=== PATIENT | male | born 1935 | race Caucasian/White ===

== ENCOUNTER → 2018-04-25 14:49 | Outpatient (CLI) | payer OTHER, SELFPAY ==
--- NOTE | 2018-04-25 | DI.US.S_ITS ---
PROCEDURE: US PERIPH VENOUS LOW EXTREM RT INDICATIONS: RT LEG SWELLING TECHNIQUE: Real-time imaging, as well as color and pulse Doppler interrogation, were performed of the lower extremity deep veins from the inguinal ligament to the popliteal fossa. COMPARISON: None. FINDINGS: The deep veins are normally compressible, and free of intraluminal thrombus. Color and pulse Doppler demonstrate normal phasic intraluminal flow. There is normal augmentation response to distal compression maneuver. There is also a heterogeneously hypoechoic, avascular lesion within the popliteal fossa in the posterior lower leg measuring 5.4 x 1.7 x 3.1 cm. IMPRESSION: 1. Negative for deep venous thrombosis in the right lower extremity. 2. Heterogeneous, hypoechoic, avascular lesion in the popliteal fossa measuring 5.4 cm in maximum dimension which may represent a complicated Jurado's cyst versus hematoma. Consider short interval followup ultrasound to document stability versus resolution. Dictated by: Daniel Mckee M.D. on 04/26/2018 at 8:47 Approved by: Daniel Mckee M.D. on 04/26/2018 at 8:49
== END ==
PROVIDERS: Family Provider Internal Medicine; PCP Family Medicine; Visit Provider Family Medicine
DX: M79.89 Other specified soft tissue disorders (principal); M25.861 Other specified joint disorders, right knee
CPT/HCPCS: 93971

== ENCOUNTER 2018-05-05 21:45 | Emergency (ER) | payer OTHER, SELFPAY ==
[2018-05-05 21:50] VITALS: BP 129/59; PULSE 75; RESP 18; TEMP 36.3; O2SAT 98; BMI 29.6
--- NOTE | 2018-05-05 22:05 | DI.RAD.S_ITS ---
PROCEDURE: XR CHEST 2V INDICATIONS: CP, SOB TECHNIQUE: 2 views of the chest were acquired. COMPARISON: [facility], , CHEST 1 VIEW, 12/04/2014, 18:45. FINDINGS: Surgical changes and devices: None. Lungs and pleura: Lungs are clear. No pleural effusions or pneumothorax. Mediastinum: Mediastinal contours are normal. Heart size is normal. Bones and chest wall: No suspicious bony abnormalities. Soft tissues appear unremarkable. IMPRESSION: Negative chest films. Dictated by: Neo Minor M.D. on 05/06/2018 at 9:43 Approved by: Neo Minor M.D. on 05/06/2018 at 9:50
--- NOTE | 2018-05-05 22:16 | ED_ITS ---
HPI - Chest Pain General Chief Complaint: Chest Pain Stated Complaint: legs swelling Time Seen by Provider: 05/05/18 21:49 Source: patient Mode of arrival: ambulatory Limitations: no limitations History of Present Illness HPI narrative: 82M nonsmoker with history of HTN and LBBB presents with B/L LE edma for the past few days. He admits to some fatigue but denies any significant shortness of breath, exertional dyspnea or orthopnea. He states he occasionally has some chest pressure but no significant other cardiac equivalent such as dizziness, weakness or lightheadedness. He was recently evaluated for his right lower extremity edema in the absence of injury and had an outpatient evaluation by his primary care provider including a negative D-dimer and follow up with outpatient ultrasound, which was performed Related Data Home Medications Medication Instructions Recorded Confirmed MULTIVITAMIN (Multivitamin 1 cap PO EVERY DAY #0 06/12/09 -) POTASSIUM CHLORIDE (K-Dur) 20 meq PO EVERY DAY #0 06/12/09 lisinopril mg PO QDAY #0 08/02/10 sertraline 50 mg PO QDAY #0 08/02/10 Previous Rx's Medication Instructions Recorded amoxicillin-pot clavulanate 1 tab PO BID #20 tab 05/05/18 [Augmentin] furosemide [Lasix] 20 mg PO DAILY 5 Days tab 05/05/18 Allergies Allergy/AdvReac Type Severity Reaction Status Date / Time gluten [GLUTEN] Allergy Severe CELIAC Unverified 06/20/17 11:52 DISEASE adhesive [ADHESIVE] Allergy Mild rash from Unverified 06/20/17 11:52 plastic tape iodine [IODINE] Allergy Unknown PT UNSURE Unverified 06/20/17 11:52 OF REACTION peanut [PEANUT] Allergy Unknown ABOMINAL Unverified 06/20/17 11:52 PAIN, SHAKING morphine [MORPHINE] AdvReac Severe VOMITED Unverified 06/20/17 11:52 VIOLENTLY, HAD ABD HERNIAS THAT NEEDED SURGERY. Review of Systems Constitutional Denies chills, Denies fever(s), Denies lethargy and Denies weakness Eyes Denies change in vision, Denies eye discharge, Denies irritation and Denies loss of vision ENT Ears, Nose, Mouth, and Throat: Denies change in voice, Denies neck pain and Denies sore throat Cardiovascular Denies chest pain, Denies irregular heart rhythm, Reports leg edema, Denies lightheadedness, Denies palpitations, Denies dyspnea, Denies dyspnea on exertion and Denies orthopnea Respiratory Denies cough, Denies dyspnea, Denies dyspnea on exertion and Denies wheezing Gastrointestinal Gastrointestinal: Denies abdominal pain, Denies change in bowel habits, Denies diarrhea, Denies nausea and Denies vomiting Genitourinary Denies hematuria, Denies flank pain, Denies urinary incontinence and Denies urinary urgency Musculoskeletal Denies neck pain Integumentary/Breasts Denies pruritus, Denies erythema, Denies rash and Denies wounds Neurologic Denies confusion, Denies loss of vision and Denies weakness Psychiatric Denies anxiety, Denies confusion, Denies depression, Denies homicidal ideation and Denies suicidal ideation Endocrine Denies palpitations Hematologic/Lymphatic Denies easy bruising Allergic/Immunologic Denies wheezing PFSH Medical History HTN (hypertension) (Acute) Social History Smoking Status: Never smoker Social History Smoking Status: Never smoker Exam Narrative Exam Narrative: GENERAL: 82-year-old male appears stated age in no obvious distress HEAD: Atraumatic. Normocephalic. No temporal or scalp tenderness. EYES: Pupils equal round and reactive. Extraocular motions intact. No scleral icterus. No injection or drainage. ENT: Nose without bleeding, purulent drainage or septal hematoma. Throat without erythema, tonsillar hypertrophy or exudate. Uvula midline. Airway patent. NECK: Trachea midline. No JVD or lymphadenopathy. Supple, nontender, no meningeal signs. CARDIOVASCULAR: Regular rate and rhythm without murmurs, gallops, or rubs. RESPIRATORY: Clear to auscultation. Breath sounds equal bilaterally. No wheezes, rales, or rhonchi. GASTROINTESTINAL: Abdomen soft, non-tender, nondistended. No hepato- splenomegaly, or palpable masses. No guarding. EXTREMITIES: 2+ pitting edema B/L LE, no erythema, warmth. There is some tendernoss in R popliteal fossa BACK: Nontender without deformity or crepitance. No flank tenderness. NEURO: AOx3. SKIN: No rash or erythema. Initial Vital Signs Initial Vital Signs: Vital Signs Temperature 97.4 F L 05/05/18 21:50 Pulse Rate 75 02/24/19 21:50 Respiratory Rate 18 05/05/18 21:50 Blood Pressure 129/59 L 05/05/18 21:50 Pulse Oximetry 98 05/05/18 21:50 Course Orders Ordered: ED Orders 05/05/18 22:04 Consult to Respiratory Therapy Evaluate & Treat EKG-12 Lead Stat 05/05/18 22:05 XR chest 2V Stat 05/05/18 22:15 B Type Natriuretic Peptide Stat Basic Metabolic Panel Stat Complete Blood Count AUTO DIFF Stat Lactate (Lactic Acid) Stat Magnesium Stat Procalcitonin Stat Troponin & CK Cardiac Panel Stat 05/05/18 22:16 US periph venous low extrem bi Stat Discontinued Medications Amoxicillin/Clavulanate Potassium (Augmentin 875-125 Mg) 1 tab PO NOW ONE Stop: 05/05/18 23:17 Last Admin: 05/05/18 23:21 Dose: 1 tab Furosemide (Lasix) 20 mg IV NOW ONE Stop: 05/05/18 23:11 Last Admin: 05/05/18 23:22 Dose: 20 mg Vital Signs - 8 hr 05/05/18 21:50 05/05/18 23:53 Temperature 97.4 F L Pulse Rate 75 74 Respiratory Rate 18 20 Blood Pressure 129/59 L 156/94 H Pulse Oximetry 98 97 MDM - Chest Pain Lab Data Result diagrams: 05/05/18 22:15 05/05/18 22:15 Lab Results 05/05/18 05/05/18 05/05/18 Range/Units 22:15 22:15 22:15 WBC 5.0 (4.5-11.0) X10^3/uL RBC 4.50 (4.5-5.9) X10^6/uL Hgb 13.8 (13.5-17.5) g/dL Hct 42.0 (41-53) % MCV 93.4 (80-100) fL MCH 30.8 (26-34) PG MCHC 32.9 (30-36) % RDW 14.2 (11.6-14.8) % Plt Count 168 (150-400) X10^3/uL Neut % (Auto) 72.2 (50-75) % Lymph % (Auto) 15.3 L (25-40) % Gillespie % (Auto) 7.0 (3-14) % Eos % (Auto) 4.2 H (2-4) % Baso % (Auto) 1.3 (0-2) % Neut # (Auto) 3600 (9148-9391) /uL Lymph # (Auto) 800 L (0412-0142) /uL Gillespie # (Auto) 400 (0-900) /uL Eos # (Auto) 200 (0-450) /uL Baso # (Auto) 100 (0-100) /uL Sodium 141 (137-145) mmol/L Potassium 4.0 (3.4-5.1) mmol/L Chloride 106 (98-107) mmol/L Carbon Dioxide 24 (22-32) mmol/L BUN 19 (9-20) mg/dL Creatinine 1.20 (0.66-1.25) mg/dL Estimated GFR 57.8 L (>60) mL/min BUN/Creatinine Ratio 15.8 (6-22) Glucose 146 H (80-110) mg/dL Lactate (0.7-2.1) mmol/L Calcium 9.3 (8.4-10.2) mg/dL Magnesium 2.3 (1.6-2.3) mg/dL Total Creatine Kinase 57 (55-170) U/L CK-MB (CK-2) TNP CK-MB (CK-2) Rel Index TNP Troponin I < 0.012 (0.01-0.034) ng/mL B-Natriuretic Peptide < 100 (<100) Procalcitonin < 0.05 (<0.5) ng/mL 05/05/18 Range/Units 22:15 WBC (4.5-11.0) X10^3/uL RBC (4.5-5.9) X10^6/uL Hgb (13.5-17.5) g/dL Hct (41-53) % MCV (80-100) fL MCH (26-34) PG MCHC (30-36) % RDW (11.6-14.8) % Plt Count (150-400) X10^3/uL Neut % (Auto) (50-75) % Lymph % (Auto) (25-40) % Gillespie % (Auto) (3-14) % Eos % (Auto) (2-4) % Baso % (Auto) (0-2) % Neut # (Auto) (0445-3683) /uL Lymph # (Auto) (0062-6461) /uL Gillespie # (Auto) (0-900) /uL Eos # (Auto) (0-450) /uL Baso # (Auto) (0-100) /uL Sodium (137-145) mmol/L Potassium (3.4-5.1) mmol/L Chloride (98-107) mmol/L Carbon Dioxide (22-32) mmol/L BUN (9-20) mg/dL Creatinine (0.66-1.25) mg/dL Estimated GFR (>60) mL/min BUN/Creatinine Ratio (6-22) Glucose (80-110) mg/dL Lactate 1.1 (0.7-2.1) mmol/L Calcium (8.4-10.2) mg/dL Magnesium (1.6-2.3) mg/dL Total Creatine Kinase (55-170) U/L CK-MB (CK-2) CK-MB (CK-2) Rel Index Troponin I (0.01-0.034) ng/mL B-Natriuretic Peptide (<100) Procalcitonin (<0.5) ng/mL ECG Data Attestation: I personally reviewed and interpreted this ECG as follows: Prior ECG tracings: available for review Interpretation: EKG is normal sinus rhythm rate [ 72] and free of any signs of ischemia or ectopy. LBBB is known. No ST segmental elevation or depression. No T wave inversions Discharge Plan Departure Patient Disposition: Home Clinical Impression: Edema extremities Pneumonia Qualifiers: Pneumonia type: due to unspecified organism Laterality: right Lung location: middle lobe of lung Qualified Code(s): J18.1 - Lobar pneumonia, unspecified organism Discharge Date/Time: 05/05/18 23:53 Interventions: ED Discharge Assessment Last Done: 05/05/18 23:53 Instructions: DI for Peripheral Edema -- Bilateral Activity Restrictions/Additional Instructions: *You have been diagnosed with [ bilateral lower extremity edema ] *What to do: *Take medications as directed *Follow up with your primary care provider in 2-3 days, call for an appointment. Let them know you were seen in the Emergency Department and that we ask that you be seen in follow up *Return to ER if you should have any new, worsening or concerning symptoms Prescriptions: New furosemide [Lasix] 20 mg tablet 20 mg PO DAILY 5 Days RF: 0 amoxicillin-pot clavulanate [Augmentin] 875-125 mg tablet 1 tab PO BID Qty: 20 RF: 0 No Action MULTIVITAMIN (Multivitamin -) 1 cap PO EVERY DAY Qty: 0 RF: 0 POTASSIUM CHLORIDE (K-Dur) 20 meq PO EVERY DAY Qty: 0 RF: 0 sertraline 50 MG tablet 50 mg PO QDAY Qty: 0 RF: 0 lisinopril 2.5 MG tablet PO QDAY Qty: 0 RF: 0 Referrals: Khang Seth MD [Primary Care Provider] -
--- NOTE | 2018-05-05 22:16 | DI.US.S_ITS ---
PROCEDURE: US PERIP VENOUS LOW EXTREM BI INDICATIONS: B/L EDEMA, SWELLING, PAIN, KNOWN RECENT HOLLEY'S CYST ON RT TECHNIQUE: Real-time imaging, as well as color and pulse Doppler interrogation, were performed of the deep veins of both legs from the inguinal ligament to the popliteal fossa. COMPARISON: [facility], , [facility] VENOUS LOW EXTREM RT, 04/25/2018, 15:29. FINDINGS: The deep veins are normally compressible, and free of intraluminal thrombus. Color and pulse Doppler demonstrate normal phasic intravascular flow. There is normal augmentation response to distal compression. Two small fluid collections noted in the right popliteal fossa. There is a 3.2 x 0.8 x 3.1 cm popliteal cyst. There is a 4.2 x 1.4 x 2.9 cm hematoma which is decreased in size compared to 04/25/2018 (5.4 x 1.7 x 3.1 cm). IMPRESSION: No evidence of deep vein thrombosis involving the right or left lower extremities. Dictated by: Jelena Park MD, PhD on 05/06/2018 at 7:04 Approved by: Jelena Park MD, PhD on 05/06/2018 at 7:07
[2018-05-05 22:29] LABS: Add Manual Diff / Slide Review NO; Basophils Absolute Auto 100 /uL (0-100); Basophils Percent Auto 1.3 % (0-2); Eosinophils Absolute Auto 200 /uL (0-450); Eosinophils Percent Auto 4.2 % (2-4); Hemoglobin 13.8 g/dL (13.5-17.5); Lymphocytes Absolute Auto 800 /uL (1100-4500); Lymphocytes Percent Auto 15.3 % (25-40); Mean Corpuscular HGB Conc 32.9 % (30-36); Mean Corpuscular Hemoglobin 30.8 PG (26-34); Mean Corpuscular Volume 93.4 fL (80-100); Monocytes Absolute Auto 400 /uL (0-900); Neutrophils Absolute Auto 3600 /uL (1500-7000); Neutrophils Percent Auto 72.2 % (50-75); Platelet Count 168 X10^3/uL (150-400); Red Cell Distribution Width 14.2 % (11.6-14.8)
[2018-05-05 22:42] LABS: BUN Creatinine Ratio 15.8 (6-22); Blood Urea Nitrogen 19 mg/dL (9-20); Calcium 9.3 mg/dL (8.4-10.2); Carbon Dioxide 24 mmol/L (22-32); Chloride 106 mmol/L (98-107); Creatine Kinase 57 U/L (55-170); Estimated Glomerular Filt Rate 57.8 mL/min (>60); Glucose 146 mg/dL (80-110); HEMOLYSIS < 15 (0-50); Lactate (Lactic Acid) 1.1 mmol/L (0.7-2.1); Magnesium 2.3 mg/dL (1.6-2.3); Sodium 141 mmol/L (137-145)
[2018-05-05 22:52] LABS: B Type Natriuretic Peptide < 100 (<100)
[2018-05-05 22:54] LABS: Procalcitonin < 0.05 ng/mL (<0.5); Troponin I < 0.012 ng/mL (0.01-0.034)
[2018-05-05] MEDS: AMOXICILLIN/CLAV 875/125 MG 1 TAB PO (23:21)
[2018-05-05] MEDS: FUROSEMIDE 20 MG/2 ML VIAL IV (23:22)
[2018-05-05 23:53] VITALS: BP 156/94; PULSE 74; RESP 20; O2SAT 97
== END 2018-05-05 23:53 | disposition home or self-care (01) ==
PROVIDERS: Emergency Provider Emergency Medicine; Family Provider Internal Medicine; PCP Family Medicine
DX: J18.1 Lobar pneumonia, unspecified organism (principal); R60.0 Localized edema
CPT/HCPCS: 36591; 71046; 80048; 82550; 83605; 83735; 83880; 84145; 84484; 85025; 93005; 93010; 93970; 96374; 99283; 99285; J1940

== ENCOUNTER 2018-11-20 14:23 | Day surgery (SDC) | payer OTHER, SELFPAY ==
--- NOTE | 2018-11-20 | PATH_ITS ---
[facility] Accession Number: [id number] . 01 Material submitted: . PART A: body - CELIAC PART B: body - NO SITE DESIGNATED PART C: body - BIOPSY AT 60 . 01 Clinical history: . A: CELIAC B: RULE OUT H.PYLORI POLYP OF COLON, NAUSEA WITH VOMITING, UNSPECIFIED HEMORRHAGE OF ANUS AND RECTUM . 02 Diagnosis: A. Duodenum, Biopsy: Duodenal mucosa with no diagnostic abnormality. Additional levels were examined. Negative for active inflammation, features of sprue, dysplasia and malignancy. . B. Stomach, Biopsy: Antral mucosa with no diagnostic abnormality. Negative for Helicobacter by immunohistochemistry. Negative for intestinal metaplasia. Negative for dysplasia and malignancy. . C. Colon, 60, Biopsy: Tubular adenoma. [facility] 11/25/2018 1348 Local . 02 Electronically signed: . Lucy Villagomez MD, Pathologist NPI- [id number] . 01 Gross description: . Part A: CELIAC: Received in formalin are 2 fragment(s) of dowling, soft tissue measuring 0.1 x 0.1 x 0.1 cm to 0.2 x 0.2 x 0.2 cm which is entirely submitted and submitted entirely in 1 cassette(s) Part B: NO SITE DESIGNATED: Received in formalin are 2 fragment(s) of dowling, soft tissue measuring 0.1 x 0.1 x 0.1 cm to 0.3 x 0.2 x 0.2 cm which is entirely submitted and submitted entirely in 1 cassette(s) Part C: BIOPSY AT 60: Received in formalin is 1 fragment(s) of dowling, soft tissue measuring 0.3 x 0.3 x 0.3 cm which is entirely submitted and submitted entirely in 1 cassette(s) /[facility] 11/21/2018 1901 Local . 02 Microscopic: . B. An immunohistochemical stain was performed to evaluate for Helicobacter organisms and is negative. The control stain showed appropriate reactivity. . * This test was developed and its performance characteristics determined by [facility]. It has not been cleared or approved by the U.S. Food and Drug Administration. The FDA has determined that such clearance or approval is not necessary. This test is used for clinical purposes. It should not be regarded as investigational or for research. . 02 Pathologist provided ICD-10: D12.6, K63.5, R11.2 . 02 CPT . 512703, 736205, 272330, [id number] Performed at: 01 [facility] [address] [place] [address], [place], [place] [id number] MD Alirio Padgett MD Phone: [phone] Performed at: 02 [facility] [address] [place], [place] [id number] MD Lucy Villagomez MD Phone: [phone]
[2018-11-20 15:13] VITALS: BP 129/76; PULSE 62; RESP 16; TEMP 36.3; O2SAT 95; BMI 27.0
[2018-11-20] MEDS: SODIUM CHLORIDE 0.9% 1,000 ML 150 ML IV (15:32)
--- NOTE | 2018-11-20 16:20 | PM.HP.1 ---
History of Present Illness History of Present Illness Date Patient Seen: 11/20/18 Time Patient Seen: 16:22 Chief complaint: [id number] COLONOSCOPY & EGD Narrative: Celiac disease with symptoms of nausea and occasional vomiting rule out uncontrolled celiac History of large adenomatous colon polyps need for follow-up colonoscopy one last time. Occasional rectal bleeding Patient History Medical History (Updated 11/20/18 @ 16:22 by Neo Basurto MD) Adenomatous colon polyp (Acute) HTN (hypertension) (Acute) Kidney stones (Acute) Social History household members: spouse Smoking Status: Never smoker Family & Social History Social History: household members spouse Tobacco & Substance use: Smoking Status Never smoker alcohol intake frequency 0-2 drinks per day Substance Use Type does not use Meds Home Medications and Allergies Home Medications Medication Instructions Recorded Confirmed Type xshdslxirxcr-dccp-[id number] acid 1 tab PO QAM #0 06/12/09 11/20/18 History [Multi Complete with Iron] amoxicillin-pot clavulanate 1 tab PO BID #20 tab 05/05/18 11/20/18 Rx [Augmentin] amiodarone 200 mg PO DAILY 11/20/18 11/20/18 History carbidopa-levodopa 4 tab PO BID 11/20/18 11/20/18 History clonazepam 0.25 mg PO DAILY 11/20/18 11/20/18 History clonazepam 0.5 mg PO DAILY 11/20/18 11/20/18 History montelukast [Singulair] 4 mg PO DAILY 11/20/18 11/20/18 History zonisamide 100 mg PO BID 11/20/18 11/20/18 History Allergies Allergy/AdvReac Type Severity Reaction Status Date / Time gluten [GLUTEN] Allergy Severe CELIAC Verified 11/20/18 15:04 DISEASE adhesive [ADHESIVE] Allergy Mild rash from Verified 11/20/18 15:04 plastic tape iodine [IODINE] Allergy Unknown PT UNSURE Verified 11/20/18 15:04 OF REACTION morphine [MORPHINE] AdvReac Severe VOMITED Verified 11/20/18 15:04 VIOLENTLY, HAD ABD HERNIAS THAT NEEDED SURGERY. Exam Vital Signs (past 8 hours): - 11/20/18 15:13 Temperature 97.4 F L Pulse Rate 62 Respiratory Rate 16 Blood Pressure 129/76 Pulse Oximetry 95 Oxygen Delivery Method Room Air Narrative Exam Narrative: Oropharynx free of lesions Chest clear to auscultation percussion Cardiac exam reveals no S3 or murmur Assessment & Plan Assessment & Plan narrative: Celiac disease adhering to a strict diet but with worsening nausea vomiting. Rule out uncontrolled celiac. Rule out Helicobacter, rule out peptic disease, rule out gastric outlet obstruction History of large adenomatous colon polyps need for follow-up colonoscopy EGD and colonoscopy will be performed today. Risks, benefits, alternatives have been explained. This will be under anesthesia care.
--- NOTE | 2018-11-20 16:24 | PM.OP.ENDO ---
Operative Date/Time/Diagnoses Date of procedure: 11/20/18 Time of procedure: 16:24 Pre-op diagnosis: See indication and findings Procedure & Clinicians Study performed: EGD and colonoscopy Same procedure as scheduled: Yes Indications: Nausea and vomiting with history of celiac. Occasional rectal bleeding. History of adenomatous colon polyps. Surgeon: Neo Basurto Procedure Notes Procedure in detail: After informed consent was obtained the patient was placed in the left lateral decubitus position. The video endoscope was placed into the oropharynx and with the patient's health swallowed into the esophagus. The esophagus stomach and duodenum were carefully examined. On withdrawal retroflexed view the GE junction was performed. The scope was removed. The patient tolerated the procedure well. The colonoscope was then substituted in this was inserted into the rectum and slowly passed to the anastomosis. Preparation was good. On slow withdrawal mucosa was carefully examined. The scope was removed. The patient tolerated procedure well. Blood loss none Complications none Sedation MAC per anesthesia Findings EGD 1. Prominent arterial vascular impingement in the upper esophagus. Patient has no dysphagia 2. No evidence for esophagitis 3. Streaky gastric erythema in the antrum biopsies taken to rule out Helicobacter 4. Normal duodenal bulb and sweep biopsies taken to rule out uncontrolled celiac Colonoscopy 1. 4 mm polyp at 60 cm Jumbo biopsied and removed completely 2. Extensive sigmoid diverticula 3. Normal ileocolonic anastomosis near the hepatic flexure 4. Otherwise negative colonoscopy to cecum. Will be in touch regarding the biopsies by telephone. Results will dictate follow-up. This should be the patient's last colonoscopy.
[2018-11-20 16:26] VITALS: BP 120/72; PULSE 63; RESP 15; O2SAT 90
[2018-11-20 16:27] VITALS: O2SAT 95
[2018-11-20 16:30] VITALS: PULSE 66; RESP 15; O2SAT 94
[2018-11-20 16:35] VITALS: BP 143/71; PULSE 60; RESP 16; O2SAT 97
[2018-11-20 16:49] VITALS: BP 138/78; PULSE 58; RESP 15; TEMP 36.8; O2SAT 99
== END 2018-11-20 17:14 | disposition home or self-care (01) ==
PROVIDERS: Family Provider Internal Medicine; PCP Family Medicine; Visit Provider Internal Medicine Gastroenterology
PROC: 0DJ08ZZ Inspection of Upper Intestinal Tract, Via Natural or Artificial Opening Endoscopic (ICD-10-PCS; CPT 43235; principal; 2018-11-20 15:00)
PROC: 0DJD8ZZ Inspection of Lower Intestinal Tract, Via Natural or Artificial Opening Endoscopic (ICD-10-PCS; CPT 45378; 2018-11-20 15:00)
DX: K62.5 Hemorrhage of anus and rectum (principal); K90.0 Celiac disease; R11.2 Nausea with vomiting, unspecified; K57.30 Diverticulosis of large intestine without perforation or abscess without bleeding; D12.6 Benign neoplasm of colon, unspecified; I10 Essential (primary) hypertension
CPT/HCPCS: 45380; 43239; J2250; J2704; J3010

== ENCOUNTER 2018-12-24 19:14 | Inpatient (IN) | payer OTHER, SELFPAY ==
[2018-12-24 19:21] VITALS: BP 147/76; PULSE 60; RESP 16; TEMP 36.2; O2SAT 98; BMI 28.1
--- NOTE | 2018-12-24 19:23 | DI.RAD.S_ITS ---
PROCEDURE: XR WRIST LT MIN 3V INDICATIONS: fall pain TECHNIQUE: 3 views of the wrist were acquired. COMPARISON: None. FINDINGS: Bones: No fractures or dislocations. No suspicious bony lesions. Mild first carpometacarpal degenerative change. First MTP degenerative change. Soft tissues: No suspicious soft tissue calcifications. IMPRESSION: No evidence acute bony abnormality of the left wrist Dictated by: Neo Minor M.D. on 12/24/2018 at 21:11 Approved by: Neo Minor M.D. on 12/24/2018 at 21:12
--- NOTE | 2018-12-24 19:23 | DI.CT.S_ITS ---
PROCEDURE: CT HEAD/BRAIN WO CON INDICATIONS: fall on asa TECHNIQUE: Noncontrast 4.5 mm thick angled axial sections acquired from the foramen magnum to the vertex, with coronal and sagittal reformats. For radiation dose reduction, the following was used: automated exposure control, adjustment of mA and/or kV according to patient size. COMPARISON: [facility], CT, HEAD WITHOUT CONTRAST, 09/01/2014, 17:03. FINDINGS: Image quality: Excellent. CSF spaces: Basal cisterns are patent. No extra-axial fluid collections. The ventricles are symmetric in size and shape. Brain: No intracranial bleeds or masses. There is cerebral volume loss for age, with resultant ventricular and sulcal prominence. There are periventricular and deep white matter chronic small vessel ischemic changes. There is intracranial internal carotid artery atherosclerosis. Skull and face: Calvarium and visualized facial bones appear intact, without suspicious lesions. Sinuses: Visualized sinuses and mastoids are clear. IMPRESSION: 1. Age related volume loss 2. No evidence acute stroke, hemorrhage, or mass. Dictated by: Neo Minor M.D. on 12/24/2018 at 19:51 Approved by: Neo Minor M.D. on 12/24/2018 at 19:52
--- NOTE | 2018-12-24 19:23 | DI.RAD.S_ITS ---
PROCEDURE: XR SHOULDER LT MIN 2V INDICATIONS: fall pain TECHNIQUE: 2 views of the shoulder were acquired. COMPARISON: [facility], , SHOULDER MINIMUM 2 VIEW LEFT, 11/27/2010, 20:13. FINDINGS: Bones: No fractures or dislocations. No suspicious bony lesions. Visualized ribs appear intact. Severe glenohumeral joint degenerative change. Soft tissues: Calcific bursitis. IMPRESSION: No evidence acute bony abnormality of the left shoulder. Severe glenohumeral joint degenerative change and calcific bursitis. Dictated by: Neo Minor M.D. on 12/24/2018 at 21:14 Approved by: Neo Minor M.D. on 12/24/2018 at 21:15
--- NOTE | 2018-12-24 19:23 | DI.RAD.S_ITS ---
PROCEDURE: XR HIP W PEL IF DONE LT 2V INDICATIONS: fall pain left hip pain TECHNIQUE: 2 views of the hip were acquired. COMPARISON: None. FINDINGS: Bones: Probable nondisplaced subcapital fracture of the left femoral neck. No suspicious bony lesions. The visualized pelvic ring appears intact. Soft tissues: No suspicious soft tissue calcifications or masses. IMPRESSION: Probable nondisplaced subcapital fracture of the left femoral neck. Severe left hip degenerative change. Comment: Findings were discussed with Dr. Way at the time of study dictation. Dictated by: Neo Minor M.D. on 12/24/2018 at 21:07 Approved by: Neo Minor M.D. on 12/24/2018 at 21:10
--- NOTE | 2018-12-24 19:25 | ED.LOWEXIN ---
HPI - Extremity Injury (Lower) General Chief Complaint: Extremity Injury, Lower Stated Complaint: GLF-Head injury/hip Pain Time Seen by Provider: 12/24/18 19:23 Source: EMS Mode of arrival: EMS Limitations: no limitations History of Present Illness HPI Narrative: Patient is a 83-year-old male who presents after a ground level fall. He was holding the door open for his another couple to go into a restaurant the cement ground is on even his toe caught he slipped and fell landing on his left side. He did hit his head he does take aspirin daily no loss of consciousness. His biggest complaint is left hip pain. He is also having some left shoulder pain and left wrist pain. No numbness or tingling. MD complaint: hip injury Context: fall Related Data Home Medications Medication Instructions Recorded Confirmed lrgndwzuhade-orkq-ryxab acid 1 tab PO QAM #0 06/12/09 11/20/18 [Multi Complete with Iron] amiodarone 200 mg PO DAILY 11/20/18 11/20/18 carbidopa-levodopa 4 tab PO BID 11/20/18 11/20/18 clonazepam 0.25 mg PO DAILY 11/20/18 11/20/18 clonazepam 0.5 mg PO DAILY 11/20/18 11/20/18 montelukast [Singulair] 4 mg PO DAILY 11/20/18 11/20/18 zonisamide 100 mg PO BID 11/20/18 11/20/18 Previous Rx's Medication Instructions Recorded amoxicillin-pot clavulanate 1 tab PO BID #20 tab 05/05/18 [Augmentin] Allergies Allergy/AdvReac Type Severity Reaction Status Date / Time gluten [GLUTEN] Allergy Severe CELIAC Verified 12/24/18 19:21 DISEASE adhesive [ADHESIVE] Allergy Mild rash from Verified 12/24/18 19:21 plastic tape iodine [IODINE] Allergy Unknown PT UNSURE Verified 12/24/18 19:21 OF REACTION morphine [MORPHINE] AdvReac Severe VOMITED Verified 12/24/18 19:21 VIOLENTLY, HAD ABD HERNIAS THAT NEEDED SURGERY. Review of Systems Review of Systems ROS Unobtainable: All systems reviewed & are unremarkable except as noted in HPI and below Constitutional Constitutional: Denies chills, Denies fever(s), Denies lethargy and Denies weakness Eyes Eyes: Denies change in vision, Denies eye discharge, Denies irritation and Denies loss of vision Cardiovascular Cardiovascular: Denies chest pain, Denies irregular heart rhythm, Denies lightheadedness, Denies palpitations, Denies dyspnea, Denies dyspnea on exertion and Denies orthopnea Respiratory Respiratory: Denies cough, Denies dyspnea, Denies dyspnea on exertion and Denies wheezing Gastrointestinal Gastrointestinal: Denies abdominal pain, Denies change in bowel habits, Denies diarrhea, Denies nausea and Denies vomiting Genitourinary Genitourinary: Denies hematuria, Denies flank pain, Denies urinary incontinence and Denies urinary urgency Musculoskeletal Musculoskeletal: Reports as per HPI Integumentary/Breasts Comments: Contusion noted left forehead Neurologic Neurologic: Denies loss of vision and Denies weakness Endocrine Endocrine: Denies palpitations Allergic/Immunologic Allergic/Immunologic: Denies wheezing Patient History Medical History (Updated 12/25/18 @ 01:20 by Cori Mayo RN) Adenomatous colon polyp (Acute) HTN (hypertension) (Acute) Kidney stones (Acute) Social History household members: spouse and children Smoking Status: Former smoker Social History household members: spouse and children Smoking Status: Former smoker alcohol intake frequency: 0-2 drinks per day Substance Use Type: does not use Exam Initial Vital Signs Initial Vital Signs: Vital Signs Temperature 97.1 F L 12/24/18 19:21 Pulse Rate 60 12/24/18 19:21 Respiratory Rate 16 12/24/18 19:21 Blood Pressure 147/76 H 12/24/18 19:21 Pulse Oximetry 98 12/24/18 19:21 GENERAL: Alert pleasant elderly male HEENT: Head contusion over left forehead no crepitations or depression,EOMI, pupils reactive, face symmetric, moist mucous membranes NECK: No vertebral tenderness no step-off full range of motion CARDIOVASCULAR: Regular rate and rhythm without murmurs, rubs or gallops. RESPIRATORY: Breath sounds equal bilaterally, no wheezes rales or rhonchi. ABDOMEN: Soft, nontender. Normoactive bowel sounds all 4 quadrants. No guarding or rebound. EXTREMITIES: Normal range of motion, no clubbing or edema. Neurovascularly intact Tender left shoulder no gross bony. Deformity no clavicle step-offs tender left wrist a good distal radial pulse no gross bony deformities slightly tender to touch minimal swelling Left lower extremity swelling and pain at left hip. Legs are of equal length distal pedal pulse intact NEUROLOGICAL: Alert and oriented x4. Normal speech SKIN: Warm, dry, no laceration, no petechiae, no rashes or lesions. Chest Chest: normal inspection of the chest Course Orders Ordered: ED Orders 12/24/18 19:23 CT head/brain wo con Stat XR hip w pel if done LT 2V Stat XR shoulder LT min 2V Stat XR wrist LT min 3V Stat 12/24/18 20:34 Complete Blood Count AUTO DIFF Stat Comprehensive Metabolic Panel Stat Partial Thromboplastin Time Stat Prothrombin Time INR Stat 12/24/18 21:10 CT pelvis wo con Stat 12/24/18 21:44 Education, smoking cessation ONGOING 12/24/18 21:49 Consult to Discharge Planning Routine 12/24/18 21:50 Consult to Physician Routine 12/24/18 22:21 Consult to Orthopedic Surgery Stat 12/25/18 05:00 Basic Metabolic Panel Routine Complete Blood Count AUTO DIFF Routine Al Hydrox/Mg Hydrox/Simethicone (Maalox Plus) 30 ml PO Q6HR PRN PRN Reason: Dyspepsia Last Admin: 12/25/18 01:02 Dose: 30 ml Documented by: TAJ Amiodarone HCl (Cordarone) 200 mg PO DAILY TAWANDA Bisacodyl (Dulcolax) 10 mg PO DAILY PRN PRN Reason: Constipation Calcium Carbonate (Tums) 1,000 mg PO Q4HR PRN PRN Reason: Dyspepsia Last Admin: 12/24/18 23:26 Dose: 1,000 mg Documented by: MMCFARL Carbidopa/Levodopa (Sinemet 25-100 Tab) 4 each PO BID TAWANDA Last Admin: 12/24/18 22:38 Dose: 4 each Documented by: MMCFARL Docusate Sodium (Colace) 100 mg PO BID PRN PRN Reason: Constipation Heparin Sodium (Porcine) (Heparin) 5,000 unit SUBCUT BID TAWANDA Hydromorphone HCl (Dilaudid) 0.5 mg IV Q6HR PRN PRN Reason: Pain, Moderate (4-6) Last Admin: 12/25/18 00:30 Dose: 0.5 mg Documented by: Admin: 12/24/18 22:35 Dose: 0.5 mg Documented by: MMCFARL Hydromorphone HCl (Dilaudid) 1 mg IV Q6HR PRN PRN Reason: Pain, Severe (7-10) Sodium Chloride (Normal Saline 0.9%) 1,000 mls @ 100 mls/hr IV CONT TAWANDA Last Admin: 12/25/18 00:23 Dose: 100 mls/hr Documented by: TAJ Ondansetron HCl (Zofran) 4 mg IV Q8HR PRN PRN Reason: Nausea And Vomiting Pantoprazole Sodium (Protonix) 40 mg PO 0700 TAWANDA Zonisamide (Zonegran) 100 mg PO BID TAWANDA Last Admin: 12/25/18 02:31 Dose: Not Given Documented by: TAJ Discontinued Medications Fentanyl (Sublimaze) 50 mcg IV NOW ONE Stop: 12/24/18 19:49 Last Admin: 12/24/18 19:58 Dose: 50 mcg Documented by: GREGORIAFARL Hydromorphone HCl (Dilaudid) 0.5 mg IV NOW ONE Stop: 12/24/18 21:16 Last Admin: 12/24/18 21:25 Dose: 0.5 mg Documented by: EAN Ranitidine HCl (Zantac) 150 mg PO NOW ONE Stop: 12/25/18 01:07 Last Admin: 12/25/18 01:41 Dose: 150 mg Documented by: TAJ Vital Signs Vital signs: Vital Signs - 8 hr 12/24/18 19:21 Temperature 97.1 F L Pulse Rate 60 Respiratory Rate 16 Blood Pressure 147/76 H Pulse Oximetry 98 MDM - Extremity Injury (Lower) Lab Data Attestation: I reviewed the patient's lab results. Result diagrams: 12/24/18 20:34 12/24/18 20:34 Labs: Lab Results 12/24/18 12/24/18 12/24/18 Range/Units 20:34 20:34 20:34 WBC 4.8 (4.5-11.0) X10^3/uL RBC 4.24 L (4.5-5.9) X10^6/uL Hgb 13.2 L (13.5-17.5) g/dL Hct 39.9 L (41-53) % MCV 94.0 (80-100) fL MCH 31.2 (26-34) PG MCHC 33.2 (30-36) % RDW 14.2 (11.6-14.8) % Plt Count 136 L (150-400) X10^3/uL Neut % (Auto) 66.1 (50-75) % Lymph % (Auto) 21.1 L (25-40) % [place] % (Auto) 6.9 (3-14) % Eos % (Auto) 4.3 H (2-4) % Baso % (Auto) 1.6 (0-2) % Neut # (Auto) 3200 (2437-3581) /uL Lymph # (Auto) 1000 L (7474-7606) /uL [place] # (Auto) 300 (0-900) /uL Eos # (Auto) 200 (0-450) /uL Baso # (Auto) 100 (0-100) /uL PT 11.9 (10.1-12.7) SECONDS INR 1.0 (0.9-1.3) APTT 32 (26.4-36.2) SECONDS Sodium 141 (137-145) mmol/L Potassium 4.0 (3.4-5.1) mmol/L Chloride 108 H (98-107) mmol/L Carbon Dioxide 25 (22-32) mmol/L BUN 17 (9-20) mg/dL Creatinine 1.00 (0.66-1.25) mg/dL Estimated GFR > 60.0 (>60) mL/min BUN/Creatinine Ratio 17.0 (6-22) Glucose 101 (80-110) mg/dL Calcium 8.8 (8.4-10.2) mg/dL Total Bilirubin 0.5 (0.2-1.3) mg/dL AST 21 (17-59) IU/L ALT 13 L (21-72) IU/L Alkaline Phosphatase 66 (38-126) U/L Total Protein 6.5 (6.3-8.2) g/dL Albumin 3.9 (3.5-5.0) g/dL Globulin 2.6 (1.7-4.1) g/dL Albumin/Globulin Ratio 1.5 (1.0-2.8) Imaging Data CT scan - head: Radiologist's impression: PROCEDURE: CT HEAD/BRAIN WO CON INDICATIONS: fall on asa TECHNIQUE: Noncontrast 4.5 mm thick angled axial sections acquired from the foramen magnum to the vertex, with coronal and sagittal reformats. For radiation dose reduction, the following was used: automated exposure control, adjustment of mA and/or kV according to patient size. COMPARISON: Located Within [facility], CT, HEAD WITHOUT CONTRAST, 09/01/2014, 17:03. FINDINGS: Image quality: Excellent. CSF spaces: Basal cisterns are patent. No extra-axial fluid collections. The ventricles are symmetric in size and shape. Brain: No intracranial bleeds or masses. There is cerebral volume loss for age, with resultant ventricular and sulcal prominence. There are periventricular and deep white matter chronic small vessel ischemic changes. There is intracranial internal carotid artery atherosclerosis. Skull and face: Calvarium and visualized facial bones appear intact, without suspicious lesions. Sinuses: Visualized sinuses and mastoids are clear. IMPRESSION: 1. Age related volume loss 2. No evidence acute stroke, hemorrhage, or mass. Dictated by: Neo Minor M.D. on 12/24/2018 at 19:51 left hip: Radiologist's impression: PROCEDURE: CT HEAD/BRAIN WO CON INDICATIONS: fall on asa TECHNIQUE: Noncontrast 4.5 mm thick angled axial sections acquired from the foramen magnum to the vertex, with coronal and sagittal reformats. For radiation dose reduction, the following was used: automated exposure control, adjustment of mA and/or kV according to patient size. COMPARISON: Located Within [facility], CT, HEAD WITHOUT CONTRAST, 09/01/2014, 17:03. FINDINGS: Image quality: Excellent. CSF spaces: Basal cisterns are patent. No extra-axial fluid collections. The ventricles are symmetric in size and shape. Brain: No intracranial bleeds or masses. There is cerebral volume loss for age, with resultant ventricular and sulcal prominence. There are periventricular and deep white matter chronic small vessel ischemic changes. There is intracranial internal carotid artery atherosclerosis. Skull and face: Calvarium and visualized facial bones appear intact, without suspicious lesions. Sinuses: Visualized sinuses and mastoids are clear. IMPRESSION: 1. Age related volume loss 2. No evidence acute stroke, hemorrhage, or mass. Dictated by: Neo Minor M.D. on 12/24/2018 at 19:51 shoulder left: Radiologist's impression: PROCEDURE: XR SHOULDER LT MIN 2V INDICATIONS: fall pain TECHNIQUE: 2 views of the shoulder were acquired. COMPARISON: Located Within [facility], , SHOULDER MINIMUM 2 VIEW LEFT, 11/27/2010, 20:13. FINDINGS: Bones: No fractures or dislocations. No suspicious bony lesions. Visualized ribs appear intact. Severe glenohumeral joint degenerative change. Soft tissues: Calcific bursitis. IMPRESSION: No evidence acute bony abnormality of the left shoulder. Severe glenohumeral joint degenerative change and calcific bursitis. Dictated by: Neo Minor M.D. on 12/24/2018 at 21:14 left wrist: Radiologist's impression: PROCEDURE: XR WRIST LT MIN 3V INDICATIONS: fall pain TECHNIQUE: 3 views of the wrist were acquired. COMPARISON: None. FINDINGS: Bones: No fractures or dislocations. No suspicious bony lesions. Mild first carpometacarpal degenerative change. First MTP degenerative change. Soft tissues: No suspicious soft tissue calcifications. IMPRESSION: No evidence acute bony abnormality of the left wrist Dictated by: Neo Minor M.D. on 12/24/2018 at 21:[address]: Radiologist's impression: PROCEDURE: CT PEL WO CON INDICATIONS: left hip pain ?sub cap TECHNIQUE: Noncontrast 3 mm axial sections acquired through the bony pelvis, with coronal and sagittal reformatting. COMPARISON: Located Within [facility], , XR HIP W PEL IF DONE LT 2V, 12/24/2018, 19:23. FINDINGS: Image quality: Excellent. Bones: Subtle nondisplaced left femoral neck fracture, severe left hip degenerative arthritis. No other fractures or dislocations. Lower lumbar fusion. Soft tissues: Unremarkable IMPRESSION: Subtle nondisplaced left femoral neck fracture, severe left hip degenerative arthritis. Dictated by: Neo Minor M.D. on 12/24/2018 at 22:01 ECG Data Attestation: I personally reviewed and interpreted this ECG as follows: Prior ECG tracings: available for review Interpretation: Sinus rhythm left bundle branch block noted no ST changes similar to previous EKG MDM Narrative Medical decision making narrative: Initial x-ray was suspicious for possible fracture. Patient has obvious pain and neck to have fracture. CT does confirm a femoral neck fracture. Kerwin GILLIAM updated patient's symptoms test results in the ED to see and evaluate patient. Dr. [facility] updated on patient's symptoms may go to OR tomorrow however may also be the following day. Recommends continuing Parkinson's medication. Patient took many of his home acid reflux medications and then started having chest pain. EKG shows left bundle-branch block no changes from prior. Discharge Plan Departure Patient Disposition: Admitted As Inpatient Clinical Impression: Fracture of femoral neck, left Discharge Date/Time: 12/24/18 23:45 Admit Date/Time: 12/24/18 22:50 Admit Provider: Wilson Suresh
[2018-12-24] MEDS: fentaNYL 100 MCG/2 ML INJ 50 MCG IV (19:58)
--- NOTE | 2018-12-24 20:36 | PC.NURSE ---
PT states left hip, wrist and shoulder pain post glf. 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 Pt takes aspirin daily denies LOC. Pt has hematoma to left forehead, swelling to left wrist and hip. Left radial and pedal pulse present upon palp.
[2018-12-24 20:41] LABS: Add Manual Diff / Slide Review NO; Basophils Absolute Auto 100 /uL (0-100); Basophils Percent Auto 1.6 % (0-2); Eosinophils Absolute Auto 200 /uL (0-450); Eosinophils Percent Auto 4.3 % (2-4); Hematocrit 39.9 % (41-53); Hemoglobin 13.2 g/dL (13.5-17.5); Lymphocytes Absolute Auto 1000 /uL (1100-4500); Lymphocytes Percent Auto 21.1 % (25-40); Mean Corpuscular HGB Conc 33.2 % (30-36); Mean Corpuscular Hemoglobin 31.2 PG (26-34); Monocytes Absolute Auto 300 /uL (0-900); Monocytes Percent Auto 6.9 % (3-14); Neutrophils Absolute Auto 3200 /uL (1500-7000); Neutrophils Percent Auto 66.1 % (50-75); Platelet Count 136 X10^3/uL (150-400); Red Blood Cell Count 4.24 X10^6/uL (4.5-5.9); Red Cell Distribution Width 14.2 % (11.6-14.8); White Blood Cell Count 4.8 X10^3/uL (4.5-11.0)
[2018-12-24 20:47] LABS: Prothrombin Time 11.9 SECONDS (10.1-12.7)
[2018-12-24 20:50] LABS: PTT Partial Thromboplastin Tim 32 SECONDS (26.4-36.2)
[2018-12-24 20:51] LABS: Alanine Aminotransferase 13 IU/L (21-72); Albumin 3.9 g/dL (3.5-5.0); Albumin Globulin Ratio 1.5 (1.0-2.8); Alkaline Phosphatase 66 U/L (38-126); Aspartate Aminotransferase 21 IU/L (17-59); Bilirubin Total 0.5 mg/dL (0.2-1.3); Blood Urea Nitrogen 17 mg/dL (9-20); Calcium 8.8 mg/dL (8.4-10.2); Carbon Dioxide 25 mmol/L (22-32); Chloride 108 mmol/L (98-107); Estimated Glomerular Filt Rate > 60.0 mL/min (>60); Globulin 2.6 g/dL (1.7-4.1); Glucose 101 mg/dL (80-110); HEMOLYSIS < 15 (0-50); Sodium 141 mmol/L (137-145); Total Protein 6.5 g/dL (6.3-8.2)
--- NOTE | 2018-12-24 21:10 | DI.CT.S_ITS ---
PROCEDURE: CT PEL WO CON INDICATIONS: left hip pain ?sub cap TECHNIQUE: Noncontrast 3 mm axial sections acquired through the bony pelvis, with coronal and sagittal reformatting. COMPARISON: [facility], CR, XR HIP W PEL IF DONE LT 2V, 12/24/2018, 19:23. FINDINGS: Image quality: Excellent. Bones: Subtle nondisplaced left femoral neck fracture, severe left hip degenerative arthritis. No other fractures or dislocations. Lower lumbar fusion. Soft tissues: Unremarkable IMPRESSION: Subtle nondisplaced left femoral neck fracture, severe left hip degenerative arthritis. Dictated by: Neo Minor M.D. on 12/24/2018 at 22:01 Approved by: Neo Minor M.D. on 12/24/2018 at 22:03
[2018-12-24] MEDS: HYDROMORPHONE 0.5 MG INJ IV (21:25)
[2018-12-24] MEDS: HYDROMORPHONE 1 MG INJ 0.5 MG IV (22:35)
[2018-12-24] MEDS: CARBIDOPA-LEVODOPA 25/100 TABLET 4 EACH PO (22:38)
--- NOTE | 2018-12-24 23:00 | PC.NURSE ---
PT states abd epigastric discomfort and requesting tums, pt given tums per admission order and elevated HOB. Provider notified and EKG performed.
[2018-12-24] MEDS: CALCIUM CARBONATE 500 MG TAB 1000 MG PO (23:26)
[2018-12-24 23:45] VITALS: BP 118/62; PULSE 56; RESP 18; O2SAT 96
[2018-12-25] VITALS (10 sets, daily range): BP systolic 129–153; BP diastolic 64–83; PULSE 54–71; RESP 16–20; TEMP 36.3–37.3; O2SAT 93–99; BMI 28.1
[2018-12-25] MEDS: SODIUM CHLORIDE 0.9% 1,000 ML 100 ML IV ×3 (00:23→22:26)
[2018-12-25] MEDS: HYDROMORPHONE 1 MG INJ 0.5 MG IV (00:30)
[2018-12-25] MEDS: MAG HYDROX/ALUM/SIMETH 30 ML UDC PO (01:02)
[2018-12-25] MEDS: HYDROMORPHONE 0.5 MG INJ IV ×2 (04:25→12:45)
[2018-12-25] MEDS: CALCIUM CARBONATE 500 MG TAB 1000 MG PO (04:25)
--- NOTE | 2018-12-25 05:13 | PM.HP.1 ---
History of Present Illness History of Present Illness Date Patient Seen: 12/24/18 Time Patient Seen: 23:00 Chief complaint: GLF-Head injury/hip Pain Narrative: Mr. 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 Patient landed on his left side with immediate left hip pain left shoulder pain and struck his. The patient's stay no loss conscious and denies neck or back pain. Patient hence no recent complaints of fevers or chills, headaches or dizziness, chest pain or palpitations with history of paroxysmal atrial fibrillation, no shortness of breath, cough or wheezing. He reports no complaints of abdominal pain, nausea vomiting, changes in bowel or bladder habits. The patient is normally ambulatory at baseline and independent in all ADLs. He does have tremors related to his Parkinson's disease. Upon arrival the patient is afebrile with a temperature of 97.1?, heart rate of 60, blood pressure 147/76, respirations of 16 saturating 90% on room air. A CT of the head is obtained related to fall and head contusion on aspirin and found to have no acute intercranial pathology with age-related volume loss. Imaging of the left hip demonstrate a subcapital femoral neck impaction fracture. On laboratory tests the patient has white count of 4.8, hemoglobin of 13.2, hematocrit of 39.9 and platelets of 138. He has a PT of 11.9 and a PTT of 32 with an INR 1.0. His electrolytes are within normal range knee has a BUN of 17 and creatinine 1.0. His nonfasting glucose is 101. His liver functions are all within normal range. The patient is admitted for left hip fracture with consult to Dr. Jimenes orthopedics. Patient History Medical History (Updated 12/25/18 @ 05:36 by TAWANA Funk) Adenomatous colon polyp (Acute) Atrial fibrillation (Inactive) CAD (coronary artery disease) (Acute) Celiac disease (Acute) Compression fracture of L1 lumbar vertebra (Acute) GERD (gastroesophageal reflux disease) (Acute) HTN (hypertension) (Acute) Kidney stones (Acute) Parkinsons disease (Acute) Surgical History (Updated 10/16/19 @ 05:36 by TAWANA Funk) History of cholecystectomy (Acute) History of colonoscopy (Acute) History of esophagogastroduodenoscopy (EGD) (Acute) History of hernia repair (Acute) History of lumbar fusion (Acute) History of right hemicolectomy (Acute) Social History household members: spouse and children Smoking Status: Former smoker Family & Social History Social History: household members spouse,children Prior Living Arrangements House Safety & Behavioral: Feels Safe in Current Yes Environment Been Physically Hurt or No Threatened By a Person Suicidal Ideation Description None Suicide Plan Description No Plan Tobacco & Substance use: Tobacco type cigarettes Smoking Status Former smoker alcohol intake frequency a few times a month Substance Use Type does not use Comment: The patient lives in a single family home with his to whom he has been for 60 years. He reports family history was father passing away from intracranial bleed secondary to trauma, his mother who when he was 2 years old from complications of surgery with peritonitis, a half brother who has heart disease and a sister who has asthma. Smoking: The patient smoked for 10 years quitting 54 years ago. Alcohol: Patient endorses approximately 4 drinks per week. Substance use: The patient denies recreation pharmaceuticals, herbal or cannabis products. Advanced directives: The patient states he has formal advanced directives and states his desire to be FULL CODE. He designates his to be his surrogate decision maker. Meds Home Medications and Allergies Home Medications Medication Instructions Recorded Confirmed Type tyawzrtireon-rkzm-kiqtq acid 1 tab PO QAM #0 06/12/09 12/25/18 History [Multi Complete with Iron] amiodarone 200 mg PO DAILY 11/20/18 12/25/18 History carbidopa-levodopa 4 tab PO BID 11/20/18 12/25/18 History clonazepam 0.25 mg PO DAILY 11/20/18 12/25/18 History clonazepam 0.5 mg PO DAILY 11/20/18 12/25/18 History montelukast [Singulair] 4 mg PO DAILY 11/20/18 12/25/18 History zonisamide 100 mg PO BID 11/20/18 12/25/18 History Allergies Allergy/AdvReac Type Severity Reaction Status Date / Time gluten [GLUTEN] Allergy Severe CELIAC Verified 12/24/18 19:21 DISEASE adhesive [ADHESIVE] Allergy Mild rash from Verified 12/24/18 19:21 plastic tape iodine [IODINE] Allergy Unknown PT UNSURE Verified 12/24/18 19:21 OF REACTION morphine [MORPHINE] AdvReac Severe VOMITED Verified 12/24/18 19:21 VIOLENTLY, HAD ABD HERNIAS THAT NEEDED SURGERY. Review of Systems Review of Systems ROS Unobtainable: All systems reviewed & are unremarkable except as noted in HPI and below Exam Vital Signs (past 8 hours): - 12/24/18 23:45 12/25/18 00:25 12/25/18 01:00 Temperature 98.5 F Pulse Rate 56 L 71 Respiratory Rate 18 16 Blood Pressure 153/80 H Blood Pressure [Left Arm] 118/62 Pulse Oximetry 96 98 98 Oxygen Delivery Method Room Air Oxygen Flow Rate 0 Narrative Exam Narrative: GENERAL APPEARANCE: well developed, well nourished, in moderate discomfort. HEENT: Contusion over left eye, mild swelling of the left eyelid, no crepitus, PERRLA, conjunctiva clear, EOMs intact without nystagmus, no rhinorrhea or epistaxis, mucous membranes are moist and pink without lesions or exudate. NECK/THYROID: neck supple, no muscle spasms or step-offs, no JVD, no carotid bruit, no thyromegaly, trachea midline. LYMPH NODES: no cervical or supraclavicular lymphadenopathy. SKIN: warm and dry, no suspicious lesions, no rashes HEART: regular rate and rhythm, S1-S2, no murmur, no rubs or gallops, brisk capillary refill, no edema LUNGS: clear to auscultation bilaterally, no coarseness crackles or wheezing, no cough present CHEST: Symmetrical movement, no accessory muscle use, no pain to AP and lateral compression. ABDOMEN: Soft, no distention, no abdominal tenderness, no guarding or peritoneal signs, no organomegaly, active bowel tones. BACK: Normal curvature, nontender to palpation, no CVA tenderness on percussion EXTREMITIES: Pain with movement of left leg, pain on palpation left hip distal CMS intact. NEUROLOGIC: AAO x4, moderate tremors bilateral upper extremities, cranial nerves II-XII grossly intact, sensation intact to light touch, hearing grossly normal to speech. PSYCH: alert, cognitive function intact, good eye contact, appropriate with stable behavior Objective Labs Result Diagrams: 12/24/18 20:34 12/24/18 20:34 Labs: Laboratory Results - last 24 hr 12/24/18 12/24/18 12/24/18 20:34 20:34 20:34 WBC 4.8 RBC 4.24 L Hgb 13.2 L Hct 39.9 L MCV 94.0 MCH 31.2 MCHC 33.2 RDW 14.2 Plt Count 136 L Neut % (Auto) 66.1 Lymph % (Auto) 21.1 L [place] % (Auto) 6.9 Eos % (Auto) 4.3 H Baso % (Auto) 1.6 Neut # (Auto) 3200 Lymph # (Auto) 1000 L [place] # (Auto) 300 Eos # (Auto) 200 Baso # (Auto) 100 PT 11.9 INR 1.0 APTT 32 Sodium 141 Potassium 4.0 Chloride 108 H Carbon Dioxide 25 BUN 17 Creatinine 1.00 Estimated GFR > 60.0 BUN/Creatinine Ratio 17.0 Glucose 101 Calcium 8.8 Total Bilirubin 0.5 AST 21 ALT 13 L Alkaline Phosphatase 66 Total Protein 6.5 Albumin 3.9 Globulin 2.6 Albumin/Globulin Ratio 1.5 Assessment & Plan Assessment & Plan narrative: This is an 83-year-old male patient who presents to the ER following a ground level fall landing on his left side sustaining a subcapital fracture of the left femoral neck. 1. Subcapital fracture left femoral neck, acute, present on admission, active -hip fracture with ground level fall consistent with diagnosis of osteoporosis. -patient with intact distal circulation movement sensation -ordered Dilaudid 0.5-1 mg every 4 hours as needed for pain -Dr. Jimenes has been consulted and we appreciate her recommendations for care. -patient is NPO pending possible surgical intervention. 2. Paroxysmal atrial fibrillation, chronic, stable -patient is in sinus bradycardia with left bundle branch block and left axis deviation. -patient under the care Cardiology, will continue current dose amiodarone 100 mg daily. 3. Parkinson's disease, chronic, present on admission, stable -patient denies falls or gait disturbance and tonight's incident was a mechanical trip and fall. Reports no difficulty chewing or swallowing. -continue patient's home regimen of of carbidopa levodopa, 4 tablets of 25-100 twice daily. 4. Gastroesophageal reflux disorder, chronic, present on admission, active -patient has been treating with oknx-mwo-wxiyhau medications at home. -will start pantoprazole 40 mg daily. 5. Essential hypertension, chronic, present on admission, active -admitting blood pressure is 147/76. -patient is not currently on blood pressure medication. Blood pressure elevated presently related to pain, will continue to monitor. 6. Celiac disease, chronic, present on admission, active -will request dietary consult. The patient is admitted to the hospital related to femoral neck fracture pending evaluation by Dr. Jimenes. Patient is admitted as an inpatient with expected length of stay to be greater than 2 midnights. Scores GCS Monster coma scale eye opening: Spontaneous Monster coma scale verbal response: Orientated [place] coma scale motor response: Obey commands [place] coma scale total score: 15 Quality VTE Deep Vein Thrombosis/Pulmonary Embolism Present on Admission: No
--- NOTE | 2018-12-25 05:58 | PC.NURSE ---
Pt admitted to floor at 0015. A&O x4, Reports pain 10/10 with movement to left hip, pain 5/10 at rest. CMS intact to LLE. Pt on bedrest. Pain tolerable with IV pain med. Pt NPO for surgical consult in AM. Pt with Hx Parkinson, restless leg, Tim's palsey with left eye droop, Celiac disease. Pt reports even a tiny bit of gluten and I have violent diarrhea for days. Pt ordered for Dietary consult before first meal. Pt with long hx severe chronic heartburn, on PRN maalox and tums. Clarify Zonegran medication with pharmacy. Last dose 12/24at 1600.
[2018-12-25 06:00] LABS: Add Manual Diff / Slide Review NO; Basophils Absolute Auto 0 /uL (0-100); Basophils Percent Auto 0.8 % (0-2); Eosinophils Absolute Auto 100 /uL (0-450); Eosinophils Percent Auto 1.6 % (2-4); Hematocrit 38.9 % (41-53); Hemoglobin 13.1 g/dL (13.5-17.5); Lymphocytes Absolute Auto 700 /uL (1100-4500); Lymphocytes Percent Auto 12.6 % (25-40); Mean Corpuscular HGB Conc 33.8 % (30-36); Mean Corpuscular Hemoglobin 31.7 PG (26-34); Monocytes Absolute Auto 500 /uL (0-900); Monocytes Percent Auto 9.3 % (3-14); Neutrophils Absolute Auto 4300 /uL (1500-7000); Neutrophils Percent Auto 75.7 % (50-75); Platelet Count 114 X10^3/uL (150-400); Red Blood Cell Count 4.14 X10^6/uL (4.5-5.9); Red Cell Distribution Width 13.9 % (11.6-14.8); White Blood Cell Count 5.6 X10^3/uL (4.5-11.0)
[2018-12-25 06:04] LABS: BUN Creatinine Ratio 18.9 (6-22); Blood Urea Nitrogen 17 mg/dL (9-20); Calcium 8.7 mg/dL (8.4-10.2); Carbon Dioxide 26 mmol/L (22-32); Chloride 108 mmol/L (98-107); Estimated Glomerular Filt Rate > 60.0 mL/min (>60); Glucose 126 mg/dL (80-110); HEMOLYSIS < 15 (0-50); Potassium 4.1 mmol/L (3.4-5.1); Sodium 138 mmol/L (137-145)
[2018-12-25] MEDS: PANTOPRAZOLE 20 MG TABLET 40 MG PO (08:32)
[2018-12-25] MEDS: HYDROMORPHONE 1 MG INJ IV (08:32)
[2018-12-25] MEDS: ONDANSETRON 4 MG/2 ML INJ IV ×2 (09:41→13:51)
[2018-12-25] MEDS: ZONISAMIDE 100 MG CAPSULE PO ×2 (11:29→20:09)
[2018-12-25] MEDS: ASPIRIN EC 81 MG TABLET PO (11:30)
[2018-12-25] MEDS: AMIODARONE 100 MG TABLET PO (11:30)
[2018-12-25] MEDS: CARBIDOPA-LEVODOPA 25/100 TABLET 4 EACH PO ×2 (11:34→20:09)
--- NOTE | 2018-12-25 12:05 | PM.PN.1 ---
Subjective Subjective Date Patient Seen: 12/25/18 Time Patient Seen: 11:00 Interval history: The patient presented to the ED on 12/24 for a fall on his left side. XR showed an acute left femoral neck fracture. Patient admitted and Ortho consulted for possible surgical intervention, Dr. Jimenes following. Pain under control and managed with norco and tylenol. Patient denies fever, chills, nausea, vomiting, chest pain. Exam Vital Signs (past 8 hours): - 12/25/18 05:00 12/25/18 08:00 Temperature 99.2 F 97.4 F L Pulse Rate 59 L 54 L Respiratory Rate 16 16 Blood Pressure 129/83 129/64 Pulse Oximetry 95 95 Oxygen Delivery Method Room Air Oxygen Flow Rate 0 Narrative Exam Narrative: L hip - gross deformity, with mild edema and ecchymosis, ttp, pain when attempting ROM Sensory function grossly intact to light touch LE b/l. Dorsalis pedis 2+ b/l. Capillary refill <2 seconds LE b/l. Patient able to actively dorsiflex/plantar flex. Objective Labs Result Diagrams: 12/25/18 05:15 12/25/18 05:15 Labs: Laboratory Results - last 24 hr 12/24/18 12/24/18 12/24/18 20:34 20:34 20:34 WBC 4.8 RBC 4.24 L Hgb 13.2 L Hct 39.9 L MCV 94.0 MCH 31.2 MCHC 33.2 RDW 14.2 Plt Count 136 L Neut % (Auto) 66.1 Lymph % (Auto) 21.1 L [place] % (Auto) 6.9 Eos % (Auto) 4.3 H Baso % (Auto) 1.6 Neut # (Auto) 3200 Lymph # (Auto) 1000 L [place] # (Auto) 300 Eos # (Auto) 200 Baso # (Auto) 100 PT 11.9 INR 1.0 APTT 32 Sodium 141 Potassium 4.0 Chloride 108 H Carbon Dioxide 25 BUN 17 Creatinine 1.00 Estimated GFR > 60.0 BUN/Creatinine Ratio 17.0 Glucose 101 Calcium 8.8 Total Bilirubin 0.5 AST 21 ALT 13 L Alkaline Phosphatase 66 Total Protein 6.5 Albumin 3.9 Globulin 2.6 Albumin/Globulin Ratio 1.5 12/25/18 12/25/18 05:15 05:15 WBC 5.6 RBC 4.14 L Hgb 13.1 L Hct 38.9 L MCV 94.0 MCH 31.7 MCHC 33.8 RDW 13.9 Plt Count 114 L Neut % (Auto) 75.7 H Lymph % (Auto) 12.6 L [place] % (Auto) 9.3 Eos % (Auto) 1.6 L Baso % (Auto) 0.8 Neut # (Auto) 4300 Lymph # (Auto) 700 L [place] # (Auto) 500 Eos # (Auto) 100 Baso # (Auto) 0 PT INR APTT Sodium 138 Potassium 4.1 Chloride 108 H Carbon Dioxide 26 BUN 17 Creatinine 0.90 Estimated GFR > 60.0 BUN/Creatinine Ratio 18.9 Glucose 126 H Calcium 8.7 Total Bilirubin AST ALT Alkaline Phosphatase Total Protein Albumin Globulin Albumin/Globulin Ratio Assessment & Plan Assessment & Plan narrative: As per Dr. Jimenes, patient is scheduled for surgery, left total hip arthroplasty, on 12/26 Continue current pain management Quality VTE Deep Vein Thrombosis/Pulmonary Embolism Present on Admission: No
[2018-12-25] MEDS: HYDROCODONE/ACET 10/325 TABLET 1 TAB PO ×2 (12:17→17:21)
--- NOTE | 2018-12-25 14:16 | DIET.PN ---
Dietary Progress Note Assessment: 83y M admitted for hip fx r/t osteoporosis from GLF referred to nutrition for celiac dz assurance from kitchen and reported wt loss. At time of interview, pt experiencing N/V, this RD unable to procure information from pt. Will try again tomorrow after surgery. Kitchen is aware of celiac requirement. Per weight records pt has lost 5.6% in 8mo which is not of concern at this time. HT: 172.7cm WT: 83.4kg (on 05/05/18 was 88.5kg) BMI: 28.0 Labs: unremarkable MNA: 10 at risk r/t wt loss, not of concern at this time Juan Alberto: 16 Diet Order: Cardiac, Gluten Free Monitoring/Evaluations: F/U interview s/p surgery
--- NOTE | 2018-12-25 15:32 | CM.DANOTE ---
DCP assessment: EMR Reviewed: patient is a 83 yr old male who had GLF, and a hip fracture. Patient PCP is Dr. Seth CM met with patient and his at bedside and explained CM/Rns role. Patient and patients would like patient to go to a SNF at discharge due to his immobility and difficulty for to help move patient. Patient stated he is I with ADL's at base line. Cm Called [facility] and at [phone] to get Auth for SNF placement. CM contacted [facility] to review patient chart for possible addmission pending PT/ OT evaluations. PASRR needs to be completed. Insurance: 1st: [employer] 2nd: self pay plan: patient would like to go to SNF: pending PT/OT evaluations. [facility] reviewing CM department to F/U with FCC and PT/OT notes tomorrow 12/26/2018 for continued D/C plan. Karla Jimenes RN. Discharge Planning/Care Management CM Discharge Assessment Start: 12/25/18 15:26 Freq: Status: Active Protocol: Document 12/25/18 15:27 HS (Rec: 12/25/18 15:31 HS [id number]) Discharge Planning Assessment Assigned Vice Investigator Karla Jimenes RN DPOA/Assigned Designee Name Samira Calhuon Contact Information [phone] Advance Directives? Yes: Cardiopulmonary Resuscitation (CPR) Advance Directive Advance Directives on File No History Provided By Patient,Family Member Has Patient been admitted in last 30 No days? Prior Living Arrangements House Household Members spouse,children Type of transporation used prior to Drives own vehicle admit Independent with ADL's Yes Is patient alert and oriented? Yes Needs Assistance With Bathing,Grooming,Toileting Caregiver for Another No DME Already Rented / Owned FWW / Walker,Cane Patient/Family Preference [facility] Facility Discharge Plan [facility] Facility Referrals Initiated [facility] Additional Comment CM called [facility] Medicare Choice List Provided Yes SNF/HH Preference Patients preferrence is [facility] Contact Name/Phone August at [facility] [phone] Has Agency SNF been contacted Yes Comment They are reviewing patient Whiteboard Updated in Patient Room with Yes name and ext. # of Vice Investigator Review Status In Process Next Review Type Continued Stay Review
--- NOTE | 2018-12-25 15:59 | PC.NURSE ---
Dayshift Note: Pt with severe pain this shift. Pt refusing repositioning in bed, using the bed to turn pt from R side to back. Discussed potential for pressure ulcers d/t lack of repositioning. Pt indicates understanding but did not allow repositioning in bed d/t pain. Pt had episode of nausea this am without emesis, relieved with IV zofran. Pt given iv dilaudid for pain initially with good relief, pain down to 2/10. Pt required additional pain medication before dose of dilaudid was due at 1230, orders received from Dr. Tim for norco . Pt given po pain medication at the same time his first meal was served. Pt ate meal and was nauseated with emesis shortly after eating and taking pain medication. Pt was diaphoretic and had pronounced pallor at that time. Dr. Tim to bedside, HR was in 50s, BP in 150s. SPO2 96% on RA. Pt noticed to have infiltrated iv in R forearm. New iv started in R forearm without incident and pt given 4 mg iv zofran. Pt is now resting comfortably. Denies nausea and reports pain is minimal. Report given to oncoming RN.
--- NOTE | 2018-12-25 16:03 | P.PN_ITS ---
Subjective Subjective Date Patient Seen: 12/25/18 Interval history: Patient is an 83-year-old male with a history of paroxysmal atrial fibrillation, Parkinson's disease, GERD, hypertension, and celiac disease who presented following fall resulting in a left femoral neck fracture. Patient received Dilaudid earlier today and developed significant cyclic vomiting. He was diaphoretic. And quite ill. He states he has had heart the past 2 days. He had significant emesis with morphine previously. The patient has received fentanyl in the past and has tolerated this without difficulty. He reports significant pain with any movement of the left lower extremity. Patient is scheduled for surgery for tomorrow. Exam Vital Signs (past 8 hours): - 12/25/18 12:00 12/25/18 13:00 12/25/18 15:41 Temperature 98 F 97.9 F Pulse Rate 56 L 57 L Respiratory Rate 16 18 Blood Pressure 130/80 129/77 Pulse Oximetry 94 95 94 12/25/18 15:49 Temperature Pulse Rate Respiratory Rate Blood Pressure Pulse Oximetry 93 Oxygen Delivery Method Room Air Oxygen Flow Rate 0 Narrative Exam Narrative: Pleasant male in no acute distress HEENT: Bruising ecchymoses over the left eye. The left eye is nearly shot. Lungs: Clear to auscultation Cardiac exam: Regular rate and rhythm normal S1-S2 with a 2/6 systolic ejection murmur Abdomen: Soft nontender nondistended Extremities: No clubbing cyanosis or edema Objective Labs Result Diagrams: 12/25/18 05:15 12/25/18 05:15 Labs: Laboratory Results - last 24 hr 12/24/18 12/24/18 12/24/18 20:34 20:34 20:34 WBC 4.8 RBC 4.24 L Hgb 13.2 L Hct 39.9 L MCV 94.0 MCH 31.2 MCHC 33.2 RDW 14.2 Plt Count 136 L Neut % (Auto) 66.1 Lymph % (Auto) 21.1 L [place] % (Auto) 6.9 Eos % (Auto) 4.3 H Baso % (Auto) 1.6 Neut # (Auto) 3200 Lymph # (Auto) 1000 L [place] # (Auto) 300 Eos # (Auto) 200 Baso # (Auto) 100 PT 11.9 INR 1.0 APTT 32 Sodium 141 Potassium 4.0 Chloride 108 H Carbon Dioxide 25 BUN 17 Creatinine 1.00 Estimated GFR > 60.0 BUN/Creatinine Ratio 17.0 Glucose 101 Calcium 8.8 Total Bilirubin 0.5 AST 21 ALT 13 L Alkaline Phosphatase 66 Total Protein 6.5 Albumin 3.9 Globulin 2.6 Albumin/Globulin Ratio 1.5 12/25/18 12/25/18 05:15 05:15 WBC 5.6 RBC 4.14 L Hgb 13.1 L Hct 38.9 L MCV 94.0 MCH 31.7 MCHC 33.8 RDW 13.9 Plt Count 114 L Neut % (Auto) 75.7 H Lymph % (Auto) 12.6 L [place] % (Auto) 9.3 Eos % (Auto) 1.6 L Baso % (Auto) 0.8 Neut # (Auto) 4300 Lymph # (Auto) 700 L [place] # (Auto) 500 Eos # (Auto) 100 Baso # (Auto) 0 PT INR APTT Sodium 138 Potassium 4.1 Chloride 108 H Carbon Dioxide 26 BUN 17 Creatinine 0.90 Estimated GFR > 60.0 BUN/Creatinine Ratio 18.9 Glucose 126 H Calcium 8.7 Total Bilirubin AST ALT Alkaline Phosphatase Total Protein Albumin Globulin Albumin/Globulin Ratio Assessment & Plan Assessment & Plan narrative: Impression 1. 83-year-old male status post ground level fall resulting in a left femoral neck fracture. Patient most likely has underlying osteoporosis which is the etiology of the fracture. He is scheduled for definitive hip surgery tomorrow. The patient has been placed on a baby aspirin for DVT prophylaxis. Heparin has been discontinued. Patient did not tolerate Dilaudid for pain. He will be switched to fentanyl for pain control. 2. Persistent atrial fibrillation, on amiodarone, will continue. Patient at this time is not in atrial fibrillation. However he requires anti rhythmic therapy to remain in sinus rhythm. 3. Parkinson's disease, chronic, continue carbidopa levodopa 4. GERD, chronic, continue PPI 5. Hypertension, chronic continue usual home medication 6. Celiac disease, chronic will continue a gluten free diet. 7. Left eye ecchymoses following fall, will continue to monitor Patient is scheduled for surgery tomorrow will continue his usual medications. Quality VTE Deep Vein Thrombosis/Pulmonary Embolism Present on Admission: No
[2018-12-25] MEDS: clonazePAM 0.5 MG TABLET PO (22:23)
[2018-12-25] MEDS: FLUTICASONE 120 SPRAY/16 GM SPRAY.SUSP NASAL (22:25)
[2018-12-26] VITALS (12 sets, daily range): BP systolic 101–160; BP diastolic 44–74; PULSE 50–68; RESP 15–18; TEMP 36.2–37.2; O2SAT 92–98; BMI 28.0
--- NOTE | 2018-12-26 | DI.RAD.S_ITS ---
PROCEDURE: XR PELVIS 1-2V INDICATIONS: INTRA OPERATIVE HIP TECHNIQUE: Intra-operative view of the pelvis and hip acquired. COMPARISON: Located Within [facility], CT, CT PEL WO CON, 12/24/2018, 21:14. Located Within [facility], CR, XR HIP W PEL IF DONE LT 2V, 12/27/2018, 0:16. Located Within [facility], CR, PELVIS W UNILATERAL HIP RIGHT, 11/27/2010, 20:23. FINDINGS: Bones: Intraoperative devices prior to placement of arthroplasty prostheses are in expected positions. No fractures or suspicious bony lesions. Soft tissues: Overlying surgical retractors are present, along with other intraoperative changes. IMPRESSION: Left hip arthroplasty. Hardware is intact with good anatomic alignment. Dictated by: Ghislaine Bey M.D. on 12/27/2018 at 8:34 Approved by: Ghislaine Bey M.D. on 12/27/2018 at 8:34
[2018-12-26] MEDS: HYDROCODONE/ACET 10/325 TABLET 1 TAB PO ×3 (03:14→13:23)
[2018-12-26] MEDS: PANTOPRAZOLE 20 MG TABLET 40 MG PO (06:34)
[2018-12-26] MEDS: SODIUM CHLORIDE 0.9% 1,000 ML 100 ML IV (08:42)
[2018-12-26] MEDS: ZONISAMIDE 100 MG CAPSULE PO (08:46)
[2018-12-26] MEDS: CARBIDOPA-LEVODOPA 25/100 TABLET 4 EACH PO (08:48)
[2018-12-26] MEDS: ASPIRIN EC 81 MG TABLET PO (08:48)
[2018-12-26] MEDS: clonazePAM 0.5 MG TABLET 0.25 MG PO (08:48)
--- NOTE | 2018-12-26 13:38 | DIET.PN ---
Dietary Progress Note Assessment: 83y M admitted for hip fx r/t osteoporosis from GLF referred to nutrition for celiac dz assurance from kitchen and reported wt loss. At time of interview, pt reports no issues r/t N/V. He is NPO prepping for surgery this afternoon. HT: 172.7cm WT: 83.4kg (on 05/05/18 was 88.5kg) BMI: 28.0 Labs: Gluc: 126 MNA: 10 at risk r/t wt loss, not of concern at this time Juan Alberto: 16 Nutrition DX: No dx at this time. Intervention: Discussed menu w/ pt. He feels confident in menu and appropriate food choices at this time. Diet Order: Cardiac, Gluten Free Monitoring/Evaluations: F/U interview s/p surgery. May recommend ONS depending on PO's post surgery.
--- NOTE | 2018-12-26 16:07 | DI.RAD.S_ITS ---
PROCEDURE: XR HIP W PEL IF DONE LT 2V INDICATIONS: post operative total left hip arthroplasty TECHNIQUE: AP and lateral views of the hip were acquired. COMPARISON: [facility], CR, XR PELVIS 1-2V, 12/26/2018, 22:53. [facility], CT, CT PEL WO CON, 12/24/2018, 21:14. [facility], CR, XR HIP W PEL IF DONE LT 2V, 12/24/2018, 19:23. FINDINGS: Bones: Interval placement of a left total hip arthroplasty with hardware in expected positions and alignment. No periprosthetic fractures or dislocations. No suspicious bony lesions. The visualized pelvic ring appears intact. Soft tissues: Surgical clips overlie the left hip. There is adjacent left hip and thigh soft tissue edema and subcutaneous emphysema, consistent with postsurgical change. A surgical drain projects over the left hip. Calcified pelvic phleboliths again noted. IMPRESSION: Postsurgical changes of left total hip arthroplasty, without radiographic evidence of acute hardware complication. Dictated by: Neo Rodriguez M.D. on 12/27/2018 at 8:14 Approved by: Neo Rodriguez M.D. on 12/27/2018 at 8:23
[2018-12-26] MEDS: ACETAMINOPHEN 325 MG TABLET 975 MG PO (16:42)
[2018-12-26] MEDS: PREGABALIN 75 MG CAPSULE PO (16:42)
[2018-12-26] MEDS: CELECOXIB 200 MG CAPSULE PO (16:42)
--- NOTE | 2018-12-26 17:39 | PM.HP.1 ---
History of Present Illness History of Present Illness Date Patient Seen: 12/25/18 Time Patient Seen: 07:51 Chief complaint: GLF-Head injury/hip Pain Narrative: This is an 83-year-old gentleman who fell at home when he tripped doing laundry and noted the acute onset of left hip pain. He has it long-standing history of Parkinson's disease uses a walker normally ambulate and notes a history of multiple falls. He also notes some ongoing left wrist and arm pain and weakness. He does associate this with the fall noting that he landed on his left hip and his left arm. Has a chronic history of ongoing left hip pain which has been getting progressively worse over the last few years. He notes it has progressed to the extent that he has difficulty walking as inter for some with his activities of daily living. Patient History Medical History Adenomatous colon polyp (Acute) Atrial fibrillation (Inactive) CAD (coronary artery disease) (Acute) Celiac disease (Acute) Compression fracture of L1 lumbar vertebra (Acute) GERD (gastroesophageal reflux disease) (Acute) HTN (hypertension) (Acute) Kidney stones (Acute) Parkinsons disease (Acute) Surgical History History of cholecystectomy (Acute) History of colonoscopy (Acute) History of esophagogastroduodenoscopy (EGD) (Acute) History of hernia repair (Acute) History of lumbar fusion (Acute) History of right hemicolectomy (Acute) Social History household members: spouse and children Smoking Status: Former smoker Family & Social History Social History: household members spouse,children Prior Living Arrangements House Safety & Behavioral: Feels Safe in Current Yes Environment Been Physically Hurt or No Threatened By a Person Suicidal Ideation Description None Suicide Plan Description No Plan Tobacco & Substance use: Tobacco type cigarettes Smoking Status Former smoker alcohol intake frequency a few times a month Substance Use Type does not use Meds Home Medications and Allergies Home Medications Medication Instructions Recorded Confirmed Type [id number] acid 1 tab PO QAM #0 06/12/09 12/25/18 History [Multi Complete with Iron] amiodarone 200 mg PO DAILY 11/20/18 12/25/18 History carbidopa-levodopa 4 tab PO BID 11/20/18 12/25/18 History clonazepam 0.25 mg PO DAILY 11/20/18 12/25/18 History clonazepam 0.5 mg PO DAILY 11/20/18 12/25/18 History montelukast [Singulair] 4 mg PO DAILY 11/20/18 12/25/18 History zonisamide 100 mg PO BID 11/20/18 12/25/18 History Allergies Allergy/AdvReac Type Severity Reaction Status Date / Time gluten [GLUTEN] Allergy Severe CELIAC Verified 12/26/18 16:32 DISEASE adhesive [ADHESIVE] Allergy Mild rash from Verified 12/26/18 16:32 plastic tape iodine [IODINE] Allergy Unknown PT UNSURE Verified 12/26/18 16:32 OF REACTION cephalexin AdvReac Severe violent Verified 12/26/18 16:47 indigestion hydromorphone [From Dilaudid] AdvReac Severe vomited Verified 12/26/18 16:32 violently morphine [MORPHINE] AdvReac Severe VOMITED Verified 12/26/18 16:32 VIOLENTLY, HAD ABD HERNIAS THAT NEEDED SURGERY. Review of Systems Review of Systems Narrative: He did not feel short of breath have dizziness or specific chest pain prior to his fall he notes that his Parkinson's is getting progressively worse but it is not acutely was, he denies any new problems with his bowel or bladder control, he lives with his who has poor health and sleeps on the couch, he normally ambulates with a walker he has 1 on each floor of his house and then attempted to go up and down stairs without his walker. Exam Vital Signs (past 8 hours): - 12/26/18 12:28 12/26/18 13:23 12/26/18 15:40 Temperature 97.8 F Pulse Rate 51 L Respiratory Rate 16 Blood Pressure 117/52 L Pulse Oximetry 95 95 96 12/26/18 16:11 12/26/18 16:33 Temperature 97.2 F L 97.5 F L Pulse Rate 51 L 54 L Respiratory Rate 18 15 Blood Pressure 128/64 128/63 Pulse Oximetry 98 97 Oxygen Delivery Method Room Air Oxygen Flow Rate 0 Narrative Exam Narrative: HEENT is remarkable for contusion to his left head is neck is supple has a mild tremor. His course shows a mild irregular rhythm with a well-controlled rate there is mild systolic murmur, is lungs are clear abdomen is benign examination of his left upper extremity shows tenderness palpation over his left forearm and wrist has region in the normal range of motion of his elbow and wrist but does have slight decreased import specialist strength in his left hand, his left leg shows severe pain with attempted range of motion in his left hip he is able to fire his toe flexors and extensors and has mild numbness in bilateral lower extremities adequate capillary refill in the left foot Objective ECG Impression: His CT scan shows slightly comminuted left femoral neck fracture and severe left hip osteoarthritis. Impression is long-standing significant left hip osteoarthritis with a recent ground level level fall and a left femoral neck fracture with some comminution. His x-rays of his left shoulder shows mild calcific tendinitis is left wrist does not show a fracture. Recommendations and plan and and I had an extensive discussion today he has 2 problems 1. Long-standing left hip osteoarthritis 2. An acute fall with a new left femoral neck fracture. I have recommended left total hip arthroplasty. That procedure alternatives risks benefits and complications were discussed in detail and he is interested in pursuing that. He has Parkinson's and of injury to his left wrist I think he has no chance of being nonweightbearing on his left upper extremity if he were to undergo an open reduction internal fixation and he has a longstanding significant the arthritic left hip and this left total hip arthroplasty is clearly indicated. Labs Result Diagrams: 12/25/18 05:15 12/25/18 05:15 Assessment & Plan Assessment & Plan narrative: The nature of the procedure concerns regarding rehab risks benefits and possible complications were discussed in great detail with the patient and his both his son and I believe it is his daughter who overall at bedside. Plan is for a left total hip arthroplasty. Quality VTE Deep Vein Thrombosis/Pulmonary Embolism Present on Admission: No
--- NOTE | 2018-12-26 17:54 | P.OP_ITS ---
Operative Date/Time/Diagnoses Date of procedure: 12/26/18 Time of procedure: 17:54 Pre-op diagnosis: Left hip osteoarthritis, left femoral neck fracture Post-op diagnosis: same Procedure & Clinicians Procedure: Right total hip replacement Same procedure as scheduled: Yes Indications: The patient has had progressively worsening left hip pain with radiographic changes consistent with arthritis. He then fell and suffered an acute left femoral neck fracture. Non-operative management has failed and the patient has requested total hip replacement. The risks, benefits and alternatives to surgery were discussed with the patient prior to proceeding. Risks discussed included, but were not limited to, failure to relieve pain, leg length discrepancy, dislocation, stiffness, infection, nerve damage, deep venous thrombosis, pulmonary embolism, stroke, coma, heart attack, permanent paralysis and , as well as the potential need for eventual revision of the prosthetic. Surgeon: Lanny Jimenes Office Cashier: Sd Reddy Anesthesia Type: General and Spinal Operative Notes Findings: Severe left hip arthritis, left femoral neck fracture subcapital Closure Type: primary Specimen(s): none sent Prosthetic devices, grafts, tissues, transplants, or devices: Jimenes [employer] Nephew R3 56, size 11 anthology standard offset, +0 Applied: drain(s) Estimated Blood Loss (mL): 250 Blood products transfused: none Procedure in detail: The patient was seen in the pre-operative area, where the patient identified the left hip as the operative site and this was marked with my initials. The patient received pre-operative antibiotics and was taken to the operating room and placed on the operative table in the right lateral decubitus position after satisfactory anesthesia. A time stamp assembler out was performed. The left leg was prepared from the ankle to the iliac crest with ChloroPrep in the usual fashion and draped through sterile drapes. The hip was approached through an approximately 20 cm incision centered over the greater trochanter and curving gently posteriorly as it went proximally. This was carried sharply to the fascia gerri, which was divided and retracted with a self retaining retractor. The trochanteric bursa was excised with care being taken to avoid the sciatic nerve, which was identified and protected throughout the case. The short external rotators were incised and the capsulomuscular flap was raised and tagged for later repair. The hip was dislocated, and a femoral neck osteotomy performed approximately 15 mm above the lesser trochanter. Retractors were placed around the femur. The canal was opened with a box cutting osteotome, followed by a T handled reamer and a lateralizing reamer. The chili pepper broach was then used, followed by sequential broaching until there was good stability of the broach in the femur. Retractors were placed to expose the acetabulum. The labrum and central soft tissues were removed. Reaming was performed initially going up in 2 mm increments, then 1 mm increments until good bite was obtained with an odd sized reamer. The cup 1 mm larger than the last reamer was then inserted using the appropriate anteversion guides. A trial neutral liner was placed. The broach was placed in the canal. A trial head and neck were then placed and the hip relocated and checked for leg length and stability. An intraoperative fi lm confirmed the component position and no evidence of fracture. The patient was stable in the position of sleep, of squatting, and could be put through a range of motion with 45 degrees internal rotation without dislocation. At 90 degrees flexion, internal rotation to 70? was possible before dislocation. This was felt to be satisfactory and the appropriate components were opened, and the trials w ere removed. The acetabular liner was impacted into position. The final stem was then impacted into the prepared femoral canal. A brief Betadine soak was performed while trialing with head options. The hip was meticulously irrigated with normal saline. Finally the femoral head was impacted onto the stem. The acetabulum was cleared of all material and the hip relocated one final time. The capsulomuscular flap was then repaired to the greater trochanter though an awl hole using the tag sutures. The short external rotators were repaired with a nonabsorbable suture. A deep drain was placed and brought out anteriorly. The fascia gerri was closed with Vicryl. The subcutaneous layer was closed with barbed sutures and SteriStrips. An Aquacel Ag dressing was applied and the patient was taken to recovery having tolerated the procedure well. Complications: none Post-operative Condition: stable Disposition: Acute Care Plan for aftercare: The patient will be maintained on a standard total hip replacement protocol with weight bearing as tolerated and posterior hip precautions. The patient will receive Aspirin and sequential compression devices for DVT prophylaxis. The patient will be discharged home when safe for the home environment.
[2018-12-26] MEDS: VANCOMYCIN 1,000 MG/200 ML PIGGYBACK 200 MG IV ×2 (19:22→21:40)
[2018-12-26] MEDS: CEFAZOLIN 2 GM/100 ML FROZ.PIGGY IV (21:30)
--- NOTE | 2018-12-26 21:36 | PC.NURSE ---
Patient to surgery about 1630, was not able to start surgery until after 2099 d/t other surgeries still going. As of now (2139) patient is not back from pacu.
--- NOTE | 2018-12-26 22:16 | SUR.OPER ---
Lateral on padded OR bed. Gel axillary roll. Arms secured on padded armboard with pillow supporting top arm. Padded hip positioner braces x4 - anterior and posterior chest and pelvis. Additional gel pad used anterior pelvis. Gel pad under bottom leg from knee to foot and secured with tape over sheet.
[2018-12-26] MEDS: BUPIVACAINE LIPOSOME 266 MG/20 ML VIAL INJ (22:22)
[2018-12-26] MEDS: TRANEXAMIC ACID 1,000 MG VIAL 1000 MG INJ ×2 (22:23→23:18)
[2018-12-26] MEDS: BUPIVACAINE 0.25% W/ EPI 30 ML VIAL 60 ML INJ (22:23)
[2018-12-26] MEDS: SODIUM CHLORIDE IRRIG SOLUTION 250 ML, EPINEPHrine 1 MG IRR (22:26)
[2018-12-26] MEDS: LACTATED RINGERS 1,000 ML 42 ML IV (22:30)
[2018-12-27] VITALS (18 sets, daily range): BP systolic 112–152; BP diastolic 52–73; PULSE 56–95; RESP 8–19; TEMP 35.9–37.2; O2SAT 92–99
[2018-12-27] MEDS: LACTATED RINGERS 1,000 ML 125 ML IV (01:00)
--- NOTE | 2018-12-27 01:00 | SUR.PHASEI ---
Transferred to room 217. VSS, remained pain free. Update to LUTHER Bergeron. Departed with pt in stable condition
[2018-12-27] MEDS: CARBIDOPA-LEVODOPA 25/100 TABLET 4 EACH PO ×4 (01:18→21:53)
[2018-12-27] MEDS: LACTATED RINGERS 1,000 ML 42 ML IV (01:19)
[2018-12-27] MEDS: ZONISAMIDE 100 MG CAPSULE PO ×3 (01:19→21:53)
[2018-12-27] MEDS: VANCOMYCIN 1,000 MG/200 ML PIGGYBACK 200 MG IV (03:26)
[2018-12-27] MEDS: OXYCODONE IR 5 MG TABLET PO ×2 (03:26→06:43)
--- NOTE | 2018-12-27 04:37 | PC.NURSE ---
Pt arrived on unit from PACU at 0055. VSS. Lung sounds clear bilaterally. CMS is intact bilaterally. Pt does have some post op numbness. Pt has had 5-6/10 pain and medicated w/ 5mg Oxycodone. Pt has LR @125ml/hr. Pt has ice applied to left hip. Pt has SCD's on and has been encouraged to use IS.
[2018-12-27 07:49] LABS: Add Manual Diff / Slide Review NO; Basophils Absolute Auto 0 /uL (0-100); Basophils Percent Auto 0.4 % (0-2); Eosinophils Absolute Auto 200 /uL (0-450); Eosinophils Percent Auto 4.2 % (2-4); Hematocrit 30.8 % (41-53); Hemoglobin 10.5 g/dL (13.5-17.5); Lymphocytes Absolute Auto 500 /uL (1100-4500); Lymphocytes Percent Auto 9.4 % (25-40); Mean Corpuscular Volume 93.9 fL (80-100); Monocytes Absolute Auto 500 /uL (0-900); Monocytes Percent Auto 8.7 % (3-14); Neutrophils Absolute Auto 4300 /uL (1500-7000); Neutrophils Percent Auto 77.3 % (50-75); Platelet Count 97 X10^3/uL (150-400); Red Blood Cell Count 3.28 X10^6/uL (4.5-5.9); White Blood Cell Count 5.5 X10^3/uL (4.5-11.0)
[2018-12-27 08:18] LABS: BUN Creatinine Ratio 14.4 (6-22); Blood Urea Nitrogen 13 mg/dL (9-20); Calcium 7.9 mg/dL (8.4-10.2); Carbon Dioxide 25 mmol/L (22-32); Chloride 105 mmol/L (98-107); Estimated Glomerular Filt Rate > 60.0 mL/min (>60); Glucose 118 mg/dL (80-110); HEMOLYSIS < 15 (0-50); Sodium 136 mmol/L (137-145)
--- NOTE | 2018-12-27 09:15 | PM.PNPO.1 ---
Subjective Subjective Date Patient Seen: 12/27/18 Time Patient Seen: 09:15 Interval history: Patient is POD#1 s/p left posterior WENDI. Pain has been well controlled. He has not mobilized yet since surgery. Has had one small void, bladder scan was inconclusive though he denies discomfort. Denies chest pain, shortness of breath, nausea, vomiting. Exam Vital Signs (past 8 hours): - 12/27/18 01:30 12/27/18 02:22 12/27/18 03:03 Temperature 96.8 F L 96.7 F L 96.8 F L Pulse Rate 60 63 58 L Respiratory Rate 16 16 16 Blood Pressure 131/69 146/68 H 138/73 Pulse Oximetry 98 95 97 12/27/18 04:06 12/27/18 07:40 Temperature 97.1 F L 97.5 F L Pulse Rate 82 57 L Respiratory Rate 16 16 Blood Pressure 152/55 H 112/53 L Pulse Oximetry 98 99 Oxygen Delivery Method Nasal Cannula Oxygen Flow Rate 0 Narrative Exam Narrative: 83 year old male resting comfortably in bed in no acute distress. Alert and oriented. MATI dressing in place over left hip is functioning, CDI. Patient able to flex/extend to foot. Sensation intact to light touch. Palpable pedal pulse. Calves soft, compressible. Objective Labs Result Diagrams: 12/27/18 07:28 12/27/18 07:28 Labs: Laboratory Results - last 24 hr 12/27/18 12/27/18 07:28 07:28 WBC 5.5 RBC 3.28 L Hgb 10.5 L Hct 30.8 L MCV 93.9 MCH 32.0 MCHC 34.0 RDW 14.0 Plt Count 97 L Neut % (Auto) 77.3 H Lymph % (Auto) 9.4 L [place] % (Auto) 8.7 Eos % (Auto) 4.2 H Baso % (Auto) 0.4 Neut # (Auto) 4300 Lymph # (Auto) 500 L [place] # (Auto) 500 Eos # (Auto) 200 Baso # (Auto) 0 Sodium 136 L Potassium 4.0 Chloride 105 Carbon Dioxide 25 BUN 13 Creatinine 0.90 Estimated GFR > 60.0 BUN/Creatinine Ratio 14.4 Glucose 118 H Calcium 7.9 L Assessment & Plan Post-op Postoperative Procedures: Procedures Operation Date: 12/26/18 16:15 Actual Procedures Side Surgeon p Total Hip Arthroplasty Left Lanny A Jimenes, MD Patient is slowly progressing post operatively. Goals for today are to mobilize with PT. He has history of Parkinson's with multiple falls and a flight of stairs at home. His is unable to physically care for him. He will likely require discharge to SNF for post operative rehabilitation. Quality VTE Deep Vein Thrombosis/Pulmonary Embolism Present on Admission: No
[2018-12-27] MEDS: OXYCODONE IR 5 MG TABLET 10 MG PO ×3 (10:39→19:26)
[2018-12-27] MEDS: ACETAMINOPHEN 325 MG TABLET 975 MG PO ×3 (10:40→21:52)
[2018-12-27] MEDS: DOCUSATE 100 MG CAPSULE PO ×2 (10:40→21:52)
[2018-12-27] MEDS: ASPIRIN EC 81 MG TABLET PO ×2 (10:40→21:52)
[2018-12-27] MEDS: MULTIVIT,CALC,MINS/IRON/FOLIC 1 TABLET 1 TAB PO (10:41)
[2018-12-27] MEDS: AMIODARONE 100 MG TABLET PO (11:26)
--- NOTE | 2018-12-27 11:48 | P.PN_ITS ---
Subjective Subjective Date Patient Seen: 12/27/18 Time Patient Seen: 11:49 Interval history: He is seen today to follow up his left hip fracture and replacement along with his medical problems of Afib, Parkinsons and Hypertension. 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 He was at a restaurant yesterday when he fell, while holding the door open for his . He will be going to a retirement facility soon for further rehab. Exam Vital Signs (past 8 hours): - 12/27/18 04:06 12/27/18 07:40 Temperature 97.1 F L 97.5 F L Pulse Rate 82 57 L Respiratory Rate 16 16 Blood Pressure 152/55 H 112/53 L Pulse Oximetry 98 99 Oxygen Delivery Method Nasal Cannula Oxygen Flow Rate 0 Narrative Exam Narrative: Alert and orient x3, in no apparent distress. Heart is regular rate and rhythm without murmur. Lungs are clear to auscultation bilaterally. Extremities have no ankle edema. There is a clean dressing on the left hip without significant signs of infection or bleeding. There is a large amount of purple discoloration around the left eye. Objective Labs Result Diagrams: 12/27/18 07:28 12/27/18 07:28 Labs: Laboratory Results - last 24 hr 12/27/18 12/27/18 07:28 07:28 WBC 5.5 RBC 3.28 L Hgb 10.5 L Hct 30.8 L MCV 93.9 MCH 32.0 MCHC 34.0 RDW 14.0 Plt Count 97 L Neut % (Auto) 77.3 H Lymph % (Auto) 9.4 L [place] % (Auto) 8.7 Eos % (Auto) 4.2 H Baso % (Auto) 0.4 Neut # (Auto) 4300 Lymph # (Auto) 500 L [place] # (Auto) 500 Eos # (Auto) 200 Baso # (Auto) 0 Sodium 136 L Potassium 4.0 Chloride 105 Carbon Dioxide 25 BUN 13 Creatinine 0.90 Estimated GFR > 60.0 BUN/Creatinine Ratio 14.4 Glucose 118 H Calcium 7.9 L Assessment & Plan Assessment & Plan narrative: 1. 83-year-old male status post ground level fall resulting in a left femoral neck fracture. Patient most likely has underlying osteoporosis which is the etiology of the fracture. He is post op hip replacement from 12/26. Continue PT and OT per ortho. Hgb 10.5 on 12/27. 2. Persistent atrial fibrillation, on amiodarone, will continue. Patient at this time is not in atrial fibrillation. However he requires anti rhythmic therapy to remain in sinus rhythm. 3. Parkinson's disease, chronic, continue carbidopa levodopa 4. GERD, chronic, continue PPI 5. Hypertension, chronic continue usual home medication 6. Celiac disease, chronic will continue a gluten free diet. 7. Left eye ecchymoses following fall, will continue to monitor Disposition : SNF soon. Quality VTE Deep Vein Thrombosis/Pulmonary Embolism Present on Admission: No
--- NOTE | 2018-12-27 12:41 | PT.IIE ---
Current Diagnoses Age-related osteoporosis with current pathological fracture, left femur, initial encounter for fracture (12/24/18) Surgery Performed Operation Date: 12/26/18 16:15 Actual Procedures p Total Hip Arthroplasty(Left) - Lanny Jimenes MD Surgical History (Last Reviewed 12/26/18 @ 17:45 by Lanny Jimenes MD) History of cholecystectomy (Acute) History of colonoscopy (Acute) History of esophagogastroduodenoscopy (EGD) (Acute) History of hernia repair (Acute) History of lumbar fusion (Acute) History of right hemicolectomy (Acute) Medical History (Last Reviewed 12/26/18 @ 17:45 by Lanny Jimenes MD) Adenomatous colon polyp (Acute) Atrial fibrillation (Inactive) CAD (coronary artery disease) (Acute) Celiac disease (Acute) Compression fracture of L1 lumbar vertebra (Acute) GERD (gastroesophageal reflux disease) (Acute) HTN (hypertension) (Acute) Kidney stones (Acute) Parkinsons disease (Acute) Physical Therapy Inpatient Evaluation/Re-Eval M1 PT/OT-IP Prior Functional Status Start: 12/27/18 08:24 Freq: NEEDED Status: Active Protocol: Document 12/27/18 09:40 JG (Rec: 12/27/18 11:30 JG [email or web address]) Medical Review Prior Functional Status Medical History Reviewed Yes Diet/Fluid Consistency Regular Communication No communication deficits noted. Able to make needs known. Mobility and Gait Modified independent using 4WW for mobility within house and 4WW or SPC for community ambulation. Activities of Daily Living and IADL's Independent with ADLs. Spouse' s assistance for IADLs. Pt does not drive. Prior Functional Level (Other details) Pt has Parkinson's disease at baseline and reports a hx of multiple falls in the last few years. Social History Household Members spouse Living Arrangements House Number of Floors (Floors) Two Floors Number of Stairs To Enter/Railing? No stairs to enter house. Main floor includes full living area with bedroom. Pt's bedroom is down full flight of stairs with railing on R when descending. Has additional bathroom on bottom floor off pt's bedroom. (pt could stays on main floor if needed ) Home Environment Standard Height Toilet,Walk in Shower,Tub/Shower Home Equipment Four Wheel Walker,Straight Cane,Raised Toilet Seat w/ Armrests,Grab Bars Near Toilet ,Grab Bars In Shower Employment Status Retired Additional Social History Comment Pt lives in 2 story house in [facility] with his . Pt has adjustable bed in bedroom on bottom floor (full flight of stairs to descend) which he prefers to use. Upstairs bedroom has standard bed. Pt's states that she can't help him with mobility around the home due to her own health issues. She stated she expects pt to be d/c to SNF to improve mobility and strength . Pt has one child that lives in [facility] and another in [place]. Children are available to assist pt but not time checker. M2 PT-IP Current Condition Start: 12/27/18 08:24 Freq: NEEDED Status: Active Protocol: Document 12/27/18 09:40 JG (Rec: 12/27/18 11:30 JG [email or web address]) Physical Therapy Current Condition Current Condition Evaluation Date 12/27/18 Treatment Diagnosis L WENDI, hx of multiple falls, impaired balance, impaired mobility/ambulation Onset Date 12/26/18 Precautions Posterior Hip Precautions No Hip Flexion > 90 degrees,No Hip Internal Rotation,No Hip Adduction Weight Bearing Status Weight Bearing Status Weight Bear as Tolerated M3 PT-IP Subjective Start: 12/27/18 08:24 Freq: NEEDED Status: Active Protocol: Document 12/27/18 09:40 JG (Rec: 12/27/18 11:30 JG [email or web address]) Subjective Physical Therapy Visit Type Type Initial Evaluation Visit Start Time 09:40 Visit Stop Time 10:42 Total Visit Minutes 62 Notes Pt';s spouse presents for evaluation. co-tx with PT Matt Number of COMPOUNDING ASSISTANT Visits 0 Physical Therapy Visit Comments Patient Comments Pt notes that he is sore prior to start of therapy and cannot use L arm due to pain. Pt is also concerned because his knee hurts but does not think he landed on it during fall as there is no bruising. Pt would like to get up and move. Pt and state that he wants to go to rehab after discharge. Patient Goals Get up and walk, go home after rehab Therapy Pain Assessment Pain When Pain Assessed At Rest Pain Present Pain Present Pain Reported Location Left Wrist Description Sharp,With Movement Pain Behaviors Guarding,Wincing Pain Management Techniques Distraction Left Leg Intensity 8 Scale Used Numeric (1 - 10) Description Aching,Sharp,With Movement Pain Behaviors Facial Grimacing,Wincing Pain Management Techniques Distraction,Re-positioning M4 PT-IP Mobility and Gait Start: 12/27/18 08:24 Freq: NEEDED Status: Active Protocol: Document 12/27/18 09:40 JG (Rec: 12/27/18 11:30 JG [email or web address]) PT-Bed Mobility Assessment Supine to Sit Supine to Sit Maximum Assistance,2 Person Assistance Sit to Supine Sit to Supine Maximum Assistance,2 Person Assistance Scooting Scooting to Edge of Bed Minimal Assistance,Moderate Assistance Scooting Up and Down in Bed Maximum Assistance PT-Transfer Assessment Sit to and From Stand Sit to and from Stand Maximum Assistance,1 Person Assistance Equipment Transfer Assistive Device Gait Belt,Front Wheeled Walker Orthotic/Prosthetic Devices or Brace: No Transfers Transfer Destination Bed,Chair Transfer Technique walk and turn with FWW Transfer Ability Level of Assist Moderate Assistance,Maximum Assistance,2 Person Assistance ,Use of Upper Extremities Comments Mobility Comments Pt was in bed with spouse at bedside upon assessment. Pt completed supine to long sit from elevated HOB 40 degrees. He needed COMPOSITE BOND TECHNICIAN to pull towards EOB. PT used bed pad for scooting and assistance to unweigh L leg for pivoting. Pt then stood up from EOB with 2pa and able to amb 3 ft with chair follow but needed assistance to propel LLE. Pt demonstrates significant difficulty with movement initiation possibly due to his PD at baseline. He then transferred back to chair with 2 pa but poor eccentric control. He then requested to transfer back to bed due to fatigue. He performed a stand pivot with shuffling gait due to difficulties WB on LLE and LUE. He then went back to supine with 2PA mod/max A. HOB elevated , call light within reach, all bed rails are up as pt requested. Gait Assessment Gait Gait Assistance Required: Maximum Assistance,2 Person Assist Distance (Feet) 4 Assistive Devices Assistive Device Gait Belt,Front Wheeled Walker Gait Deviations General Gait Pattern Antalgic,Decreased Stride Length,Decreased Feet Clearance,Flexed Trunk,Narrow Based Gait,Step-to Gait Factors Limiting Gait Function Factors Limiting Gait Function Decreased Activity Tolerance, Decreased Strength,Pain,Poor Balance Comments Gait Comments Pt demonstrated antalgic gait with decreased stride length due to L LE pain. Pt's L wrist pain significantly limited his ability to utilize L UE for support with FWW. Pt able to ambulate forward with a small turn for ~4 feet along with chair follow but unable to back up at all to stand to sit transfer to chair or bed. Stair Climbing Assessment Comments Stair Climbing Comments Not assessed PT-Balance Assessment Sitting Balance and Reactions Static Sitting Balance Ability Fair Dynamic Sitting Balance Ability Fair Standing Balance and Reactions Static Standing Balance Ability Fair Dynamic Standing Balance Ability Poor M5 PT-IP Objective Assessments Start: 12/27/18 08:24 Freq: NEEDED Status: Active Protocol: Document 12/27/18 09:40 JG (Rec: 12/27/18 11:30 JG [email or web address]) Orientation Orientation/Cognition Level of Alertness Alert Orientation Name,Age,Birthday,Month,Date, Year,Day of Week,Place, Situation Language Function Ability No Deficits Noted Safety Awareness Understands Safety Issues Memory Description No Deficits Noted Comments No cognitive or communication deficits noted. Gross Range of Motion Upper Extremity ROM Assessment Within Functional Limits Lower Extremity ROM Assessment Left Impaired Strength Upper Extremity Strength Assessment Left Impaired Lower Extremity Strength Assessment Left Impaired M6 PT-IP Treatment Start: 12/27/18 08:24 Freq: NEEDED Status: Active Protocol: Document 12/27/18 09:40 JG (Rec: 12/27/18 11:30 JG [email or web address]) Physical Therapy Treatment Education Education Provided Precautions,Weight Bearing Status,Post-Op Packet,Safety Other Treatments Other Treatment Performed Educated pt on post op precautions and provided packet. Discussed strategies for use of R UE and LE to support L UE and LE for effective mobility. After ambulation pt was left in bed with both arm rails up per pt request. M7 PT-IP Assessment and Plan Start: 12/27/18 08:24 Freq: NEEDED Status: Active Protocol: Document 12/27/18 09:40 JG (Rec: 12/27/18 11:30 JG [email or web address]) PT Summary Assessment and Plan Potential Rehabilitation Potential Good Status of Condition at Evaluation Evolving Summary Impairments Pain,ROM,Strength,Balance, Coordination,Bed Mobility, Transfers,Gait,Activity Tolerance Assessment Summary Pt presents 1 day s/p L WENDI after fall causing L femoral neck fx. Pt is high complexity due to hx of Parkinson's disease and limited use of L UE and LE due to severe pain. Pt requires mod to max A for mobility and ambulation. Pt also demonstrates limited activity tolerance with mobility without significant drop in O2 saturation (>94%). Recommended to have skilled therapy once a day at this point. Pt will benefit from therapy to improve balance and mobility. Recommended discharge to SNF due to poor balance, strength, and decreased mobility. Goals Bed Mobility Goal Contact Guard Assistance Transfer Goal Minimal Assistance Gait Goal Minimal Assistance Gait Distance 50 Days to Meet Goals 3 Frequency of Treatment Frequency Of Treatment Once a Day Treatment Plan Physical Therapy Treatment Plan Bed Mobility Training,Transfer Training,Gait Training, Therapeutic Exercise,Balance Retraining,Post Op Education, Discharge Planning,Hot or Cold Pack,Neuromuscular Re-ed, Coordination Retraining Other Recommendations and Next Treatment Balance, bed mobility, Focus transfers, ambulation Recommendations To Nursing Amount of Assist Needed PT/OT Assist Only Discharge Recommendations PT Discharge Recommendations SNF Rehab
--- NOTE | 2018-12-27 14:07 | DIET.PN ---
Dietary Progress Note F/U s/p hip surgery. Pt was sitting up eating lunch of ham sandwich on GF bread c milk and fruit. Pt appetite adequate, pt self orders meals and will be sure to have a milk c each to pad PRO and calcium needs. HT: 172.7cm WT: 83.6kg (on 05/05/18 was 88.5kg) BMI: 28.0 Labs: hgb 10.5 L, BG 118, Ca 7.9 L MNA: 10 at risk r/t wt loss, not of concern at this time Juan Alberto: 16 Nutrition DX: Increased nutrient needs (PRO, Ca) r/t bone and tissue healing needs aeb pt 1d s/p osteoporosis related GLF fracture of left hip Intervention: No need for ONS supps at this time. Pt will drink milk c meals to supplement PRO and calcium. Diet Order: Cardiac, Gluten Free Monitoring/Evaluations: I&Os
[2018-12-27] MEDS: ONDANSETRON 4 MG ODT PO (14:48)
--- NOTE | 2018-12-27 14:52 | PC.NURSE ---
day shift pt states 5mg oxy not helping with pain. Increased to 10 mg oxy. This seems to help pt with pain control better. He still is not wanting to move much. Out of bed 1x with PT this AM, states that he hurts too bad currently to get out of bed again. Medicated with oxy as he stated pain was 7/10. HV removed per PA order without issue.
--- NOTE | 2018-12-27 19:36 | P.PN_ITS ---
Subjective Subjective Date Patient Seen: 12/27/18 Time Patient Seen: 01:30 Interval history: Late entry progress note: Pt. returned to the floor from the PACU after having spent the better part of the day awaiting left hip femoral neck fracture repair. States he is feeling relatively pain free. He did state he felt he was a mess my knees keep giving out on me causing me to fall. Complains of having a dry mouth. Exam Vital Signs (past 8 hours): - 12/27/18 13:06 12/27/18 16:00 12/27/18 18:41 Temperature 97.8 F 98.7 F Pulse Rate 56 L 79 79 Respiratory Rate 16 18 18 Blood Pressure 145/57 H 126/57 L Pulse Oximetry 98 94 94 Oxygen Delivery Method Room Air Oxygen Flow Rate 0 Narrative Exam Narrative: Gen: Alert, oriented, well-developed 83 y.o. male, mildly lethargic HEENT: eccymosis and edema of left orbit, dependent edema of right orbit, conjunctiva clear, sclera non-icteric, oral mucosa pink and moist Neck: supple, full ROM Resp: Lungs CTA, non-labored breathing CV: RRR, no murmur or rubs Abd: soft, non-tender, normoactive BTs Skin: no lesions or rashes, dry and intact Neuro: Alert and oriented X 4 w/no focal deficits Extremities: post-op hip repair on bedrest, normally ambulatory, negative Melanie?s sign Psyche: very pleasant, normal mood and affect. Objective Labs Result Diagrams: 12/27/18 07:28 12/27/18 07:28 Labs: Laboratory Results - last 24 hr 12/27/18 12/27/18 07:28 07:28 WBC 5.5 RBC 3.28 L Hgb 10.5 L Hct 30.8 L MCV 93.9 MCH 32.0 MCHC 34.0 RDW 14.0 Plt Count 97 L Neut % (Auto) 77.3 H Lymph % (Auto) 9.4 L [place] % (Auto) 8.7 Eos % (Auto) 4.2 H Baso % (Auto) 0.4 Neut # (Auto) 4300 Lymph # (Auto) 500 L [place] # (Auto) 500 Eos # (Auto) 200 Baso # (Auto) 0 Sodium 136 L Potassium 4.0 Chloride 105 Carbon Dioxide 25 BUN 13 Creatinine 0.90 Estimated GFR > 60.0 BUN/Creatinine Ratio 14.4 Glucose 118 H Calcium 7.9 L Assessment & Plan Assessment & Plan narrative: Migue Calhoun is a pleasant 83-year-old male status post ground level fall resulting in a left femoral neck fracture. Patient most likely has underlying osteoporosis which is the etiology of the fracture. 1. s/p fall and subsequent WENDI 12/27, acute, POA * Ortho managing * Continue PT and OT per ortho. 2. Persistent atrial fibrillation, chronic and stable, POA * Continue home dose of amiodarone 200 mg po daily. At this time he is not in atrial fibrillation, requires anti-arrhythmic therapy to remain in sinus rhythm. 3. Parkinson's disease, chronic, POA * continue home dose of carbidopa levodopa 25/100 4 tabs bid 4. Hypertension, chronic and stable * See #2 6. Celiac disease, chronic * continue a gluten free diet. 7. Left eye ecchymoses following fall, will continue to monitor Time Spent With Patient Time with patient: 15-24 minutes Quality VTE Deep Vein Thrombosis/Pulmonary Embolism Present on Admission: No
[2018-12-27] MEDS: BENZOCAINE/MENTHOL 1 LOZ PKT 1 EACH PO (21:53)
[2018-12-28 03:11] VITALS: BP 114/58; PULSE 72; RESP 16; TEMP 36.5; O2SAT 94
--- NOTE | 2018-12-28 03:56 | PC.NURSE ---
Addendum entered by Radha Mercado R.N. 12/28/18 04:01: Student nurse participating in pt care and administrations. All care performed by student has been under supervision of this chief writer. Original Note: Assumed care of pt at 1500 on 12/27/18. Pt cooperative with care. Drsg with mod drainage; small amt drainage noted on bed sheets. Drsg reinforced with gauze/tegaderm. Bladder scanned at 2230 shows retention. Provider notified, VTO for Pacheco. Pacheco placed drained 1000 ml villa urine. Declines full reposition and only allows bed tilting. PIP education provided. Hand-off report given to Day shift RN at 0340. Pt sleeping during hand-off.
[2018-12-28 08:30] VITALS: BP 91/44; PULSE 73; RESP 19; TEMP 36.9; O2SAT 95
[2018-12-28] MEDS: ACETAMINOPHEN 325 MG TABLET 975 MG PO ×3 (08:54→21:12)
[2018-12-28] MEDS: MULTIVIT,CALC,MINS/IRON/FOLIC 1 TABLET 1 TAB PO (08:55)
[2018-12-28] MEDS: CARBIDOPA-LEVODOPA 25/100 TABLET 4 EACH PO ×3 (08:55→21:13)
[2018-12-28] MEDS: AMIODARONE 100 MG TABLET PO (08:55)
[2018-12-28] MEDS: ASPIRIN EC 81 MG TABLET PO ×2 (08:55→21:12)
[2018-12-28] MEDS: DOCUSATE 100 MG CAPSULE PO ×2 (08:55→21:12)
[2018-12-28] MEDS: SODIUM CHLORIDE 0.9% FLUSH 10 ML IV ×2 (08:55→21:14)
[2018-12-28] MEDS: ZONISAMIDE 100 MG CAPSULE PO ×2 (08:55→21:13)
--- NOTE | 2018-12-28 09:25 | P.PN_ITS ---
Subjective Subjective Date Patient Seen: 12/28/18 Time Patient Seen: 09:25 Interval history: Patient's pain is [id number]. Denies fever chills. No nausea vomiting. Exam Vital Signs (past 8 hours): - 12/28/18 03:11 12/28/18 08:30 Temperature 97.7 F 98.4 F Pulse Rate 72 73 Respiratory Rate 16 19 Blood Pressure 114/58 L 91/44 L Pulse Oximetry 94 95 Oxygen Delivery Method Room Air Oxygen Flow Rate 0 Narrative Exam Narrative: Pleasant 83-year-old male resting comfortably in bed in no apparent distress. Left hip rosalba dressing is on and functioning. Dressing is clean, dry and intact. Sensation grossly intact to light touch distal left lower extremity. Motor functions intact. Both legs are warm and dry. Objective Labs Result Diagrams: 12/27/18 07:28 12/27/18 07:28 Assessment & Plan Post-op Postoperative Procedures: Procedures Operation Date: 12/26/18 16:15 Actual Procedures Side Surgeon p Total Hip Arthroplasty Left Lanny Jimenes MD Patient status post total hip arthroplasty secondary to left femoral neck fracture. December 26, 2018. Mobilize with physical therapy. Patient has Par kinson's with history of multiple falls. Patient's will be unable to care for him at home. He will likely need discharge to senior living facility tomorrow. Quality VTE Deep Vein Thrombosis/Pulmonary Embolism Present on Admission: No
--- NOTE | 2018-12-28 11:05 | CM.DPC ---
Addendum entered by AUDIE Emerson 12/28/18 13:10: ADD: Return call from [facility] August in admissions and she confirms they can accept pt when stable for discharge, even if it's tomorrow Sunday. BF Original Note: DCP SNF Planning: Per MD, pt tolerated his surgery well but will likely require SNF as anticipated at d/c. Per PT/OT, recommending SNF for ongoing rehab before safe return home. Pt preference has been [facility] at d/c. TYSON faxed and called [facility] to begin SNF auth request and quickly received a fax confirmation that pt has been approved for SNF at d/c. SW called and left [facility] msg with update on SNF auth approval and possible d/c tomorrow Sunday and request call back to confirm they can accept. TYSON completed PAS[facility] in anticipation of SNF tomorrow. Plan: SW to follow for return call from [facility] that they can accept pt at d/c. [place] SN[facility] auth approved. AUDIE Emerson
--- NOTE | 2018-12-28 11:20 | PM.PN.1 ---
Subjective Subjective Date Patient Seen: 12/28/18 Time Patient Seen: 11:20 Interval history: He is seen today to follow-up the left hip fracture/hip replacement, dropping platelets and a new problem of hiccups. He thinks he has had the hiccups for about 2 days. He also has atrial fibrillation, Parkinson's disease and hypertension. Overall he is doing well but has been reluctant to use his left arm. A left wrist x-ray reviewed and that is normal but there, per PT, is apparently some pain in the left elbow which will need to be evaluated. Platelets have risen from 97, up to 107. The hemoglobin has dropped, not unexpectedly, from 10.5-9.8. Exam Vital Signs (past 8 hours): - 12/28/18 08:30 Temperature 98.4 F Pulse Rate 73 Respiratory Rate 19 Blood Pressure 91/44 L Pulse Oximetry 95 Oxygen Delivery Method Room Air Oxygen Flow Rate 0 Narrative Exam Narrative: He is alert and oriented x3. He is in a good frame of mind. Heart is irregularly irregular without murmur. Lungs are clear to auscultation bilaterally. There is bruising without swelling or bleeding around the left hip incision. There is no ankle edema. Objective Labs Result Diagrams: 12/28/18 13:50 12/27/18 07:28 Assessment & Plan Assessment & Plan narrative: 1. 83-year-old male status post ground level fall resulting in a left femoral neck fracture. Patient most likely has underlying osteoporosis which is the etiology of the fracture. He is post op hip replacement from 12/26. Continue PT and OT per ortho. Hgb 9.8 on 12/28. 2. Persistent atrial fibrillation, on amiodarone, will continue. Patient at this time is not in atrial fibrillation. However he requires anti rhythmic therapy to remain in sinus rhythm. 3. Parkinson's disease, chronic, continue carbidopa levodopa 4. GERD, chronic, continue PPI 5. Hypertension, chronic continue usual home medication 6. Celiac disease, chronic will continue a gluten free diet. 7. Left eye ecchymoses following fall, will continue to monitor 8. Left elbow pain. He is reluctant to use the left arm. An x-ray of left elbow will be done. 9. Anemia. Consider iron therapy. 10. Thrombocytosis. Platelets up to 107. 11. Hiccups. These stopped before Baclofen could be tried. Disposition : SNF soon. Quality VTE Deep Vein Thrombosis/Pulmonary Embolism Present on Admission: No
[2018-12-28 12:00] VITALS: BP 107/48; PULSE 72; RESP 17; TEMP 37.1; O2SAT 95
[2018-12-28] MEDS: BACLOFEN 10 MG TABLET PO (12:33)
[2018-12-28] MEDS: FLUTICASONE 120 SPRAY/16 GM SPRAY.SUSP NASAL (12:33)
[2018-12-28] MEDS: CYANOCOBALAMIN COBAMAMIDE 5000 EACH SL (13:14)
[2018-12-28 14:10] LABS: Add Manual Diff / Slide Review NO; Basophils Absolute Auto 0 /uL (0-100); Basophils Percent Auto 0.4 % (0-2); Eosinophils Absolute Auto 300 /uL (0-450); Eosinophils Percent Auto 4.3 % (2-4); Hematocrit 28.4 % (41-53); Hemoglobin 9.8 g/dL (13.5-17.5); Lymphocytes Absolute Auto 700 /uL (1100-4500); Lymphocytes Percent Auto 9.6 % (25-40); Mean Corpuscular HGB Conc 34.6 % (30-36); Mean Corpuscular Hemoglobin 32.3 PG (26-34); Mean Corpuscular Volume 93.3 fL (80-100); Monocytes Absolute Auto 700 /uL (0-900); Monocytes Percent Auto 10.2 % (3-14); Neutrophils Absolute Auto 5200 /uL (1500-7000); Neutrophils Percent Auto 75.5 % (50-75); Platelet Count 107 X10^3/uL (150-400); Red Blood Cell Count 3.04 X10^6/uL (4.5-5.9); Red Cell Distribution Width 13.8 % (11.6-14.8); White Blood Cell Count 6.9 X10^3/uL (4.5-11.0)
--- NOTE | 2018-12-28 14:44 | DI.RAD.S_ITS ---
PROCEDURE: XR ELBOW LT MIN 3V INDICATIONS: Elbow pain TECHNIQUE: 3 views of the elbow were acquired. COMPARISON: None. FINDINGS: Bones: Nondisplaced fracture of the radial neck. Joint spaces preserved. Soft tissues: Small elbow joint effusion. No suspicious soft tissue calcifications. IMPRESSION: Nondisplaced fracture of the radial neck. Dictated by: Misael Morris M.D. on 12/28/2018 at 14:48 Approved by: Misael Morris M.D. on 12/28/2018 at 14:50
--- NOTE | 2018-12-28 14:50 | PT-IP ANOTE ---
Informed MD of elbow pain with gripping and pronation and supination. Hold PT until after xray of elbow per MD. Will see pt in AM.
[2018-12-28 16:29] VITALS: BP 111/55; PULSE 76; RESP 18; TEMP 36.5; O2SAT 95
--- NOTE | 2018-12-28 16:39 | PC.NURSE ---
Addendum entered by Radha Mercado R.N. 12/28/18 19:32: Sling applied. Sign authorization for sling placed in chart. Original Note: Assumed care of pt at 1500. Pt resting in bed during bedside hand-off. X-ray of elbow completed. Notified Dr. Peña of results. Sling ordered. This typewriters functional tester notified Charge Nurse to obtain sling from materials. Drsg with small amt of drainage. No further drainage from prior assessments. Verónica green okay light flashing indicating proper function. Refused to reposition at this time. PIP education provided. and reminded of posterior hip precautions. Pacheco draining yellow urine to gravity. Pt states I don't want it removed until I leave to go home. CAUTI risks advised. Enc deep breathing and to use I.S. 10x/hr while awake. Bed alarm on. Call light within reach. Pt verbalized he will call for needs. Student nurse participating in pt care. All care provided has been under the supervision of this RN.
[2018-12-28] MEDS: OXYCODONE IR 5 MG TABLET PO ×2 (17:58→21:14)
[2018-12-28 20:33] VITALS: BP 100/54; PULSE 72; RESP 16; TEMP 36.6; O2SAT 93
[2018-12-28] MEDS: POLYETHYLENE GLYCOL 3350 17 GM POWD.PACK PO (21:32)
[2018-12-29 00:20] VITALS: BP 102/45; PULSE 78; RESP 16; TEMP 36.7; O2SAT 96
[2018-12-29] MEDS: BACLOFEN 10 MG TABLET PO (03:08)
[2018-12-29] MEDS: ONDANSETRON 4 MG/2 ML INJ IV ×2 (03:08→10:17)
[2018-12-29 06:00] VITALS: BP 115/48; PULSE 74; RESP 16; TEMP 38.1; O2SAT 94
[2018-12-29 06:45] VITALS: PULSE 75; RESP 16; TEMP 37.1; O2SAT 94
--- NOTE | 2018-12-29 06:46 | PC.NURSE ---
Pt alert and awake. Turn q 2 hours. Pt complains of no pain except with movement. Left arm in sling per orders. Catheter patent and draining. Pt complains of nausea during the night resolved with zofran. Left hip CDI dressing with PICCO drain clean dry and intact. Pt resting with no complaints.
--- NOTE | 2018-12-29 08:56 | PM.PNPO.1 ---
Subjective Subjective Date Patient Seen: 12/29/18 Time Patient Seen: 08:57 Interval history: Still very sore about 5/10 in the left hip. Minimal discomfort in the left elbow. Exam Vital Signs (past 8 hours): - 12/29/18 06:00 12/29/18 06:45 Temperature 100.5 F H 98.8 F Pulse Rate 74 75 Respiratory Rate 16 16 Blood Pressure 115/48 L Pulse Oximetry 94 94 Oxygen Delivery Method Room Air Oxygen Flow Rate 0 Const Orientation: alert and oriented x3 Extrem Other: Left elbow, minimal tenderness over the radial head. Comfortable flexion and extension. Left hip dressing CDI. Soft calf easily wiggles foot and ankle. Objective Imaging Left elbow: My impression: Nondisplaced radial neck fracture. Labs Result Diagrams: 12/28/18 13:50 12/27/18 07:28 Labs: Laboratory Results - last 24 hr 12/28/18 13:50 WBC 6.9 RBC 3.04 L Hgb 9.8 L Hct 28.4 L MCV 93.3 MCH 32.3 MCHC 34.6 RDW 13.8 Plt Count 107 L Neut % (Auto) 75.5 H Lymph % (Auto) 9.6 L [place] % (Auto) 10.2 Eos % (Auto) 4.3 H Baso % (Auto) 0.4 Neut # (Auto) 5200 Lymph # (Auto) 700 L [place] # (Auto) 700 Eos # (Auto) 300 Baso # (Auto) 0 Assessment & Plan Post-op Postoperative Procedures: Procedures Operation Date: 12/26/18 16:15 Actual Procedures Side Surgeon p Total Hip Arthroplasty Left Lanny Jillian Jimenes MD Mobilizing slowly, as expected with his left hip fracture and Parkinson's. I have discussed with physical therapy that he needs to be in a platform walker because of the radial head fracture so the weight-bearing transfers through the olecranon but not through the radius. He can start on elbow range of motion whenever he is comfortable. I explained to him that elbows tend to stiffen up and the sooner he starts moving that elbow the better so we do not want to fully immobilize him, but the sling can be for comfort. [facility]charge to [facility] when medically stable. Quality VTE Deep Vein Thrombosis/Pulmonary Embolism Present on Admission: No
[2018-12-29 09:00] VITALS: BP 114/50; PULSE 73; RESP 17; TEMP 36.6; O2SAT 97
[2018-12-29] MEDS: CARBIDOPA-LEVODOPA 25/100 TABLET 4 EACH PO (09:07)
[2018-12-29] MEDS: ACETAMINOPHEN 325 MG TABLET 975 MG PO (09:08)
[2018-12-29] MEDS: ASPIRIN EC 81 MG TABLET PO (09:08)
[2018-12-29] MEDS: DOCUSATE 100 MG CAPSULE PO (09:08)
[2018-12-29] MEDS: CYANOCOBALAMIN COBAMAMIDE 5000 EACH SL (09:09)
[2018-12-29] MEDS: ZONISAMIDE 100 MG CAPSULE PO (09:10)
[2018-12-29] MEDS: AMIODARONE 100 MG TABLET PO (09:10)
[2018-12-29] MEDS: FLUTICASONE 120 SPRAY/16 GM SPRAY.SUSP NASAL (09:16)
[2018-12-29] MEDS: MULTIVIT,CALC,MINS/IRON/FOLIC 1 TABLET 1 TAB PO (09:16)
[2018-12-29] MEDS: SODIUM CHLORIDE 0.9% FLUSH 10 ML IV (09:17)
--- NOTE | 2018-12-29 11:43 | P.DS_ITS ---
History of Present Illness History of Present Illness Date Patient Seen: 12/29/18 Time Patient Seen: 12:21 Chief complaint: GLF-Head injury/hip Pain Narrative: Mr. 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 Patient landed on his left side with immediate left hip pain left shoulder pain and struck his. The patient's stay no loss conscious and denies neck or back pain. Patient hence no recent complaints of fevers or chills, headaches or dizziness, chest pain or palpitations with history of paroxysmal atrial fibrillation, no shortness of breath, cough or wheezing. He reports no complaints of abdominal pain, nausea vomiting, changes in bowel or bladder habits. The patient is normally ambulatory at baseline and independent in all ADLs. He does have tremors related to his Parkinson's disease. Upon arrival the patient is afebrile with a temperature of 97.1?, heart rate of 60, blood pressure 147/76, respirations of 16 saturating 90% on room air. A CT of the head is obtained related to fall and head contusion on aspirin and found to have no acute intercranial pathology with age-related volume loss. Imaging of the left hip demonstrate a subcapital femoral neck impaction fracture. On laboratory tests the patient has white count of 4.8, hemoglobin of 13.2, hematocrit of 39.9 and platelets of 138. He has a PT of 11.9 and a PTT of 32 with an INR 1.0. His electrolytes are within normal range knee has a BUN of 17 and creatinine 1.0. His nonfasting glucose is 101. His liver functions are all within normal range. The patient is admitted for left hip fracture with consult to Dr. Jimenes orthopedics. Discharge Providers Provider Date of admission: 12/24/18 22:50 Discharge Date: 12/29/18 Primary care physician: Khang Seth MD Consults: 12/24/18 21:49 Consult to Discharge Planning Routine Comment: 12/24/18 21:50 Consult to Physician Routine Comment: Consulting Provider: Lanny Jimenes Reason for consultation: subcapital fracture left femoral neck 12/24/18 22:21 Consult to Orthopedic Surgery Stat Comment: Consulting Provider: Lanny Jimenes Reason for consultation: left femoral neck Has provider been notified: Yes 12/25/18 00:54 Consult to Dietitian, Adult Routine Comment: Reason For Exam: special diet, weight loss 12/26/18 16:07 Consult to Anesthesiology Routine Comment: Consulting Provider: Anesthesiologist Reason for consultation: Regional block for post operative pain control 12/27/18 03:02 Consult to Discharge Planning Routine Comment: Consult to Physical Therapy Evaluate & Treat Comment: Physician Instructions: post op WENDI protocol Consult to Respiratory Therapy Evaluate & Treat Comment: Physician Instructions: Evaluate and treat 12/29/18 09:00 Consult to Physical Therapy Evaluate & Treat Comment: Needs platform walker L arm for rad neck fx Physician Instructions: Evaluate and Treat Discharge provider: Megha Peña MD Summary Hospital Course Discharge Diagnosis: 1. Left femoral neck fracture. Hip replacement 12/26. 2. Persistent atrial fibrillation 3. Parkinson's disease 4. GERD 5. Hypertension 6. Celiac disease 7. Left eye ecchymoses 8. Left elbow radial head fracture. 9. Anemia 10. Thrombocytosis 11. Hiccups Hospital Course: 1. 83-year-old male status post ground level fall resulting in a left femoral neck fracture. Patient most likely has underlying osteoporosis which is the etiology of the fracture. He is post op hip replacement from 12/26. Continue PT and OT at SNF. Discharging today. Hgb 9.8 on 12/28. Repeat CBC tomorrow. May need Iron. 2. Persistent atrial fibrillation, on amiodarone, continue. Patient at this time is not in atrial fibrillation. However he requires anti rhythmic therapy to remain in sinus rhythm. 3. Parkinson's disease, chronic, continue carbidopa levodopa 4. GERD, chronic, continue PPI 5. Hypertension, chronic continue usual home medication 6. Celiac disease, chronic will continue a gluten free diet. 7. Left eye ecchymoses following fall, will continue to monitor 8. Left Radial Head fracture pain. He is reluctant to use the left arm. See ortho note quoted below. 9. Anemia. Consider iron therapy. Repeat CBC at [facility] tomorrow. 10. Thrombocytosis. Platelets up to 107. 11. Hiccups. These stopped before Baclofen could be tried. Per Dr. Chase today: Mobilizing slowly, as expected with his left hip fracture and Parkinson's. He needs to be in a platform walker because of the radial head fracture so the weight-bearing transfers through the olecranon but not through the radius. He can start on elbow range of motion whenever he is comfortable. Elbows tend to stiffen up and the sooner he starts moving that elbow the better so we do not want to fully immobilize him, but the sling can be for comfort. Total time today is 35 minutes. Exam Vital Signs (past 8 hours): - 12/29/18 06:00 12/29/18 06:45 12/29/18 09:00 Temperature 100.5 F H 98.8 F 97.9 F Pulse Rate 74 75 73 Respiratory Rate 16 16 17 Blood Pressure 115/48 L 114/50 L Pulse Oximetry 94 94 97 Oxygen Delivery Method Room Air Oxygen Flow Rate 0 Narrative Exam Narrative: He is alert and oriented x3, in no apparent distress. He is very agreeable and very motivated. Heart is regular rate and rhythm without murmur. Lungs are clear to auscultation bilaterally. Extremities have no ankle edema. He has extensive bruising on the left lateral hip at the incision area and he has tenderness directly over the left radial head. He is wearing a sling. Objective Labs Result Diagrams: 12/28/18 13:50 12/27/18 07:28 Labs: Laboratory Results - last 24 hr 12/28/18 13:50 WBC 6.9 RBC 3.04 L Hgb 9.8 L Hct 28.4 L MCV 93.3 MCH 32.3 MCHC 34.6 RDW 13.8 Plt Count 107 L Neut % (Auto) 75.5 H Lymph % (Auto) 9.6 L [place] % (Auto) 10.2 Eos % (Auto) 4.3 H Baso % (Auto) 0.4 Neut # (Auto) 5200 Lymph # (Auto) 700 L [place] # (Auto) 700 Eos # (Auto) 300 Baso # (Auto) 0 Discharge Plan Discharge Plan Patient Disposition: SNF Transfer to: [facility] Under care of provider: [facility] [employer], follow up with Orthopedic doctor Lanny Jimenes. Labs: CBC on 12/30/2018 Discharge comment: Will need platform walker due to left elbow fracture. He is non weight bearing on the left forearm. Discharge Med Rec/Prescriptions Prescriptions: New oxycodone 5 mg Tablet 5 mg PO Q4HR Qty: 30 RF: 0 clonazepam 0.5 mg Tablet 0.5 mg PO DAILY Qty: 30 RF: 0 clonazepam 0.25 mg Tablet,Disintegrating 0.25 mg PO DAILY Qty: 30 RF: 0 Continued Multi Complete with Iron 18-400 mg-mcg Tablet 1 tab PO QAM Qty: 0 RF: 0 B12 5,000-100 mcg Lozenge 5,000 lisette SUBLINGUAL QAM RF: 0 amiodarone 200 mg Tablet 200 mg PO DAILY RF: 0 zonisamide 100 mg Capsule 100 mg PO BID RF: 0 carbidopa-levodopa 25-100 mg Tablet 4 tab PO BID RF: 0 montelukast [Singulair] 4 mg Tablet,Chewable 4 mg PO DAILY RF: 0 Follow up/Referrals: Khang Seth MD [Primary Care Provider] - Discharge Health Status Brief summary of current health status: 1. 83-year-old male status post ground level fall resulting in a left femoral neck fracture. Patient most likely has underlying osteoporosis which is the etiology of the fracture. He is post op hi p replacement from 12/26. Continue PT and OT per ortho. Hgb 9.8 on 12/28. 2. Persistent atrial fibrillation, on amiodarone, will continue. Patient at this time is not in atrial fibrillation. However he requires anti rhythmic therapy to remain in sinus rhythm. 3. Parkinson's disease, chronic, continue carbidopa levodopa 4. GERD, chronic, continue PPI 5. Hypertension, chronic continue usual home medication 6. Celiac disease, chronic will continue a gluten free diet. 7. Left eye ecchymoses following fall, will continue to monitor 8. Left elbow pain. He is reluctant to use the left arm. An x-ray of left elbow will be done. 9. Anemia. Consider iron therapy. 10. Thrombocytosis. Platelets up to 107. 11. Hiccups. These stopped before Baclofen could be tried. Provider Discharge Instructions Diet: Regular Liquid consistency: Normal/Thin Food texture: Regular Catheter: 2-way P[place]co Catheter comment: Remove in one week. [facility] Rehab type: Physical therapy and Occupational therapy Restrictions to mobility: Per orthopedics, wear sling for left elbow fracture and platform walker cautiously. Discharge Data Primary Care Provider: Khang Seth VTE Deep Vein Thrombosis/Pulmonary Embolism Present on Admission: No
[2018-12-29] MEDS: ONDANSETRON 4 MG ODT PO (13:04)
[2018-12-29] MEDS: OXYCODONE IR 5 MG TABLET PO (13:04)
--- NOTE | 2018-12-29 13:28 | PC.NURSE ---
Pt ready for discharge to [facility] via w/c by [facility] transport personnel. Pt given 5mg Oxycodone prior to transfer for pain control and 4mg ODT Zofran. Report called to Tammy at [facility] and all questions answered. Junior to stay in for 1 week. IV removed. P.T. to transfer Pt into w/c. Packet given to transporter. VS checked at 1310 t-98.6, R 16, HR 72, BP 115/76, O2 sat 96% RA.
--- NOTE | 2018-12-29 13:42 | CM.DPC ---
DCP/continued: Received notification from that patient medically stable for discharge. Reviewed previous CM team notes indicating that patient has been accepted at [facility] and authorized for SNF placement by [place]. Orders obtained and faxed to [facility] with LIZY. Spoke with Mary Alice and she reports that they can pick patient up at approximately 1:30pm. PT to see to confirm patient is safe to transport via w/c. Met with patient and family at bedside. All in agreement to discharge plan. AMANDA signed by patient. RN/Clarissa provided with number to give nrsg report. No additional needs identified. P: [facility] today. AUDIE Marquez
--- NOTE | 2018-12-29 14:02 | PT.IPTN ---
Current Diagnoses Age-related osteoporosis with current pathological fracture, left femur, initial encounter for fracture (12/24/18) Surgery Performed Operation Date: 12/26/18 16:15 Actual Procedures p Total Hip Arthroplasty(Left) - Lanny Jimenes MD Physical Therapy Treatment Note M2 PT-IP Current Condition Start: 12/27/18 08:24 Freq: NEEDED Status: Discharge Protocol: Document 12/27/18 09:40 JG (Rec: 12/27/18 11:30 JG [email or web address]) Physical Therapy Current Condition Current Condition Evaluation Date 12/27/18 Treatment Diagnosis L WENDI, hx of multiple falls, impaired balance, impaired mobility/ambulation Onset Date 12/26/18 Precautions Posterior Hip Precautions No Hip Flexion > 90 degrees,No Hip Internal Rotation,No Hip Adduction Weight Bearing Status Weight Bearing Status Weight Bear as Tolerated M3 PT-IP Subjective Start: 12/27/18 08:24 Freq: NEEDED Status: Discharge Protocol: Document 12/29/18 13:51 AW (Rec: 12/29/18 14:02 AW [email or web address]) Subjective Physical Therapy Visit Type Type Treatment Note Visit Start Time 13:33 Visit Stop Time 13:55 Total Visit Minutes 22 Notes Pt discharging to [facility]. Requires assist to transfer to transport chair. Left radial neck fracture confirmed by imaging since eval. LUE in sling for comfort. Number of HIM DIRECTOR Visits 0 Physical Therapy Visit Comments Patient Comments Pt is ready to discharge M4 PT-IP Mobility and Gait Start: 12/27/18 08:24 Freq: NEEDED Status: Discharge Protocol: Document 12/29/18 13:51 AW (Rec: 12/29/18 14:02 AW [email or web address]) PT-Bed Mobility Assessment Supine to Sit Supine to Sit Maximum Assistance,2 Person Assistance Scooting Scooting to Edge of Bed Moderate Assistance PT-Transfer Assessment Sit to and From Stand Sit to and from Stand Moderate Assistance,2 Person Assistance,Use of Upper Extremities Equipment Transfer Assistive Device Gait Belt,Front Wheeled Walker Orthotic/Prosthetic Devices or Brace: No Transfers Transfer Destination Wheelchair Transfer Technique Stand Pivot Transfer Ability Level of Assist Moderate Assistance,2 Person Assistance Comments Mobility Comments Pt required mod to max assist x 2-3 to complete supine to sit with one supporting shoulders, one pulling draw sheet to rotate hips, and one supporting the legs. Scooting to EOB required mod assist with use of draw sheet. Sit to stand transfer was completed using FWW and mod assist x 2 and use of RUE. Pt required max cues for RLE knee extension with pt unable to attain terminal knee extension . Transfer to w/c required mod assist x 2 using FWW. M5 PT-IP Objective Assessments Start: 12/27/18 08:24 Freq: NEEDED Status: Discharge Protocol: Document 12/27/18 09:40 JG (Rec: 12/27/18 11:30 JG [email or web address]) Orientation Orientation/Cognition Level of Alertness Alert Orientation Name,Age,Birthday,Month,Date, Year,Day of Week,Place, Situation Language Function Ability No Deficits Noted Safety Awareness Understands Safety Issues Memory Description No Deficits Noted Comments No cognitive or communication deficits noted. Gross Range of Motion Upper Extremity ROM Assessment Within Functional Limits Lower Extremity ROM Assessment Left Impaired Strength Upper Extremity Strength Assessment Left Impaired Lower Extremity Strength Assessment Left Impaired M6 PT-IP Treatment Start: 12/27/18 08:24 Freq: NEEDED Status: Discharge Protocol: Document 12/27/18 09:40 JG (Rec: 12/27/18 11:30 JG [email or web address]) Physical Therapy Treatment Education Education Provided Precautions,Weight Bearing Status,Post-Op Packet,Safety Other Treatments Other Treatment Performed Educated pt on post op precautions and provided packet. Discussed strategies for use of R UE and LE to support L UE and LE for effective mobility. After ambulation pt was left in bed with both arm rails up per pt request. M7 PT-IP Assessment and Plan Start: 12/27/18 08:24 Freq: NEEDED Status: Discharge Protocol: Document 12/29/18 13:51 AW (Rec: 12/29/18 14:02 AW [email or web address]) PT Summary Assessment and Plan Summary Assessment Summary Pt required mod to max assist for all mobility. He is unable to bear weight on the LUE due to radial neck fracture. He continues to present with limited activity tolerance due to pain. He is an excellent candidate for SNF rehab Goals Bed Mobility Goal Contact Guard Assistance Transfer Goal Minimal Assistance Gait Goal Minimal Assistance Gait Distance 50 Days to Meet Goals 5 Frequency of Treatment Frequency Of Treatment Once a Day Treatment Plan Physical Therapy Treatment Plan Bed Mobility Training,Transfer Training,Gait Training, Therapeutic Exercise,Balance Retraining,Post Op Education, Discharge Planning,Hot or Cold Pack,Neuromuscular Re-ed, Coordination Retraining Other Recommendations and Next Treatment Balance, bed mobility, Focus transfers, ambulation Recommendations To Nursing Amount of Assist Needed PT/OT Assist Only Discharge Recommendations PT Discharge Recommendations SNF Rehab
== END 2018-12-29 13:31 | DRG 470 ==
LOC: ED 21:16 → AC 22:51
PROVIDERS: Family Medicine; Nurse Practitioner Family; Orthopaedic Surgery; Admitting Provider Nurse Practitioner Adult Health; Emergency Provider Emergency Medicine; Family Provider Internal Medicine; PCP Family Medicine; Visit Provider Nurse Practitioner Adult Health
PROC: 0SRB0JZ Replacement of Left Hip Joint with Synthetic Substitute, Open Approach (ICD-10-PCS; CPT 27130; principal; 2018-12-26 16:15)
DX: M80.052A Age-related osteoporosis with current pathological fracture, left femur, initial encounter for fracture (principal); M80.032A Age-related osteoporosis with current pathological fracture, left forearm, initial encounter for fracture; G20 Parkinson's disease; M25.512 Pain in left shoulder; S00.93XA Contusion of unspecified part of head, initial encounter; W01.0XXA Fall on same level from slipping, tripping and stumbling without subsequent striking against object, initial encounter; Y92.511 Restaurant or cafe as the place of occurrence of the external cause; I10 Essential (primary) hypertension; I25.10 Atherosclerotic heart disease of native coronary artery without angina pectoris; K21.9 Gastro-esophageal reflux disease without esophagitis; K90.0 Celiac disease; G47.30 Sleep apnea, unspecified; Z87.891 Personal history of nicotine dependence; S00.10XA Contusion of unspecified eyelid and periocular area, initial encounter; M25.522 Pain in left elbow
CPT/HCPCS: 36415; 70450; 72170; 72192; 73030; 73080; 73110; 73502; 80048; 80053; 85025; 85610; 85730; 93005; 94760; 97163; 97530; 99282; C1776; C9290; J0171; J0690; J1170; J2250; J2405; J2704; J3010

== ENCOUNTER → 2019-01-13 16:51 | Outpatient (ROUT) | payer OTHER, SELFPAY ==
[2018-12-25 03:20] VITALS: BMI 28.1
[2019-01-13 16:57] LABS: Add Manual Diff / Slide Review NO; Basophils Absolute Auto 100 /uL (0-100); Basophils Percent Auto 1.2 % (0-2); Eosinophils Absolute Auto 300 /uL (0-450); Eosinophils Percent Auto 5.2 % (2-4); Hematocrit 33.5 % (41-53); Hemoglobin 11.1 g/dL (13.5-17.5); Lymphocytes Absolute Auto 900 /uL (1100-4500); Lymphocytes Percent Auto 13.5 % (25-40); Mean Corpuscular HGB Conc 33.1 % (30-36); Mean Corpuscular Hemoglobin 30.2 PG (26-34); Mean Corpuscular Volume 91.1 fL (80-100); Monocytes Absolute Auto 400 /uL (0-900); Monocytes Percent Auto 7.1 % (3-14); Neutrophils Absolute Auto 4600 /uL (1500-7000); Platelet Count 308 X10^3/uL (150-400); Red Blood Cell Count 3.67 X10^6/uL (4.5-5.9); Red Cell Distribution Width 13.9 % (11.6-14.8); White Blood Cell Count 6.3 X10^3/uL (4.5-11.0)
[2019-01-13 17:16] LABS: Alanine Aminotransferase 8 IU/L (<50); Albumin 3.5 g/dL (3.5-5.0); Albumin Globulin Ratio 1.3 (1.0-2.8); Alkaline Phosphatase 92 U/L (38-126); Aspartate Aminotransferase 20 IU/L (17-59); BUN Creatinine Ratio 16.7 (6-22); Bilirubin Total 0.5 mg/dL (0.2-1.3); Blood Urea Nitrogen 20 mg/dL (9-20); Calcium 8.9 mg/dL (8.4-10.2); Carbon Dioxide 24 mmol/L (22-32); Chloride 107 mmol/L (98-107); Estimated Glomerular Filt Rate 57.7 mL/min (>60); Globulin 2.8 g/dL (1.7-4.1); Glucose 114 mg/dL (80-110); HEMOLYSIS < 15 (0-50); Potassium 4.2 mmol/L (3.4-5.1); Sodium 139 mmol/L (137-145); Total Protein 6.3 g/dL (6.3-8.2)
== END ==
PROVIDERS: Family Provider Internal Medicine
DX: I48.0 Paroxysmal atrial fibrillation (principal); I25.10 Atherosclerotic heart disease of native coronary artery without angina pectoris
CPT/HCPCS: 80053; 85025

== ENCOUNTER 2019-06-09 13:23 | Observation (INO) | payer OTHER, SELFPAY ==
[2018-12-25 03:20] VITALS: BMI 28.1
[2019-06-09] VITALS (13 sets, daily range): BP systolic 86–132; BP diastolic 59–86; PULSE 87–125; RESP 16–24; TEMP 36–36.8; O2SAT 94–99; BMI 26.9
--- NOTE | 2019-06-09 13:35 | DI.RAD.S_ITS ---
PROCEDURE: XR CHEST 1V INDICATIONS: chest pain TECHNIQUE: One view of the chest was acquired. COMPARISON: [facility], , XR CHEST 2V, 05/05/2018, 22:16. [facility], , CHEST 1 VIEW, 12/04/2014, 18:45. FINDINGS: Surgical changes and devices: None. Lungs and pleura: Lungs are difficult to accurately assess due to the reduced inspiratory volume. There is crowding of the bronchovascular markings and no definite pneumonia is found. No pleural effusions or pneumothorax. Mediastinum: Mediastinal contours appear normal. Heart size is normal. Bones and chest wall: No suspicious bony lesions. Overlying soft tissues appear unremarkable. IMPRESSION: Reduced inspiratory volume, no pneumonia seen. Source of pain is not identified. Dictated by: Kerwin Solis M.D. on 06/09/2019 at 14:05 Approved by: Kerwin Solis M.D. on 06/09/2019 at 14:05
[2019-06-09 13:47] LABS: Add Manual Diff / Slide Review NO; Basophils Absolute Auto 100 /uL (0-100); Basophils Percent Auto 1.4 % (0-2); Eosinophils Absolute Auto 200 /uL (0-450); Eosinophils Percent Auto 4.4 % (2-4); Hematocrit 42.5 % (41-53); Hemoglobin 14.1 g/dL (13.5-17.5); Lymphocytes Absolute Auto 1000 /uL (1100-4500); Lymphocytes Percent Auto 22.5 % (25-40); Mean Corpuscular HGB Conc 33.3 % (30-36); Mean Corpuscular Volume 93.3 fL (80-100); Monocytes Absolute Auto 200 /uL (0-900); Monocytes Percent Auto 5.3 % (3-14); Neutrophils Absolute Auto 3000 /uL (1500-7000); Neutrophils Percent Auto 66.4 % (50-75); Platelet Count 165 X10^3/uL (150-400); Red Blood Cell Count 4.56 X10^6/uL (4.5-5.9); Red Cell Distribution Width 15.7 % (11.6-14.8); White Blood Cell Count 4.5 X10^3/uL (4.5-11.0)
[2019-06-09 13:55] LABS: INR 1.1 (0.9-1.3); Prothrombin Time 12.3 SECONDS (10.1-12.7)
[2019-06-09 13:58] LABS: PTT Partial Thromboplastin Tim 35 SECONDS (26.4-36.2)
[2019-06-09 14:02] LABS: Alanine Aminotransferase 6 IU/L (<50); Albumin 4.2 g/dL (3.5-5.0); Albumin Globulin Ratio 1.4 (1.0-2.8); Alkaline Phosphatase 54 U/L (38-126); Aspartate Aminotransferase 23 IU/L (17-59); BUN Creatinine Ratio 18.7 (6-22); Bilirubin Total 0.8 mg/dL (0.2-1.3); Blood Urea Nitrogen 23 mg/dL (9-20); Calcium 9.6 mg/dL (8.4-10.2); Carbon Dioxide 25 mmol/L (22-32); Chloride 111 mmol/L (98-107); Creatine Kinase 39 U/L (55-170); Estimated Glomerular Filt Rate 56.1 mL/min (>60); Globulin 3.1 g/dL (1.7-4.1); Glucose 178 mg/dL (80-110); HEMOLYSIS < 15 (0-50); Lipase 70 U/L (23-300); Potassium 4.1 mmol/L (3.4-5.1); Sodium 141 mmol/L (137-145); Total Protein 7.3 g/dL (6.3-8.2)
[2019-06-09 14:14] LABS: NT-proBNP (BNP-Adult 18+) 2180 pg/mL (<450); Troponin I < 0.012 ng/mL (0.01-0.034)
--- NOTE | 2019-06-09 14:17 | ED.ARRPALP ---
HPI - Arrhythmia/Palpitations General Chief Complaint: Arrhythmia/Palpitations Stated Complaint: afib for many hours Time Seen by Provider: 06/09/19 13:34 Source: patient Mode of arrival: Wheelchair Limitations: no limitations History of Present Illness HPI narrative: 83-year-old gentleman with a history of recurrent atrial fibrillation currently on amiodarone aspirin and no additional anticoagulants. He comes in complaining of a ?severe episode at 6:00 a.m. last night and ?he states that when his heart is pounding he can sense it but typically does not know if he is in her out of atrial fibrillation. He reports that he has been cardioverted multiple times. He states he has been taking his amiodarone. He was feeling more weak today so his wanted him further evaluated. On presentation to the emergency department he is in atrial fibrillation at a rate in the 115 range and is not aware of the irregularity. Related Data Home Medications Medication Instructions Recorded Confirmed Multi Complete with Iron 1 tab PO QAM #0 06/12/09 06/09/19 amiodarone 200 mg PO DAILY 11/20/18 06/09/19 carbidopa-levodopa 5 tab PO BID 11/20/18 06/09/19 montelukast [Singulair] 4 mg PO QPM 11/20/18 06/09/19 B12 5,000 lisette SUBLINGUAL QAM 12/28/18 06/09/19 alpha lipoic acid 100 mg PO QPM 06/09/19 06/09/19 ascorbic acid (vitamin C) [Vitamin 500 mg PO QAM 06/09/19 06/09/19 C] cholecalciferol (vitamin D3) 2,000 unit PO DAILY 06/09/19 06/09/19 clonazepam 0.25 mg PO QAM 06/09/19 06/09/19 clonazepam 0.5 mg PO BEDTIME 06/09/19 06/09/19 coenzyme Q10 [Ultra CoQ10] 75 mg PO QAM 06/09/19 06/09/19 vit C-vit M-jbyjxz-zeik-lutein 2 cap PO QAM 06/09/19 06/09/19 [PreserVision Lutein] zonisamide 100 mg PO BID 06/09/19 06/09/19 Allergies Allergy/AdvReac Type Severity Reaction Status Date / Time gluten [GLUTEN] Allergy Severe CELIAC Verified 06/09/19 13:58 DISEASE adhesive [ADHESIVE] Allergy Mild rash from Verified 06/09/19 13:58 plastic tape iodine [IODINE] Allergy Unknown PT UNSURE Verified 06/09/19 13:58 OF REACTION cephalexin AdvReac Severe violent Verified 06/09/19 13:58 indigestion hydromorphone [From Dilaudid] AdvReac Severe vomited Verified 06/09/19 13:58 violently morphine [MORPHINE] AdvReac Severe VOMITED Verified 06/09/19 13:58 VIOLENTLY, HAD ABD HERNIAS THAT NEEDED SURGERY. Review of Systems Review of Systems Narrative: He notes generalized arthritis with his right knee typically bigger than his left. Feels that he has been in his usual state of health recently Denies ? fever ? cough ? cold ? chills ? chest pain ? dyspnea ? orthopnea ? wheezing ? abdominal pain ? change to bowel or bladder habits ? nausea vomiting ? skin changes ? rashes Patient History Medical History (Updated 06/10/19 @ 00:28 by TAWANA Funk) Adenomatous colon polyp (Acute) Atrial fibrillation (Inactive) CAD (coronary artery disease) (Acute) Celiac disease (Acute) Closed left hip fracture (Acute) Compression fracture of L1 lumbar vertebra (Acute) GERD (gastroesophageal reflux disease) (Acute) HTN (hypertension) (Acute) Kidney stones (Acute) Parkinsons disease (Acute) Right carpal tunnel syndrome (Acute) Weight loss, unintentional (Acute) Surgical History (Updated 06/10/19 @ 00:28 by TWAANA Funk) History of cholecystectomy (Acute) History of colonoscopy (Acute) History of esophagogastroduodenoscopy (EGD) (Acute) History of hernia repair (Acute) History of hip surgery (Acute) History of lumbar fusion (Acute) History of right hemicolectomy (Acute) Family History (Updated 06/10/19 @ 00:31 by TAWANA Funk) Father Intracranial bleed Mother No problems noted. Brother Heart disease Sister Asthma Social History household members: spouse Smoking Status: Former smoker Smoking Status: Former smoker alcohol intake frequency: 0-2 drinks per day Substance Use Type: does not use Exam Narrative Exam Narrative: General:pale, no acute distress, moderate global weakness. Able to give a complete and coherent history. Well-nourished well-developed HEENT: Moist mucous membranes, normal sclera with reactive pupils, Neck: No JVD, supple Respiratory: Lungs are essentially clear to auscultation, no wheezing, bibasilar crackles no rhonchi. Full and symmetrical air movement Cardiac: Irregular rhythm at a rate in the 115 range, no murmurs no bruits Abdomen: Soft nontender good bowel tones, no flank pain Skin: Warm and dry, no rashes Neurologic: Grossly neurologically intact with no obvious asymmetries or abnormalities Extremities: No trauma, well perfused, no lower extremity edema Psych: Cooperative, appropriate insight and affect Initial Vital Signs Initial Vital Signs: Vital Signs Temperature 97.0 F L 06/09/19 13:35 Pulse Rate 125 H 06/09/19 13:35 Respiratory Rate 24 06/09/19 13:35 Blood Pressure 104/72 06/09/19 13:35 Pulse Oximetry 98 06/09/19 13:35 Course Orders Ordered: Acetaminophen (Tylenol) 650 mg PO Q6HR PRN PRN Reason: Fever/Mild Pain (1-3) Al Hydrox/Mg Hydrox/Simethicone (Maalox Plus) 30 ml PO Q6HR PRN PRN Reason: Dyspepsia Amiodarone HCl (Cordarone) 200 mg PO DAILY TAWANDA Bisacodyl (Dulcolax) 10 mg NC DAILY PRN PRN Reason: Constipation Calcium Carbonate (Tums) 1,000 mg PO Q4HR PRN PRN Reason: Dyspepsia Carbidopa/Levodopa (Sinemet 25-100 Tab) 5 each PO BID [facility] Last Admin: 06/09/19 21:24 Dose: 5 each Documented by: SILVANO Clonazepam (Klonopin) 0.5 mg PO BEDTIME [facility] Last Admin: 06/09/19 21:24 Dose: 0.5 mg Documented by: SILVANO Clonazepam (Klonopin) 0.25 mg PO DAILY [facility] Docusate Sodium (Colace) 100 mg PO BID PRN PRN Reason: Constipation Enoxaparin Sodium (Lovenox) 40 mg SUBCUT DAILY [facility] Lutein (Ocuvite/Lutein) 2 cap PO DAILY [facility] Metoprolol Succinate (Toprol Xl) 25 mg PO BID [facility] Last Admin: 06/09/19 23:29 Dose: 25 mg Documented by: HOMA Naloxone HCl (Narcan) 0.2 mg IV Q2MIN PRN PRN Reason: Opiate Reversal Ondansetron HCl (Zofran) 4 mg IV Q8HR PRN PRN Reason: Nausea And Vomiting Sodium Chloride (Normal Saline 0.9% Flush) 10 ml IV PRN PRN PRN Reason: Flush Sodium Chloride (Normal Saline 0.9% Flush) 10 ml IV BID [facility] Zonisamide (Zonegran) 100 mg PO BID [facility] Last Admin: 06/09/19 21:24 Dose: 100 mg Documented by: SILVANO Discontinued Medications Diltiazem HCl (Cardizem) 10 mg IV NOW ONE Stop: 06/09/19 14:30 Last Admin: 06/09/19 14:46 Dose: 10 mg Documented by: DANIEL Furosemide (Lasix) 20 mg IV NOW ONE Stop: 06/09/19 14:30 Last Admin: 06/09/19 14:47 Dose: 20 mg Documented by: DANIEL DILTIAZEM (Diltiazem 125 Mg/125 Ml-D5w) 125 mg in 125 mls @ 5 mls/hr IV TITRATE [facility]; Protocol Last Titration: 06/09/19 16:35 Dose: 0 mg/hr, 0 mls/hr Documented by: Admin: 06/09/19 15:34 Dose: 5 mg/hr, 5 mls/hr Documented by: DANIEL Metoprolol Tartrate (Lopressor) 25 mg PO QID [facility] Last Admin: 06/09/19 17:03 Dose: 25 mg Documented by: DANIEL Vital Signs Vital signs: Vital Signs - 8 hr 06/09/19 13:35 06/09/19 13:45 06/09/19 14:00 Temperature 97.0 F L Pulse Rate 125 H 110 H 108 H Respiratory Rate 24 22 21 Blood Pressure 104/72 Blood Pressure [Right Arm] 109/72 96/59 L Pulse Oximetry 98 95 95 06/09/19 14:15 06/09/19 14:30 06/09/19 14:35 Temperature Pulse Rate 115 H 98 H 93 H Respiratory Rate 18 18 19 Blood Pressure Blood Pressure [Right Arm] 100/59 L 107/75 Pulse Oximetry 94 95 95 06/09/19 14:46 06/09/19 14:49 06/09/19 15:45 Temperature Pulse Rate 105 H 97 H 97 H Respiratory Rate 20 16 Blood Pressure 107/75 Blood Pressure [Right Arm] 86/63 L 111/70 Pulse Oximetry 96 96 MDM - Arrhythmia/Palpitations Medical Records Attestation: I reviewed the patient's medical records. Lab Data Attestation: I reviewed the patient's lab results. Result diagrams: 06/09/19 13:37 06/10/19 05:30 Labs: Lab Results 06/09/19 06/09/19 06/09/19 Range/Units 13:37 13:37 13:37 WBC 4.5 (4.5-11.0) X10^3/uL RBC 4.56 (4.5-5.9) X10^6/uL Hgb 14.1 (13.5-17.5) g/dL Hct 42.5 (41-53) % MCV 93.3 (80-100) fL MCH 31.0 (26-34) PG MCHC 33.3 (30-36) % RDW 15.7 H (11.6-14.8) % Plt Count 165 (150-400) X10^3/uL Neut % (Auto) 66.4 (50-75) % Lymph % (Auto) 22.5 L (25-40) % [place] % (Auto) 5.3 (3-14) % Eos % (Auto) 4.4 H (2-4) % Baso % (Auto) 1.4 (0-2) % Neut # (Auto) 3000 (8007-5395) /uL Lymph # (Auto) 1000 L (2187-6461) /uL [place] # (Auto) 200 (0-900) /uL Eos # (Auto) 200 (0-450) /uL Baso # (Auto) 100 (0-100) /uL PT 12.3 (10.1-12.7) SECONDS INR 1.1 (0.9-1.3) APTT 35 D (26.4-36.2) SECONDS Sodium 141 (137-145) mmol/L Potassium 4.1 (3.4-5.1) mmol/L Chloride 111 H (98-107) mmol/L Carbon Dioxide 25 (22-32) mmol/L BUN 23 H (9-20) mg/dL Creatinine 1.23 (0.66-1.25) mg/dL Estimated GFR 56.1 L (>60) mL/min BUN/Creatinine Ratio 18.7 (6-22) Glucose 178 H (80-110) mg/dL Lactate (0.7-2.1) mmol/L Calcium 9.6 (8.4-10.2) mg/dL Magnesium (1.6-2.3) mg/dL Ferritin (18-464) ng/mL Total Bilirubin 0.8 (0.2-1.3) mg/dL AST 23 (17-59) IU/L ALT 6 (<50) IU/L Alkaline Phosphatase 54 (38-126) U/L Total Creatine Kinase 39 L (55-170) U/L CK-MB (CK-2) TNP CK-MB (CK-2) Rel Index TNP Troponin I < 0.012 (0.01-0.034) ng/mL C-Reactive Protein (<1.0) mg/dL NT-Pro-B Natriuret Pep 2180 H (<450) pg/mL Total Protein 7.3 (6.3-8.2) g/dL Albumin 4.2 (3.5-5.0) g/dL Globulin 3.1 (1.7-4.1) g/dL Albumin/Globulin Ratio 1.4 (1.0-2.8) Lipase 70 (23-300) U/L Procalcitonin (<0.5) ng/mL 06/09/19 06/09/19 06/09/19 Range/Units 13:37 13:37 13:37 WBC (4.5-11.0) X10^3/uL RBC (4.5-5.9) X10^6/uL Hgb (13.5-17.5) g/dL Hct (41-53) % MCV (80-100) fL MCH (26-34) PG MCHC (30-36) % RDW (11.6-14.8) % Plt Count (150-400) X10^3/uL Neut % (Auto) (50-75) % Lymph % (Auto) (25-40) % [place] % (Auto) (3-14) % Eos % (Auto) (2-4) % Baso % (Auto) (0-2) % Neut # (Auto) (9330-2177) /uL Lymph # (Auto) (0972-2316) /uL [place] # (Auto) (0-900) /uL Eos # (Auto) (0-450) /uL Baso # (Auto) (0-100) /uL PT (10.1-12.7) SECONDS INR (0.9-1.3) APTT (26.4-36.2) SECONDS Sodium (137-145) mmol/L Potassium (3.4-5.1) mmol/L Chloride (98-107) mmol/L Carbon Dioxide (22-32) mmol/L BUN (9-20) mg/dL Creatinine (0.66-1.25) mg/dL Estimated GFR (>60) mL/min BUN/Creatinine Ratio (6-22) Glucose (80-110) mg/dL Lactate (0.7-2.1) mmol/L Calcium (8.4-10.2) mg/dL Magnesium 2.4 H (1.6-2.3) mg/dL Ferritin 56 (18-464) ng/mL Total Bilirubin (0.2-1.3) mg/dL AST (17-59) IU/L ALT (<50) IU/L Alkaline Phosphatase (38-126) U/L Total Creatine Kinase (55-170) U/L CK-MB (CK-2) CK-MB (CK-2) Rel Index Troponin I (0.01-0.034) ng/mL C-Reactive Protein 0.6 (<1.0) mg/dL NT-Pro-B Natriuret Pep (<450) pg/mL Total Protein (6.3-8.2) g/dL Albumin (3.5-5.0) g/dL Globulin (1.7-4.1) g/dL Albumin/Globulin Ratio (1.0-2.8) Lipase (23-300) U/L Procalcitonin < 0.05 (<0.5) ng/mL 30/20 Range/Units 15:55 WBC (4.5-11.0) X10^3/uL RBC (4.5-5.9) X10^6/uL Hgb (13.5-17.5) g/dL Hct (41-53) % MCV (80-100) fL MCH (26-34) PG MCHC (30-36) % RDW (11.6-14.8) % Plt Count (150-400) X10^3/uL Neut % (Auto) (50-75) % Lymph % (Auto) (25-40) % [place] % (Auto) (3-14) % Eos % (Auto) (2-4) % Baso % (Auto) (0-2) % Neut # (Auto) (1774-2634) /uL Lymph # (Auto) (3583-8461) /uL [place] # (Auto) (0-900) /uL Eos # (Auto) (0-450) /uL Baso # (Auto) (0-100) /uL PT (10.1-12.7) SECONDS INR (0.9-1.3) APTT (26.4-36.2) SECONDS Sodium (137-145) mmol/L Potassium (3.4-5.1) mmol/L Chloride (98-107) mmol/L Carbon Dioxide (22-32) mmol/L BUN (9-20) mg/dL Creatinine (0.66-1.25) mg/dL Estimated GFR (>60) mL/min BUN/Creatinine Ratio (6-22) Glucose (80-110) mg/dL Lactate 1.2 (0.7-2.1) mmol/L Calcium (8.4-10.2) mg/dL Magnesium (1.6-2.3) mg/dL Ferritin (18-464) ng/mL Total Bilirubin (0.2-1.3) mg/dL AST (17-59) IU/L ALT (<50) IU/L Alkaline Phosphatase (38-126) U/L Total Creatine Kinase (55-170) U/L CK-MB (CK-2) CK-MB (CK-2) Rel Index Troponin I (0.01-0.034) ng/mL C-Reactive Protein (<1.0) mg/dL NT-Pro-B Natriuret Pep (<450) pg/mL Total Protein (6.3-8.2) g/dL Albumin (3.5-5.0) g/dL Globulin (1.7-4.1) g/dL Albumin/Globulin Ratio (1.0-2.8) Lipase (23-300) U/L Procalcitonin (<0.5) ng/mL Imaging Data Chest x-ray: My Impression: I think that there is a suggestion of developing heart failure with some minor fluid in the right fissure Radiologist's Impresson: IMPRESSION: Reduced inspiratory volume, no pneumonia seen. Source of pain is not identified. Dictated by: Kerwin Solis M.D. on 06/09/2019 at 14:05 ECG Data Attestation: I personally reviewed and interpreted this ECG as follows: Interpretation: Atrial fibrillation at a rate of 116 Left bundle-branch block, left axis deviation MDM Narrative Medical decision making narrative: 83-year-old gentleman with long-term paroxysmal atrial fibrillation. Experienced an episode of rapid heart rate last night unsure how long it lasted. He remains in atrial fibrillation in a rate between 100 and 120 with no sensation of abnormal rate or rhythm. Has some minor bibasal crackles on exam and significant increase weakness today. He has no lower extremity edema. He does not have a history of heart failure. His BNP is significantly elevated I am concerned that the episode of rapid rhythm last night with the continued rate above 100 is causing heart failure. He currently is not anticoagulated. I do not see a recent echocardiogram. At this time I think that he will benefit from hospital admission for rate control and gentle diuresis in the setting of increasing weakness. Initial enzymes are not elevated to suggest an acute coronary syndrome at this time. He tolerated 10 mg of IV diltiazem nicely. Will start him on a diltiazem drip. Given some of the recent literature coming about with myocardial involvement with Covid, will swab him for this to make sure were not missing atypical presentations After discussion with hospitalist, she would like to not proceed with IV diltiazem a and try a oral metoprolol. Will add a magnesium to his blood work and will admit to the hospitalist service Discharge Plan Departure Patient Disposition: Admitted As Inpatient Clinical Impression: Atrial fibrillation Qualifiers: Atrial fibrillation type: paroxysmal Qualified Code(s): I48.0 - Paroxysmal atrial fibrillation CHF (congestive heart failure) Qualifiers: Heart failure type: unspecified Heart failure chronicity: acute Qualified Code(s): I50.9 - Heart failure, unspecified Discharge Date/Time: 06/09/19 17:30 Admit Date/Time: 06/09/19 16:44 Admit Provider: Jenn Saini
[2019-06-09] MEDS: dilTIAZem 5 MG/ML SDV 10 MG IV (14:46)
[2019-06-09] MEDS: FUROSEMIDE 20 MG/2 ML VIAL IV (14:47)
[2019-06-09] MEDS: DILTIAZEM 125 MG/125 ML PIGGYBACK IV (15:34)
[2019-06-09 16:18] LABS: C-Reactive Protein Quant 0.6 mg/dL (<1.0)
[2019-06-09 16:28] LABS: Lactate (Lactic Acid) 1.2 mmol/L (0.7-2.1)
[2019-06-09 16:36] LABS: Procalcitonin < 0.05 ng/mL (<0.5)
[2019-06-09 16:50] LABS: Ferritin 56 ng/mL (18-464)
[2019-06-09 16:59] LABS: Magnesium 2.4 mg/dL (1.6-2.3)
[2019-06-09] MEDS: METOPROLOL IR 25 MG TABLET PO (17:03)
--- NOTE | 2019-06-09 19:16 | PC.NURSE ---
1735 - Pt to room from ER. Able to stand and transfer to bed. Oriented to room, routine, safety, isolation precautions and call light use. Pt denies chest pain at this time. Pt reports chronic pain to left hip following hip replacement surgery last fall. 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 PO metoprolol given in ER at 1700. Monitor.
[2019-06-09] MEDS: ZONISAMIDE 100 MG CAPSULE PO (21:24)
[2019-06-09] MEDS: CARBIDOPA-LEVODOPA 25/100 TABLET 5 EACH PO (21:24)
[2019-06-09] MEDS: clonazePAM 0.5 MG TABLET PO (21:24)
[2019-06-09] MEDS: METOPROLOL ER 25 MG TABLET PO (23:29)
--- NOTE | 2019-06-10 00:01 | PM.HP.1 ---
History of Present Illness History of Present Illness Date Patient Seen: 06/09/19 Time Patient Seen: 20:11 Date of Onset of Symptoms: 06/08/19 Chief complaint: afib for many hours Narrative: Mr. Migue Calhoun is an 83-year-old male patient with history significant for hypertension, CAD, atrial fibrillation, Parkinson's disease, GERD, kidney stones, sleep apnea and celiac disease who presents rapid heartbeat. The patient has a history of recurrent episodes of atrial fibrillation with RVR. He states he can tell when these episodes occur experiencing sensation of heart pounding. He has elected not to be anticoagulated. The patient experienced a episode of rapid heartbeat last night approximately 6:00 p.m. with associated symptoms of chest tightness and mild dizziness. He presents to the ER today with continuing irregular heartbeat. The patient has previously undergone cardioversion which she reports was years ago. His student loan counselor is Dr. Hinkle through [facility]. The patient also reports general decline in health since he took a fall resulting in hip fracture last December. He had gone through rehab and home health PT and OT. Reports continuing to have generalized weakness and activity intolerance with associated muscle and weight loss. Reports losing 12 lb in the last 3 months. He follows with neurology at [place] for his Parkinson's disease and weakness. Reports no recent complaints of fevers or chills, shortness of breath or cough has had no suspected exposures to COVID-19. He denies complaints of nasal congestion or sore throat. He denies chest pain but reports some tightness associated with higher heart rates and none at this time. He denies shortness of breath cough or wheezing. He has no difficulty chewing or swallowing, heartburn, nausea vomiting. Denies complaints of constipation or diarrhea and has no difficulty voiding. The patient is minimally active walking predominantly in his house due to his weakness and debility since his hip surgery. Upon arrival the patient is afebrile with temperature of 97.0?, heart rate of 125, blood pressure 104/72, respiratory rate of 22 saturating 90% on room air. Chest x-rays taken which shows poor inspiratory volume resulting in crowding bronchovascular markings no evidence of pneumonia is seen. Twelve lead EKG reveals an atrial fibrillation with RVR with a ventricular rate of 116, singular PVC and left bundle branch block and left axis without evidence of ischemia or infarct. On laboratory analysis the patient has white count of 4.5, hemoglobin of 14.1, hematocrit of 42.5 and platelets of 165. On coags as PT of 12.3, INR 1.1 and PTT of 35. He has a potassium 4.1 and magnesium of 2.4 with a BUN of 23 and creatinine at baseline of 1.23. His EGFR is 56.1. His LFTs within normal limits. His CPK and troponin are both negative. He has a procalcitonin of less than 0.05, CRP of 0.6 and a lactic acid of 1.2. In the ER the patient received a single dose of diltiazem 10 mg IV with improvement in heart rate to 100-120. Diltiazem drip is deferred and patient is started on metoprolol tartrate 25 mg PO. Patient is also administered Lasix 20 mg. The patient is admitted to the hospital service for atrial fibrillation with RVR. Patient History Medical History (Updated 06/10/19 @ 00:28 by TAWANA Funk) Adenomatous colon polyp (Acute) Atrial fibrillation (Inactive) CAD (coronary artery disease) (Acute) Celiac disease (Acute) Closed left hip fracture (Acute) Compression fracture of L1 lumbar vertebra (Acute) GERD (gastroesophageal reflux disease) (Acute) HTN (hypertension) (Acute) Kidney stones (Acute) Parkinsons disease (Acute) Right carpal tunnel syndrome (Acute) Weight loss, unintentional (Acute) Surgical History (Updated 06/10/19 @ 00:28 by TAWANA Funk) History of cholecystectomy (Acute) History of colonoscopy (Acute) History of esophagogastroduodenoscopy (EGD) (Acute) History of hernia repair (Acute) History of hip surgery (Acute) History of lumbar fusion (Acute) History of right hemicolectomy (Acute) Family & Social History Family History (Updated 06/10/19 @ 00:30 by TAWANA Funk) Father Intracranial bleed Mother No problems noted. Brother Heart disease Sister Asthma Social History: household members spouse Safety & Behavioral: Feels Safe in Current Yes Environment Been Physically Hurt or No Threatened By a Person Suicidal Ideation Description None Tobacco & Substance use: Tobacco type cigarettes Smoking Status Former smoker alcohol intake frequency 0-2 drinks per day Substance Use Type does not use Comment: he patient lives in a single family home with his to whom he has been for 61 years. He reports family history was father passing away from intracranial bleed secondary to trauma, his mother who when he was 2 years old from complications of surgery with peritonitis, a half brother who has heart disease and a sister who has asthma. Smoking: The patient smoked for 10 years quitting 55 years ago. Alcohol: Patient endorses approximately 4 drinks per week. Substance use: The patient denies recreation pharmaceuticals, herbal or cannabis products. Advanced directives: The patient states he has formal advanced directives and states his desire to be FULL CODE. He designates his to be his surrogate decision maker. Meds Home Medications and Allergies Home Medications Medication Instructions Recorded Confirmed Type Multi Complete with Iron 1 tab PO QAM #0 06/12/09 06/09/19 History amiodarone 200 mg PO DAILY 11/20/18 06/09/19 History carbidopa-levodopa 5 tab PO BID 11/20/18 06/09/19 History montelukast [Singulair] 4 mg PO QPM 11/20/18 06/09/19 History B12 5,000 lisette SUBLINGUAL QAM 12/28/18 06/09/19 History alpha lipoic acid 100 mg PO QPM 06/09/19 06/09/19 History ascorbic acid (vitamin C) [Vitamin 500 mg PO QAM 06/09/19 06/09/19 History C] cholecalciferol (vitamin D3) 2,000 unit PO DAILY 06/09/19 06/09/19 History clonazepam 0.25 mg PO QAM 06/09/19 06/09/19 History clonazepam 0.5 mg PO BEDTIME 06/09/19 06/09/19 History coenzyme Q10 [Ultra CoQ10] 75 mg PO QAM 06/09/19 06/09/19 History vit C-vit L-neqzvv-ndit-lutein 2 cap PO QAM 06/09/19 06/09/19 History [PreserVision Lutein] zonisamide 100 mg PO BID 06/09/19 06/09/19 History Allergies Allergy/AdvReac Type Severity Reaction Status Date / Time gluten [GLUTEN] Allergy Severe CELIAC Verified 06/09/19 13:58 DISEASE adhesive [ADHESIVE] Allergy Mild rash from Verified 06/09/19 13:58 plastic tape iodine [IODINE] Allergy Unknown PT UNSURE Verified 06/09/19 13:58 OF REACTION cephalexin AdvReac Severe violent Verified 06/09/19 13:58 indigestion hydromorphone [From Dilaudid] AdvReac Severe vomited Verified 06/09/19 13:58 violently morphine [MORPHINE] AdvReac Severe VOMITED Verified 06/09/19 13:58 VIOLENTLY, HAD ABD HERNIAS THAT NEEDED SURGERY. Review of Systems Review of Systems ROS: Yes All systems reviewed with the patient and are negative except as otherwise documented Exam Vital Signs (past 8 hours): - 06/09/19 16:30 06/09/19 17:30 06/09/19 20:00 Temperature 98.3 F 97.7 F Pulse Rate 109 H 102 H 87 Respiratory Rate 22 23 20 Blood Pressure 132/86 103/65 Blood Pressure [Right Arm] 98/79 Pulse Oximetry 96 99 Oxygen Delivery Method Room Air Oxygen Flow Rate 0 Narrative Exam Narrative: GENERAL APPEARANCE: well developed, adequately nourished, BMI of 26.9, 12 lb unintentional weight loss in 3 months, no acute distress. HEENT: Symmetrical facies, lid lag left eye, PERRLA, conjunctiva clear, EOMs intact without nystagmus, no rhinorrhea, mucous membranes are moist and pink without lesions or exudate. NECK/THYROID: neck supple, no JVD, no thyromegaly, trachea midline. LYMPH NODES: no cervical or supraclavicular lymphadenopathy. SKIN: [place], warm and dry, no visible lesions, rashes, ulcerations or petechiae. HEART: Irregularly irregular tachycardic rhythm, S1-S2, no murmur, no rubs or gallops, brisk capillary refill, no edema LUNGS: clear to auscultation bilaterally, no coarseness crackles or wheezing, no cough present CHEST: Symmetrical movement, no accessory muscle use, good tidal volume. ABDOMEN: Soft, no distention, no abdominal tenderness, no organomegaly, no flank or suprapubic tenderness, active bowel tones. EXTREMITIES: moves all extremities, decreased pincer grasp right hand, BLE strength is 5/5 and symmetrical, no deformities or joint effusions. NEUROLOGIC: AAO x4, fine tremors bilateral hands, no lateralizing neurological deficits, paresthesias to the 4th and 5th digits of the right hand hearing grossly normal to speech. PSYCH: Good judgment, good insight, linear thought process, cooperative, appropriate with stable behavior Objective Labs Result Diagrams: 06/09/19 13:37 06/09/19 13:37 Labs: Laboratory Results - last 24 hr 06/09/19 06/09/19 06/09/19 13:37 13:37 13:37 WBC 4.5 RBC 4.56 Hgb 14.1 Hct 42.5 MCV 93.3 MCH 31.0 MCHC 33.3 RDW 15.7 H Plt Count 165 Neut % (Auto) 66.4 Lymph % (Auto) 22.5 L [place] % (Auto) 5.3 Eos % (Auto) 4.4 H Baso % (Auto) 1.4 Neut # (Auto) 3000 Lymph # (Auto) 1000 L [place] # (Auto) 200 Eos # (Auto) 200 Baso # (Auto) 100 PT 12.3 INR 1.1 APTT 35 D Sodium 141 Potassium 4.1 Chloride 111 H Carbon Dioxide 25 BUN 23 H Creatinine 1.23 Estimated GFR 56.1 L BUN/Creatinine Ratio 18.7 Glucose 178 H Lactate Calcium 9.6 Magnesium Ferritin Total Bilirubin 0.8 AST 23 ALT 6 Alkaline Phosphatase 54 Total Creatine Kinase 39 L CK-MB (CK-2) TNP CK-MB (CK-2) Rel Index TNP Troponin I < 0.012 C-Reactive Protein NT-Pro-B Natriuret Pep 2180 H Total Protein 7.3 Albumin 4.2 Globulin 3.1 Albumin/Globulin Ratio 1.4 Lipase 70 Procalcitonin Nasal Screen MRSA (PCR) 06/09/19 06/09/19 06/09/19 13:37 13:37 13:37 WBC RBC Hgb Hct MCV MCH MCHC RDW Plt Count Neut % (Auto) Lymph % (Auto) [place] % (Auto) Eos % (Auto) Baso % (Auto) Neut # (Auto) Lymph # (Auto) [place] # (Auto) Eos # (Auto) Baso # (Auto) PT INR APTT Sodium Potassium Chloride Carbon Dioxide BUN Creatinine Estimated GFR BUN/Creatinine Ratio Glucose Lactate Calcium Magnesium 2.4 H Ferritin 56 Total Bilirubin AST ALT Alkaline Phosphatase Total Creatine Kinase CK-MB (CK-2) CK-MB (CK-2) Rel Index Troponin I C-Reactive Protein 0.6 NT-Pro-B Natriuret Pep Total Protein Albumin Globulin Albumin/Globulin Ratio Lipase Procalcitonin < 0.05 Nasal Screen MRSA (PCR) 06/09/19 06/09/19 15:55 19:27 WBC RBC Hgb Hct MCV MCH MCHC RDW Plt Count Neut % (Auto) Lymph % (Auto) [place] % (Auto) Eos % (Auto) Baso % (Auto) Neut # (Auto) Lymph # (Auto) [place] # (Auto) Eos # (Auto) Baso # (Auto) PT INR APTT Sodium Potassium Chloride Carbon Dioxide BUN Creatinine Estimated GFR BUN/Creatinine Ratio Glucose Lactate 1.2 Calcium Magnesium Ferritin Total Bilirubin AST ALT Alkaline Phosphatase Total Creatine Kinase CK-MB (CK-2) CK-MB (CK-2) Rel Index Troponin I C-Reactive Protein NT-Pro-B Natriuret Pep Total Protein Albumin Globulin Albumin/Globulin Ratio Lipase Procalcitonin Nasal Screen MRSA (PCR) Negative for mrsa Assessment & Plan Assessment & Plan narrative: This is an 83-year-old male patient who presents to the ER with atrial fibrillation with rapid ventricular response. Patient with previous recurrent episodes having been cardioverted over 1 year ago. Associated mild chest tightness and dizziness. 1. Paroxysmal atrial fibrillation with rapid ventricular response, acute, present on admission, active. -onset symptoms 1800 yesterday and continuing today developing is 0 she did symptoms of chest tightness and mild dizziness. -12 lead EKG finds atrial fibrillation with RVR at a ventricular rate of 116, left bundle branch block, left axis similar morphology to prior tracings. -the patient received diltiazem 10 mg IV in the ER and deferred diltiazem in infusion with heart rate 100-120. -will continue patient's routine dose of amiodarone 200 mg daily -ordered metoprolol succinate to 25 mg twice daily. -ordered echocardiogram -patient under the care of [facility] Dr. Hinkle and has an upcoming appointment scheduled. 2. Pulmonary vascular congestion, acute, present on admission, active -the patient is not carry a diagnosis of congestive heart failure and reports no peripheral edema. -chest x-ray with poor inspiratory volume presenting carotid bronchovascular markings with no evidence pneumonia pulmonary edema or pulmonary effusions. -patient has bibasilar crackles on exam most likely related to his current episode of atrial fibrillation and tachyarrhythmia. -the patient received 20 mg of Lasix in the emergency department, will attempt rhythm and rate controlled to resolve condition -echocardiogram in the morning. 3. Parkinson's disease, chronic, present on admission, stable -fine tremors are present, patient denies difficulties chewing or swallowing, no Parkinson's related gait disturbance. -continue patient's home regimen of of carbidopa levodopa, 5 tablets of 25-100 twice daily, and zonisamide 100 mg twice daily -patient has an unintentional weight loss of 12 lb in last 3 months likely related to combination Parkinson's as well as debilitation following hip fracture. -Requested PT and OT consult for evaluation and treatment. -Requested dietary consult. 4. Generalized weakness, debilitation, present on admission, active -the patient reports significant muscle mass loss, weakness with activity intolerance since having ORIF left hip following ground level fall. -patient has gone through rehab followed by home health PT and OT -patient walks in his house but has minimal activity. -requested PT and OT consult for evaluation and treatment. 5. Gastroesophageal reflux disorder, chronic, present on admission, active -patient has been treating with [id number] medications at home. -no complaints of reflux symptoms at this time will treat with calcium carbonate or Maalox as needed. 6. Essential hypertension, chronic, present on admission, active -blood pressure on admission is 104/72. -patient is not currently on blood pressure medication. -will proceed cautiously with medications for cardiac rate and rhythm management and monitor pressures closely. 7. Celiac disease, chronic, present on admission, active -order gluten free diet. VTE prophylaxis: SCDs and Lovenox. IV fluids: Saline lock. Diet: Gluten free Code status: FULL CODE. The patient is admitted to the hospital for management of symptomatic atrial fibrillation with rapid ventricular response. Patient is admitted as observation status with expected length of stay to be less than 2 midnights. Scores GCS Monster coma scale eye opening: Spontaneous [place] coma scale verbal response: Orientated Monster coma scale motor response: Obey commands Monster coma scale total score: 15
[2019-06-10 04:00] VITALS: BP 101/65; PULSE 79; RESP 18; TEMP 36.1; O2SAT 98
[2019-06-10 05:48] LABS: BUN Creatinine Ratio 22.9 (6-22); Blood Urea Nitrogen 25 mg/dL (9-20); Calcium 9.3 mg/dL (8.4-10.2); Carbon Dioxide 25 mmol/L (22-32); Chloride 109 mmol/L (98-107); Cholesterol 141 mg/dL (140-199); Estimated Glomerular Filt Rate > 60.0 mL/min (>60); Glucose 128 mg/dL (80-110); HDL Cholesterol 47 mg/dL (40-60); HEMOLYSIS < 15 (0-50); LDL Cholesterol Calculated 78 mg/dL (<100); Sodium 139 mmol/L (137-145); Triglycerides 82 mg/dL (35-150)
[2019-06-10 05:49] LABS: Hemoglobin A1C% w Est Avg Glu 5.5 % (4.0-6.0)
[2019-06-10 08:40] VITALS: BP 107/72; PULSE 71; RESP 18; TEMP 35.7; O2SAT 99
[2019-06-10] MEDS: SODIUM CHLORIDE 0.9% FLUSH 10 ML IV (09:16)
[2019-06-10] MEDS: clonazePAM 0.5 MG TABLET 0.25 MG PO (09:16)
[2019-06-10] MEDS: ZONISAMIDE 100 MG CAPSULE PO (09:16)
[2019-06-10] MEDS: ENOXAPARIN 40 MG/0.4 ML SYRINGE SUBCUT (09:16)
[2019-06-10] MEDS: CARBIDOPA-LEVODOPA 25/100 TABLET 5 EACH PO (09:16)
[2019-06-10] MEDS: AMIODARONE 200 MG TABLET PO (09:17)
[2019-06-10] MEDS: METOPROLOL ER 25 MG TABLET PO (09:17)
--- NOTE | 2019-06-10 09:30 | PT.IIE ---
Surgical History (Last Updated 06/10/19 @ 00:28 by TAWANA Funk) History of cholecystectomy (Acute) History of colonoscopy (Acute) History of esophagogastroduodenoscopy (EGD) (Acute) History of hernia repair (Acute) History of hip surgery (Acute) History of lumbar fusion (Acute) History of right hemicolectomy (Acute) Medical History (Last Updated 06/10/19 @ 00:28 by TAWANA Funk) Adenomatous colon polyp (Acute) Atrial fibrillation (Inactive) CAD (coronary artery disease) (Acute) Celiac disease (Acute) Closed left hip fracture (Acute) Compression fracture of L1 lumbar vertebra (Acute) GERD (gastroesophageal reflux disease) (Acute) HTN (hypertension) (Acute) Kidney stones (Acute) Parkinsons disease (Acute) Right carpal tunnel syndrome (Acute) Weight loss, unintentional (Acute) Physical Therapy Inpatient Evaluation/Re-Eval M1 PT/OT-IP Prior Functional Status Start: 06/10/19 10:05 Freq: NEEDED Status: Active Protocol: Document 06/10/19 09:30 LRN (Rec: 06/10/19 10:39 LRN [id number]) Medical Review Prior Functional Status Medical History Reviewed Yes Mobility and Gait Independent with 4WW. Activities of Daily Living and IADL's Able to go up/down 14 steps. Social History Household Members spouse Living Arrangements House Number of Floors (Floors) Two Floors Number of Stairs To Enter/Railing? 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 Has a shower seat. M2 PT-IP Current Condition Start: 06/10/19 10:05 Freq: NEEDED Status: Active Protocol: Document 06/10/19 09:30 LRN (Rec: 06/10/19 10:39 LRN [email or web address]) Physical Therapy Current Condition Current Condition Evaluation Date 06/10/19 Treatment Diagnosis A Fib for many hours Onset Date 06/08/19 Precautions Other Precautions Droplet Precaution M3 PT-IP Subjective Start: 06/10/19 10:05 Freq: NEEDED Status: Active Protocol: Document 06/10/19 09:30 LRN (Rec: 06/10/19 10:39 LRN [email or web address]) Subjective Physical Therapy Visit Type Type Initial Evaluation Visit Start Time 09:30 Visit Stop Time 10:08 Total Visit Minutes 38 Physical Therapy Visit Comments Patient Comments Pt states he is in hospital because of his heart, but he believes he is independent and at baseline. Patient Goals Pt goal is to go home. Pt hopes to be able to strengthen his L hip muscles. Therapy Pain Assessment Pain When Pain Assessed At Rest Pain Present Pain Present Denied Pain Location Left Leg Intensity 0 Scale Used Numeric (1 - 10) M4 PT-IP Mobility and Gait Start: 06/10/19 10:05 Freq: NEEDED Status: Active Protocol: Document 06/10/19 09:30 LRN (Rec: 06/10/19 10:39 LRN [email or web address]) PT-Bed Mobility Assessment Supine to Sit Supine to Sit Independent Sit to Supine Sit to Supine Independent Scooting Scooting to Edge of Bed Independent PT-Transfer Assessment Sit to and From Stand Sit to and from Stand Standby Assistance Equipment Transfer Assistive Device Front Wheeled Walker Comments Mobility Comments Pt stood and performed standing hip tanacross swings with use of FWW. Gait Assessment Gait Gait Assistance Required: Standby Assistance Distance (Feet) 10 Able to Maintain Weight Bearing Status Yes During Gait Assistive Devices Assistive Device Gait Belt,Front Wheeled Walker Orthotic/Prosthetic Devices or Brace: No Gait Deviations General Gait Pattern Flexed Trunk Factors Limiting Gait Function Factors Limiting Gait Function Decreased Activity Tolerance Comments Gait Comments After ambulating 5'x 2, pt monitor indicated pt in A.Fib. HR @ rest 99, HR with walking 118. Pt became fuzzy after walking and sitting for for a few minutes. Pt HR returned to 99 after sitting briefly ~3'. PT-Balance Assessment Sitting Balance and Reactions Static Sitting Balance Ability Good Dynamic Sitting Balance Ability Good Standing Balance and Reactions Static Standing Balance Ability Good Dynamic Standing Balance Ability Good Device Used FWW Balance Tests Single Limb Standing 0 Comments Other Balance Tests/Deviations/Treatment Pt did not feel safe standing : without the use of walker. M5 PT-IP Objective Assessments Start: 06/10/19 10:05 Freq: NEEDED Status: Active Protocol: Document 06/10/19 09:30 LRN (Rec: 06/10/19 10:39 LRN [id number]) Orientation Orientation/Cognition Level of Alertness Alert Orientation Name,Age,Birthday,Place, Situation Language Function Ability No Deficits Noted Safety Awareness Understands Safety Issues Memory Description No Deficits Noted Gross Range of Motion Upper Extremity ROM Assessment Bilaterally Impaired Impairments Shoulder pain. Pt has TSA on right. Lower Extremity ROM Assessment Within Functional Limits Strength Upper Extremity Strength Assessment Bilaterally Impaired Shoulder 2+/5 generally Lower Extremity Strength Assessment Within Functional Limits Comments Strength Comments Javier UE strength is 5/5 except as indicated above. M6 PT-IP Treatment Start: 06/10/19 10:05 Freq: NEEDED Status: Active Protocol: Document 06/10/19 09:30 LRN (Rec: 06/10/19 10:39 LRN [email or web address]) Physical Therapy Treatment Exercises Exercises Ankle Pumps,Seated Knee Flexion/Extension Other Treatments Other Treatment Performed Standing leg tanacross swings. M7 PT-IP Assessment and Plan Start: 06/10/19 10:05 Freq: NEEDED Status: Active Protocol: Document 06/10/19 09:30 LRN (Rec: 06/10/19 10:39 LRN [email or web address]) PT Summary Assessment and Plan Potential Rehabilitation Potential Excellent Status of Condition at Evaluation Evolving Summary Impairments Balance,Activity Tolerance Assessment Summary Pt presents with decreased activity tolerance due to bedrest. He appears to be primarily limted due to to cardiac limitations; HR was 99 at rest and 118 with activity, monitored showed A. Fib when HR was elevated. Functionally the pt was able to independently mobilize in/ out of bed. He needed CGA with gait and did not feel well enough to attempt a second time walking due to feeling fuzzy. The pt will benefit from skilled physical therapy while admitted to improve activity tolerance. The pt does have possible help at home from and son that could provide CGA>SBA if needed. Goals Gait Goal Independent Gait Distance 50' Days to Meet Goals 1 Frequency of Treatment Frequency Of Treatment Twice a Day Treatment Plan Physical Therapy Treatment Plan Gait Training,Therapeutic Exercise,Balance Retraining, Discharge Planning Other Recommendations and Next Treatment Monitor for cardiac Focus restrictions to activity and progress as tolerated. Recommendations To Nursing Amount of Assist Needed Standby Assistance,1 Person Assist Discharge Recommendations PT Discharge Recommendations Home with Assistance Other Discharge Recommendations Outpt PT for L hip strengthening when appropriate . Transportation Needs at Discharge Private Vehicle
--- NOTE | 2019-06-10 11:52 | PC.NURSE ---
Day Shift- Pt educated on and willing to move rooms from 227 to 224. All belongings brought into new room. Call light within reach.
[2019-06-10 12:00] VITALS: BP 107/54; PULSE 76; RESP 16; TEMP 35.9; O2SAT 95
--- NOTE | 2019-06-10 13:25 | PT.IPTN ---
Physical Therapy Treatment Note M2 PT-IP Current Condition Start: 06/10/19 10:05 Freq: NEEDED Status: Active Protocol: Document 06/10/19 09:30 LRN (Rec: 06/10/19 10:39 LRN [email or web address]) Physical Therapy Current Condition Current Condition Evaluation Date 06/10/19 Treatment Diagnosis A Fib for many hours Onset Date 06/08/19 Precautions Other Precautions Droplet Precaution M3 PT-IP Subjective Start: 06/10/19 10:05 Freq: NEEDED Status: Active Protocol: Document 06/10/19 13:25 LRN (Rec: 06/10/19 14:22 LRN [email or web address]) Subjective Physical Therapy Visit Type Type Treatment Note Visit Start Time 13:25 Visit Stop Time 13:55 Total Visit Minutes [address] Saini regarding pt status at end of treatment and notified of pt being DC'd from PT. Physical Therapy Visit Comments Patient Comments Pt states he is ready to go home. Feels stable with gait. Patient Goals Pt goal is to go home. Pt hopes to be able to strengthen his L hip muscles. M4 PT-IP Mobility and Gait Start: 06/10/19 10:05 Freq: NEEDED Status: Active Protocol: Document 06/10/19 13:25 LRN (Rec: 06/10/19 14:22 LRN [email or web address]) PT-Bed Mobility Assessment Supine to Sit Supine to Sit Independent Sit to Supine Sit to Supine Independent Scooting Scooting to Edge of Bed Independent PT-Transfer Assessment Sit to and From Stand Sit to and from Stand Independent Equipment Transfer Assistive Device Front Wheeled Walker Transfers Transfer Destination Bed Transfer Technique Pt got OOB, walked, returned BTB. Transfer Ability Level of Assist Independent Comments Mobility Comments Pt stood at sink to perform his normal HEP. Gait Assessment Gait Gait Assistance Required: Independent Distance (Feet) 60 Able to Maintain Weight Bearing Status Yes During Gait Assistive Devices Assistive Device Gait Belt,Front Wheeled Walker Orthotic/Prosthetic Devices or Brace: No Gait Deviations General Gait Pattern Flexed Trunk Comments Gait Comments Nursing monitored pt telemetry with activity and indicated no concerns. Gati training for tightening of Gluteal muscles when hip is in ext for strengthening. PT-Balance Assessment Sitting Balance and Reactions Static Sitting Balance Ability Good Dynamic Sitting Balance Ability Good Standing Balance and Reactions Static Standing Balance Ability Good Dynamic Standing Balance Ability Good Device Used FWW Comments Other Balance Tests/Deviations/Treatment Pt confident with trnasfers, : gait and standing exercises. M5 PT-IP Objective Assessments Start: 06/10/19 10:05 Freq: NEEDED Status: Active Protocol: Document 06/10/19 09:30 LRN (Rec: 06/10/19 10:39 LRN [email or web address]) Orientation Orientation/Cognition Level of Alertness Alert Orientation Name,Age,Birthday,Place, Situation Language Function Ability No Deficits Noted Safety Awareness Understands Safety Issues Memory Description No Deficits Noted Gross Range of Motion Upper Extremity ROM Assessment Bilaterally Impaired Impairments Shoulder pain. Pt has TSA on right. Lower Extremity ROM Assessment Within Functional Limits Strength Upper Extremity Strength Assessment Bilaterally Impaired Shoulder 2+/5 generally Lower Extremity Strength Assessment Within Functional Limits Comments Strength Comments Javier UE strength is 5/5 except as indicated above. M6 PT-IP Treatment Start: 06/10/19 10:05 Freq: NEEDED Status: Active Protocol: Document 06/10/19 13:25 LRN (Rec: 06/10/19 14:22 LRN [email or web address]) Physical Therapy Treatment Other Treatments Other Treatment Performed Standing exercises holding onto sink: LE circles, hip AB/AD/Flex/Ext , knee bends, toe, heel raises , Glut tightening in staggered stance. Nursing approved of removal of SCDs so that pt could ambulate around the room independently. M7 PT-IP Assessment and Plan Start: 06/10/19 10:05 Freq: NEEDED Status: Active Protocol: Document 06/10/19 13:25 LRN (Rec: 06/10/19 14:22 LRN [email or web address]) PT Summary Assessment and Plan Potential Rehabilitation Potential Excellent Status of Condition at Evaluation Stable Summary Assessment Summary Pt presents with independence with bed mobility, transfers and gait. He is steady and safe with getting out of bed and was able to ambulate 50+ ft without difficulty and was stable. He was safe in standing doiing leg ex's independently while holding onto the sink counter. Nursing agreeable to removal of SCDs so that the pt could mobilize independently in his room. Dr. Saini notified of pt's functional status and discharge from PT services. Discharge Recommendations PT Discharge Recommendations Home Other Discharge Recommendations Outpt PT for L hip strengthening when appropriate . Transportation Needs at Discharge Private Vehicle
--- NOTE | 2019-06-10 14:22 | DIET.PN ---
Dietary Progress Note Assessment: Mr. Calhoun is an 83-year-old male patient with history of hypertension, CAD, atrial fibrillation, Parkinson's disease, GERD, kidney stones, sleep apnea and celiac disease who presents rapid heartbeat. He reports general decline in health since he took a fall resulting in hip fracture last December. He had gone through rehab and home health PT and OT. Reports continuing to have generalized weakness and activity intolerance with associated muscle and weight loss of 12 lb in the last 3 months. He has no difficulty chewing or swallowing, heartburn, nausea, vomiting, diarrhea and has no difficulty voiding. The patient is minimally active walking predominantly in his house due to his weakness and debility since his hip surgery. HT: 172.72 cm WT: 80.3 kg UBW: 86 kg (per pt report) BMI: 26.9 Labs: Cl: 109 BUN: 25 Gluc: 128 M.4 MNA: n/a Juan Alberto: 19 Nutrition Diagnosis: Unintentional weight loss r/t physiological causes increasing nutrient needs, loss of lean muscle mass aeb pt report weight loss of 12 lb (6.6%) in 3 mo, diagnosis Parkinson's, debilitation post hip fracture. Interventions: 1. high protein, high unsaturated fat/calorie nutrition therapy. Provide ONS enlive (gluten free) or high pro fruit smoothie. 2. Assess need for easy chew, finger foods. Diet Order: Gluten Free EER: 2200 kcal @ 30cal/kg adjBW (weight loss, elderly); 80-100g pro @ 1-1.2g/kg Monitoring/Evaluations: weight, PO's, ONS tolerance
--- NOTE | 2019-06-10 15:08 | PC.NURSE ---
Patient denies pain or spasm in legs. He is a&ox3. Up with physical therapy and tolerated well, has been d/cd. in and seeing patient now. It is possible that he may discharge home today. Tele AFIB. Heart rate up to the 120s earlier this morning but patient has not this since. Last time up with physical therapy HR was controlled at this time. Patient is comfortable.
--- NOTE | 2019-06-10 15:26 | OT.IPNOTE ---
Pt being discharged and going home. Pt has a that assist him at home. Therefore discharge OT eval orders.
--- NOTE | 2019-06-10 15:28 | P.DS_ITS ---
History of Present Illness History of Present Illness Chief complaint: afib for many hours Narrative: Mr. Migue Calhoun is an 83-year-old male patient with history significant for hypertension, CAD, atrial fibrillation, Parkinson's disease, GERD, kidney stones, sleep apnea and celiac disease who presents rapid heartbeat. The patient has a history of recurrent episodes of atrial fibrillation with RVR. He states he can tell when these episodes occur experiencing sensation of heart pounding. He has elected not to be anticoagulated. The patient experienced a episode of rapid heartbeat last night approximately 6:00 p.m. with associated symptoms of chest tightness and mild dizziness. He presents to the ER today with continuing irregular heartbeat. The patient has previously undergone cardioversion which she reports was years ago. His nuclear process engineer is Dr. Hinkle through [facility]. The patient also reports general decline in health since he took a fall resulting in hip fracture last December. He had gone through rehab and home health PT and OT. Reports continuing to have generalized weakness and activity intolerance with associated muscle and weight loss. Reports losing 12 lb in the last 3 months. He follows with neurology at [facility] for his Parkinson's disease and weakness. Reports no recent complaints of fevers or chills, shortness of breath or cough has had no suspected exposures to COVID-19. He denies complaints of nasal congestion or sore throat. He denies chest pain but reports some tightness associated with higher heart rates and none at this time. He denies shortness of breath cough or wheezing. He has no difficulty chewing or swallowing, heartburn, nausea vomiting. Denies complaints of constipation or diarrhea and has no difficulty voiding. The patient is minimally active walking predominantly in his house due to his weakness and debility since his hip surgery. Upon arrival the patient is afebrile with temperature of 97.0?, heart rate of 125, blood pressure 104/72, respiratory rate of 22 saturating 90% on room air. Chest x-rays taken which shows poor inspiratory volume resulting in crowding bronchovascular markings no evidence of pneumonia is seen. Twelve lead EKG reveals an atrial fibrillation with RVR with a ventricular rate of 116, singular PVC and left bundle branch block and left axis without evidence of ischemia or infarct. On laboratory analysis the patient has white count of 4.5, hemoglobin of 14.1, hematocrit of 42.5 and platelets of 165. On coags as PT of 12.3, INR 1.1 and PTT of 35. He has a potassium 4.1 and magnesium of 2.4 with a BUN of 23 and creatinine at baseline of 1.23. His EGFR is 56.1. His LFTs within normal limits. His CPK and troponin are both negative. He has a procalcitonin of less than 0.05, CRP of 0.6 and a lactic acid of 1.2. In the ER the patient received a single dose of diltiazem 10 mg IV with improvement in heart rate to 100-120. Diltiazem drip is deferred and patient is started on metoprolol tartrate 25 mg PO. Patient is also administered Lasix 20 mg. The patient is admitted to the hospital service for atrial fibrillation with RVR. Discharge Providers Provider Date of admission: 06/09/19 16:44 Discharge Date: 06/10/19 Consults: 06/09/19 20:50 Consult to Dietitian, Adult Routine Comment: Reason For Exam: recent weight loss, parkinsons Consult to Discharge Planning Routine Comment: Consult to Occupational Therapy Evaluate & Treat Comment: Parkinson's disease, s/p ORIF left hip, weakness Physician Instructions: Evaluate and treat Consult to Physical Therapy Evaluate & Treat Comment: Parkinson's disease, s/p ORIF left hip, weakness Physician Instructions: Evaluate and Treat Discharge provider: Wesley Etienne MD Summary Hospital Course Discharge Diagnosis: 1. Paroxysmal atrial fibrillation with RVR Hospital Course: Patient presented with heart palpitations, ventricular rate 125, in AFib. He is on amiodarone 200 mg q.d. at home. He has previously been cardioverted. He is not on anticoagulation by choice, having previously tried warfarin and Pradaxa. Patient ruled out for ID. He was started on metoprolol 25 mg b.i.d. with improvement in heart rate control and presenting symptoms. His heart rate is running right about 90 on tele at rest. There is no evidence of CHF. Echo can be done as outpatient if he has not had 1 done recently. He also had COVID 19 testing done due to AFib presentation but otherwise shows no signs of coronavirus infection. Results are pending at time of discharge. Patient has appointment with his nuclear process engineer Dr. Chandra Hinkle at [facility] in a few days. Exam Vital Signs (past 8 hours): - 06/10/19 08:40 06/10/19 12:00 Temperature 96.2 F L 96.7 F L Pulse Rate 71 76 Respiratory Rate 18 16 Blood Pressure 107/72 107/54 L Pulse Oximetry 99 95 Oxygen Delivery Method Room Air Oxygen Flow Rate 0 Objective Labs Result Diagrams: 06/09/19 13:37 06/10/19 05:30 Labs: Laboratory Results - last 24 hr 06/09/19 06/09/19 06/09/19 13:37 13:37 13:37 Sodium Potassium Chloride Carbon Dioxide BUN Creatinine Estimated GFR BUN/Creatinine Ratio Glucose Hemoglobin A1c Lactate Calcium Magnesium 2.4 H Ferritin 56 C-Reactive Protein 0.6 Triglycerides Cholesterol LDL Cholesterol, Calc HDL Cholesterol Procalcitonin < 0.05 Nasal Screen MRSA (PCR) 06/09/19 06/09/19 06/10/19 15:55 19:27 05:30 Sodium 139 Potassium 4.0 Chloride 109 H Carbon Dioxide 25 BUN 25 H Creatinine 1.09 Estimated GFR > 60.0 BUN/Creatinine Ratio 22.9 H Glucose 128 H Hemoglobin A1c Lactate 1.2 Calcium 9.3 Magnesium Ferritin C-Reactive Protein Triglycerides 82 Cholesterol 141 LDL Cholesterol, Calc 78 HDL Cholesterol 47 Procalcitonin Nasal Screen MRSA (PCR) Negative for mrsa 06/10/19 05:30 Sodium Potassium Chloride Carbon Dioxide BUN Creatinine Estimated GFR BUN/Creatinine Ratio Glucose Hemoglobin A1c 5.5 Lactate Calcium Magnesium Ferritin C-Reactive Protein Triglycerides Cholesterol LDL Cholesterol, Calc HDL Cholesterol Procalcitonin Nasal Screen MRSA (PCR) Discharge Plan Discharge Plan Patient Disposition: Home Discharge comment: You presented to the ER with afib. You were started on metoprolol with improvement of heart rate control. Continue on the metoprolol, amiodarone and other medications until you see your nuclear process engineer later this week. We did get a COVID-19 test which is pending at time of discharge although you are not showing symptoms of coronavirus infection Discharge orders & Medications Prescriptions: New metoprolol tartrate 25 mg tablet 25 mg PO BID Qty: 60 RF: 0 Continued Multi Complete with Iron 18-400 mg-mcg Tablet 1 tab PO QAM Qty: 0 RF: 0 B12 5,000-100 mcg Lozenge 5,000 lisette SUBLINGUAL QAM RF: 0 ascorbic acid (vitamin C) [Vitamin C] 1,000 mg Tablet 500 mg PO QAM RF: 0 Ultra CoQ10 75 mg Capsule 75 mg PO QAM RF: 0 zonisamide 50 mg Capsule 100 mg PO BID RF: 0 PreserVision Lutein 226 mg-200 unit -5 mg-0.8 mg Capsule 2 cap PO QAM RF: 0 alpha lipoic acid 100 mg Capsule 100 mg PO QPM RF: 0 cholecalciferol (vitamin D3) 2,000 unit Tablet,Chewable 2,000 unit PO DAILY RF: 0 clonazepam 0.5 mg tablet 0.5 mg PO BEDTIME RF: 0 clonazepam 0.25 mg tablet,disintegrating 0.25 mg PO QAM RF: 0 amiodarone 200 mg Tablet 200 mg PO DAILY RF: 0 carbidopa-levodopa 25-100 mg Tablet 5 tab PO BID RF: 0 montelukast [Singulair] 4 mg Tablet,Chewable 4 mg PO QPM RF: 0 Follow up/Referrals: Chandra Hinkle [Other] Discharge Health Status Multidrug resistant organism: No MDRO Diet/Activity/Treatments Diet: Diet as Tolerated
[2019-06-10 16:24] VITALS: BP 111/60; PULSE 87; RESP 18; TEMP 36.7; O2SAT 96
--- NOTE | 2019-06-10 16:44 | CM.DPNOTE ---
DCPlanning note: case was received and discussed in Team Rounds. A check in now shows that OT attempted to see pt earlier but she has already been d/c to home setting by dr. Saini and thus order for same was cancelled.
--- NOTE | 2019-06-10 19:03 | PC.NURSE ---
Nichole shift note: Patient awake, alert, and pleasant. Discharged home per Dr. Etienne. Discussed importance of F/U with PMD, new medication, and home care instructions. Verbalized understanding. Discharge home via WC by Ingrid Galloway CNA in stable condition. IV and Tele discontinued.
[2019-06-11 02:07] LABS: COVID19 Sendout Not Detected (Not Detected)
== END 2019-06-10 16:30 | disposition home or self-care (01) ==
LOC: ED 16:45 → ICU 16:55 → AC 06-10 12:15 → ICU 06-12 12:41
PROVIDERS: Nurse Practitioner Adult Health; Admitting Provider Internal Medicine; Emergency Provider Emergency Medicine; Family Provider Internal Medicine; Referring Provider Emergency Medicine; Visit Provider Internal Medicine
DX: I48.0 Paroxysmal atrial fibrillation (principal); R00.2 Palpitations; G20 Parkinson's disease; R09.89 Other specified symptoms and signs involving the circulatory and respiratory systems; I10 Essential (primary) hypertension; I25.10 Atherosclerotic heart disease of native coronary artery without angina pectoris; K21.9 Gastro-esophageal reflux disease without esophagitis; Z87.891 Personal history of nicotine dependence; R53.1 Weakness; Z03.818 Encounter for observation for suspected exposure to other biological agents ruled out; K90.0 Celiac disease
CPT/HCPCS: 36415; 71045; 80048; 80053; 80061; 82550; 82728; 83036; 83605; 83690; 83735; 83880; 84145; 84484; 85025; 85610; 85730; 86140; 87040; 87635; 87797; 93005; 96365; 96375; 96376; 97110; 97116; 97162; 99285; G0378; J1650; J1940

== ENCOUNTER 2020-06-30 18:33 | Emergency (ER) | payer OTHER, SELFPAY ==
[2019-06-09 17:32] VITALS: BMI 26.9
[2020-06-30 18:37] VITALS: BP 97/55; PULSE 77; RESP 17; TEMP 36.6; O2SAT 95
--- NOTE | 2020-06-30 18:56 | ED_ITS ---
HPI - Recheck/Abnormal Lab/Rx General Chief Complaint: Recheck/Abnormal Lab/Rx Stated Complaint: Has celiacs and ate bread Time Seen by Provider: 06/30/20 18:35 Source: patient and EMS Mode of arrival: EMS Limitations: no limitations History of Present Illness HPI narrative: Patient is an 85-year-old male. He states that he has a history of celiac disease an approximately 1.5 hours prior to arrival here in the em ergency department he ate a piece of bread that he states was not gluten free. He currently has no symptoms. He states that he needs something to help him throw up so that he can get the bread out of his stomach. He states that he does not get at out of his stomach then tomorrow he will develop explosive diarrhea. Related Data Home Medications Medication Instructions Recorded Confirmed Multi Complete with Iron 1 tab PO QAM #0 06/12/09 06/09/19 amiodarone 200 mg PO DAILY 11/20/18 06/09/19 carbidopa-levodopa 5 tab PO BID 11/20/18 06/09/19 montelukast [Singulair] 4 mg PO QPM 11/20/18 06/09/19 B12 5,000 lisette SUBLINGUAL QAM 12/28/18 06/09/19 PreserVision Lutein 2 cap PO QAM 06/09/19 06/09/19 Ultra CoQ10 75 mg PO QAM 06/09/19 06/09/19 alpha lipoic acid 100 mg PO QPM 06/09/19 06/09/19 ascorbic acid (vitamin C) [Vitamin 500 mg PO QAM 06/09/19 06/09/19 C] cholecalciferol (vitamin D3) 2,000 unit PO DAILY 06/09/19 06/09/19 clonazepam 0.25 mg PO QAM 06/09/19 06/09/19 clonazepam 0.5 mg PO BEDTIME 06/09/19 06/09/19 zonisamide 100 mg PO BID 06/09/19 06/09/19 Previous Rx's Medication Instructions Recorded metoprolol tartrate 25 mg PO BID #60 tab 06/10/19 Allergies Allergy/AdvReac Type Severity Reaction Status Date / Time gluten [GLUTEN] Allergy Severe CELIAC Verified 06/09/19 13:58 DISEASE adhesive [ADHESIVE] Allergy Mild rash from Verified 06/09/19 13:58 plastic tape iodine [IODINE] Allergy Unknown PT UNSURE Verified 06/09/19 13:58 OF REACTION cephalexin AdvReac Severe violent Verified 06/09/19 13:58 indigestion hydromorphone [From Dilaudid] AdvReac Severe vomited Verified 06/09/19 13:58 violently morphine [MORPHINE] AdvReac Severe VOMITED Verified 06/09/19 13:58 VIOLENTLY, HAD ABD HERNIAS THAT NEEDED SURGERY. Review of Systems Constitutional Constitutional: Denies fatigue, Denies fever(s) and Denies headache(s) ENT Ears, Nose, Mouth, and Throat: Denies headache(s) Cardiovascular Cardiovascular: Denies chest pain and Denies dyspnea Respiratory Respiratory: Denies dyspnea Gastrointestinal Gastrointestinal: Denies abdominal pain, Denies change in bowel habits, Denies diarrhea, Denies nausea and Denies vomiting Genitourinary Genitourinary: Denies dysuria Genitourinary: Denies dysuria Musculoskeletal Musculoskeletal: Denies arthralgias and Denies myalgias Integumentary/Breasts Skin/Breast: Denies rash Neurologic Neurologic: Denies behavioral changes and Denies headache(s) Psychiatric Psychiatric: Denies anxiety and Denies behavioral changes Endocrine Endocrine: Denies fatigue Hematologic/Lymphatic On Anticoagulants: No Allergic/Immunologic Allergic/Immunologic: Denies urticaria Patient History Medical History Adenomatous colon polyp Atrial fibrillation CAD (coronary artery disease) Celiac disease Closed left hip fracture Compression fracture of L1 lumbar vertebra GERD (gastroesophageal reflux disease) HTN (hypertension) Kidney stones Parkinsons disease Right carpal tunnel syndrome Weight loss, unintentional Surgical History (Updated 06/10/19 @ 00:28 by TAWANA Funk) History of cholecystectomy History of colonoscopy History of esophagogastroduodenoscopy (EGD) History of hernia repair History of hip surgery History of lumbar fusion History of right hemicolectomy Family History (Updated 06/10/19 @ 00:31 by TAWANA Funk) Father Intracranial bleed Mother No problems noted. Brother Heart disease Sister Asthma Social History household members: spouse Smoking Status: Former smoker Smoking Status: Former smoker alcohol intake frequency: 0-2 drinks per day Substance Use Type: does not use Exam Initial Vital Signs Initial Vital Signs: Vital Signs Temperature 97.9 F 06/30/20 18:37 Pulse Rate 77 06/30/20 18:37 Respiratory Rate 17 06/30/20 18:37 Blood Pressure 97/55 L 06/30/20 18:37 Pulse Oximetry 95 06/30/20 18:37 Const General: cooperative and comfortable Limitations: mental status not altered HENMT Head: normal to inspection and normocephalic Eyes General: appearance normal, both eyes and all related structures Resp Effort & Inspection: normal respiratory effort Cardio Rate: regular rate GI Inspection: non-distended Palpation: soft, No firm and No tender Skin Lesions: no lesions Rashes: no rashes Neuro General: patient alert, patient awake and patient oriented x3 Cognition: normal cognition Speech: speech normal Extrem General: capillary refill normal Psych Appearance: grossly normal and well kempt Course Vital Signs Vital signs: Vital Signs - 8 hr 06/30/20 18:37 Temperature 97.9 F Pulse Rate 77 Respiratory Rate 17 Blood Pressure 97/55 L Pulse Oximetry 95 MDM - Recheck/Abnormal Lab/Rx MDM Narrative Medical decision making narrative: Patient currently has no symptoms. He stated that he ate this piece of bread 1.5 hours prior to arrival here in the emergency department. Unfortunately there is not much that we can do for him out of the emergency department. I do not advise giving him a medication to help him throw up. This is what he wanted. I suspect that after 1-1/2 hours it is most likely moved from his stomach into his small intestine. Does have nausea medicine at home. He also has anti diarrhea medication at home. Patient could be safely discharged home and was instructed to return if he felt like he needed re-evaluation. He expressed understanding and agreement. Discharge Plan Departure Patient Disposition: Home Clinical Impression: Celiac disease Instructions: Celiac Disease Activity Restrictions/Additional Instructions: I recommend that you take the anti diarrheal medicines if this develops over the next 24 hours. You can also take the nausea/vomiting medicine if this develops as well. Contact your primary provider for follow-up. Return to the emergency department for any new or worsening symptoms Prescriptions: No Action Multi Complete with Iron 18-400 mg-mcg Tablet 1 tab PO QAM Qty: 0 RF: 0 B12 5,000-100 mcg Lozenge 5,000 lisette SUBLINGUAL QAM RF: 0 ascorbic acid (vitamin C) [Vitamin C] 1,000 mg Tablet 500 mg PO QAM RF: 0 Ultra CoQ10 75 mg Capsule 75 mg PO QAM RF: 0 zonisamide 50 mg Capsule 100 mg PO BID RF: 0 PreserVision Lutein 226 mg-200 unit -5 mg-0.8 mg Capsule 2 cap PO QAM RF: 0 alpha lipoic acid 100 mg Capsule 100 mg PO QPM RF: 0 cholecalciferol (vitamin D3) 2,000 unit Tablet,Chewable 2,000 unit PO DAILY RF: 0 clonazepam 0.5 mg tablet 0.5 mg PO BEDTIME RF: 0 clonazepam 0.25 mg tablet,disintegrating 0.25 mg PO QAM RF: 0 metoprolol tartrate 25 mg tablet 25 mg PO BID Qty: 60 RF: 0 amiodarone 200 mg Tablet 200 mg PO DAILY RF: 0 carbidopa-levodopa 25-100 mg Tablet 5 tab PO BID RF: 0 montelukast [Singulair] 4 mg Tablet,Chewable 4 mg PO QPM RF: 0
--- NOTE | 2020-06-30 20:11 | PC.NURSE ---
Cab arrived, assisted pt into w/c and assisted into cab.
== END 2020-06-30 20:11 | disposition home or self-care (01) ==
PROVIDERS: Emergency Provider Emergency Medicine; Family Provider Internal Medicine
DX: K90.0 Celiac disease (principal)
CPT/HCPCS: 99281

== ENCOUNTER 2021-03-18 12:34 | Emergency (ER) | payer OTHER, SELFPAY ==
[2019-06-09 17:32] VITALS: BMI 26.9
[2021-03-18] VITALS (13 sets, daily range): BP systolic 113–154; BP diastolic 75–100; PULSE 76–112; RESP 15–37; TEMP 36.4; O2SAT 92–100; BMI 25.5
--- NOTE | 2021-03-18 12:47 | DI.RAD.S_ITS ---
PROCEDURE: XR CHEST 1V INDICATIONS: shortness of breath TECHNIQUE: One view of the chest was acquired. COMPARISON: [facility], CR, XR CHEST 1V, 06/09/2019, 13:41. FINDINGS: Surgical changes and devices: None. Lungs and pleura: Lungs are clear. No pleural effusions or pneumothorax. Mediastinum: Mediastinal contours appear normal. Heart size is normal. Bones and chest wall: No suspicious bony lesions. Overlying soft tissues appear unremarkable. IMPRESSION: No acute cardiopulmonary pathology. Dictated by: Steven Haines M.D. on 03/18/2021 at 13:27 Approved by: Steven Haines M.D. on 03/18/2021 at 13:28
[2021-03-18 13:14] LABS: Add Manual Diff / Slide Review NO; Basophils Absolute Auto 100 /uL (0-100); Basophils Percent Auto 2.2 % (0-2); Eosinophils Absolute Auto 200 /uL (0-450); Eosinophils Percent Auto 4.7 % (2-4); Hematocrit 34.9 % (41-53); Hemoglobin 11.7 g/dL (13.5-17.5); Lymphocytes Absolute Auto 700 /uL (1100-4500); Lymphocytes Percent Auto 16.5 % (25-40); Mean Corpuscular HGB Conc 33.5 % (30-36); Mean Corpuscular Hemoglobin 31.4 PG (26-34); Mean Corpuscular Volume 93.9 fL (80-100); Monocytes Absolute Auto 400 /uL (0-900); Monocytes Percent Auto 8.5 % (3-14); Neutrophils Absolute Auto 3000 /uL (1500-7000); Neutrophils Percent Auto 68.1 % (50-75); Platelet Count 120 X10^3/uL (150-400); Red Blood Cell Count 3.72 X10^6/uL (4.5-5.9); Red Cell Distribution Width 13.4 % (11.6-14.8); White Blood Cell Count 4.5 X10^3/uL (4.5-11.0)
--- NOTE | 2021-03-18 13:21 | ED_ITS ---
HPI - Chest Pain General Chief Complaint: Chest Pain Stated Complaint: Needs IV for Heart Time Seen by Provider: 03/18/21 12:53 Source: patient Mode of arrival: Wheelchair Limitations: no limitations History of Present Illness HPI narrative: The patient comes in the ER with significant peripheral edema. His mild d yspnea, no chest pain. He has had edema for years, recently worse. He denies illness. Has no cough, no fever headache. With edema he does not have orthopnea. He has atrial fib. He is not feeling palpitations. His medicines are reviewed. He is not on a diuretic. Related Data Home Medications Medication Instructions Recorded Confirmed multivitamin-ferrous 1 tab PO QAM #0 06/12/09 06/09/19 fumarate-folic acid 18 mg-400 mcg tablet (Multi Complete with Iron) amiodarone 200 mg tablet 200 mg PO DAILY 11/20/18 06/09/19 carbidopa 25 mg-levodopa 100 mg 5 tab PO BID 11/20/18 06/09/19 tablet montelukast 4 mg chewable tablet 4 mg PO QPM 11/20/18 06/09/19 (Singulair) cyanocobalamin (B12)-cobamamide 5,000 lisette SUBLINGUAL QAM 12/28/18 06/09/19 5,000 mcg-100 mcg sublingual lozenge (B12) alpha lipoic acid 100 mg capsule 100 mg PO QPM 06/09/19 06/09/19 ascorbic acid (vitamin C) 1,000 mg 500 mg PO QAM 06/09/19 06/09/19 tablet (Vitamin C) cholecalciferol (vitamin D3) 50 2,000 unit PO DAILY 06/09/19 06/09/19 mcg (2,000 unit) chewable tablet clonazepam 0.25 mg disintegrating 0.25 mg PO QAM 06/09/19 06/09/19 tablet clonazepam 0.5 mg tablet 0.5 mg PO BEDTIME 06/09/19 06/09/19 coenzyme Q10 75 mg capsule (Ultra 75 mg PO QAM 06/09/19 06/09/19 CoQ10) vit C-vit T-xjxafr-xvlj ox-lutein 2 cap PO QAM 06/09/19 06/09/19 226 mg-200 unit-5 mg-0.8 mg capsule (PreserVision Lutein) zonisamide 50 mg capsule 100 mg PO BID 06/09/19 06/09/19 Previous Rx's Medication Instructions Recorded metoprolol tartrate 25 mg tablet 25 mg PO BID #60 tab 06/10/19 furosemide 20 mg tablet (Lasix) 20 mg PO DAILY #60 tab 03/18/21 Allergies Allergy/AdvReac Type Severity Reaction Status Date / Time gluten [GLUTEN] Allergy Severe CELIAC Verified 03/18/21 12:49 DISEASE adhesive [ADHESIVE] Allergy Mild rash from Verified 03/18/21 12:49 plastic tape iodine [IODINE] Allergy Unknown PT UNSURE Verified 03/18/21 12:49 OF REACTION cephalexin AdvReac Severe violent Verified 03/18/21 12:49 indigestion hydromorphone [From Dilaudid] AdvReac Severe vomited Verified 03/18/21 12:49 violently morphine [MORPHINE] AdvReac Severe VOMITED Verified 03/18/21 12:49 VIOLENTLY, HAD ABD HERNIAS THAT NEEDED SURGERY. Review of Systems Constitutional Constitutional: Denies chills, Denies fatigue, Denies fever(s), Denies headache(s) and Reports weakness Eyes Eyes: Denies change in vision ENT Ears, Nose, Mouth, and Throat: Denies vertigo, Denies headache(s), Denies sinus pressure and Denies sore throat Cardiovascular Cardiovascular: Denies chest pain, Reports irregular heart rhythm, Reports leg edema and Denies dyspnea Respiratory Respiratory: Denies chest congestion, Denies cough and Denies dyspnea Gastrointestinal Gastrointestinal: Denies abdominal pain and Denies nausea Genitourinary Genitourinary: Denies urinary hesitancy and Denies urinary urgency Musculoskeletal Musculoskeletal: Denies back pain and Denies arthralgias Integumentary/Breasts Skin/Breast: Denies lesions and Denies rash Neurologic Neurologic: Denies confusion, Denies vertigo, Denies headache(s) and Reports weakness Psychiatric Psychiatric: Denies confusion and Denies depression Endocrine Endocrine: Denies fatigue Hematologic/Lymphatic On Anticoagulants: No Patient History Medical History (Updated 03/18/21 @ 18:20 by Manfred He MD) Adenomatous colon polyp Atrial fibrillation CAD (coronary artery disease) Celiac disease Closed left hip fracture Compression fracture of L1 lumbar vertebra Congestive heart failure GERD (gastroesophageal reflux disease) HTN (hypertension) Kidney stones Parkinsons disease Right carpal tunnel syndrome Weight loss, unintentional Surgical History History of cholecystectomy History of colonoscopy History of esophagogastroduodenoscopy (EGD) History of hernia repair History of hip surgery History of lumbar fusion History of right hemicolectomy Family History Father Intracranial bleed Mother No problems noted. Brother Heart disease Sister Asthma Social History household members: spouse Smoking Status: Former smoker Smoking Status: Former smoker alcohol intake frequency: holidays/special occasions only Substance Use Type: does not use Exam Initial Vital Signs Initial Vital Signs: Vital Signs Temperature 97.6 F 03/18/21 12:45 Pulse Rate 96 H 03/18/21 12:45 Respiratory Rate 15 03/18/21 12:45 Blood Pressure 113/77 03/18/21 12:45 Pulse Oximetry 98 03/18/21 12:45 Const General: cooperative and comfortable HENMT Head: normocephalic and atraumatic Throat: posterior oropharynx normal Eyes General: appearance normal, both eyes and all related structures Neck Neck: JVD (2 cm) Chest Chest: normal inspection of the chest Resp Other: Slight bibasilar rales. Cardio Other: Variable rhythm. Monitor indicates normal sinus rhythm with intermittent AFib. No murmur. GI Inspection: normal to inspection and non-distended Palpation: soft and No tender Back/Spine/Pelvis Back: normal to inspection Skin General: no rashes or lesions noted Neuro General: patient alert, patient awake, patient oriented x3 and no focal motor deficits Extrem General: normal to inspection, full ROM and capillary refill normal Other: 4+ bilateral lower extremity edema. Dorsalis pedis pulses are normal. Psych Mental Status: mental status grossly normal Course Course Course Narrative: The patient received Lasix 80 mg IV. He has diuresed about 3 L of urine. The edema in his legs has improved dramatically. He developed right lower abdominal pain when urinating. KUB CT revealed distended bladder, but no other pathologic findings. He has improved. He will be discharged on Lasix 20 mg did. Orders Ordered: ED Orders 03/18/21 12:47 XR chest 1V Stat EKG-12 Lead Stat Measure peak expiratory flow ONCE RT Consult Eval and Treat Now 03/18/21 13:00 COVID19 -Nasal swab/Pre-Proc Stat Complete Blood Count AUTO DIFF Stat Comprehensive Metabolic Panel Stat Lactate (Lactic Acid) Stat NT-proBNP (BNP-Adult 18+) Stat Prothrombin Time INR Stat 03/18/21 16:29 CT kidney ureter bladder (KUB) Stat Discontinued Medications Furosemide (Furosemide 100 Mg/10 Ml Vial) 80 mg IV NOW ONE Stop: 03/18/21 13:22 Last Admin: 03/18/21 14:03 Dose: 80 mg Documented by: HOMA Vital Signs Vital signs: Vital Signs - 8 hr 03/18/21 12:45 03/18/21 13:05 03/18/21 13:30 Temperature 97.6 F Pulse Rate 96 H 82 87 Respiratory Rate 15 27 H 16 Blood Pressure 113/77 137/78 Pulse Oximetry 98 98 98 03/18/21 14:00 03/18/21 14:30 03/18/21 15:00 Temperature Pulse Rate 87 92 H 101 H Respiratory Rate 20 23 23 Blood Pressure 142/83 H 137/84 154/95 H Pulse Oximetry 98 99 97 03/18/21 15:30 03/18/21 16:00 03/18/21 16:30 Temperature Pulse Rate 107 H 102 H 101 H Respiratory Rate 25 H 37 H 22 Blood Pressure 141/100 H 144/94 H 143/87 H Pulse Oximetry 98 99 100 03/18/21 17:08 03/18/21 17:10 03/18/21 17:30 Temperature Pulse Rate 76 102 H 107 H Respiratory Rate 23 26 H Blood Pressure 145/100 H 147/75 H Pulse Oximetry 92 98 98 MDM - Chest Pain Lab Data Result diagrams: 03/18/21 13:00 03/18/21 13:00 Labs: Lab Results 03/18/21 03/18/21 03/18/21 Range/Units 13:00 13:00 13:00 WBC 4.5 (4.5-11.0) X10^3/uL RBC 3.72 L (4.5-5.9) X10^6/uL Hgb 11.7 L (13.5-17.5) g/dL Hct 34.9 L (41-53) % MCV 93.9 (80-100) fL MCH 31.4 (26-34) PG MCHC 33.5 (30-36) % RDW 13.4 (11.6-14.8) % Plt Count 120 L (150-400) X10^3/uL Neut % (Auto) 68.1 (50-75) % Lymph % (Auto) 16.5 L (25-40) % Gonzales % (Auto) 8.5 (3-14) % Eos % (Auto) 4.7 H (2-4) % Baso % (Auto) 2.2 H (0-2) % Neut # (Auto) 3000 (5928-7992) /uL Lymph # (Auto) 700 L (5813-8957) /uL Gonzales # (Auto) 400 (0-900) /uL Eos # (Auto) 200 (0-450) /uL Baso # (Auto) 100 (0-100) /uL PT 18.3 H (10.1-12.7) SECONDS INR 1.6 H (0.9-1.3) Sodium 142 (137-145) mmol/L Potassium 4.3 (3.4-5.1) mmol/L Chloride 110 H (98-107) mmol/L Carbon Dioxide 28 (22-32) mmol/L BUN 16 (9-20) mg/dL Creatinine 0.97 (0.66-1.25) mg/dL Estimated GFR > 60.0 (>60) mL/min BUN/Creatinine Ratio 16.5 (6-22) Glucose 111 H (80-110) mg/dL Lactate (0.7-2.1) mmol/L Calcium 9.0 (8.4-10.2) mg/dL Total Bilirubin 0.6 (0.2-1.3) mg/dL AST 26 (17-59) IU/L ALT 5 (<50) IU/L Alkaline Phosphatase 76 (38-126) U/L NT-Pro-B Natriuret Pep 2830 H (<450) pg/mL Total Protein 6.5 (6.3-8.2) g/dL Albumin 3.7 (3.5-5.0) g/dL Globulin 2.8 (1.7-4.1) g/dL Albumin/Globulin Ratio 1.3 (1.0-2.8) SARS-CoV-2 (PCR) (Negative) 03/18/21 03/18/21 Range/Units 13:00 13:00 WBC (4.5-11.0) X10^3/uL RBC (4.5-5.9) X10^6/uL Hgb (13.5-17.5) g/dL Hct (41-53) % MCV (80-100) fL MCH (26-34) PG MCHC (30-36) % RDW (11.6-14.8) % Plt Count (150-400) X10^3/uL Neut % (Auto) (50-75) % Lymph % (Auto) (25-40) % Gonzales % (Auto) (3-14) % Eos % (Auto) (2-4) % Baso % (Auto) (0-2) % Neut # (Auto) (0999-5833) /uL Lymph # (Auto) (2804-9719) /uL Gonzales # (Auto) (0-900) /uL Eos # (Auto) (0-450) /uL Baso # (Auto) (0-100) /uL PT (10.1-12.7) SECONDS INR (0.9-1.3) Sodium (137-145) mmol/L Potassium (3.4-5.1) mmol/L Chloride (98-107) mmol/L Carbon Dioxide (22-32) mmol/L BUN (9-20) mg/dL Creatinine (0.66-1.25) mg/dL Estimated GFR (>60) mL/min BUN/Creatinine Ratio (6-22) Glucose (80-110) mg/dL Lactate 1.2 (0.7-2.1) mmol/L Calcium (8.4-10.2) mg/dL Total Bilirubin (0.2-1.3) mg/dL AST (17-59) IU/L ALT (<50) IU/L Alkaline Phosphatase (38-126) U/L NT-Pro-B Natriuret Pep (<450) pg/mL Total Protein (6.3-8.2) g/dL Albumin (3.5-5.0) g/dL Globulin (1.7-4.1) g/dL Albumin/Globulin Ratio (1.0-2.8) SARS-CoV-2 (PCR) Negative (Negative) Imaging Data Chest x-ray: Radiologist's Impression: No acute cardiopulmonary process. KUB CT: Radiologist's Impression: 1. The bladder is now distended.? Very mild right hydronephrosis and minimal left hydronephrosis and dilation of the right ureter have developed.? This may be secondary to bladder distension. ? 2. No renal stones or ureteral stones. ? 3. No evidence of acute abdominal process. ? 4. Cardiomegaly, advanced coronary artery calcifications. ? 5. Chronic osteoporotic compression fracture. ? ECG Data Attestation: I personally reviewed and interpreted this ECG as follows: (AFib rate 80 beats per minute. Left axis, left bundle branch block. No acute ST T wave changes. No changes compared to prior EKG.) Discharge Plan Departure Patient Disposition: Home Clinical Impression: CHF (congestive heart failure) Instructions: Heart Failure Activity Restrictions/Additional Instructions: Let your doctor know your BNP was 2800 when he arrived. Lasix 80 mg IV significantly decreased the swelling in your legs. Your situation looks much better. Continue current medications. Add Lasix 20 mg daily. Return here as needed. Prescriptions: New furosemide [Lasix] 20 mg tablet 20 mg PO DAILY Qty: 60 1RF No Action Multi Complete with Iron 18-400 mg-mcg Tablet 1 tab PO QAM Qty: 0 0RF B12 5,000-100 mcg Lozenge 5,000 lisette SUBLINGUAL QAM 0RF ascorbic acid (vitamin C) [Vitamin C] 1,000 mg Tablet 500 mg PO QAM 0RF Ultra CoQ10 75 mg Capsule 75 mg PO QAM 0RF zonisamide 50 mg Capsule 100 mg PO BID 0RF PreserVision Lutein 226 mg-200 unit -5 mg-0.8 mg Capsule 2 cap PO QAM 0RF alpha lipoic acid 100 mg Capsule 100 mg PO QPM 0RF cholecalciferol (vitamin D3) 2,000 unit Tablet,Chewable 2,000 unit PO DAILY 0RF clonazepam 0.5 mg tablet 0.5 mg PO BEDTIME 0RF clonazepam 0.25 mg tablet,disintegrating 0.25 mg PO QAM 0RF Label Comments: takes in the morning metoprolol tartrate 25 mg tablet 25 mg PO BID Qty: 60 0RF amiodarone 200 mg Tablet 200 mg PO DAILY 0RF Label Comments: pt reports unsure of dosage amount carbidopa-levodopa 25-100 mg Tablet 5 tab PO BID 0RF montelukast [Singulair] 4 mg Tablet,Chewable 4 mg PO QPM 0RF Rx Instructions: pt reports unsure of dosage amount
[2021-03-18 13:25] LABS: INR 1.6 (0.9-1.3); Prothrombin Time 18.3 SECONDS (10.1-12.7)
[2021-03-18 13:29] LABS: Lactate (Lactic Acid) 1.2 mmol/L (0.7-2.1)
[2021-03-18 13:30] LABS: Alanine Aminotransferase 5 IU/L (<50); Albumin 3.7 g/dL (3.5-5.0); Albumin Globulin Ratio 1.3 (1.0-2.8); Alkaline Phosphatase 76 U/L (38-126); Aspartate Aminotransferase 26 IU/L (17-59); BUN Creatinine Ratio 16.5 (6-22); Bilirubin Total 0.6 mg/dL (0.2-1.3); Blood Urea Nitrogen 16 mg/dL (9-20); Carbon Dioxide 28 mmol/L (22-32); Chloride 110 mmol/L (98-107); Estimated Glomerular Filt Rate > 60.0 mL/min (>60); Globulin 2.8 g/dL (1.7-4.1); Glucose 111 mg/dL (80-110); HEMOLYSIS < 15 (0-50); Potassium 4.3 mmol/L (3.4-5.1); Sodium 142 mmol/L (137-145); Total Protein 6.5 g/dL (6.3-8.2)
[2021-03-18 13:35] LABS: COVID19 -Nasal RAPID Negative (Negative)
[2021-03-18 13:39] LABS: NT-proBNP (BNP-Adult 18+) 2830 pg/mL (<450)
[2021-03-18] MEDS: FUROSEMIDE 100 MG/10 ML VIAL 80 MG IV (14:03)
--- NOTE | 2021-03-18 16:29 | DI.CT.S_ITS ---
PROCEDURE: CT KIDNEY URETER BLADDER (KUB) INDICATIONS: RLQ pain. TECHNIQUE: Axial sections were acquired from the lung bases to the pubic symphysis. Coronal and sagittal reformats were performed. For radiation dose reduction, the following was used: automated exposure control, adjustment of mA and/or kV according to patient size. COMPARISON: [facility], CT, CT CHEST ABDOMEN PELVIS WITH CONTRAST, 09/02/2020, 13:04. FINDINGS: Image quality: Excellent. Lung bases: Unremarkable. Heart: Four-chamber cardiomegaly, advanced coronary artery calcifications. URINARY: Right Kidney: Development of minimal hydronephrosis with a more prominent extrarenal pelvis Right Ureter: Mildly dilated down to the level of the bladder. Left Kidney: Development of minimal hydronephrosis and more prominence of an extrarenal pelvis. Left Ureter: No hydroureter. Bladder: The bladder is now distended without a thickened wall. There is artifact in the pelvis from a total left hip arthroplasty. The prostate does not look significantly enlarged. ABDOMEN: Liver: Unremarkable. Gallbladder: Surgically absent Biliary ducts: Unremarkable. Pancreas: Unremarkable. Spleen: Unremarkable. Adrenal Glands: Unremarkable. Stomach and Bowel: Large fecal load. Mild diverticulosis without evidence of diverticulitis. Peritoneum: No abnormal intraperitoneal fluid. No free air. Ventral Wall: No hernia. Abdominal Nodes: No enlarged retroperitoneal or mesenteric lymph nodes. Vessels: Aorta and inferior vena cava are normal in size. PELVIS: Pelvic Organs: Unremarkable. Pelvic Nodes: Unremarkable. Miscellaneous: No inguinal hernias are seen. Bones: Chronic severe L1 compression. L4-L5 surgical hardware. Total left hip arthroplasty. No acute compression fractures. No lytic or blastic bony lesions. IMPRESSION: 1. The bladder is now distended. Very mild right hydronephrosis and minimal left hydronephrosis and dilation of the right ureter have developed. This may be secondary to bladder distension. 2. No renal stones or ureteral stones. 3. No evidence of acute abdominal process. 4. Cardiomegaly, advanced coronary artery calcifications. 5. Chronic osteoporotic compression fracture. Dictated by: Neo Minor M.D. on 03/18/2021 at 17:22 Approved by: Neo Minor M.D. on 03/18/2021 at 17:30
== END 2021-03-18 18:55 | disposition home or self-care (01) ==
PROVIDERS: Emergency Provider Emergency Medicine; Family Provider Internal Medicine
DX: I50.9 Heart failure, unspecified (principal); I48.91 Unspecified atrial fibrillation; Z20.822 Contact with and (suspected) exposure to COVID-19
CPT/HCPCS: 36415; 71045; 74176; 80053; 83605; 83880; 85025; 85610; 87635; 93005; 93010; 96374; 99284; C9803; J1940

== ENCOUNTER 2021-04-02 18:11 | Observation (INO) | payer OTHER, SELFPAY ==
[2019-06-09 17:32] VITALS: BMI 26.9
[2021-04-02] VITALS (10 sets, daily range): BP systolic 128–146; BP diastolic 73–86; PULSE 75–95; RESP 12–18; TEMP 35.8–35.9; O2SAT 84–99; BMI 25.6
--- NOTE | 2021-04-02 18:15 | DI.CT.S_ITS ---
PROCEDURE: CT HEAD/BRAIN WO CON INDICATIONS: fall, head injury, Xarelto TECHNIQUE: Noncontrast 4.5 mm thick angled axial sections acquired from the foramen magnum to the vertex, with coronal and sagittal reformats. For radiation dose reduction, the following was used: automated exposure control, adjustment of mA and/or kV according to patient size. COMPARISON: [facility], CT, CT HEAD/BRAIN WO CON, 12/24/2018, 19:24. FINDINGS: Image quality: Excellent. CSF spaces: Basal cisterns are patent. No extra-axial fluid collections. The ventricles are symmetric in size and shape. Brain: No intracranial bleeds or masses. There is cerebral volume loss for age, with resultant ventricular and sulcal prominence. There are periventricular and deep white matter chronic small vessel ischemic changes. There is intracranial internal carotid artery atherosclerosis. Skull and face: Calvarium and visualized facial bones appear intact, without suspicious lesions. Sinuses: Visualized sinuses and mastoids are clear. IMPRESSION: Negative for acute stroke, hemorrhage, or mass. No evidence of significant intracranial sequelae of acute trauma. Dictated by: Neo Minor M.D. on 04/02/2021 at 19:05 Approved by: Neo Minor M.D. on 04/02/2021 at 19:06
--- NOTE | 2021-04-02 18:15 | DI.RAD.S_ITS ---
PROCEDURE: XR SHOULDER LT MIN 2V INDICATIONS: fall with shoulder pain TECHNIQUE: 4 views of the shoulder were acquired. COMPARISON: [facility], CR, XR SHOULDER LT MIN 2V, 12/24/2018, 19:23. FINDINGS: Bones: Comminuted humeral neck fracture. Severe glenohumeral joint arthritic joint space loss. No dislocation. No suspicious bony lesions. Visualized ribs appear intact. Soft tissues: No suspicious soft tissue calcifications. IMPRESSION: Comminuted humeral neck fracture. Severe glenohumeral joint arthritis. Dictated by: Neo Minor M.D. on 04/02/2021 at 19:00 Approved by: Neo Minor M.D. on 04/02/2021 at 19:02
--- NOTE | 2021-04-02 18:15 | DI.RAD.S_ITS ---
PROCEDURE: XR CHEST 1V INDICATIONS: weakness fall shoulder TECHNIQUE: One view of the chest was acquired. COMPARISON: , CR, XR SHOULDER LT MIN 2V, 04/02/2021, 18:30. , CR, XR CHEST 1V, 03/18/2021, 13:01. FINDINGS: Surgical changes and devices: Right shoulder arthroplasty Lungs and pleura: Lungs are clear. No pleural effusions or pneumothorax. Mediastinum: Mediastinal contours appear normal. Heart size is top normal. Bones and chest wall: Left humeral neck fracture. Severe arthritic joint space loss, left glenohumeral joint. No suspicious bony lesions. Overlying soft tissues appear unremarkable. IMPRESSION: Left humeral neck fracture. Severe left glenohumeral joint arthritic change. No evidence acute pulmonary process. Dictated by: Neo Minor M.D. on 04/02/2021 at 19:02 Approved by: Neo Minor M.D. on 04/02/2021 at 19:04
--- NOTE | 2021-04-02 18:15 | DI.CT.S_ITS ---
PROCEDURE: CT CERVICAL SPINE WO CON INDICATIONS: fall with neck pain TECHNIQUE: Noncontrast 3 mm thick sections acquired from the skull base to the T4 level. Sagittal and coronal reformats were then constructed. For radiation dose reduction, the following was used: automated exposure control, adjustment of mA and/or kV according to patient size. COMPARISON: [facility], CT, C-SPINE WITHOUT CONTRAST, 11/27/2010, 19:09. FINDINGS: Image quality: Excellent. Bones: No fractures or dislocations. Visualized superior ribs are intact. Moderate to severe cervical spondylitic change. Multilevel disc height loss and uncovertebral joint hypertrophy with bilateral bony foraminal narrowing at C5-C6 and C6-C7. Multilevel cervical facet arthropathy bilaterally. he Soft tissues: Prevertebral soft tissues are normal in thickness. No paravertebral hematomas. No apical pneumothoraces. IMPRESSION: Moderate to severe cervical spondylosis. No evidence of acute cervical fracture or dislocation. Dictated by: Neo Minor M.D. on 04/02/2021 at 19:06 Approved by: Neo Minor M.D. on 04/02/2021 at 19:08
--- NOTE | 2021-04-02 18:31 | ED.WEAKNESS ---
HPI - Weakness General Chief complaint: Fall Stated complaint: GLF,hit back of head,takes blood thinners Time Seen by Provider: 04/02/21 18:15 Source: patient and EMS Mode of arrival: EMS History of Present Illness HPI Narrative: 85-year-old male with history of atrial fibrillation on anticoagulation and baseline gait disturbance presents with a chief complaint of of fall from standing in which he struck the back of his head and complains of severe left arm pain. He denies any loss of consciousness nor nausea or vomiting. He has no neck pain. He denies any chest pain or shortness of breath. He denies abdominal pain. He denies any lower extremity pain or weakness. He denies any left upper extremity numbness, tingling or weakness. He does state that it hurts severely with any motion or palpation. Paramedics placed him in a splint and report crepitance in doing so. He was given fentanyl 100 mcg en route which he tolerated well. He is activated as a modified trauma given fall with head injury on anticoagulation. He and son report that he frequently falls asleep while standing which is what happened tonight. He denies any other prodromal symptoms. He has a very difficult time getting around and walks with a shuffling gait and requires both hands to keep his balance. He lives at home Related Data Home Medications Medication Instructions Recorded Confirmed multivitamin-ferrous 1 tab PO QAM #0 06/12/09 06/09/19 fumarate-folic acid 18 mg-400 mcg tablet (Multi Complete with Iron) amiodarone 200 mg tablet 200 mg PO DAILY 11/20/18 06/09/19 carbidopa 25 mg-levodopa 100 mg 5 tab PO BID 11/20/18 06/09/19 tablet montelukast 4 mg chewable tablet 4 mg PO QPM 11/20/18 06/09/19 (Singulair) cyanocobalamin (B12)-cobamamide 5,000 lisette SUBLINGUAL QAM 12/28/18 06/09/19 5,000 mcg-100 mcg sublingual lozenge (B12) alpha lipoic acid 100 mg capsule 100 mg PO QPM 06/09/19 06/09/19 ascorbic acid (vitamin C) 1,000 mg 500 mg PO QAM 06/09/19 06/09/19 tablet (Vitamin C) cholecalciferol (vitamin D3) 50 2,000 unit PO DAILY 06/09/19 06/09/19 mcg (2,000 unit) chewable tablet clonazepam 0.25 mg disintegrating 0.25 mg PO QAM 06/09/19 06/09/19 tablet clonazepam 0.5 mg tablet 0.5 mg PO BEDTIME 06/09/19 06/09/19 coenzyme Q10 75 mg capsule (Ultra 75 mg PO QAM 06/09/19 06/09/19 CoQ10) vit C-vit O-xautke-vnhy ox-lutein 2 cap PO QAM 06/09/19 06/09/19 226 mg-200 unit-5 mg-0.8 mg capsule (PreserVision Lutein) zonisamide 50 mg capsule 100 mg PO BID 06/09/19 06/09/19 Previous Rx's Medication Instructions Recorded metoprolol tartrate 25 mg tablet 25 mg PO BID #60 tab 06/10/19 furosemide 20 mg tablet (Lasix) 20 mg PO DAILY #60 tab 03/18/21 hydrocodone 5 mg-acetaminophen 325 1 tab PO Q4-6H PRN #10 tab 04/02/21 mg tablet ondansetron 4 mg disintegrating 4 mg PO TID-QID PRN #10 tab 04/02/21 tablet Allergies Allergy/AdvReac Type Severity Reaction Status Date / Time gluten [GLUTEN] Allergy Severe CELIAC Verified 03/18/21 12:49 DISEASE adhesive [ADHESIVE] Allergy Mild rash from Verified 03/18/21 12:49 plastic tape iodine [IODINE] Allergy Unknown PT UNSURE Verified 03/18/21 12:49 OF REACTION cephalexin AdvReac Severe violent Verified 03/18/21 12:49 indigestion hydromorphone [From Dilaudid] AdvReac Severe vomited Verified 03/18/21 12:49 violently morphine [MORPHINE] AdvReac Severe VOMITED Verified 03/18/21 12:49 VIOLENTLY, HAD ABD HERNIAS THAT NEEDED SURGERY. Review of Systems Review of Systems Narrative: GENERAL: Denies chills, fatigue, malaise, fever, sweats. HEENT: Denies sinus pain, ear pain, sore throat, difficulty swallowing, dizziness. RESPIRATORY: Denies dyspnea, cough, wheezing, hemoptysis, sputum. CARDIOVASCULAR: Denies chest pain, palpitations, orthopnea, edema, GASTROINTESTINAL: Denies nausea, vomiting, abdominal pain, diarrhea, constipation, melena. : Denies dysuria, frequency, incontinence, hematuria, urinary retention. MUSCULOSKELETAL: See HPI SKIN: Denies rash, skin lesions, or other NEUROLOGIC: Denies weakness, headache, numbness, change in speech, confusion, seizures, incoordination. PSYCHIATRIC: No concerning psychosocial issues. 12 point review of systems is negative except for those stated above Patient History Medical History Adenomatous colon polyp Atrial fibrillation CAD (coronary artery disease) Celiac disease Closed left hip fracture Compression fracture of L1 lumbar vertebra Congestive heart failure GERD (gastroesophageal reflux disease) HTN (hypertension) Kidney stones Parkinsons disease Right carpal tunnel syndrome Weight loss, unintentional Surgical History History of cholecystectomy History of colonoscopy History of esophagogastroduodenoscopy (EGD) History of hernia repair History of hip surgery History of lumbar fusion History of right hemicolectomy Family History Father Intracranial bleed Mother No problems noted. Brother Heart disease Sister Asthma Social History household members: spouse Smoking Status: Former smoker Smoking Status: Former smoker alcohol intake frequency: holidays/special occasions only Substance Use Type: does not use Exam Narrative Exam Narrative: GENERAL: [85 year old patient appears stated age. Well-developed patient, in mild distress. GCS 15 HEAD: Atraumatic. Normocephalic. No evidence of hematoma, laceration or suggestion of depressed skull fracture EYES: Pupils equal round and reactive. Extraocular motions intact. No scleral icterus. No injection or drainage. ENT: Nose without bleeding, purulent drainage. Throat without erythema, tonsillar hypertrophy or exudate. Airway patent. NECK: Trachea midline. Non tender, no step-offs or crepitance CARDIOVASCULAR: Irregularly irregular rhythm without murmurs, gallops, or rubs. RESPIRATORY: Clear to auscultation. Breath sounds equal bilaterally. No wheezes, rales, or rhonchi. GASTROINTESTINAL: Abdomen soft, non-tender, nondistended. EXTREMITIES: Severe pain without obvious deformity of left shoulder, this was closed, isolated and neurovascularly intact, chronic venous states this bilateral lower extremities BACK: Nontender without deformity or crepitance. No flank tenderness. NEURO: AOx3. SKIN: No rash or erythema of visible areas Initial Vital Signs Initial Vital Signs: Vital Signs Pulse Rate 75 04/02/21 18:14 Procedures Orthopedic Splinting/Casting Injury #1: Side: left Upper Extremity Injury Location: upper arm Upper Extremity Immobilizer: sling/shoulder immobilizer Post splinting neuro exam: intact Post splinting vascular exam: intact Placed by: Nursing Course Orders Ordered: ED Orders 04/02/21 18:15 CT cervical spine wo con Stat CT head/brain wo con Stat Chest [XR chest 1V] Stat XR shoulder LT min 2V Stat EKG-12 Lead Stat 04/02/21 18:25 Complete Blood Count AUTO DIFF Stat Comprehensive Metabolic Panel Stat Lipase Stat NT-proBNP (BNP-Adult 18+) Stat Troponin & CK Cardiac Panel Stat Type and Screen Stat 04/02/21 19:00 COVID19 -Nasal swab/Pre-Proc Stat Prothrombin Time INR Stat Hydrocodone Bitart/Acetaminophen (Hydrocodone/Acet 5/325 Tablet) 1 tab PO Q4HR PRN PRN Reason: Pain, Moderate (4-6) Calcium Carbonate (Calcium Carbonate 500 Mg Tab) 1,000 mg PO Q4HR PRN PRN Reason: Dyspepsia Docusate Sodium (Docusate 100 Mg Capsule) 100 mg PO BID TAWANDA Hydromorphone HCl (Hydromorphone 0.5 Mg Inj) 0.5 mg IV Q6H PRN PRN Reason: Pain, Moderate (4-6) Sodium Chloride (Normal Saline 0.9%) 1,000 mls @ 150 mls/hr IV CONT TAWANDA Last Admin: 04/02/21 18:59 Dose: 150 mls/hr Documented by: MARIA ELENA Naloxone HCl (Naloxone 0.4 Mg/Ml Vial) 0.2 mg IV Q2MIN PRN PRN Reason: Opiate Reversal Ondansetron HCl (Ondansetron 4 Mg/2 Ml Inj) 4 mg IV Q8HR PRN PRN Reason: Nausea And Vomiting Discontinued Medications Hydrocodone Bitart/Acetaminophen (Hydrocodone/Acet 5/325 Prepack) 1 bottle MISC SEEINSTR ONE Stop: 04/02/21 20:36 Last Admin: 04/02/21 20:51 Dose: 1 bottle Documented by: MARIA ELENA Ondansetron HCl (Ondansetron 4 Mg Odt Prepack) 1 bottle MISC SEEINSTR ONE Stop: 04/02/21 20:36 Last Admin: 04/02/21 20:51 Dose: 1 bottle Documented by: MARIA ELENA Consultations Consultation #1: Dr. Sparks is aware of and agreement with the plan Consultation #2: Hospitalist happy to accept, will see the patient at the bedside Vital Signs Vital signs: Vital Signs - 8 hr 04/02/21 18:14 04/02/21 18:15 04/02/21 18:18 Temperature 96.6 F L Pulse Rate 75 89 95 H Respiratory Rate 16 Blood Pressure 128/73 128/73 Pulse Oximetry 99 97 04/02/21 18:54 04/02/21 19:00 04/02/21 19:02 Temperature Pulse Rate 86 88 86 Respiratory Rate 12 12 Blood Pressure 130/84 Pulse Oximetry 84 L 98 97 04/02/21 19:30 04/02/21 20:00 04/02/21 20:30 Temperature Pulse Rate 90 94 H 94 H Respiratory Rate 12 13 14 Blood Pressure 133/83 128/76 138/86 Pulse Oximetry 98 97 97 MDM - Weakness Lab Data Result diagrams: 04/02/21 18:25 04/02/21 18:25 Labs: Lab Results 04/02/21 04/02/21 04/02/21 Range/Units 18:25 18:25 18:25 WBC 4.1 L (4.5-11.0) X10^3/uL RBC 3.88 L (4.5-5.9) X10^6/uL Hgb 12.2 L (13.5-17.5) g/dL Hct 36.2 L (41-53) % MCV 93.1 (80-100) fL MCH 31.4 (26-34) PG MCHC 33.7 (30-36) % RDW 13.2 (11.6-14.8) % Plt Count 118 L (150-400) X10^3/uL Neut % (Auto) 68.0 (50-75) % Lymph % (Auto) 16.6 L (25-40) % [place] % (Auto) 8.7 (3-14) % Eos % (Auto) 5.6 H (2-4) % Baso % (Auto) 1.1 (0-2) % Neut # (Auto) 2800 (5699-4850) /uL Lymph # (Auto) 700 L (6272-6398) /uL [place] # (Auto) 400 (0-900) /uL Eos # (Auto) 200 (0-450) /uL Baso # (Auto) 0 (0-100) /uL PT (10.1-12.7) SECONDS INR (0.9-1.3) Sodium 141 (137-145) mmol/L Potassium 4.4 (3.4-5.1) mmol/L Chloride 109 H (98-107) mmol/L Carbon Dioxide 27 (22-32) mmol/L BUN 21 H (9-20) mg/dL Creatinine 1.03 (0.66-1.25) mg/dL Estimated GFR > 60.0 (>60) mL/min BUN/Creatinine Ratio 20.4 (6-22) Glucose 132 H (80-110) mg/dL Calcium 9.3 (8.4-10.2) mg/dL Total Bilirubin 0.8 (0.2-1.3) mg/dL AST 35 (17-59) IU/L ALT 6 (<50) IU/L Alkaline Phosphatase 85 (38-126) U/L Total Creatine Kinase 100 (55-170) U/L CK-MB (CK-2) TNP CK-MB (CK-2) Rel Index TNP Troponin I < 0.012 (0.01-0.034) ng/mL NT-Pro-B Natriuret Pep 2760 H (<450) pg/mL Total Protein 7.0 (6.3-8.2) g/dL Albumin 4.1 (3.5-5.0) g/dL Globulin 2.9 (1.7-4.1) g/dL Albumin/Globulin Ratio 1.4 (1.0-2.8) Lipase 101 (23-300) U/L SARS-CoV-2 (PCR) (Negative) Blood Type O Positive Antibody Screen Negative 04/02/21 04/02/21 Range/Units 19:00 19:00 WBC (4.5-11.0) X10^3/uL RBC (4.5-5.9) X10^6/uL Hgb (13.5-17.5) g/dL Hct (41-53) % MCV (80-100) fL MCH (26-34) PG MCHC (30-36) % RDW (11.6-14.8) % Plt Count (150-400) X10^3/uL Neut % (Auto) (50-75) % Lymph % (Auto) (25-40) % [place] % (Auto) (3-14) % Eos % (Auto) (2-4) % Baso % (Auto) (0-2) % Neut # (Auto) (1150-8517) /uL Lymph # (Auto) (9494-2228) /uL [place] # (Auto) (0-900) /uL Eos # (Auto) (0-450) /uL Baso # (Auto) (0-100) /uL PT 15.2 H (10.1-12.7) SECONDS INR 1.3 (0.9-1.3) Sodium (137-145) mmol/L Potassium (3.4-5.1) mmol/L Chloride (98-107) mmol/L Carbon Dioxide (22-32) mmol/L BUN (9-20) mg/dL Creatinine (0.66-1.25) mg/dL Estimated GFR (>60) mL/min BUN/Creatinine Ratio (6-22) Glucose (80-110) mg/dL Calcium (8.4-10.2) mg/dL Total Bilirubin (0.2-1.3) mg/dL AST (17-59) IU/L ALT (<50) IU/L Alkaline Phosphatase (38-126) U/L Total Creatine Kinase (55-170) U/L CK-MB (CK-2) CK-MB (CK-2) Rel Index Troponin I (0.01-0.034) ng/mL NT-Pro-B Natriuret Pep (<450) pg/mL Total Protein (6.3-8.2) g/dL Albumin (3.5-5.0) g/dL Globulin (1.7-4.1) g/dL Albumin/Globulin Ratio (1.0-2.8) Lipase (23-300) U/L SARS-CoV-2 (PCR) Negative (Negative) Blood Type Antibody Screen Imaging Data CT scan - head: Radiologist Impression: [address] [address] [address] Scan Report Signed Patient: Migue Calhoun MR#: [id number] : 1935 Acct:[id number] Age/Sex: 85 / M Date of Service: 04/02/21 Loc: ED Accession Number: [id number] ?? Procedure: CT head/brain wo con Ordering Provider: Chun Tsai D.O. PROCEDURE:? CT HEAD/BRAIN WO CON ? INDICATIONS:? fall, head injury, Xarelto ? TECHNIQUE:? Noncontrast 4.5 mm thick angled axial sections acquired from the foramen magnum to the vertex, with coronal and sagittal reformats.? For radiation dose reduction, the following was used:? automated exposure control, adjustment of mA and/or kV according to patient size.? ? COMPARISON:? [facility], CT, CT HEAD/BRAIN WO CON, 12/24/2018, 19:24. ? FINDINGS:? Image quality:? Excellent.? ? CSF spaces:? Basal cisterns are patent.? No extra-axial fluid collections.? The ventricles are symmetric in size and shape.? ? Brain:? No intracranial bleeds or masses.? There is cerebral volume loss for age, with resultant ventricular and sulcal prominence.? There are periventricular and deep white matter chronic small vessel ischemic changes.? There is intracranial internal carotid artery atherosclerosis.? ? Skull and face:? Calvarium and visualized facial bones appear intact, without suspicious lesions.? ? Sinuses:? Visualized sinuses and mastoids are clear.? ? IMPRESSION:? Negative for acute stroke, hemorrhage, or mass. No evidence of significant intracranial sequelae of acute trauma. ? ? ? Dictated by: Neo Minor M.D. on 04/02/2021 at 19:05 ? ? Approved by: Neo Minor M.D. on 04/02/2021 at 19:06 ? CT - cervical spine: Radiologist Impression: Migue Calhoun??85??M??1935 ? Allergy/Adv: gluten, adhesive, iodine, cephalexin, hydromorphone, morphine (More??) Close Shoulder X-Ray (Signed) Neo Minor - 04/02/[address] (Signed) Rianna Minoric - 04/02/21 Chest X-Ray (Signed) Steve Minorderic - 04/02/[address] (Signed) Steve Minorderic - 04/02/21 Abdomen/Pelvis CT (Signed) Steve Minorderic - 03/18/21 Chest X-Ray (Signed) Steven Haines - 03/18/21 Telemetry Strips 06/09/19 Telemetry Strips 06/09/19 Chest X-Ray (Signed) Kerwin Solis - 06/09/19 Elbow X-Ray (Signed) Misael Morris - 12/28/18 Hip X-Ray (Signed) Neo Rodriguez - 12/26/18 Pelvis X-Ray (Signed) Ghislaine Bey - 12/26/18 Bladder Scan 12/24/[address] (Signed) [facility] - 12/24/18 Wrist X-Ray (Signed) [facility] - 12/24/18 Shoulder X-Ray (Signed) [facility] - 12/24/18 Hip X-Ray (Signed) Neo Minor - 12/24/[address] (Signed) [facility] - 12/24/18 Vascular Ultrasound (Signed) Jelena Park - 05/05/18 Chest X-Ray (Signed) [facility] - 05/05/18 Vascular Ultrasound (Signed) Daniel Mckee - 04/25/18 Launch?[place] [address] CT Scan Report Signed Patient: Migue Calhoun MR#: [id number] : 1935 Acct:[id number] Age/Sex: 85 / M Date of Service: 04/02/21 Loc: ED Accession Number: [id number] ?? Procedure: CT cervical spine wo con Ordering Provider: Chun Tsai D.O. PROCEDURE:? CT CERVICAL SPINE WO CON ? INDICATIONS:? fall with neck pain ? TECHNIQUE:? Noncontrast 3 mm thick sections acquired from the skull base to the T4 level.? Sagittal and coronal reformats were then constructed.? For radiation dose reduction, the following was used:? automated exposure control, adjustment of mA and/or kV according to patient size.? ? COMPARISON:? [facility], CT, C-SPINE WITHOUT CONTRAST, 11/27/2010, 19:09. ? FINDINGS:? Image quality:? Excellent.? ? Bones:? No fractures or dislocations.? Visualized superior ribs are intact.? Moderate to severe cervical spondylitic change.? Multilevel disc height loss and uncovertebral joint hypertrophy with bilateral bony foraminal narrowing at C5-C6 and C6-C7.? Multilevel cervical facet arthropathy bilaterally.? he? ? Soft tissues:? Prevertebral soft tissues are normal in thickness.? No paravertebral hematomas.? No apical pneumothoraces.? ? ? IMPRESSION:? Moderate to severe cervical spondylosis.? No evidence of acute cervical fracture or dislocation. ? Dictated by: Neo Minor M.D. on 04/02/2021 at 19:06 ? ? Approved by: Neo Minor M.D. on 04/02/2021 at 19:08 ? Extremity x-ray #1: Radiologist Impression: [place] [address] XRay Report Signed Patient: Migue Calhoun MR#: [id number] : 1935 Acct:[id number] Age/Sex: 85 / M Date of Service: 04/02/21 Loc: ED Accession Number: [id number] ?? Procedure: XR shoulder LT min 2V Ordering Provider: Chun Tsai D.O. PROCEDURE:? XR SHOULDER LT MIN 2V ? INDICATIONS:? fall with shoulder pain ? TECHNIQUE:? 4 views of the shoulder were acquired.? ? COMPARISON:? [facility], CR, XR SHOULDER LT MIN 2V, 12/24/2018, 19:23. ? FINDINGS:? ? Bones:? Comminuted humeral neck fracture.? Severe glenohumeral joint arthritic joint space loss.? No dislocation.? No suspicious bony lesions.? Visualized ribs appear intact. ? ? Soft tissues:? No suspicious soft tissue calcifications.? ? IMPRESSION:? Comminuted humeral neck fracture.? Severe glenohumeral joint arthritis. ? ? Dictated by: Neo Minor M.D. on 04/02/2021 at 19:00 ? ? Approved by: Neo Minor M.D. on 04/02/2021 at 19:02 ? MDM Narrative Medical decision making narrative: patient witih ground level fall and resultant left proximal humerus fracture is unsafe for discharge as he lives at home without sufficient support. He requires the use of both upper extremities to ambulate safely and transfer. He will require hospitalization for his safety, he will likely need a multidisciplinary approach with the help of care management, occupational therapy, physical therapy and could very well requires placement at rehab. Patient and family understand and agree with this plan Discharge Plan Departure Patient Disposition: Admitted as Observation Clinical Impression: Closed left humeral fracture Admit Date/Time: 04/02/21 21:56 Admit Provider: Gregory Chung
[2021-04-02 18:37] LABS: Add Manual Diff / Slide Review NO; Basophils Absolute Auto 0 /uL (0-100); Basophils Percent Auto 1.1 % (0-2); Eosinophils Absolute Auto 200 /uL (0-450); Eosinophils Percent Auto 5.6 % (2-4); Hematocrit 36.2 % (41-53); Hemoglobin 12.2 g/dL (13.5-17.5); Lymphocytes Absolute Auto 700 /uL (1100-4500); Lymphocytes Percent Auto 16.6 % (25-40); Mean Corpuscular HGB Conc 33.7 % (30-36); Mean Corpuscular Hemoglobin 31.4 PG (26-34); Mean Corpuscular Volume 93.1 fL (80-100); Monocytes Absolute Auto 400 /uL (0-900); Monocytes Percent Auto 8.7 % (3-14); Neutrophils Absolute Auto 2800 /uL (1500-7000); Platelet Count 118 X10^3/uL (150-400); Red Blood Cell Count 3.88 X10^6/uL (4.5-5.9); Red Cell Distribution Width 13.2 % (11.6-14.8); White Blood Cell Count 4.1 X10^3/uL (4.5-11.0)
[2021-04-02 18:50] LABS: Alanine Aminotransferase 6 IU/L (<50); Albumin 4.1 g/dL (3.5-5.0); Albumin Globulin Ratio 1.4 (1.0-2.8); Alkaline Phosphatase 85 U/L (38-126); Aspartate Aminotransferase 35 IU/L (17-59); BUN Creatinine Ratio 20.4 (6-22); Bilirubin Total 0.8 mg/dL (0.2-1.3); Blood Urea Nitrogen 21 mg/dL (9-20); Calcium 9.3 mg/dL (8.4-10.2); Carbon Dioxide 27 mmol/L (22-32); Chloride 109 mmol/L (98-107); Creatine Kinase 100 U/L (55-170); Estimated Glomerular Filt Rate > 60.0 mL/min (>60); Globulin 2.9 g/dL (1.7-4.1); Glucose 132 mg/dL (80-110); HEMOLYSIS 43 (0-50); Lipase 101 U/L (23-300); Potassium 4.4 mmol/L (3.4-5.1); Sodium 141 mmol/L (137-145)
[2021-04-02] MEDS: SODIUM CHLORIDE 0.9% 1,000 ML 150 ML IV (18:59)
[2021-04-02 19:02] LABS: NT-proBNP (BNP-Adult 18+) 2760 pg/mL (<450); Troponin I < 0.012 ng/mL (0.01-0.034)
[2021-04-02 19:22] LABS: INR 1.3 (0.9-1.3); Prothrombin Time 15.2 SECONDS (10.1-12.7)
[2021-04-02 19:26] LABS: COVID19 -Nasal RAPID Negative (Negative)
--- NOTE | 2021-04-02 20:26 | PC.NURSE ---
Updated son Nasir Home Number Nasir will come in to learn how to apply splint and to take his father back home.
[2021-04-02] MEDS: HYDROCODONE/ACET 5/325 PREPACK 1 BOTTLE MISC (20:51)
[2021-04-02] MEDS: ONDANSETRON 4 MG ODT PREPACK 1 BOTTLE MISC (20:51)
--- NOTE | 2021-04-02 21:23 | PC.NURSE ---
Patient was ready for discharge and was given pre-pack of norco and zofran. Patient began having pain and MD was asked if he wanted to give patient IV pain meds, but MD requested that the patient take one of each of the pre-pack meds due to the sedating factor of iv pain meds. Patient took the meds, but subsequent to that it was determined the patient could not go home safely due to mobility impairment. Decision was made to admit the patient to the hospital. Pre-pack meds were sent home with the patient's son for use when his father goes home.
--- NOTE | 2021-04-02 21:40 | PC.NURSE ---
Patient's disposition changed to admit; hospitalist checking med list with patient and son.
--- NOTE | 2021-04-02 22:05 | PM.HP.1 ---
History of Present Illness History of Present Illness Date Patient Seen: 04/02/21 Time Patient Seen: 21:45 Chief complaint: GLF,hit back of head,takes blood thinners Narrative: Pt presented to ED with L sided pain following fall at home. It appears he fell asleep standing up. He has multiple preexisting orthopedic issues and requires all four limbs to move around his house safely. Was found here to have a L proximal humerus fracture however due to tenuous mobility he is not safe to discharge home tonight. Son at bedside tonight. Pt is fully alert and oriented. Complains of moderate constant pain in L shoulder and L hip since he fell on them earlier this evening, he is comfortable currently. Patricia myers for afib. Reports hx of sensitivity to morphine but notes has gotten dilaudid recently without an issue. Medical history: s/p replacement of R shoulder and L hip joints. s/p bowel resection and cholecystectomy. Family history: father age 88 after fall on head while anticoagulated Social history: quit smoking over 50 years ago Patient History Medical History Adenomatous colon polyp Atrial fibrillation CAD (coronary artery disease) Celiac disease Closed left hip fracture Compression fracture of L1 lumbar vertebra Congestive heart failure GERD (gastroesophageal reflux disease) HTN (hypertension) Kidney stones Parkinsons disease Right carpal tunnel syndrome Weight loss, unintentional Surgical History History of cholecystectomy History of colonoscopy History of esophagogastroduodenoscopy (EGD) History of hernia repair History of hip surgery History of lumbar fusion History of right hemicolectomy Family & Social History Family History Father Intracranial bleed Mother No problems noted. Brother Heart disease Sister Asthma Social History: household members spouse Safety & Behavioral: Feels Safe in Current Yes Environment Tobacco & Substance use: Tobacco type cigarettes Smoking Status Former smoker alcohol intake frequency holiday/special occasion Substance Use Type does not use Meds Home Medications and Allergies Home Medications Medication Instructions Recorded Confirmed Type multivitamin-ferrous 1 tab PO QAM #0 06/12/09 06/09/19 History fumarate-folic acid 18 mg-400 mcg tablet (Multi Complete with Iron) amiodarone 200 mg tablet 200 mg PO DAILY 11/20/18 06/09/19 History carbidopa 25 mg-levodopa 100 mg 5 tab PO BID 11/20/18 06/09/19 History tablet montelukast 4 mg chewable tablet 4 mg PO QPM 11/20/18 06/09/19 History (Singulair) cyanocobalamin (B12)-cobamamide 5,000 lisette SUBLINGUAL QAM 12/28/18 06/09/19 History 5,000 mcg-100 mcg sublingual lozenge (B12) alpha lipoic acid 100 mg capsule 100 mg PO QPM 06/09/19 06/09/19 History ascorbic acid (vitamin C) 1,000 mg 500 mg PO QAM 06/09/19 06/09/19 History tablet (Vitamin C) cholecalciferol (vitamin D3) 50 2,000 unit PO DAILY 06/09/19 06/09/19 History mcg (2,000 unit) chewable tablet clonazepam 0.25 mg disintegrating 0.25 mg PO QAM 06/09/19 06/09/19 History tablet clonazepam 0.5 mg tablet 0.5 mg PO BEDTIME 06/09/19 06/09/19 History coenzyme Q10 75 mg capsule (Ultra 75 mg PO QAM 06/09/19 06/09/19 History CoQ10) vit C-vit B-[id number]-twlu ox-lutein 2 cap PO QAM 06/09/19 06/09/19 History 226 mg-200 unit-5 mg-0.8 mg capsule (PreserVision Lutein) zonisamide 50 mg capsule 100 mg PO BID 06/09/19 06/09/19 History metoprolol tartrate 25 mg tablet 25 mg PO BID #60 tab 06/10/19 Rx furosemide 20 mg tablet (Lasix) 20 mg PO DAILY #60 tab 03/18/21 Rx hydrocodone 5 mg-acetaminophen 325 1 tab PO Q4-6H PRN #10 tab 04/02/21 Rx mg tablet ondansetron 4 mg disintegrating 4 mg PO TID-QID PRN #10 tab 04/02/21 Rx tablet Allergies Allergy/AdvReac Type Severity Reaction Status Date / Time gluten [GLUTEN] Allergy Severe CELIAC Verified 03/18/21 12:49 DISEASE adhesive [ADHESIVE] Allergy Mild rash from Verified 03/18/21 12:49 plastic tape iodine [IODINE] Allergy Unknown PT UNSURE Verified 03/18/21 12:49 OF REACTION cephalexin AdvReac Severe violent Verified 03/18/21 12:49 indigestion hydromorphone [From Dilaudid] AdvReac Severe vomited Verified 03/18/21 12:49 violently morphine [MORPHINE] AdvReac Severe VOMITED Verified 03/18/21 12:49 VIOLENTLY, HAD ABD HERNIAS THAT NEEDED SURGERY. Review of Systems Review of Systems Narrative: all systems reviewed and negative except as otherwise documented in HPI Exam Vital Signs (past 8 hours): - 04/02/21 18:14 04/02/21 18:15 04/02/21 18:18 Temperature 96.6 F L Pulse Rate 75 89 95 H Respiratory Rate 16 Blood Pressure 128/73 128/73 Pulse Oximetry 99 97 04/02/21 18:54 04/02/21 19:00 04/02/21 19:02 Temperature Pulse Rate 86 88 86 Respiratory Rate 12 12 Blood Pressure 130/84 Pulse Oximetry 84 L 98 97 04/02/21 19:30 04/02/21 20:00 04/02/21 20:30 Temperature Pulse Rate 90 94 H 94 H Respiratory Rate 12 13 14 Blood Pressure 133/83 128/76 138/86 Pulse Oximetry 98 97 97 Oxygen Delivery Method Room Air Narrative Exam Narrative: alert elder lying in hospital bed Const General: cooperative, healthy appearing and comfortable [facility] Head: normocephalic and atraumatic Eyes Alignment and Position: alignment normal Eyelids: other (L eyelid ptosis - reports this is preexisting issue 2/2) Neck Neck: normal visual inspection and full ROM Resp Effort & Inspection: normal respiratory effort and able to speak in complete sentences Auscultation: clear to auscultation bilaterally Cardio Other: regular rate irregular rhythm S1/S2 heard, 2+ pitting edema to midcalf GI Other: soft nontender nondistended normal bowel sounds Neuro General: patient alert, patient awake, patient oriented x3, moves all extremities and CN's II-XI intact bilaterally Extrem Other: LUE in protective splint and sling, distal NV intact. moving all extremities. Psych Appearance: grossly normal Mental Status: mental status grossly normal Speech and Movement: speech and movement normal Mood: congruent mood Affect: normal affect Attitude: cooperative Objective Labs Result Diagrams: 04/02/21 18:25 04/02/21 18:25 Labs: Laboratory Results - last 24 hr 04/02/21 04/02/21 04/02/21 18:25 18:25 18:25 WBC 4.1 L RBC 3.88 L Hgb 12.2 L Hct 36.2 L MCV 93.1 MCH 31.4 MCHC 33.7 RDW 13.2 Plt Count 118 L Neut % (Auto) 68.0 Lymph % (Auto) 16.6 L [place] % (Auto) 8.7 Eos % (Auto) 5.6 H Baso % (Auto) 1.1 Neut # (Auto) 2800 Lymph # (Auto) 700 L [place] # (Auto) 400 Eos # (Auto) 200 Baso # (Auto) 0 PT INR Sodium 141 Potassium 4.4 Chloride 109 H Carbon Dioxide 27 BUN 21 H Creatinine 1.03 Estimated GFR > 60.0 BUN/Creatinine Ratio 20.4 Glucose 132 H Calcium 9.3 Total Bilirubin 0.8 AST 35 ALT 6 Alkaline Phosphatase 85 Total Creatine Kinase 100 CK-MB (CK-2) TNP CK-MB (CK-2) Rel Index TNP Troponin I < 0.012 NT-Pro-B Natriuret Pep 2760 H Total Protein 7.0 Albumin 4.1 Globulin 2.9 Albumin/Globulin Ratio 1.4 Lipase 101 SARS-CoV-2 (PCR) Blood Type O Positive Antibody Screen Negative 04/02/21 04/02/21 19:00 19:00 WBC RBC Hgb Hct MCV MCH MCHC RDW Plt Count Neut % (Auto) Lymph % (Auto) [place] % (Auto) Eos % (Auto) Baso % (Auto) Neut # (Auto) Lymph # (Auto) [place] # (Auto) Eos # (Auto) Baso # (Auto) PT 15.2 H INR 1.3 Sodium Potassium Chloride Carbon Dioxide BUN Creatinine Estimated GFR BUN/Creatinine Ratio Glucose Calcium Total Bilirubin AST ALT Alkaline Phosphatase Total Creatine Kinase CK-MB (CK-2) CK-MB (CK-2) Rel Index Troponin I NT-Pro-B Natriuret Pep Total Protein Albumin Globulin Albumin/Globulin Ratio Lipase SARS-CoV-2 (PCR) Negative Blood Type Antibody Screen Assessment & Plan Assessment & Plan narrative: #s/p ground level fall #L proximal humerus fracture I note patient has hx of labile blood pressure, additionally has daily benzos on MAY which are possible fall contributors Recommended pt discontinue sedative use given serious mobility issues and age Sling applied, pain control PT/OT consulted pt is not safe to ambulate unassisted FALL RISK #atrial fibrillation, chronic, present on admission #hypertension stable continue home metoprolol and xarelto #diastolic heart failure, present on admission, chronic recently started on lasix by cardiology for moderate pitting edema not in active exacerbation continue home lasix #COPD, chronic, present on admission stable nonsmoker continue home montelukast #celiac disease stable as long as not eating gluten gluten intolerant, continue home vitamin supplementation #constipation pt takes 'slow mag' magnesium supplement at home gonsalo check magnesium in the am docusate zay bid ordered Code status: full family: son Nasir Calhoun [phone] or [phone] DVT ppx: eliquis dispo: likely rehab placement COVID-19 COVID-19 status: Negative Time Spent With Patient Time with patient: 50 to 69 minutes with 50% spent counseling/coordinating care
[2021-04-02] MEDS: CARBIDOPA-LEVODOPA 25/100 TABLET 3 EACH PO (23:49)
[2021-04-02] MEDS: RIVAROXABAN 10 MG TABLET 15 MG PO (23:49)
[2021-04-02] MEDS: METOPROLOL IR 25 MG TABLET PO (23:50)
[2021-04-02] MEDS: MONTELUKAST 10 MG TABLET 4 MG PO (23:50)
[2021-04-03] VITALS (9 sets, daily range): BP systolic 96–153; BP diastolic 52–75; PULSE 78–95; RESP 12–18; TEMP 36.3–36.6; O2SAT 94–98; BMI 25.4
[2021-04-03] MEDS: HYDROCODONE/ACET 5/325 TABLET 1 TAB PO ×4 (00:30→19:47)
[2021-04-03 05:46] LABS: Add Manual Diff / Slide Review NO; Basophils Absolute Auto 0 /uL (0-100); Basophils Percent Auto 0.7 % (0-2); Eosinophils Absolute Auto 200 /uL (0-450); Eosinophils Percent Auto 4.8 % (2-4); Hematocrit 32.4 % (41-53); Lymphocytes Absolute Auto 800 /uL (1100-4500); Lymphocytes Percent Auto 16.1 % (25-40); Mean Corpuscular Hemoglobin 31.6 PG (26-34); Monocytes Absolute Auto 600 /uL (0-900); Monocytes Percent Auto 12.2 % (3-14); Neutrophils Absolute Auto 3200 /uL (1500-7000); Neutrophils Percent Auto 66.2 % (50-75); Platelet Count 104 X10^3/uL (150-400); Red Blood Cell Count 3.48 X10^6/uL (4.5-5.9); Red Cell Distribution Width 13.5 % (11.6-14.8); White Blood Cell Count 4.8 X10^3/uL (4.5-11.0)
[2021-04-03 05:57] LABS: BUN Creatinine Ratio 21.8 (6-22); Blood Urea Nitrogen 19 mg/dL (9-20); Calcium 8.9 mg/dL (8.4-10.2); Carbon Dioxide 30 mmol/L (22-32); Chloride 108 mmol/L (98-107); Estimated Glomerular Filt Rate > 60.0 mL/min (>60); Glucose 116 mg/dL (80-110); HEMOLYSIS < 15 (0-50); Magnesium 2.1 mg/dL (1.6-2.3); Sodium 139 mmol/L (137-145)
--- NOTE | 2021-04-03 06:44 | PC.NURSE ---
Patient arrived to AC unit at 2215, transferred from stretcher to bed via 2PA. Alert and oriented x 4, able to make needs known. Oriented to room and call light. Using call light appropriately. Voiding with urinal. Patient is a high fall risk, bed alarm activated and bed in low position. Brakes on bed are locked.
[2021-04-03] MEDS: CARBIDOPA-LEVODOPA 25/100 TABLET 4 EACH PO (09:09)
[2021-04-03] MEDS: CHOLECALCIFEROL (VITAMIN D3) 1,000 UNIT TABLET 2000 UNIT PO (09:09)
[2021-04-03] MEDS: MONTELUKAST 10 MG TABLET 4 MG PO (09:10)
[2021-04-03] MEDS: DIGOXIN 0.125 MG TABLET 0.25 MG PO ×2 (09:10→17:15)
[2021-04-03] MEDS: DOCUSATE 100 MG CAPSULE PO ×2 (09:10→21:25)
[2021-04-03] MEDS: MULTIVITAMIN 1 TABLET 1 TAB PO (09:10)
[2021-04-03] MEDS: RIVAROXABAN 10 MG TABLET 15 MG PO (09:12)
--- NOTE | 2021-04-03 10:31 | PM.CN ---
History of Present Illness Consult details Date Patient Seen: 04/03/21 Time Patient Seen: 10:31 Chief complaint: GLF,hit back of head,takes blood thinners Reason for consult: Left proximal humerus fracture Requesting provider: Chun Tsai Narrative: Migue is a delightful 85 year old gentleman well-known to our practice who suffered a ground-level fall yesterday. He was found to have a left comminuted humeral neck fracture. He was placed in a coaptation splint and a sling and Dr Sparks was consulted. He has been admitted to the medicine service for additional work up and management of his multiple medical issues. Meds Home Medications and Allergies Home Medications Medication Instructions Recorded Confirmed Type multivitamin-ferrous 1 tab PO QAM #0 06/12/09 04/03/21 History fumarate-folic acid 18 mg-400 mcg tablet (Multi Complete with Iron) amiodarone 200 mg tablet 200 mg PO DAILY 11/20/18 04/03/21 History carbidopa 25 mg-levodopa 100 mg 5 tab PO BID 11/20/18 04/03/21 History tablet montelukast 4 mg chewable tablet 4 mg PO QPM 11/20/18 04/03/21 History (Singulair) cyanocobalamin (B12)-cobamamide 5,000 lisette SUBLINGUAL QAM 12/28/18 04/03/21 History 5,000 mcg-100 mcg sublingual lozenge (B12) alpha lipoic acid 100 mg capsule 100 mg PO QPM 06/09/19 04/03/21 History ascorbic acid (vitamin C) 1,000 mg 500 mg PO QAM 06/09/19 04/03/21 History tablet (Vitamin C) cholecalciferol (vitamin D3) 50 2,000 unit PO DAILY 06/09/19 04/03/21 History mcg (2,000 unit) chewable tablet clonazepam 0.25 mg disintegrating 0.25 mg PO QAM 06/09/19 04/03/21 History tablet clonazepam 0.5 mg tablet 0.5 mg PO BEDTIME 06/09/19 04/03/21 History coenzyme Q10 75 mg capsule (Ultra 75 mg PO QAM 06/09/19 04/03/21 History CoQ10) vit C-vit X-[id number]-[id number] ox-lutein 2 cap PO QAM 06/09/19 04/03/21 History 226 mg-200 unit-5 mg-0.8 mg capsule (PreserVision Lutein) zonisamide 50 mg capsule 100 mg PO BID 06/09/19 04/03/21 History metoprolol tartrate 25 mg tablet 25 mg PO BID #60 tab 06/10/19 04/03/21 Rx furosemide 20 mg tablet (Lasix) 20 mg PO DAILY #60 tab 03/18/21 04/03/21 Rx hydrocodone 5 mg-acetaminophen 325 1 tab PO Q4-6H PRN #10 tab 04/02/21 Rx mg tablet ondansetron 4 mg disintegrating 4 mg PO TID-QID PRN #10 tab 04/02/21 Rx tablet Allergies Allergy/AdvReac Type Severity Reaction Status Date / Time gluten [GLUTEN] Allergy Severe CELIAC Verified 03/18/21 12:49 DISEASE adhesive [ADHESIVE] Allergy Mild rash from Verified 03/18/21 12:49 plastic tape iodine [IODINE] Allergy Unknown PT UNSURE Verified 03/18/21 12:49 OF REACTION cephalexin AdvReac Severe violent Verified 03/18/21 12:49 indigestion hydromorphone [From Dilaudid] AdvReac Severe vomited Verified 03/18/21 12:49 violently morphine [MORPHINE] AdvReac Severe VOMITED Verified 03/18/21 12:49 VIOLENTLY, HAD ABD HERNIAS THAT NEEDED SURGERY. Review of Systems Constitutional Comments: No complaints other than left shoulder pain. Musculoskeletal Comments: H/o right total shoulder by a [facility] physician in the . Has a history of hip replacement by Dr Lanny Jimenes and lumbar fusion by Dr Stella Donis. Exam Vital Signs (past 8 hours): - 04/03/21 05:51 04/03/21 07:45 04/03/21 09:04 Temperature 97.4 F L 97.3 F L Pulse Rate 95 H 85 Respiratory Rate 18 14 Blood Pressure 120/59 L 96/52 L 109/61 Pulse Oximetry 98 96 04/03/21 09:10 Temperature Pulse Rate 78 Respiratory Rate Blood Pressure Pulse Oximetry Oxygen Delivery Method Room Air Oxygen Flow Rate 0 Narrative Exam Narrative: Splint and sling in good position. 5/5 drill bit sharpener strength, dorsiflexion, palmarflexion on left. Sensation to touch intact throughout left hand and digits. Brisk capillary refill. Const General: cooperative and healthy appearing Orientation: alert, awake and oriented x3 Objective Labs Result Diagrams: 04/03/21 05:29 04/03/21 05:29 Labs: Laboratory Results - last 24 hr 04/02/21 04/02/21 04/02/21 18:25 18:25 18:25 WBC 4.1 L RBC 3.88 L Hgb 12.2 L Hct 36.2 L MCV 93.1 MCH 31.4 MCHC 33.7 RDW 13.2 Plt Count 118 L Neut % (Auto) 68.0 Lymph % (Auto) 16.6 L [place] % (Auto) 8.7 Eos % (Auto) 5.6 H Baso % (Auto) 1.1 Neut # (Auto) 2800 Lymph # (Auto) 700 L [place] # (Auto) 400 Eos # (Auto) 200 Baso # (Auto) 0 PT INR Sodium 141 Potassium 4.4 Chloride 109 H Carbon Dioxide 27 BUN 21 H Creatinine 1.03 Estimated GFR > 60.0 BUN/Creatinine Ratio 20.4 Glucose 132 H Calcium 9.3 Magnesium Total Bilirubin 0.8 AST 35 ALT 6 Alkaline Phosphatase 85 Total Creatine Kinase 100 CK-MB (CK-2) TNP CK-MB (CK-2) Rel Index TNP Troponin I < 0.012 NT-Pro-B Natriuret Pep 2760 H Total Protein 7.0 Albumin 4.1 Globulin 2.9 Albumin/Globulin Ratio 1.4 Lipase 101 SARS-CoV-2 (PCR) Blood Type O Positive Antibody Screen Negative 04/02/21 04/02/21 04/03/21 19:00 19:00 05:29 WBC 4.8 RBC 3.48 L Hgb 11.0 L Hct 32.4 L MCV 93.0 MCH 31.6 MCHC 34.0 RDW 13.5 Plt Count 104 L Neut % (Auto) 66.2 Lymph % (Auto) 16.1 L [place] % (Auto) 12.2 Eos % (Auto) 4.8 H Baso % (Auto) 0.7 Neut # (Auto) 3200 Lymph # (Auto) 800 L [place] # (Auto) 600 Eos # (Auto) 200 Baso # (Auto) 0 PT 15.2 H INR 1.3 Sodium Potassium Chloride Carbon Dioxide BUN Creatinine Estimated GFR BUN/Creatinine Ratio Glucose Calcium Magnesium Total Bilirubin AST ALT Alkaline Phosphatase Total Creatine Kinase CK-MB (CK-2) CK-MB (CK-2) Rel Index Troponin I NT-Pro-B Natriuret Pep Total Protein Albumin Globulin Albumin/Globulin Ratio Lipase SARS-CoV-2 (PCR) Negative Blood Type Antibody Screen 04/03/21 04/03/21 05:29 05:29 WBC RBC Hgb Hct MCV MCH MCHC RDW Plt Count Neut % (Auto) Lymph % (Auto) [place] % (Auto) Eos % (Auto) Baso % (Auto) Neut # (Auto) Lymph # (Auto) [place] # (Auto) Eos # (Auto) Baso # (Auto) PT INR Sodium 139 Potassium 4.0 Chloride 108 H Carbon Dioxide 30 BUN 19 Creatinine 0.87 Estimated GFR > 60.0 BUN/Creatinine Ratio 21.8 Glucose 116 H Calcium 8.9 Magnesium 2.1 Total Bilirubin AST ALT Alkaline Phosphatase Total Creatine Kinase CK-MB (CK-2) CK-MB (CK-2) Rel Index Troponin I NT-Pro-B Natriuret Pep Total Protein Albumin Globulin Albumin/Globulin Ratio Lipase SARS-CoV-2 (PCR) Blood Type Antibody Screen [facility] Medical History Adenomatous colon polyp Atrial fibrillation CAD (coronary artery disease) Celiac disease Closed left hip fracture Compression fracture of L1 lumbar vertebra Congestive heart failure GERD (gastroesophageal reflux disease) HTN (hypertension) Kidney stones Parkinsons disease Right carpal tunnel syndrome Weight loss, unintentional Surgical History History of cholecystectomy History of colonoscopy History of esophagogastroduodenoscopy (EGD) History of hernia repair History of hip surgery History of lumbar fusion History of right hemicolectomy Family History Father Intracranial bleed Mother No problems noted. Brother Heart disease Sister Asthma Social History household members: spouse Tobacco & Substance Use Smoking Status: Former smoker Assessment & Plan Assessment and plan (1) Fracture of femoral neck, left: Status: Acute Plan No surgical intervention indicated at this time. Pain control per hospitalist. PT/OT. Continue splint and sling at all times for immobilization of humerus. NWB LUE. F/u in ortho clinic in 2 weeks for repeat xrays out of splint. Injury should not require surgery unless there is a significant shift along fracture site. Case reviewed with and plan approved by Dr Sparks. Time Spent With Patient Critical Care time: I spent a total of [] minutes of critical care time on this patient's care today; this time is exclusive of procedural time.
--- NOTE | 2021-04-03 10:44 | PC.NURSE ---
Addendum entered by Nereida Moore R.N. 04/03/21 12:04: Patient worked with physical therapy and she states that patient is having a hard time getting up to the side of the bed, it took him a while to sit up. She is going to talk to discharge planning to see what the plan will be. He complains of a 4/10 pain and was just given 1 vicodin. Patient falls asleep multiple times throughout the day and this is not new for him. He instantly wakes up and is alert and oriented x3. Original Note: Patient is alert and oriented x3, he denies pain at this time and is sleepy. He was impressed with the food here at the hospital and asking to talk to the cooks. He easily falls asleep. Ortho into see patient, given his oral medications and he is resting well now.
--- NOTE | 2021-04-03 12:25 | CM.DANOTE ---
Addendum entered by Karla Jimenes R.N. 04/03/21 15:13: CM spoke with patient again today after PT and he in now more agreeable to SNF placement. CM called and LVM with [facility] to check on referral. CM department will follow up in AM with them to see if they can accept. once we have an accepting facility will need to start [employer] Auth for SNF...IF auth is not approved [facility] is the secondary plan. CM department will follow up with them tomorrow to make sure they can accept. Karla Jimenes RNslotter operator. Original Note: DCP Assessment: Patient is an 85 yr old male who was admitted for safe DC planning. Patient currently lives with his at home and utilizes a walker at home. CM met with patient at the bedside and explained role. Patient was A&O x4 during meeting. Patient has a humerus fracture and there is concerns for the patient being able to go home safely at DC. However, when asked the patient does not want to go to SNF at DC and wants to go home with . CM got approval from the patient to talk with his son Nasir who is insistent that the patient go to a SNF at DC but since the patient is Alert and oriented CM will have to follow the planning that the patient wants. Another concern for this patient is his insurance [employer] needs to Auth SNF and since his injury is his arm they most likely will not authorize SNF. will still send Authorization request once we have an accepting facility but not sure that patient will go even if accepting SNF is found and a [employer] auth is obtained. CM spoke with [facility] about [facility] to see if they can accept this patient for their high acuity program. [facility] is reviewing. I: [employer] MCR and self pay PLan : DC to SNF VS [facility] Karla Jimenes RNslotter operator. Discharge Planning/Care Management CM Discharge Assessment Start: 04/03/21 10:38 Freq: Status: Active Protocol: Document 04/03/21 11:21 HS (Rec: 04/03/21 12:25 HS [id number]) Discharge Planning Assessment Assigned Pail Bailer Karla Jimenes RNdirector of radiology DPOA/Assigned Designee Name Samira Calhoun- Contact Information [phone] Advance Directives? Yes: Cardiopulmonary Resuscitation (CPR) Advance Directive Advance Directives on File No History Provided By Patient,Family Member Prior Living Arrangements House Household Members spouse Comment Patient lives with his and his adult son lives near by. Type of transporation used prior to Relies on Others admit Independent with ADL's No: gets help from Is patient alert and oriented? Yes DME Already Rented / Owned Elevated Toilet Seat,FWW / Walker Patient/Family Preference [facility] Facility Comment Patient lives at home with his doesnt want to go to SNF wants home with HH but son is pushing SNF. Barriers to Discharge Yes Comment DC plan Discharge Plan [facility] Facility Referrals Initiated [facility] Additional Comment CM called [facility] Medicare Choice List Provided Yes SNF/HH Preference [facility] for [facility]F and [facility] Has Agency SNF been contacted Yes Comment [facility] reviewing Whiteboard Updated in Patient Room with Yes name and ext. # of Pail Bailer Review Status In Process Next Review Type Continued Stay Review
--- NOTE | 2021-04-03 13:08 | PT.IIE ---
Current Diagnoses Fracture of unspecified part of neck of left femur, initial encounter for closed fracture (04/02/21) Medical History (Last Reviewed 04/02/21 @ 21:40 by Chun Tsai DO) Adenomatous colon polyp Atrial fibrillation CAD (coronary artery disease) Celiac disease Closed left hip fracture Compression fracture of L1 lumbar vertebra Congestive heart failure GERD (gastroesophageal reflux disease) HTN (hypertension) Kidney stones Parkinsons disease Right carpal tunnel syndrome Weight loss, unintentional Physical Therapy Inpatient Evaluation/Re-Eval M1 PT/OT-IP Prior Functional Status Start: 04/03/21 12:46 Freq: NEEDED Status: Active Protocol: Document 04/03/21 11:00 [facility] (Rec: 04/03/21 13:08 [facility] [id number]) Medical Review Prior Functional Status Medical History Reviewed Yes Diet/Fluid Consistency Regular Communication communication with nursing prior to beginning PT consult Mobility and Gait pts prior mobility included fww for home. Pt reports he was doing well at home until 2 months ago when he declined pretty quick. Now he states he moves very slow and shuffles his feet. He notes he requires both hands for walking to keep his balance Activities of Daily Living and IADL's Pt's son shops for him and cooks for him. Social History Household Members spouse Living Arrangements House Number of Floors (Floors) One Floor M2 PT-IP Current Condition Start: 04/03/21 12:46 Freq: NEEDED Status: Active Protocol: Document 04/03/21 11:00 [facility] (Rec: 04/03/21 13:08 [facility] [id number]) Physical Therapy Current Condition Current Condition Evaluation Date 04/03/21 M3 PT-IP Subjective Start: 04/03/21 12:46 Freq: NEEDED Status: Active Protocol: Document 04/03/21 11:00 [facility] (Rec: 04/03/21 13:08 [facility] [id number]) Subjective Physical Therapy Visit Type Type Initial Evaluation Visit Start Time 11:00 Visit Stop Time 11:45 Total Visit Minutes 45 Physical Therapy Visit Comments Patient Comments pt is in bed and agrees to do PT. He notes his left shoulder is very sore and pain levels are intermittent but range from 2-4/10. Pt also c/ o left hip pain and he has a history of left hip replacement. He does note he had the left hip pain prior to this fall. Patient Goals pt's goal include returning home Therapy Pain Assessment Pain When Pain Assessed At Rest Pain Present Pain Present Pain Reported Location Left Shoulder Intensity 4 Scale Used Numeric (0 - 10) Pain Management Techniques Re-positioning,Timing of Activity with Medications Left Leg Intensity 3 Scale Used Numeric (0 - 10) Description With Movement M4 PT-IP Mobility and Gait Start: 04/03/21 12:46 Freq: NEEDED Status: Active Protocol: Document 04/03/21 11:00 [facility] (Rec: 04/03/21 13:08 [facility] [id number]) PT-Bed Mobility Assessment Rolling Type of Rolling Roll to Right Level of Assist Moderate Assistance Supine to Sit Supine to Sit Moderate Assistance Sit to Supine Sit to Supine Moderate Assistance,Head of Bed Elevated Scooting Scooting to Edge of Bed Maximum Assistance PT-Transfer Assessment Comments Mobility Comments pt was very determined to perform his bed mobility Ind as he knows he needs to be able to do this for home. However, bed mobility was very difficult for him due to his left sided shoulder pain and inabilty to use his Left UE to assist. He also has left hip pain and moves very slowly but is determined. He needed mod A to transfer to sitting at the edge of the bed. I did bring over the lido so he could grab the bar with his right hand. This asssited him somewhat. Once seating it was determined that The gait belt would not go around him due to his shoulder being immobilized. The patient did not wish to try to adjust for the gait belt. The patient did not feel comfortable trying to stand with fww. He sat at the edge of the bed x 5 min. Pt was able to balance Ind in sitting at the edge of the bed. He became very fatigued and needed to return to supine. He required mod A to transfer back to supine. Max A x 2 was needed to adjust him in bed taking care with positioning to avoid bumping his left shoulder. PT-Balance Assessment Sitting Balance and Reactions Static Sitting Balance Ability Good M5 PT-IP Objective Assessments Start: 04/03/21 12:46 Freq: NEEDED Status: Active Protocol: Document 04/03/21 11:00 [facility] (Rec: 04/03/21 13:08 [facility] [id number]) Gross Range of Motion Upper Extremity ROM Assessment Left Impaired Lower Extremity ROM Assessment Within Functional Limits Strength Upper Extremity Strength Assessment Left Impaired Lower Extremity Strength Assessment Left Impaired Hip 3 Knee 3 Comments Strength Comments pt has left proximal humerous fx and is non wb he has a history of R total shoulder, he is able to use his right UE hx of left hip replacement with current left sided hip pain. It takes him longer to move the left leg M7 PT-IP Assessment and Plan Start: 04/03/21 12:46 Freq: NEEDED Status: Active Protocol: Document 04/03/21 11:00 [facility] (Rec: 04/03/21 13:08 [facility] [id number]) PT Summary Assessment and Plan Potential Rehabilitation Potential Good Status of Condition at Evaluation Evolving Summary Impairments Pain,ROM,Strength,Balance,Bed Mobility,Transfers,Gait, Activity Tolerance Assessment Summary pt is a 85 year old male with hx of parkinson's with baseline gait disturbance and A fib who took a fall from standing in which he struck the back of his had and had severe left arm pain. He suffered a left proximal humerous fx. Pt lives at home and his son helps with the cooking and shopping. Pt notes he walks with his fww and a very slow shurrling gait . He requires both hands for balance. He had been having episodes where he would fall asleep when standing and this is what happened prior to his fall. With evaluation today, pt was very determined to perform his bed mobility Ind as he knows he needs to be able to do this for home. However, bed mobility was very difficult for him due to his left sided shoulder pain and inabilty to use his Left UE to assist. He also has left hip pain and moves very slowly but is determined. He needed mod A to transfer to sitting at the edge of the bed. I did bring over the lido so he could grab the bar with his right hand. This asssited him somewhat. Once seating it was determined that the gait belt would not go around him due to his shoulder being immobilized. The patient did not wish to try to adjust for the gait belt. The patient did not feel comfortable trying to stand with fww. He sat at the edge of the bed x 5 min. Pt was able to balance Ind when sitting at the edge of the bed. He may need the sling for transferes but also the left shoulder is very sore with any pressure. He may be able to stand with max A for support however needs further assessment and as of right now he is too weak to transfer to standing with just his right UE. If insurance will allow he would benefit from SNF rehab. If not he will require assist for home. Goals Bed Mobility Goal Contact Guard Assistance Transfer Goal Contact Guard Assistance Gait Goal Contact Guard Assistance Days to Meet Goals 10 Frequency of Treatment Frequency Of Treatment Twice a Day Treatment Plan Physical Therapy Treatment Plan Bed Mobility Training,Transfer Training,Gait Training, Therapeutic Exercise,Discharge Planning Precautions Shoulder Precautions Sling Brace shoulder immobilizer Recommendations To Nursing Amount of Assist Needed 2 Person Assist Discharge Recommendations PT Discharge Recommendations SNF Rehab Transportation Needs at Discharge Wheelchair/Cabulance
--- NOTE | 2021-04-03 14:24 | P.PN_ITS ---
Subjective Subjective Date Patient Seen: 04/03/21 Time Patient Seen: 08:00 Interval history: Today he states his pain in his arm is controlled moderately with pain m edications. He has chronic cramping in his legs. Exam Vital Signs (past 8 hours): - 04/03/21 07:45 04/03/21 09:04 04/03/21 09:10 Temperature 97.3 F L Pulse Rate 85 78 Respiratory Rate 14 Blood Pressure 96/52 L 109/61 Pulse Oximetry 96 Oxygen Delivery Method Room Air Oxygen Flow Rate 0 Narrative Exam Narrative: GEN: no acute distress CV: regular rate and rhythm PULM: clear bilaterally ABD: soft, nontender, nondistended, no organomegaly EXT: warm and well perfused, left arm in sling Objective Labs Result Diagrams: 04/03/21 05:29 04/03/21 05:29 Labs: Laboratory Results - last 24 hr 04/02/21 04/02/21 04/02/21 18:25 18:25 18:25 WBC 4.1 L RBC 3.88 L Hgb 12.2 L Hct 36.2 L MCV 93.1 MCH 31.4 MCHC 33.7 RDW 13.2 Plt Count 118 L Neut % (Auto) 68.0 Lymph % (Auto) 16.6 L [place] % (Auto) 8.7 Eos % (Auto) 5.6 H Baso % (Auto) 1.1 Neut # (Auto) 2800 Lymph # (Auto) 700 L [place] # (Auto) 400 Eos # (Auto) 200 Baso # (Auto) 0 PT INR Sodium 141 Potassium 4.4 Chloride 109 H Carbon Dioxide 27 BUN 21 H Creatinine 1.03 Estimated GFR > 60.0 BUN/Creatinine Ratio 20.4 Glucose 132 H Calcium 9.3 Magnesium Total Bilirubin 0.8 AST 35 ALT 6 Alkaline Phosphatase 85 Total Creatine Kinase 100 CK-MB (CK-2) TNP CK-MB (CK-2) Rel Index TNP Troponin I < 0.012 NT-Pro-B Natriuret Pep 2760 H Total Protein 7.0 Albumin 4.1 Globulin 2.9 Albumin/Globulin Ratio 1.4 Lipase 101 SARS-CoV-2 (PCR) Blood Type O Positive Antibody Screen Negative 04/02/21 04/02/21 04/03/21 19:00 19:00 05:29 WBC 4.8 RBC 3.48 L Hgb 11.0 L Hct 32.4 L MCV 93.0 MCH 31.6 MCHC 34.0 RDW 13.5 Plt Count 104 L Neut % (Auto) 66.2 Lymph % (Auto) 16.1 L [place] % (Auto) 12.2 Eos % (Auto) 4.8 H Baso % (Auto) 0.7 Neut # (Auto) 3200 Lymph # (Auto) 800 L [place] # (Auto) 600 Eos # (Auto) 200 Baso # (Auto) 0 PT 15.2 H INR 1.3 Sodium Potassium Chloride Carbon Dioxide BUN Creatinine Estimated GFR BUN/Creatinine Ratio Glucose Calcium Magnesium Total Bilirubin AST ALT Alkaline Phosphatase Total Creatine Kinase CK-MB (CK-2) CK-MB (CK-2) Rel Index Troponin I NT-Pro-B Natriuret Pep Total Protein Albumin Globulin Albumin/Globulin Ratio Lipase SARS-CoV-2 (PCR) Negative Blood Type Antibody Screen 04/03/21 04/03/21 05:29 05:29 WBC RBC Hgb Hct MCV MCH MCHC RDW Plt Count Neut % (Auto) Lymph % (Auto) [place] % (Auto) Eos % (Auto) Baso % (Auto) Neut # (Auto) Lymph # (Auto) [place] # (Auto) Eos # (Auto) Baso # (Auto) PT INR Sodium 139 Potassium 4.0 Chloride 108 H Carbon Dioxide 30 BUN 19 Creatinine 0.87 Estimated GFR > 60.0 BUN/Creatinine Ratio 21.8 Glucose 116 H Calcium 8.9 Magnesium 2.1 Total Bilirubin AST ALT Alkaline Phosphatase Total Creatine Kinase CK-MB (CK-2) CK-MB (CK-2) Rel Index Troponin I NT-Pro-B Natriuret Pep Total Protein Albumin Globulin Albumin/Globulin Ratio Lipase SARS-CoV-2 (PCR) Blood Type Antibody Screen [facility] Medical History Adenomatous colon polyp Atrial fibrillation CAD (coronary artery disease) Celiac disease Closed left hip fracture Compression fracture of L1 lumbar vertebra Congestive heart failure GERD (gastroesophageal reflux disease) HTN (hypertension) Kidney stones Parkinsons disease Right carpal tunnel syndrome Weight loss, unintentional Surgical History History of cholecystectomy History of colonoscopy History of esophagogastroduodenoscopy (EGD) History of hernia repair History of hip surgery History of lumbar fusion History of right hemicolectomy Family History Father Intracranial bleed Mother No problems noted. Brother Heart disease Sister Asthma Social History household members: spouse Smoking Status: Former smoker Assessment & Plan Assessment & Plan narrative: #s/p ground level fall #L proximal humerus fracture I note patient has hx of labile blood pressure, additionally has daily benzos on MAY which are possible fall contributors Recommended pt discontinue sedative use given serious mobility issues and age Sling applied, pain control PT/OT consulted pt is not safe to ambulate unassisted FALL RISK #atrial fibrillation, chronic, present on admission #hypertension stable continue home metoprolol and xarelto #diastolic heart failure, present on admission, chronic recently started on lasix by cardiology for moderate pitting edema not in active exacerbation continue home lasix #COPD, chronic, present on admission stable nonsmoker continue home montelukast #celiac disease stable as long as not eating gluten gluten intolerant, continue home vitamin supplementation #constipation pt takes 'slow mag' magnesium supplement at home gonsalo check magnesium in the am docusate zay bid ordered Time Spent With Patient Critical Care time: I spent a total of [] minutes of critical care time on this patient's care today; this time is exclusive of procedural time. Quality VTE Deep Vein Thrombosis/Pulmonary Embolism Present on Admission: No
--- NOTE | 2021-04-03 14:38 | PT-IP ANOTE ---
attempted second PT treat this afternoon, pt declined as he notes he is too fatigued from this am treatment
[2021-04-03] MEDS: CARBIDOPA-LEVODOPA 25/100 TABLET 3 EACH PO (21:25)
[2021-04-03] MEDS: METOPROLOL IR 25 MG TABLET PO (21:26)
[2021-04-04] MEDS: HYDROCODONE/ACET 5/325 TABLET 1 TAB PO (04:06)
[2021-04-04 06:00] VITALS: BP 127/67; PULSE 80; RESP 14; TEMP 36.6; O2SAT 96
[2021-04-04 06:06] LABS: Add Manual Diff / Slide Review NO; Basophils Absolute Auto 0 /uL (0-100); Basophils Percent Auto 0.8 % (0-2); Eosinophils Absolute Auto 400 /uL (0-450); Eosinophils Percent Auto 7.8 % (2-4); Hematocrit 31.2 % (41-53); Hemoglobin 10.6 g/dL (13.5-17.5); Lymphocytes Absolute Auto 800 /uL (1100-4500); Lymphocytes Percent Auto 16.9 % (25-40); Mean Corpuscular HGB Conc 33.9 % (30-36); Mean Corpuscular Hemoglobin 31.5 PG (26-34); Mean Corpuscular Volume 92.9 fL (80-100); Monocytes Absolute Auto 500 /uL (0-900); Monocytes Percent Auto 10.3 % (3-14); Neutrophils Absolute Auto 3100 /uL (1500-7000); Neutrophils Percent Auto 64.2 % (50-75); Platelet Count 104 X10^3/uL (150-400); Red Blood Cell Count 3.36 X10^6/uL (4.5-5.9); Red Cell Distribution Width 13.4 % (11.6-14.8); White Blood Cell Count 4.8 X10^3/uL (4.5-11.0)
[2021-04-04 06:20] LABS: BUN Creatinine Ratio 21.6 (6-22); Blood Urea Nitrogen 19 mg/dL (9-20); Calcium 8.7 mg/dL (8.4-10.2); Carbon Dioxide 30 mmol/L (22-32); Chloride 104 mmol/L (98-107); Estimated Glomerular Filt Rate > 60.0 mL/min (>60); Glucose 125 mg/dL (80-110); HEMOLYSIS < 15 (0-50); Potassium 4.2 mmol/L (3.4-5.1); Sodium 135 mmol/L (137-145)
--- NOTE | 2021-04-04 07:58 | CM.DPNOTE ---
Faxed PT notes per Lazara to [facility] and received fax conf. Namita Mtz CM Asst.
--- NOTE | 2021-04-04 08:25 | P.PN_ITS ---
Subjective Subjective Date Patient Seen: 04/04/21 Time Patient Seen: 08:25 Interval history: Sitting up in bed, not comfortable with position, itching. Denies any changes with shoulder discomfort. Exam Vital Signs (past 8 hours): - 04/04/21 06:00 Temperature 97.8 F Pulse Rate 80 Respiratory Rate 14 Blood Pressure 127/67 Pulse Oximetry 96 Oxygen Delivery Method Room Air Oxygen Flow Rate 0 Narrative Exam Narrative: Sensation to light touch intact in hand. 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 Brisk capillary refill. ROM intact in wrist. Objective Labs Result Diagrams: 04/04/21 05:30 04/04/21 05:30 Labs: Laboratory Results - last 24 hr 04/04/21 04/04/21 05:30 05:30 WBC 4.8 RBC 3.36 L Hgb 10.6 L Hct 31.2 L MCV 92.9 MCH 31.5 MCHC 33.9 RDW 13.4 Plt Count 104 L Neut % (Auto) 64.2 Lymph % (Auto) 16.9 L [place] % (Auto) 10.3 Eos % (Auto) 7.8 H Baso % (Auto) 0.8 Neut # (Auto) 3100 Lymph # (Auto) 800 L [place] # (Auto) 500 Eos # (Auto) 400 Baso # (Auto) 0 Sodium 135 L Potassium 4.2 Chloride 104 Carbon Dioxide 30 BUN 19 Creatinine 0.88 Estimated GFR > 60.0 BUN/Creatinine Ratio 21.6 Glucose 125 H Calcium 8.7 PFSH Medical History Adenomatous colon polyp Atrial fibrillation CAD (coronary artery disease) Celiac disease Closed left hip fracture Compression fracture of L1 lumbar vertebra Congestive heart failure GERD (gastroesophageal reflux disease) HTN (hypertension) Kidney stones Parkinsons disease Right carpal tunnel syndrome Weight loss, unintentional Surgical History History of cholecystectomy History of colonoscopy History of esophagogastroduodenoscopy (EGD) History of hernia repair History of hip surgery History of lumbar fusion History of right hemicolectomy Family History Father Intracranial bleed Mother No problems noted. Brother Heart disease Sister Asthma Social History household members: spouse Smoking Status: Former smoker Assessment & Plan Assessment and plan (1) Fracture of femoral neck, left: Status: Acute Plan No surgical intervention indicated at this time.? Pain control per hospitalist.? PT/OT.? Continue splint and sling at all times for immobilization of humerus.? NWB LUE.? F/u in ortho clinic in 2 weeks for repeat xrays out of splint.? Injury should not require surgery unless there is a significant shift along fracture site.? Case reviewed with and plan approved by Dr Sparks. Time Spent With Patient Critical Care time: I spent a total of [] minutes of critical care time on this patient's care today; this time is exclusive of procedural time. Quality VTE Deep Vein Thrombosis/Pulmonary Embolism Present on Admission: No
[2021-04-04 08:46] VITALS: BP 142/81; PULSE 85; RESP 17; TEMP 36.1; O2SAT 96
[2021-04-04 08:48] VITALS: O2SAT 94
--- NOTE | 2021-04-04 09:05 | CM.DPC ---
Addendum entered by Jeannie Lew R.N. 04/04/21 12:49: Faxed [facility] over DC Summary, signed med sheets, prescriptions, vaccine information, PASSR. Pending COVID results, but were collected.Confirmed product picker time of 1345. Updated white board at main nursing station. Updated nurse, Susana, and gave her report phone number. Addendum entered by Jeannie Lew R.N. 04/04/21 12:09: Fausto Echols disease case manager called back and indicated that their provider approved patient going to skilled. Gave an authorization number of: [id number]. Called and updated Mary Alice at [facility]. She will need updated COVID swab. Updated patient as well. booth supervisor time is 1330, but will need all orders. Let hospitalist, Dr. Montalvo know that product picker is 1330, and will need orders and DC Summary. Completed PASSR, and vaccine information was already faxed over. Addendum entered by Jeannie Lew R.N. 04/04/21 11:44: Called Sun at [facility] to see if she had received referral on patient regarding [facility]. Sun indicated that she did not receive the referral. Gave her patient's name, and went ahead and faxed over face sheet, H&P, P.T. notes, and latest progress note from ortho. She will review. Addendum entered by Jeannie Lew R.N. 04/04/21 11:33: Called Fausto Armijo disease case manager. She indicated, she had to send this to their provider, for humerus fractures are rarely approved. She indicated that she will call this disease case manager back with update. Attempted to meet with patient to get permission to contact son as well, in case this is not approved, alternate plan will be needed. It is unclear at this time if patient has finances to pay privately for senior care, but will attempt to get this information today. Addendum entered by Jeannie Lew R.N. 04/04/21 10:25: Spoke to Brooklyn at [facility], she indicated, she could not read all of the P.T. notes and asked to have them refaxed. Let her know that patient is medically ready for discharge today. Resent her yesterday's P.T. notes, which are the ones currently available, O.T. notes are pending. Faxed Mary Alice at [facility] patient's vaccine information. Original Note: CHRISTINAP Cont: Called [facility] and left a message for August to see if she has reviewed, and can possibly accept. Namita, golf player assistant, faxed [facility] over P.T. notes from yesterday. O.T is pending. Mary Alice then called back and indicated, she should be able to accept, but needs vaccine information. Asking Namita to check the [employer] web site to print out his vaccination information. Called [facility], and spoke to disease case manager, Brooklyn Yanes. Let her know that patient is most likely ready for discharge today, if not today, then tomorrow. She will review and call this marine air ground task force planners back later this morning after her meeting. P: DCP to attempt to get patient to [facility], but this is pending insurance authorization, and vaccine information. Jeannie Lew RN/Medical Scribe
[2021-04-04] MEDS: RIVAROXABAN 10 MG TABLET 15 MG PO (09:33)
[2021-04-04] MEDS: CARBIDOPA-LEVODOPA 25/100 TABLET 4 EACH PO (09:34)
[2021-04-04] MEDS: DOCUSATE 100 MG CAPSULE PO (09:34)
[2021-04-04] MEDS: FUROSEMIDE 20 MG TABLET PO (09:34)
[2021-04-04] MEDS: CHOLECALCIFEROL (VITAMIN D3) 1,000 UNIT TABLET 2000 UNIT PO (09:34)
[2021-04-04] MEDS: MULTIVITAMIN 1 TABLET 1 TAB PO (09:35)
[2021-04-04] MEDS: MONTELUKAST 10 MG TABLET 4 MG PO (09:35)
[2021-04-04] MEDS: METOPROLOL IR 25 MG TABLET PO (09:35)
[2021-04-04] MEDS: SODIUM CHLORIDE 0.9% FLUSH 10 ML IV (09:36)
[2021-04-04] MEDS: hydrOXYzine pamoate 25 MG CAPSULE PO (09:41)
--- NOTE | 2021-04-04 10:01 | DI.RAD.S_ITS ---
PROCEDURE: XR KNEE RT 1TO2V INDICATIONS: fall, knee pain TECHNIQUE: 2 views of the knee were acquired. COMPARISON: None. FINDINGS: Bones: No fractures or dislocations. [id number] tricompartmental osteoarthritis is seen more prominent in medial femoral tibial compartment. No suspicious bony lesions. Soft tissues: No joint effusion. No suspicious soft tissue calcifications. IMPRESSION: No acute right knee fracture or dislocation. Yvyk-ah-egyxbpxa tricompartmental osteoarthritis. No significant joint effusion. Dictated by: Steven Haines M.D. on 04/04/2021 at 10:28 Approved by: Steven Haines M.D. on 04/04/2021 at 10:28
--- NOTE | 2021-04-04 11:50 | PT.IPTN ---
Current Diagnoses Fracture of unspecified part of neck of left femur, initial encounter for closed fracture (04/02/21) Physical Therapy Treatment Note M2 PT-IP Current Condition Start: 04/03/21 12:46 Freq: NEEDED Status: Active Protocol: Document 04/03/21 11:00 AMH (Rec: 04/03/21 13:08 AMH [id number]) Physical Therapy Current Condition Current Condition Evaluation Date 04/03/21 M3 PT-IP Subjective Start: 04/03/21 12:46 Freq: NEEDED Status: Active Protocol: Document 04/04/21 11:12 KS (Rec: 04/04/21 13:24 KS [id number]) Subjective Physical Therapy Visit Type Type Treatment Note Visit Start Time 11:12 Visit Stop Time 11:50 Total Visit Minutes 38 Notes Co-treat w/ OT Number of FORDER OPERATOR Visits 1 Physical Therapy Visit Comments Patient Comments Pt hesistant to participate but willing to try. Therapy Pain Assessment Pain When Pain Assessed At Rest Pain Present Pain Present Pain Reported Location Left Shoulder Scale Used not quantified Pain Behaviors Calling Out,Facial Grimacing, Guarding,Holding Area,Wincing Pain Management Techniques Distraction,Modification of Treatment,Re-positioning, Timing of Activity with Medications Left Leg Description With Movement M4 PT-IP Mobility and Gait Start: 04/03/21 12:46 Freq: NEEDED Status: Active Protocol: Document 04/04/21 11:12 KS (Rec: 04/04/21 13:24 KS [id number]) PT-Bed Mobility Assessment Supine to Sit Supine to Sit Maximum Assistance,2 Person Assistance Sit to Supine Sit to Supine Maximum Assistance,2 Person Assistance Scooting Scooting to Edge of Bed Maximum Assistance PT-Transfer Assessment Sit to and From Stand Sit to and from Stand Moderate Assistance,2 Person Assistance,Use of Upper Extremities Comments Mobility Comments Pt in bed upon arrival from therapy. He was very hesistant to mobilize due to reported pain in L shoulder and L hip. Pt required Max A for sup<>sit for assist w/ trunk and bilateral LE guidance off of bed. Max A for scooting EOB. Once EOB, pt agreed to attempt standing from EOB. Unable to place gait belt on patient due to reported pain when moving R shoulder also, attempted to use draw sheet under pts bottom to help boost w/ Mod A x2, but limited in ability to assist due to no gait belt and pt pulling heavily on FWW. Pt requested to be done following 2 sts attempts and required Max A x2 to get back into bed for trunk control and LE guidance. Pt left in room w/ OT. Gait Assessment Comments Gait Comments unable at this time. PT-Balance Assessment Sitting Balance and Reactions Static Sitting Balance Ability Fair M5 PT-IP Objective Assessments Start: 04/03/21 12:46 Freq: NEEDED Status: Active Protocol: Document 04/03/21 11:00 AMH (Rec: 04/03/21 13:08 AMH [id number]) Gross Range of Motion Upper Extremity ROM Assessment Left Impaired Lower Extremity ROM Assessment Within Functional Limits Strength Upper Extremity Strength Assessment Left Impaired Lower Extremity Strength Assessment Left Impaired Hip 3 Knee 3 Comments Strength Comments pt has left proximal humerous fx and is non wb he has a history of R total shoulder, he is able to use his right UE hx of left hip replacement with current left sided hip pain. It takes him longer to move the left leg M6 PT-IP Treatment Start: 04/03/21 12:46 Freq: NEEDED Status: Active Protocol: Document 04/04/21 11:12 KS (Rec: 04/04/21 13:24 KS [id number]) Physical Therapy Treatment Other Treatments Other Treatment Performed Pt able to maintain seated balance EOB ~6 min CGA to Min A w/ cues. M7 PT-IP Assessment and Plan Start: 04/03/21 12:46 Freq: NEEDED Status: Active Protocol: Document 04/04/21 11:12 KS (Rec: 04/04/21 13:24 KS [id number]) PT Summary Assessment and Plan Potential Rehabilitation Potential Good Status of Condition at Evaluation Evolving Summary Impairments Pain,ROM,Strength,Balance,Bed Mobility,Transfers,Gait, Activity Tolerance Progress Towards Goals Slow Progress due to Pain,Slow Progress due to Medical Issues,Slow Progress due to Activity Tolerance Assessment Summary Pt required Max A x2 for bed mobility and Mod A x2 for sit< >stand but was unable to fully complete due to weakness and pain in L shoulder and hip w/ mobility. He is limited at baseline due to PD and gait disturbance, however is still far from baseline and will require SNF to improve strength and functional mobility independence. Goals Bed Mobility Goal Contact Guard Assistance Transfer Goal Contact Guard Assistance Gait Goal Contact Guard Assistance Days to Meet Goals 10 Frequency of Treatment Frequency Of Treatment Twice a Day Treatment Plan Physical Therapy Treatment Plan Bed Mobility Training,Transfer Training,Gait Training, Therapeutic Exercise,Discharge Planning Precautions Shoulder Precautions Sling Brace shoulder immobilizer Recommendations To Nursing Amount of Assist Needed 2 Person Assist Discharge Recommendations PT Discharge Recommendations SNF Rehab Transportation Needs at Discharge Wheelchair/Cabulance
--- NOTE | 2021-04-04 11:52 | OT.IP.EVAL ---
Current Diagnoses Fracture of unspecified part of neck of left femur, initial encounter for closed fracture (04/02/21) Past Medical History (Last Reviewed 04/02/21 @ 21:40 by Chun Tsai DO) Adenomatous colon polyp Atrial fibrillation CAD (coronary artery disease) Celiac disease Closed left hip fracture Compression fracture of L1 lumbar vertebra Congestive heart failure GERD (gastroesophageal reflux disease) History of cholecystectomy History of colonoscopy History of esophagogastroduodenoscopy (EGD) History of hernia repair History of hip surgery History of lumbar fusion History of right hemicolectomy HTN (hypertension) Kidney stones Parkinsons disease Right carpal tunnel syndrome Weight loss, unintentional Surgical History (Last Reviewed 04/02/21 @ 21:40 by Chun Tsai DO) History of cholecystectomy History of colonoscopy History of esophagogastroduodenoscopy (EGD) History of hernia repair History of hip surgery History of lumbar fusion History of right hemicolectomy Occupational Therapy Inpatient Evaluation/Re-Eval M1 PT/OT-IP Prior Functional Status Start: 04/03/21 12:46 Freq: NEEDED Status: Active Protocol: Document 04/04/21 11:55 CGR (Rec: 04/04/21 12:14 CGR [id number]) Medical Review Prior Functional Status Medical History Reviewed Yes Diet/Fluid Consistency Regular Communication Pt is an effective verbal communicator that is [facility] Mobility and Gait Pt used a 4ww in his home. Pt reports he was doing well at home until 2 months ago when he declined pretty quick. Now he states he moves very slow and shuffles his feet. He notes he requires both hands for walking to keep his balance Activities of Daily Living and IADL's Pt states he was able to care for himself prior to admit. Prior Functional Level (Other details) Pt's son does the cooking and grocery shopping. They have a atmospheric physicist that comes in as she is able and assist with cooking, housework, and bathing the pt's . Social History Household Members spouse,children Living Arrangements House Number of Floors (Floors) Two Floors Number of Stairs To Enter/Railing? 1 step to enter. Enter the home on the top level and all needs are on the top level. Home Environment High Toilet,Walk in Shower, Built-In Shower Seat Home Equipment Front Wheel Walker,Four Wheel Walker,Straight Cane,Shower Seat with Backrest,Hand Held Shower,Grab Bars Near Toilet, Grab Bars In Shower Employment Status Retired Additional Social History Comment Pt states he stopped driving because he would fall asleep without notice. Pt's son lives with them and does the cooking, driving, and grocery shopping. M1 PT/OT-IP Prior Functional Status Start: 04/04/21 11:55 Freq: NEEDED Status: Active Protocol: Document 04/04/21 11:55 CGR (Rec: 04/04/21 12:14 CGR [id number]) Medical Review Prior Functional Status Medical History Reviewed Yes Diet/Fluid Consistency Regular Communication Pt is an effective verbal communicator that is [facility] Mobility and Gait Pt used a 4ww in his home. Pt reports he was doing well at home until 2 months ago when he declined pretty quick. Now he states he moves very slow and shuffles his feet. He notes he requires both hands for walking to keep his balance Activities of Daily Living and IADL's Pt states he was able to care for himself prior to admit. Prior Functional Level (Other details) Pt's son does the cooking and grocery shopping. They have a atmospheric physicist that comes in as she is able and assist with cooking, housework, and bathing the pt's . Social History Household Members spouse,children Living Arrangements House Number of Floors (Floors) Two Floors Number of Stairs To Enter/Railing? 1 step to enter. Enter the home on the top level and all needs are on the top level. Home Environment High Toilet,Walk in Shower, Built-In Shower Seat Home Equipment Front Wheel Walker,Four Wheel Walker,Straight Cane,Shower Seat with Backrest,Hand Held Shower,Grab Bars Near Toilet, Grab Bars In Shower Employment Status Retired Additional Social History Comment Pt states he stopped driving because he would fall asleep without notice. Pt's son lives with them and does the cooking, driving, and grocery shopping. M2 OT-IP Current Condition Start: 04/04/21 11:55 Freq: Status: Active Protocol: Document 04/04/21 11:55 CGR (Rec: 04/04/21 12:14 CGR [id number]) Occupational Therapy Current Condition Current Condition Evaluation Date 04/04/21 Treatment Diagnosis L proximal humerus fx Diagnosis Onset Date 04/02/21 Weight Bearing Status Weight Bearing Status Non-Weight Bearing M3 OT- IP Subjective and Pain Start: 04/04/21 11:55 Freq: Status: Active Protocol: Document 04/04/21 11:55 CGR (Rec: 04/04/21 12:14 CGR [id number]) OT- Subjective Occupational Therapy Visit Type Type Initial Evaluation Visit Start Time 11:11 Visit Stop Time 11:52 Total Visit Minutes 41 Notes Co-treat with P.T. OT Pain Assessment Pain When Pain Assessed At Rest Pain Present Pain Present Pain Reported Location Left Shoulder Intensity 1 Scale Used Numeric (0 - 10) Management Techniques Modification of Treatment,Re- positioning,Timing of Activity with Medications M4 OT- IP ADL's Start: 04/04/21 11:55 Freq: Status: Active Protocol: Document 04/04/21 11:55 CGR (Rec: 04/04/21 12:14 CGR [id number]) OT [id number] Comments OT Self-Feeding Comments Not meal time OT ADL-Grooming Comments OT Grooming Comments Pt declined after activity d/t pain and fatigue OT ADL-Oral Care Comments Oral Care Comments Pt declined after activity d/t pain and fatigue OT ADL-Dressing General Eval Upper Body Dressing Ability Total Assistance Lower Body Dressing Ability Total Assistance Areas Needing Assistance Socks Comments OT Dressing Comments socks and hospital gown OT ADL-Toileting General Evaluation Toileting Ability Total Assistance Comments OT Toileting Comments Pt wearing brief OT ADL-Bathing Comments OT Bathing Comments Not performed M5 OT- IP IADL's Start: 04/04/21 11:55 Freq: Status: Active Protocol: Document 04/04/21 11:55 CGR (Rec: 04/04/21 12:14 CGR [id number]) OT-Instrumental Activities of Daily Living Deficits IADL Deficits Identified Deficits Home Safety Awareness Awareness of Need for Assistance at Home Decreased Awareness Ability to Problem Solve Emergency Unable to Problem Solve Situations Medication Management Medication Management Comments Concerns regarding pt's ability to perform safely Money Management Money Management Comments Concerns regarding pt's ability to perform safely Meal Preparation Meal Preparation Caregiver Provides Assist Agricultural Education Professor Agricultural Education Professor Caregiver Provides Assist Driving Driving Comments Pt does not drive M6 OT- IP Functional Cognition Start: 04/04/21 11:55 Freq: Status: Active Protocol: Document 04/04/21 11:55 CGR (Rec: 04/04/21 12:14 CGR [id number]) Cognitive Factors Limiting Selfcare Function Cognitive Ability Level of Alertness Alert Patient Orientation Name,Age,Birthday,Month,Date, Year,Day of Week,Place, Situation Attention Span Ability Capable of Focused Attention, Unable to Sustain Attention Ability to Follow Commands Able to Follow One Step Commands,Able to Follow One Step Commands with Increased Time,Able to Follow One Step Commands with Repetition Memory Description Short Term Impaired Cognitive Comments Cognitive Assessment Comments Pt would benefit from formal cog assessment OT- Vision and Hearing OT- Hearing Assessment OT- Hearing Assessment Hearing Impaired OT- Vision Assessment Visual Acuity Glasses All The Time Visual Attentiveness WFL Occular Pursuits WFL Visual Convergence WFL Vision Assessment Comments bifocals M7 OT- IP Mobility and Balance Start: 04/04/21 11:55 Freq: Status: Active Protocol: Document 04/04/21 11:55 CGR (Rec: 04/04/21 12:14 CGR [id number]) OT- Bed Mobility Assessment Supine to Sit Supine to Sit Assist Maximum Assistance,2 Person Assistance Sit to Supine Sit to Supine Assist Maximum Assistance,2 Person Assistance Scooting Scooting to Edge of Bed Maximum Assistance,1 Person Assistance,2 Person Assistance Scooting Up and Down in Bed Maximum Assistance,2 Person Assistance OT-Transfer Assessment Sit to and From Stand Sit to and from Stand Minimal Assistance,2 Person Assistance Devices Transfer Assistive Devices Front Wheeled Walker Comments Mobility Comments Pt performed 2 squat stands from the bed. Pt was able to perform pulling on the walker using his RUE and min x2 using fredis under the pt's bottom to assist with inital lift. Pt is unable to tolerate a gait belt at this time. OT- Gait Assessment Comments Gait Ability Comments Did not occur OT- Balance Assessment Sitting Balance and Reactions Static Sitting Balance Ability Fair M8 OT- IP Objective Assessments Start: 04/04/21 11:55 Freq: Status: Active Protocol: Document 04/04/21 11:55 CGR (Rec: 04/04/21 12:14 CGR [id number]) OT Gross Range of Motion Upper Extremity Range of Motion Assessment Left Impaired ROM Impairments Pt's R shld 0-90 OT Strength Upper Extremity Strength Assessment Left Impaired Shoulder 4 Elbow 4+ Forearm 4 Wrist 4 Hand 4+ Comments Strength Comments L hand 3+/5 L arm not tested d /t fx. OT- Coordination Assessment Upper Extremity Finger to Nose Test Left UE Impaired Finger Tapping Test Left UE Impaired OT-Muscle Tone Assessment Muscle Tone WNL Yes OT Sensation Assessment Edema Edema Present Edema Comments LUE is minimally swollen, educated on hand and wrist mobility to assist with swelling. M9 OT- IP Assessment and Plan Start: 04/04/21 11:55 Freq: Status: Active Protocol: Document 04/04/21 11:55 CGR (Rec: 04/04/21 12:14 CGR [id number]) OT Summary Assessment and Plan Potential Rehabilitation Potential Good Analytic Complexity at Evaluation High Summary OT Impairments Pain,Range of Motion,Strength, Balance,Coordination, Functional Cognition, Functional Mobility,Grooming, Dressing,Toileting,Bathing, Toilet Transfers,Shower Transfers,Activity Tolerance Progress Towards Goals Slow Progress due to Pain,Slow Progress due to Medical Issues,Slow Progress due to Activity Tolerance Assessment Summary Pt presents as a high complexity evaluation s/p admit for fall with L proximal humerus fx. Pt currently needing 2 person max a for bed mobility and is unable to achieve full stand. Pt will benefit from SNF at time of discharge. Pt would not be able to care for himself at home at this time. Pt appears motivated to progress his mobility and self care. Goals Grooming Goal Independent Dressing Goal Independent Toileting Goal Independent Bathing Goal Independent Toilet Transfer Goal Independent Shower Transfer Goal Independent Days to Meet Goals 45 Frequency of Treatment Frequency Of Treatment Once a Day Treatment Plan OT Treatment Plan ADL Training,Functional Cognition Training,Functional Mobility,Therapeutic Exercises ,Patient/Family Education, Discharge Planning Other Treatment Recommendations and Next ADLs seated Treatment Focus Discharge Recommendations OT Discharge Recommendations SNF Rehab Transportation Needs at Discharge Stretcher/Ambulance
--- NOTE | 2021-04-04 12:18 | P.DS_ITS ---
History of Present Illness History of Present Illness Chief complaint: GLF,hit back of head,takes blood thinners Narrative: Per Dr. Chung: Pt presented to ED with L sided pain following fall at home. It appears he fell asleep standing up. He has multiple preexisting orthopedic issues and requires all four limbs to move around his house safely.? Was found here to have a L proximal humerus fracture however due to tenuous mobility he is not safe to discharge home tonight.? Son at bedside tonight. Pt is fully alert and oriented.? Complains of moderate constant pain in L shoulder and L hip since he fell on them earlier this evening, he is comfortable currently. Patricia myers for afib. Reports hx of sensitivity to morphine but notes has gotten dilaudid recently without an issue. Medical history: s/p replacement of R shoulder and L hip joints. s/p bowel resection and cholecystectomy. Family history: father age 88 after fall on head while anticoagulated Social history: quit smoking over 50 years ago Discharge Providers Provider Date of admission: 04/02/21 21:56 Discharge Date: 04/04/21 Primary care physician: Luis Enrique Small MD Consults: 04/02/21 22:03 Consult to Discharge Planning Routine Comment: will likely need rehab placement Consult to Occupational Therapy Evaluate & Treat Comment: Physician Instructions: Evaluate and treat Consult to Physical Therapy Evaluate & Treat Comment: Physician Instructions: Evaluate and Treat Discharge provider: Rahul Montalvo MD Summary Hospital Course Discharge Diagnosis: 1. Ground level fall with left proximal humerus fracture 2. Atrial fibrillation 3. HTN 4. Diastolic heart failure, chronic 5. Chronic COPD 6. Celiac disease 7. Constipation Hospital Course: Mr. Calhoun was admitted after a fall. He was found to have a humerus fracture. Orthopedic surgery said the injury was nonoperative. He was having difficulty with activities. He was discharged to SNF for pain control rehab. He should follow up with orthopedic surgery in 2 weeks. Exam Vital Signs (past 8 hours): - 04/04/21 06:00 04/04/21 08:46 04/04/21 08:48 Temperature 97.8 F 96.9 F L Pulse Rate 80 85 Respiratory Rate 14 17 Blood Pressure 127/67 142/81 H Pulse Oximetry 96 96 94 Oxygen Delivery Method Room Air Oxygen Flow Rate 0 Narrative Exam Narrative: GEN: no acute distress CV: regular rate and rhythm PULM: clear bilaterally ABD: soft, nontender, nondistended, no organomegaly EXT: warm and well perfused, left arm in sling Objective Labs Result Diagrams: 04/04/21 05:30 04/04/21 05:30 Labs: Laboratory Results - last 24 hr 04/04/21 04/04/21 05:30 05:30 WBC 4.8 RBC 3.36 L Hgb 10.6 L Hct 31.2 L MCV 92.9 MCH 31.5 MCHC 33.9 RDW 13.4 Plt Count 104 L Neut % (Auto) 64.2 Lymph % (Auto) 16.9 L [place] % (Auto) 10.3 Eos % (Auto) 7.8 H Baso % (Auto) 0.8 Neut # (Auto) 3100 Lymph # (Auto) 800 L [place] # (Auto) 500 Eos # (Auto) 400 Baso # (Auto) 0 Sodium 135 L Potassium 4.2 Chloride 104 Carbon Dioxide 30 BUN 19 Creatinine 0.88 Estimated GFR > 60.0 BUN/Creatinine Ratio 21.6 Glucose 125 H Calcium 8.7 PFSH Medical History Adenomatous colon polyp Atrial fibrillation CAD (coronary artery disease) Celiac disease Closed left hip fracture Compression fracture of L1 lumbar vertebra Congestive heart failure GERD (gastroesophageal reflux disease) HTN (hypertension) Kidney stones Parkinsons disease Right carpal tunnel syndrome Weight loss, unintentional Surgical History History of cholecystectomy History of colonoscopy History of esophagogastroduodenoscopy (EGD) History of hernia repair History of hip surgery History of lumbar fusion History of right hemicolectomy Family History Father Intracranial bleed Mother No problems noted. Brother Heart disease Sister Asthma Social History household members: spouse and children Smoking Status: Former smoker Discharge Plan Discharge Plan Patient Disposition: Home Provider Discharge Comment: Mr. Calhoun came in to the hospital with a fall and humerus fracture. He is discharged to SNF for rehab. Discharge orders & Medications Prescriptions: New hydrocodone-acetaminophen 5-325 mg tablet 1 tab PO Q4-6H PRN (Reason: pain) Qty: 10 0RF ondansetron 4 mg tablet,disintegrating 4 mg PO TID-QID PRN (Reason: nausea and vomiting) Qty: 10 0RF hydrocodone-acetaminophen 5-325 mg Tablet 1 tab PO Q4HR PRN (Reason: Pain, Moderate (4-6)) Qty: 10 0RF docusate sodium 100 mg Capsule 100 mg PO BID Qty: 10 0RF fluticasone propionate 50 mcg/actuation [place],Suspension 1 spray intranasal BID Qty: 10 0RF hydroxyzine pamoate 25 mg Capsule 25 mg PO Q6HR PRN (Reason: Itching) Qty: 10 0RF carbidopa-levodopa 25-100 mg Tablet 4 ea PO DAILY Qty: 10 0RF carbidopa-levodopa 25-100 mg Tablet 3 ea PO BEDTIME Qty: 10 0RF Continued Multi Complete with Iron 18-400 mg-mcg Tablet 1 tab PO QAM Qty: 0 0RF B12 5,000-100 mcg Lozenge 5,000 lisette SUBLINGUAL QAM 0RF ascorbic acid (vitamin C) [Vitamin C] 1,000 mg Tablet 500 mg PO QAM 0RF Label Comments: Patient states he is no longer taking. Ultra CoQ10 75 mg Capsule 75 mg PO QAM 0RF zonisamide 50 mg Capsule 100 mg PO BID 0RF Label Comments: Patient states he no longer takes. PreserVision Lutein 226 mg-200 unit -5 mg-0.8 mg Capsule 2 cap PO QAM 0RF alpha lipoic acid 100 mg Capsule 100 mg PO QPM 0RF cholecalciferol (vitamin D3) 2,000 unit Tablet,Chewable 2,000 unit PO DAILY 0RF metoprolol tartrate 25 mg tablet 25 mg PO BID Qty: 60 0RF Rx Instructions: Patient states his dose was increased to 37.5mg BID @ 1 week ago but has not increased the dose yet because he hasn't had time to start cutting the tablets in half. montelukast [Singulair] 4 mg Tablet,Chewable 4 mg PO QPM 0RF Rx Instructions: pt reports unsure of dosage amount furosemide [Lasix] 20 mg tablet 20 mg PO DAILY Qty: 60 1RF clonazepam 0.5 mg tablet 0.5 mg PO BEDTIME Qty: 4 0RF Rx Instructions: Patient states he is no longer taking after talking with MD. clonazepam 0.25 mg tablet,disintegrating 0.25 mg PO QAM Qty: 4 0RF Label Comments: takes in the morning Rx Instructions: Patient states he no longer will take since talking with MD. Discontinued amiodarone 200 mg Tablet 200 mg PO DAILY 0RF Label Comments: pt reports unsure of dosage amount Rx Instructions: Patient states he is no longer taking this medication. carbidopa-levodopa 25-100 mg Tablet 5 tab PO BID 0RF Rx Instructions: Patient states he takes 3 tabs in the evening and 4 tabs in the morning. Follow up/Referrals: Luis Enrique Small MD [Primary Care Provider] - Cleveland Sparks MD [Physician] - (Follow up in clinic in 2 weeks with repeat xrays out of splint.) Diet/Activity/Treatments Diet: Diet as Tolerated Activity: Keep arm immobilized with coaptation splint and sling at all times. No limit to ROM with wrist, hand, fingers. Non weight bearing left upper extremity. Visit Report/Discharge Packet Instructions: How to Prevent Falls Discharge Data Primary Care Provider: Luis Enrique Small Attending Provider: Gregory Chung VTE Deep Vein Thrombosis/Pulmonary Embolism Present on Admission: No
[2021-04-04 13:05] LABS: COVID19 -Nasal RAPID Negative (Negative)
--- NOTE | 2021-04-04 14:03 | PC.NURSE ---
Discharge Note Patient A&O, VSS, RA, no complaints of pain/discomfort. Report given to facility staff, all questions/concerns addressed. PIV discontinued. Patient assisted to dress and transported to wheelchair. Patient taken by facility staff via wheelchair.
== END 2021-04-04 14:00 | disposition home or self-care (01) ==
LOC: ED 21:48 → AC 21:57
PROVIDERS: Internal Medicine; Admitting Provider Family Medicine; Emergency Provider Emergency Medicine; Family Provider Internal Medicine; PCP Internal Medicine; Referring Provider Emergency Medicine; Visit Provider Family Medicine
DX: S42.202A Unspecified fracture of upper end of left humerus, initial encounter for closed fracture (principal); Y92.019 Unspecified place in single-family (private) house as the place of occurrence of the external cause; W01.198A Fall on same level from slipping, tripping and stumbling with subsequent striking against other object, initial encounter; Z91.81 History of falling; G20 Parkinson's disease; I11.0 Hypertensive heart disease with heart failure; I50.32 Chronic diastolic (congestive) heart failure; Z79.01 Long term (current) use of anticoagulants; I48.91 Unspecified atrial fibrillation; J44.9 Chronic obstructive pulmonary disease, unspecified; K90.0 Celiac disease; Z20.822 Contact with and (suspected) exposure to COVID-19
CPT/HCPCS: 36415; 70450; 71045; 72125; 73030; 73560; 80048; 80053; 82550; 83690; 83735; 83880; 84484; 85025; 85610; 86850; 86900; 86901; 87635; 93005; 93010; 94760; 96360; 96361; 97161; 97167; 97530; 99284; C9803; G0378

== ENCOUNTER → 2021-04-20 10:33 | Outpatient (CLI) | payer OTHER, SELFPAY ==
[2021-04-03 19:00] VITALS: BMI 25.4
--- NOTE | 2021-04-20 | DI.US.S_ITS ---
PROCEDURE: US PERIPH VENOUS UP EXTREM LT INDICATIONS: LEFT ARM PAIN TECHNIQUE: Real-time imaging, as well as color and pulse Doppler interrogation, was performed of the left upper extremity deep veins from the inferior neck to the antecubital fossa. COMPARISON: None. FINDINGS: The internal jugular vein, visualized portions of the subclavian vein, axillary, and brachial veins are free of intraluminal thrombus. Limited compression due to patient's pain. Color and pulse Doppler demonstrate normal intraluminal flow, with expected phasicity and pulsatility. Additional scanning of the cephalic and basilic veins of the superficial system demonstrate normal compressibility, without thrombus. IMPRESSION: No evidence of DVT. Dictated by: Artemio Davies M.D. on 04/20/2021 at 11:47 Approved by: Artemio Davies M.D. on 04/20/2021 at 11:48
== END ==
PROVIDERS: Family Provider Internal Medicine; PCP Internal Medicine; Referring Provider Emergency Medicine; Visit Provider Emergency Medicine
DX: I82.622 Acute embolism and thrombosis of deep veins of left upper extremity (principal)
CPT/HCPCS: 93971

== ENCOUNTER 2021-06-05 11:26 | Inpatient (IN) | payer OTHER, SELFPAY ==
[2021-04-03 19:00] VITALS: BMI 25.4
[2021-06-05] VITALS (11 sets, daily range): BP systolic 112–136; BP diastolic 60–93; PULSE 83–127; RESP 18–36; TEMP 36.3–36.6; O2SAT 95–99; BMI 24.0; BMI 23.4
--- NOTE | 2021-06-05 11:47 | DI.RAD.S_ITS ---
PROCEDURE: XR CHEST 1V INDICATIONS: chest pain TECHNIQUE: One view of the chest was acquired. COMPARISON: [facility], CR, XR SHOULDER 2+ VIEWS LEFT, 05/10/2021, 14:04. [facility], CR, XR CHEST 1V, 03/18/2021, 13:01. [facility], CR, XR CHEST 1V, 04/02/2021, 18:30. FINDINGS: Surgical changes and devices: Right shoulder arthroplasty hardware is seen. Lungs and pleura: An incomplete inspiratory result is noted, causing a crowded appearance to the lung markings. No focal infiltrates are seen. No pneumothorax or significant pleural effusions are seen. Mediastinum: The cardiac contours are within normal limits. The aorta demonstrates calcification and tortuosity. Bones and chest wall: Age-appropriate bony degenerative changes are seen. The known left humeral neck fracture is off of the field of view of this study. No suspicious bony lesions. Overlying soft tissues appear unremarkable. IMPRESSION: Unremarkable portable chest study for age, with note made postoperative and degenerative changes. Dictated by: Roc Mckeon M.D. on 06/05/2021 at 11:11 Approved by: Roc Mckeon M.D. on 06/05/2021 at 11:13
[2021-06-05 11:54] LABS: Add Manual Diff / Slide Review NO; Basophils Absolute Auto 0 /uL (0-100); Eosinophils Absolute Auto 200 /uL (0-450); Eosinophils Percent Auto 4.1 % (2-4); Hematocrit 36.4 % (41-53); Hemoglobin 12.2 g/dL (13.5-17.5); Lymphocytes Absolute Auto 900 /uL (1100-4500); Lymphocytes Percent Auto 17.8 % (25-40); Mean Corpuscular HGB Conc 33.6 % (30-36); Mean Corpuscular Hemoglobin 30.7 PG (26-34); Mean Corpuscular Volume 91.2 fL (80-100); Monocytes Absolute Auto 500 /uL (0-900); Monocytes Percent Auto 9.4 % (3-14); Neutrophils Absolute Auto 3200 /uL (1500-7000); Neutrophils Percent Auto 67.7 % (50-75); Platelet Count 129 X10^3/uL (150-400); Red Blood Cell Count 3.99 X10^6/uL (4.5-5.9); Red Cell Distribution Width 14.7 % (11.6-14.8); White Blood Cell Count 4.8 X10^3/uL (4.5-11.0)
--- NOTE | 2021-06-05 12:01 | ED_ITS ---
HPI - Chest Pain <Barrett Guerrero PA-C - Last Filed: 06/05/21 15:02> General Chief Complaint: Chest Pain Stated Complaint: chest pain Time Seen by Provider: 06/05/21 11:47 Source: patient and EMS Mode of arrival: EMS Limitations: no limitations History of Present Illness HPI narrative: Patient is an 85-year-old male who presents to the ED complaining of shortness of breath that has been going on for the past few weeks. Patient reports that he recently fractured his left humeral head as result of a fall back in March and has been following an business analysis specialist for this shoulder. He has been going through PT he also has full-time home health that monitors his vital signs. He reports that today his blood pressure was reporting low that triggered the home health agency to contact him to have him present to the ED for evaluation. He has been having some associated nausea but denies any vomiting diarrhea fever cough. He denies any chest pain at this time his only complaint is orthopnea. Is a history of congestive heart failure atrial fibrillation which she is on anticoagulant and has been for many years. He has required admission in the past for his congestive heart failure although he does not recall his last admission date. Patient reports that he does not partici gonzalez in much activity around the house. He does utilize a wheelchair within the house and is able to get around using his feet and he is able to get to the bathroom. Patient denies any cough congestion abdominal pain. His left arm is remains in a sling that he wears as needed he is able to utilize his left arm but his range of motion in his left shoulder is limited. Related Data Home Medications Medication Instructions Recorded Confirmed multivitamin-ferrous 1 tab PO QAM #0 06/12/09 06/05/21 fumarate-folic acid 18 mg-400 mcg tablet (Multi Complete with Iron) cyanocobalamin (B12)-cobamamide 5,000 lisette SUBLINGUAL QAM 12/28/18 06/05/21 5,000 mcg-100 mcg sublingual lozenge (B12) alpha lipoic acid 100 mg capsule 100 mg PO DAILY 06/09/19 06/05/21 cholecalciferol (vitamin D3) 50 2,000 unit PO DAILY 06/09/19 06/05/21 mcg (2,000 unit) chewable tablet vit C-vit [id number] ox-lutein 1 cap PO BID 06/09/19 06/05/21 226 mg-200 unit-5 mg-0.8 mg capsule (PreserVision Lutein) clotrimazole 1 % topical cream 1 applic TOPICAL BID PRN 06/05/21 06/05/21 digoxin 125 mcg (0.125 mg) tablet 125 mcg PO Q OTHER DAY 06/05/21 06/05/21 magnesium chloride 64 mg 128 mg PO DAILY 06/05/21 06/05/21 tablet,extended release montelukast 10 mg tablet 10 mg PO DAILY 06/05/21 06/05/21 rivaroxaban 15 mg tablet (Xarelto) 15 mg PO DAILY 06/05/21 06/05/21 Previous Rx's Medication Instructions Recorded metoprolol tartrate 25 mg tablet 25 mg PO BID #60 tab 06/10/19 furosemide 20 mg tablet (Lasix) 20 mg PO DAILY #60 tab 03/18/21 carbidopa 25 mg-levodopa 100 mg 3 ea PO BEDTIME #10 tab 04/04/21 tablet carbidopa 25 mg-levodopa 100 mg 4 ea PO DAILY #10 tab 04/04/21 tablet Allergies Allergy/AdvReac Type Severity Reaction Status Date / Time gluten [GLUTEN] Allergy Severe CELIAC Verified 06/05/21 11:55 DISEASE adhesive [ADHESIVE] Allergy Mild rash from Verified 06/05/21 11:55 plastic tape iodine [IODINE] Allergy Unknown PT UNSURE Verified 06/05/21 11:55 OF REACTION cephalexin AdvReac Severe violent Verified 06/05/21 11:55 indigestion hydromorphone [From Dilaudid] AdvReac Severe vomited Verified 06/05/21 11:55 violently morphine [MORPHINE] AdvReac Severe VOMITED Verified 06/05/21 11:55 VIOLENTLY, HAD ABD HERNIAS THAT NEEDED SURGERY. Review of Systems <Barrett Guerrero PA-C - Last Filed: 06/05/21 15:02> Review of Systems ROS Unobtainable: All systems reviewed & are unremarkable except as noted in HPI and below Constitutional Constitutional: Denies chills, Denies fatigue, Denies fever(s), Denies frequent falls, Denies lethargy and Denies weakness Eyes Eyes: Denies change in vision, Denies eye discharge, Denies irritation and Denies loss of vision ENT Ears, Nose, Mouth, and Throat: Denies change in voice, Denies dizziness, Denies neck pain, Denies sore throat and Denies throat swelling Cardiovascular Cardiovascular: Denies chest pain, Denies irregular heart rhythm, Denies lightheadedness, Denies palpitations, Reports dyspnea, Reports dyspnea on exertion and Denies orthopnea Respiratory Respiratory: Denies cough, Reports dyspnea, Reports dyspnea on exertion and Denies wheezing Gastrointestinal Gastrointestinal: Denies abdominal pain, Denies change in bowel habits, Denies diarrhea, Reports nausea and Denies vomiting Genitourinary Genitourinary: Denies hematuria, Denies flank pain, Denies urinary incontinence and Denies urinary urgency Musculoskeletal Musculoskeletal: Denies back pain, Denies muscle weakness, Denies neck pain, Denies numbness and Denies tingling Integumentary/Breasts Skin/Breast: Denies pruritus, Denies erythema, Denies rash and Denies wounds Neurologic Neurologic: Denies behavioral changes, Denies confusion, Denies dizziness, Denies frequent falls, Denies loss of vision, Denies numbness, Denies tingling and Denies weakness Psychiatric Psychiatric: Denies anxiety, Denies behavioral changes, Denies confusion, Denies depression, Denies homicidal ideation and Denies suicidal ideation Endocrine Endocrine: Denies fatigue, Denies flushing and Denies palpitations Hematologic/Lymphatic Hematologic/Lymphatic: Denies easy bruising Allergic/Immunologic Allergic/Immunologic: Denies urticaria, Denies throat swelling and Denies wheezing Patient History <Barrett Guerrero PA-C - Last Filed: 06/05/21 15:02> Medical History Adenomatous colon polyp Atrial fibrillation CAD (coronary artery disease) Celiac disease Closed left hip fracture Compression fracture of L1 lumbar vertebra Congestive heart failure GERD (gastroesophageal reflux disease) HTN (hypertension) Kidney stones Parkinsons disease Right carpal tunnel syndrome Weight loss, unintentional Surgical History History of cholecystectomy History of colonoscopy History of esophagogastroduodenoscopy (EGD) History of hernia repair History of hip surgery History of lumbar fusion History of right hemicolectomy Family History Father Intracranial bleed Mother No problems noted. Brother Heart disease Sister Asthma Social History household members: spouse and children Smoking Status: Former smoker alcohol intake: current Smoking Status: Former smoker alcohol intake frequency: holidays/special occasions only Substance Use Type: does not use Exam <Barrett Guerrero PA-C - Last Filed: 06/05/21 15:02> Initial Vital Signs Initial Vital Signs: Vital Signs Temperature 97.6 F 06/05/21 11:20 Pulse Rate 99 H 06/05/21 11:20 Respiratory Rate 18 06/05/21 11:20 Blood Pressure 119/77 06/05/21 11:20 Pulse Oximetry 98 06/05/21 11:20 Const General: cooperative, well developed and frail appearing Nutritional Appearance: average body habitus and well nourished Orientation: Orientation [facility] Head: normal to inspection, normocephalic and atraumatic Ears: hearing grossly normal bilaterally and external ears normal Nose: external nose normal and nares normal Face and sinus: normal facial exam Mouth: oral mucosae normal Eyes Eyelids: eyelid abnormality left upper eyelid (Drooped over eye) Neck Neck: normal visual inspection, full ROM and JVD Chest Chest: normal inspection of the chest and normal palpation of entire chest wall Resp Effort & Inspection: normal respiratory effort and able to speak in complete sentences Auscultation: crackles bilaterally at the base Cardio Palpation: heave Rate: tachycardic Rhythm: abnormal rhythm irregularly irregular Heart Sounds: murmur diastolic GI Inspection: normal to inspection Palpation: soft Percussion: normal to percussion Auscultation: normal bowel sounds Skin General: no rashes or lesions noted Extrem Right lower extremity: edema Details: 2+ Left lower extremity: edema Details: 2+ <J Carlos Vizcaino DO - Last Filed: 06/05/21 17:52> Initial Vital Signs Initial Vital Signs: Vital Signs Temperature 97.6 F 06/05/21 11:20 Pulse Rate 99 H 06/05/21 11:20 Respiratory Rate 18 06/05/21 11:20 Blood Pressure 119/77 06/05/21 11:20 Pulse Oximetry 98 06/05/21 11:20 Course <Barrett Guerrero PA-C - Last Filed: 06/05/21 15:02> Orders Ordered: ED Orders 06/05/21 11:40 BNP [NT-proBNP (BNP-Adult 18+)] Stat Complete Blood Count AUTO DIFF Stat Comprehensive Metabolic Panel Stat Lipase Stat Magnesium Stat Troponin & CK Cardiac Panel Stat 06/05/21 11:47 XR chest 1V Stat EKG-12 Lead Stat 06/05/21 14:49 Consult to Occupational Therapy Evaluate & Treat Consult to Physical Therapy Evaluate & Treat 06/06/21 05:00 Basic Metabolic Panel Routine Complete Blood Count AUTO DIFF Routine Magnesium Routine Acetaminophen (Acetaminophen 325 Mg Tablet) 650 mg PO Q6HR PRN PRN Reason: pain Enoxaparin Sodium (Enoxaparin 40 Mg/0.4 Ml Syringe) 40 mg SUBCUT DAILY TAWANDA Furosemide (Furosemide 40 Mg/4 Ml Vial) 40 mg IV Q12HR TAWANDA Metoprolol Succinate (Metoprolol Er 50 Mg Tablet) 50 mg PO DAILY TAWANDA Ondansetron HCl (Ondansetron 4 Mg/2 Ml Inj) 4 mg IV Q8HR PRN PRN Reason: Nausea And Vomiting Discontinued Medications Furosemide (Furosemide 40 Mg/4 Ml Vial) 40 mg IV NOW ONE Stop: 06/05/21 12:50 Last Admin: 06/05/21 13:18 Dose: 40 mg Documented by: ATAYLOR Metoprolol Succinate (Metoprolol Er 50 Mg Tablet) 50 mg PO NOW ONE Stop: 06/05/21 14:14 Last Admin: 06/05/21 14:34 Dose: 50 mg Documented by: ATAYLOR Reevaluation(s) Reevaluation #1: I spoke with patient about laboratory findings and suggested the patient be admitted for continued diuresis and monitoring. Patient was agreeable will notify the hospitalist attempt to get admission. Consultations Consultation #1: Spoke with hospitalist regarding possible admission, he states that he will come down and evaluate patient to determine if admission is the best course of action. Consultation #2: For hospitalist was agreeable to admit patient to the floor for observation. Vital Signs Vital signs: Vital Signs - 8 hr 06/05/21 11:20 06/05/21 11:48 06/05/21 12:00 Temperature 97.6 F Pulse Rate 99 H 116 H 126 H Respiratory Rate 18 26 H 36 H Blood Pressure 119/77 Pulse Oximetry 98 98 97 06/05/21 12:30 06/05/21 13:00 06/05/21 13:30 Temperature Pulse Rate 122 H 127 H 124 H Respiratory Rate 24 30 H 26 H Blood Pressure 136/82 134/93 H 130/88 Pulse Oximetry 95 97 97 06/05/21 14:34 Temperature Pulse Rate 120 H Respiratory Rate Blood Pressure Pulse Oximetry <J Carlos Vizcaino, DO - Last Filed: 06/05/21 17:52> Orders Ordered: ED Orders 06/05/21 11:40 BNP [NT-proBNP (BNP-Adult 18+)] Stat Complete Blood Count AUTO DIFF Stat Comprehensive Metabolic Panel Stat Lipase Stat Magnesium Stat Troponin & CK Cardiac Panel Stat 06/05/21 11:47 XR chest 1V Stat EKG-12 Lead Stat 06/05/21 14:49 Consult to Occupational Therapy Evaluate & Treat Consult to Physical Therapy Evaluate & Treat 06/06/21 05:00 Basic Metabolic Panel Routine Complete Blood Count AUTO DIFF Routine Magnesium Routine Acetaminophen (Acetaminophen 325 Mg Tablet) 650 mg PO Q6HR PRN PRN Reason: pain Enoxaparin Sodium (Enoxaparin 40 Mg/0.4 Ml Syringe) 40 mg SUBCUT DAILY TAWANDA Furosemide (Furosemide 40 Mg/4 Ml Vial) 40 mg IV Q12HR TAWANDA Metoprolol Succinate (Metoprolol Er 50 Mg Tablet) 50 mg PO DAILY TAWANDA Ondansetron HCl (Ondansetron 4 Mg/2 Ml Inj) 4 mg IV Q8HR PRN PRN Reason: Nausea And Vomiting Discontinued Medications Furosemide (Furosemide 40 Mg/4 Ml Vial) 40 mg IV NOW ONE Stop: 06/05/21 12:50 Last Admin: 06/05/21 13:18 Dose: 40 mg Documented by: FRIEDA Metoprolol Succinate (Metoprolol Er 50 Mg Tablet) 50 mg PO NOW ONE Stop: 06/05/21 14:14 Last Admin: 06/05/21 14:34 Dose: 50 mg Documented by: FRIEDA Vital Signs Vital signs: Vital Signs - 8 hr 06/05/21 11:20 06/05/21 11:48 06/05/21 12:00 Temperature 97.6 F Pulse Rate 99 H 116 H 126 H Respiratory Rate 18 26 H 36 H Blood Pressure 119/77 Pulse Oximetry 98 98 97 06/05/21 12:30 06/05/21 13:00 06/05/21 13:30 Temperature Pulse Rate 122 H 127 H 124 H Respiratory Rate 24 30 H 26 H Blood Pressure 136/82 134/93 H 130/88 Pulse Oximetry 95 97 97 06/05/21 14:34 Temperature Pulse Rate 120 H Respiratory Rate Blood Pressure Pulse Oximetry MDM - Chest Pain <Barrett Guerrero PA-C - Last Filed: 06/05/21 15:02> Differential Diagnosis Differential diagnosis: Likely other Lab Data Result diagrams: 06/05/21 11:40 06/05/21 11:40 Labs: Lab Results 06/05/21 06/05/21 06/05/21 Range/Units 11:40 11:40 11:40 WBC 4.8 (4.5-11.0) X10^3/uL RBC 3.99 L (4.5-5.9) X10^6/uL Hgb 12.2 L (13.5-17.5) g/dL Hct 36.4 L (41-53) % MCV 91.2 (80-100) fL MCH 30.7 (26-34) PG MCHC 33.6 (30-36) % RDW 14.7 (11.6-14.8) % Plt Count 129 L (150-400) X10^3/uL Neut % (Auto) 67.7 (50-75) % Lymph % (Auto) 17.8 L (25-40) % Monroe % (Auto) 9.4 (3-14) % Eos % (Auto) 4.1 H (2-4) % Baso % (Auto) 1.0 (0-2) % Neut # (Auto) 3200 (7201-4477) /uL Lymph # (Auto) 900 L (5192-4586) /uL Monroe # (Auto) 500 (0-900) /uL Eos # (Auto) 200 (0-450) /uL Baso # (Auto) 0 (0-100) /uL Sodium 136 L (137-145) mmol/L Potassium 3.9 (3.4-5.1) mmol/L Chloride 105 (98-107) mmol/L Carbon Dioxide 27 (22-32) mmol/L BUN 27 H (9-20) mg/dL Creatinine 0.93 (0.66-1.25) mg/dL Estimated GFR > 60.0 (>60) mL/min BUN/Creatinine Ratio 29.0 H (6-22) Glucose 102 (80-110) mg/dL Calcium 9.3 (8.4-10.2) mg/dL Magnesium 2.2 (1.6-2.3) mg/dL Total Bilirubin 0.7 (0.2-1.3) mg/dL AST 25 (17-59) IU/L ALT 11 (<50) IU/L Alkaline Phosphatase 82 (38-126) U/L Total Creatine Kinase 45 L (55-170) U/L CK-MB (CK-2) TNP CK-MB (CK-2) Rel Index TNP Troponin I 0.018 (0.01-0.034) ng/mL NT-Pro-B Natriuret Pep 4120 H (<450) pg/mL Total Protein 6.8 (6.3-8.2) g/dL Albumin 3.9 (3.5-5.0) g/dL Globulin 2.9 (1.7-4.1) g/dL Albumin/Globulin Ratio 1.3 (1.0-2.8) Lipase 134 (23-300) U/L Imaging Data Chest x-ray: Radiologist's Impression: PROCEDURE:? XR CHEST 1V ? INDICATIONS:? chest pain ? TECHNIQUE:? One view of the chest was acquired.? ? COMPARISON:? [facility], CR, XR SHOULDER 2+ VIEWS LEFT, 05/10/2021, 14:04.? [facility], CR, XR CHEST 1V, 03/18/2021, 13:01.? [facility], CR, XR CHEST 1V, 04/02/2021, 18:30. ? FINDINGS:? ? Surgical changes and devices:? Right shoulder arthroplasty hardware is seen. ? Lungs and pleura:? An incomplete inspiratory result is noted, causing a crowded appearance to the lung markings.? No focal infiltrates are seen.? No pneumothorax or significant pleural effusions are seen. ? ? Mediastinum:? The cardiac contours are within normal limits. The aorta demonstrates calcification and tortuosity. ? Bones and chest wall:? Age-appropriate bony degenerative changes are seen.? The known left humeral neck fracture is off of the field of view of this study.? No suspicious bony lesions.? Overlying soft tissues appear unremarkable.? IMPRESSION:? Unremarkable portable chest study for age, with note made postoperative and degenerative changes. ? ? Dictated by: Roc Mckeon M.D. on 06/05/2021 at 11:11 ? ? Approved by: Roc Mckeon M.D. on 06/05/2021 at 11:13?? MDM Narrative Medical decision making narrative: The patient was evaluated today for chest pain orthopnea congestive heart failure. His elevated proBNP and based on his symptoms and his lower leg pedal edema I contacted hospitalist for possible admission and diurese patient with Lasix. He was agreeable patient will be admitted for obsess 40 mg Lasix IV was ordered vital signs remained stable. <J Carlos Vizcaino, DO - Last Filed: 06/05/21 17:52> Lab Data Labs: Lab Results 06/05/21 06/05/21 06/05/21 Range/Units 11:40 11:40 11:40 WBC 4.8 (4.5-11.0) X10^3/uL RBC 3.99 L (4.5-5.9) X10^6/uL Hgb 12.2 L (13.5-17.5) g/dL Hct 36.4 L (41-53) % MCV 91.2 (80-100) fL MCH 30.7 (26-34) PG MCHC 33.6 (30-36) % RDW 14.7 (11.6-14.8) % Plt Count 129 L (150-400) X10^3/uL Neut % (Auto) 67.7 (50-75) % Lymph % (Auto) 17.8 L (25-40) % Monroe % (Auto) 9.4 (3-14) % Eos % (Auto) 4.1 H (2-4) % Baso % (Auto) 1.0 (0-2) % Neut # (Auto) 3200 (0235-0630) /uL Lymph # (Auto) 900 L (4096-0477) /uL Monroe # (Auto) 500 (0-900) /uL Eos # (Auto) 200 (0-450) /uL Baso # (Auto) 0 (0-100) /uL Sodium 136 L (137-145) mmol/L Potassium 3.9 (3.4-5.1) mmol/L Chloride 105 (98-107) mmol/L Carbon Dioxide 27 (22-32) mmol/L BUN 27 H (9-20) mg/dL Creatinine 0.93 (0.66-1.25) mg/dL Estimated GFR > 60.0 (>60) mL/min BUN/Creatinine Ratio 29.0 H (6-22) Glucose 102 (80-110) mg/dL Calcium 9.3 (8.4-10.2) mg/dL Magnesium 2.2 (1.6-2.3) mg/dL Total Bilirubin 0.7 (0.2-1.3) mg/dL AST 25 (17-59) IU/L ALT 11 (<50) IU/L Alkaline Phosphatase 82 (38-126) U/L Total Creatine Kinase 45 L (55-170) U/L CK-MB (CK-2) TNP CK-MB (CK-2) Rel Index TNP Troponin I 0.018 (0.01-0.034) ng/mL NT-Pro-B Natriuret Pep 4120 H (<450) pg/mL Total Protein 6.8 (6.3-8.2) g/dL Albumin 3.9 (3.5-5.0) g/dL Globulin 2.9 (1.7-4.1) g/dL Albumin/Globulin Ratio 1.3 (1.0-2.8) Lipase 134 (23-300) U/L Discharge Plan Departure Patient Disposition: Admitted As Inpatient Clinical Impression: CHF (congestive heart failure) Admit Date/Time: 06/05/21 14:49 Admit Provider: Rahul Montalvo <J Carlos Vizcaino DO - Last Filed: 06/05/21 17:52> Cosign ED Attending Cosignature Attestation: Dr Vizcaino Co-Sign Statement: I was available for consultation during this patient's emergency department visit. This chart is signed by myself for administrative purposes only. I did not have direct contact with this patient during this visit. They were seen independently by the [facility].
[2021-06-05 12:02] LABS: Alanine Aminotransferase 11 IU/L (<50); Albumin 3.9 g/dL (3.5-5.0); Albumin Globulin Ratio 1.3 (1.0-2.8); Alkaline Phosphatase 82 U/L (38-126); Aspartate Aminotransferase 25 IU/L (17-59); Bilirubin Total 0.7 mg/dL (0.2-1.3); Blood Urea Nitrogen 27 mg/dL (9-20); Calcium 9.3 mg/dL (8.4-10.2); Carbon Dioxide 27 mmol/L (22-32); Chloride 105 mmol/L (98-107); Creatine Kinase 45 U/L (55-170); Estimated Glomerular Filt Rate > 60.0 mL/min (>60); Globulin 2.9 g/dL (1.7-4.1); Glucose 102 mg/dL (80-110); HEMOLYSIS < 15 (0-50); Lipase 134 U/L (23-300); Magnesium 2.2 mg/dL (1.6-2.3); Potassium 3.9 mmol/L (3.4-5.1); Sodium 136 mmol/L (137-145); Total Protein 6.8 g/dL (6.3-8.2)
[2021-06-05 12:13] LABS: Troponin I 0.018 ng/mL (0.01-0.034)
[2021-06-05 12:37] LABS: NT-proBNP (BNP-Adult 18+) 4120 pg/mL (<450)
[2021-06-05] MEDS: FUROSEMIDE 40 MG/4 ML VIAL IV ×2 (13:18→18:45)
[2021-06-05] MEDS: METOPROLOL ER 50 MG TABLET PO (14:34)
--- NOTE | 2021-06-05 15:15 | DI.ECHO.S_ITS ---
[facility]---------+ [facility] +---------+ : : [address] : : : : [id number] : : : : Phone: [phone] Echocardiogram Report + + :Name: MATTHEW ACOSTA Study Date: 06/06/2021 Height: 68 in : :[facility] ReadingLocation: Weight: 158 lb : : Gender: Male BSA: 1.8 m2 : :: 1935 Age: 85 yrs BP: 114/76 mmHg: :Reason For Study: CHF, AFIB W/ RVR : :Ordering Physician: CARLOS, : :CORBY Performed By: Deborah Gongora : :Referring: CORBY GONZALEZ : + + Interpretation Summary The patient was in atrial fibrillation with heart rates between 85-115 bpm during the exam. Normal left ventricle size with ejection fraction 30%. Apical 2/3 of anterior wall and septum are dyskinetic. Moderately dilated left atrium. Mildly dilated right atrium. Mild mitral regurgitation. Mild to moderate tricuspid regurgitation. Procedure: A two-dimensional transthoracic echocardiogram with color flow and Doppler was performed. The study quality was technically adequate. There is no prior echocardiogram noted for this patient. The patient was in atrial fibrillation with heart rates between 85-115 bpm during the exam. Left Ventricle: The left ventricle is normal in size and wall thickness. Left ventricular ejection fraction is estimated to be 30%. There is mid anterior wall dyskinesis. There is apical anterior wall dyskinesis. There is mid anteroseptal wall dyskinesis. There is apical septal wall dyskinesis. There is apical akinesis. Diastolic function could not be accurately assessed due to atrial fibrillation. Right Ventricle: The right ventricle is normal in size and function. Atria: The left atrium is moderately dilated. The right atrium is mildly dilated. There is no Doppler evidence for an interatrial shunt. Mitral Valve: The mitral valve is normal in structure and function. There is mild mitral regurgitation. Aortic Valve: The aortic valve opens well. There is no aortic valve stenosis. No aortic regurgitation is present. Tricuspid Valve: The tricuspid valve is normal. There is mild to moderate tricuspid regurgitation. Pulmonic Valve: The pulmonic valve is not well seen, but is grossly normal. There is trace pulmonic regurgitation. Great Vessels: The aortic root is normal size. The dimensions of the ascending aorta are normal. The IVC is of normal diameter and collapses greater than 50% with a sniff. This suggests a low right atrial pressure of 3 mm Hg. Pericardium/ Pleura There is no pericardial effusion. There is no pleural effusion. MMode/2D Measurements & Calculations LVIDd: 4.4 cm LVOT diam: 1.9 cm LVIDs: 3.7 cm Ao root diam: 3.7 cm FS: 15.4 % asc Aorta Diam: 3.4 cm IVSd: 0.95 cm Ao Arch Diam (Prox Trans): 3.2 cm LVPWd: 0.88 cm LV moseley. diameter/BSA (cm/m^2): 2.4 LV sys. diameter/BSA (cm/m^2): 2.0 LA A2 area: 27.1 cm2 RA long axis: 6.6 cm LA A4 area: 22.3 cm2 RA area: 23.6 cm2 LA length (vol): 6.4 cm RA vol: 72.2 ml LA vol: 80.5 ml RA : 39.1 ml/m2 LA vol index: 43.6 ml/m2 IVC diam: 1.8 cm RVD1 (basal): 3.4 cm TAPSE: 1.5 cm Doppler Measurements & Calculations Ao V2 max: 78.8 cm/sec LVOT Max Gucci: 59.0 cm/sec Ao V2 mean: 58.1 cm/sec LV V1 max P.4 mmHg Ao max P.5 mmHg LV V1 VTI: 8.4 cm Ao mean P.5 mmHg ALEJANDRA(I,D): 1.9 cm2 Ao V2 VTI: 12.7 cm ALEJANDRA(V,D): 2.1 cm2 sev ratio: 0.67 ALEJANDRA indexed to BSA (cm^2/m^2): 1.0 MV E max gucci: 82.2 cm/sec TR max gucci: 229.3 cm/sec MV A max gucci: 1.7 cm/sec TR max P.0 mmHg MV E/A: 49.5 PA pr(Accel): 46.5 mmHg Med Peak E' Gucci: 2.8 cm/sec E/E' med: 29.5 Lat Peak E' Gucci: 9.2 cm/sec E/E' lat: 8.9 E/e' average: 19.2 MV dec time: 0.18 sec SV(OT): 23.5 ml Electronically signed by: Jayde Gerard on Reading Physician:06/06/2021 01:53 PM
[2021-06-05 15:24] LABS: COVID19 -Nasal RAPID Negative (Negative)
--- NOTE | 2021-06-05 15:57 | PC.ADMIT ---
[address] [place] [address] Place Admission Note: The patient,Migue Calhoun,85 y/o, was given written information regarding hospital policies, unit procedures and contact persons. Patient's smoking status: Former smoker. Pt arrived from ED via stretcher. Slider board used to transfer to bed. A/O. Pacheco draining to gravity. L. arm in sling. Pt requested sling be removed once in bed. Denies chest pain or pressure. Tele placed on. Oriented to room and call system. Pt verbalized he will call for needs. Bed alarm on. Vital Signs - 8 hr 06/05/21 11:20 06/05/21 11:48 06/05/21 12:00 Temperature 97.6 F Pulse Rate 99 H 116 H 126 H Respiratory Rate 18 26 H 36 H Blood Pressure 119/77 Pulse Oximetry 98 98 97 06/05/21 12:30 06/05/21 13:00 06/05/21 13:30 Temperature Pulse Rate 122 H 127 H 124 H Respiratory Rate 24 30 H 26 H Blood Pressure 136/82 134/93 H 130/88 Pulse Oximetry 95 97 97 06/05/21 14:34 06/05/21 15:50 Temperature 98 F Pulse Rate 120 H 115 H Respiratory Rate 22 Blood Pressure 129/85 Pulse Oximetry 98
--- NOTE | 2021-06-05 17:56 | PM.HP.1 ---
History of Present Illness History of Present Illness Date Patient Seen: 06/05/21 Time Patient Seen: 16:00 Chief complaint: chest pain Narrative: Mr. Calhoun is an 85M with PMH paroxysmal afib, CHFpEF, HTN, and admission a couple months ago for fall and humerus head fracture who presents to the hospital with shortness of breath. He notes some shortness of breath with activity and with lying down for the last couple weeks. No chest pain. No cough, fevers/chills. He has also noted lower leg swelling. He has been eating salty peanuts frequently. He was asked to come in by his home health agency for concern for low blood pressure and fast heart rate. In the ED workup was done, vitals notable for tachycardia in the 120s. Labs notable for WBC 4.8, hgb 12.2, plts 129, BUN 27, creatinine 0.93. Trop 0.018, BNP 4120. Chest xray showed no acute process. He was ordered for lasis and admitted for further treatment. Patient History Medical History Adenomatous colon polyp Atrial fibrillation CAD (coronary artery disease) Celiac disease Closed left hip fracture Compression fracture of L1 lumbar vertebra Congestive heart failure GERD (gastroesophageal reflux disease) HTN (hypertension) Kidney stones Parkinsons disease Right carpal tunnel syndrome Weight loss, unintentional Surgical History History of cholecystectomy History of colonoscopy History of esophagogastroduodenoscopy (EGD) History of hernia repair History of hip surgery History of lumbar fusion History of right hemicolectomy Family & Social History Family History Father Intracranial bleed Mother No problems noted. Brother Heart disease Sister Asthma Social History: household members spouse,children Prior Living Arrangements House Safety & Behavioral: Feels Safe in Current Yes Environment Been Physically Hurt or No Threatened By a Person Suicidal Ideation Description None Suicide Plan Description No Plan Tobacco & Substance use: Tobacco type cigarettes Smoking Status Former smoker alcohol intake current alcohol intake frequency holiday/special occasion Substance Use Type does not use Meds Home Medications and Allergies Home Medications Medication Instructions Recorded Confirmed Type multivitamin-ferrous 1 tab PO QAM #0 06/12/09 06/05/21 History fumarate-folic acid 18 mg-400 mcg tablet (Multi Complete with Iron) cyanocobalamin (B12)-cobamamide 5,000 lisette SUBLINGUAL QAM 12/28/18 06/05/21 History 5,000 mcg-100 mcg sublingual lozenge (B12) alpha lipoic acid 100 mg capsule 100 mg PO DAILY 06/09/19 06/05/21 History cholecalciferol (vitamin D3) 50 2,000 unit PO DAILY 06/09/19 06/05/21 History mcg (2,000 unit) chewable tablet vit C-vit M-hrepnq-gruk ox-lutein 1 cap PO BID 06/09/19 06/05/21 History 226 mg-200 unit-5 mg-0.8 mg capsule (PreserVision Lutein) metoprolol tartrate 25 mg tablet 25 mg PO BID #60 tab 06/10/19 06/05/21 Rx furosemide 20 mg tablet (Lasix) 20 mg PO DAILY #60 tab 03/18/21 06/05/21 Rx carbidopa 25 mg-levodopa 100 mg 3 ea PO BEDTIME #10 tab 04/04/21 06/05/21 Rx tablet carbidopa 25 mg-levodopa 100 mg 4 ea PO DAILY #10 tab 04/04/21 06/05/21 Rx tablet clotrimazole 1 % topical cream 1 applic TOPICAL BID PRN 06/05/21 06/05/21 History digoxin 125 mcg (0.125 mg) tablet 125 mcg PO Q OTHER DAY 06/05/21 06/05/21 History magnesium chloride 64 mg 128 mg PO DAILY 06/05/21 06/05/21 History tablet,extended release montelukast 10 mg tablet 10 mg PO DAILY 06/05/21 06/05/21 History rivaroxaban 15 mg tablet (Xarelto) 15 mg PO DAILY 06/05/21 06/05/21 History Allergies Allergy/AdvReac Type Severity Reaction Status Date / Time gluten [GLUTEN] Allergy Severe CELIAC Verified 06/05/21 11:55 DISEASE adhesive [ADHESIVE] Allergy Mild rash from Verified 06/05/21 11:55 plastic tape iodine [IODINE] Allergy Unknown PT UNSURE Verified 06/05/21 11:55 OF REACTION cephalexin AdvReac Severe violent Verified 06/05/21 11:55 indigestion hydromorphone [From Dilaudid] AdvReac Severe vomited Verified 06/05/21 11:55 violently morphine [MORPHINE] AdvReac Severe VOMITED Verified 06/05/21 11:55 VIOLENTLY, HAD ABD HERNIAS THAT NEEDED SURGERY. Review of Systems Review of Systems Narrative: 14 systems reviewed and negative aside from what is noted in HPI Exam Vital Signs (past 8 hours): - 06/05/21 23:54 06/06/21 04:13 Temperature 97.4 F L 97.2 F L Pulse Rate 83 99 H Respiratory Rate 18 18 Blood Pressure 114/76 99/60 Pulse Oximetry 97 94 Oxygen Delivery Method Room Air Oxygen Flow Rate 0 Narrative Exam Narrative: GEN: no acute distress HEENT: moist mucous membranes, PERRL NECK: trachea midline, no JVD CV: irregular, tachycardic PULM: crackles bilaterally ABD: soft, nontender, nondistended, no organomegaly EXT: 1+ pitting edema NEURO: awake, alert, oriented, no focal deficits Objective Labs Result Diagrams: 06/06/21 04:42 06/06/21 04:42 Labs: Laboratory Results - last 24 hr 06/05/21 06/05/21 06/05/21 11:40 11:40 11:40 WBC 4.8 RBC 3.99 L Hgb 12.2 L Hct 36.4 L MCV 91.2 MCH 30.7 MCHC 33.6 RDW 14.7 Plt Count 129 L Neut % (Auto) 67.7 Lymph % (Auto) 17.8 L Edwards % (Auto) 9.4 Eos % (Auto) 4.1 H Baso % (Auto) 1.0 Neut # (Auto) 3200 Lymph # (Auto) 900 L Edwards # (Auto) 500 Eos # (Auto) 200 Baso # (Auto) 0 Sodium 136 L Potassium 3.9 Chloride 105 Carbon Dioxide 27 BUN 27 H Creatinine 0.93 Estimated GFR > 60.0 BUN/Creatinine Ratio 29.0 H Glucose 102 Calcium 9.3 Magnesium 2.2 Total Bilirubin 0.7 AST 25 ALT 11 Alkaline Phosphatase 82 Total Creatine Kinase 45 L CK-MB (CK-2) TNP CK-MB (CK-2) Rel Index TNP Troponin I 0.018 NT-Pro-B Natriuret Pep 4120 H Total Protein 6.8 Albumin 3.9 Globulin 2.9 Albumin/Globulin Ratio 1.3 Lipase 134 SARS-CoV-2 (PCR) 03/27/22 03/28/22 03/28/22 15:01 04:42 04:42 WBC 4.6 RBC 4.24 L Hgb 13.0 L Hct 38.5 L MCV 90.9 MCH 30.8 MCHC 33.9 RDW 14.4 Plt Count 133 L Neut % (Auto) 66.8 Lymph % (Auto) 18.2 L Edwards % (Auto) 10.5 Eos % (Auto) 3.6 Baso % (Auto) 0.9 Neut # (Auto) 3000 Lymph # (Auto) 800 L Edwards # (Auto) 500 Eos # (Auto) 200 Baso # (Auto) 0 Sodium 135 L Potassium 3.5 Chloride 101 Carbon Dioxide 32 BUN 24 H Creatinine 0.97 Estimated GFR > 60.0 BUN/Creatinine Ratio 24.7 H Glucose 94 Calcium 8.8 Magnesium 2.0 Total Bilirubin AST ALT Alkaline Phosphatase Total Creatine Kinase CK-MB (CK-2) CK-MB (CK-2) Rel Index Troponin I NT-Pro-B Natriuret Pep Total Protein Albumin Globulin Albumin/Globulin Ratio Lipase SARS-CoV-2 (PCR) Negative Assessment & Plan Assessment & Plan narrative: Mr. Calhoun is an 85M with PMH afib, CHF who presents with afib with RVR and acute CHF exacerbation 1. Acute on chronic CHFpEF exacerbation -last known EF was preserved -patient admits to eating lots of salty peanuts, possible exacerbation reason -for now ordered for IV lasix -ordered for ECHO -encourage low salt diet, and ordered fluid restriction 2. Atrial fibrillation with RVR -ordered for higher dose metoprolol, was previously on amiodarone, but now stopped, will try to control without amio -continue rivaroxaban -continue digoxin 3. Hypertension -continue metoprolol 4. COPD, chronic -continue montelukast -prn nebs 5. Parkinsons -continue sinemet CODE: Full Proxy: Samira Calhoun, I have utilized all available resources to reconcile the patient's home medications. Time Spent With Patient Critical Care time: I spent a total of [] minutes of critical care time on this patient's care today; this time is exclusive of procedural time. Quality VTE Deep Vein Thrombosis/Pulmonary Embolism Present on Admission: No MIPS - Admit I confirm the patient?s Advance Care Plan is present, Code status is documented, Surrogate decision maker is in patient?s record [If Yes, STOP here]: Yes
[2021-06-05] MEDS: ACETAMINOPHEN 325 MG TABLET 650 MG PO (18:51)
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
[2021-06-05] MEDS: SODIUM CHLORIDE 0.9% FLUSH 10 ML IV (20:28)
[2021-06-06] VITALS (8 sets, daily range): BP systolic 94–112; BP diastolic 58–68; PULSE 95–113; RESP 16–19; TEMP 35.8–36.7; O2SAT 94–98
[2021-06-06] MEDS: ACETAMINOPHEN 325 MG TABLET 650 MG PO (04:07)
[2021-06-06 05:34] LABS: Add Manual Diff / Slide Review NO; Basophils Absolute Auto 0 /uL (0-100); Basophils Percent Auto 0.9 % (0-2); Eosinophils Absolute Auto 200 /uL (0-450); Eosinophils Percent Auto 3.6 % (2-4); Hematocrit 38.5 % (41-53); Lymphocytes Absolute Auto 800 /uL (1100-4500); Lymphocytes Percent Auto 18.2 % (25-40); Mean Corpuscular HGB Conc 33.9 % (30-36); Mean Corpuscular Hemoglobin 30.8 PG (26-34); Mean Corpuscular Volume 90.9 fL (80-100); Monocytes Absolute Auto 500 /uL (0-900); Monocytes Percent Auto 10.5 % (3-14); Neutrophils Absolute Auto 3000 /uL (1500-7000); Neutrophils Percent Auto 66.8 % (50-75); Platelet Count 133 X10^3/uL (150-400); Red Blood Cell Count 4.24 X10^6/uL (4.5-5.9); Red Cell Distribution Width 14.4 % (11.6-14.8); White Blood Cell Count 4.6 X10^3/uL (4.5-11.0)
[2021-06-06 05:48] LABS: BUN Creatinine Ratio 24.7 (6-22); Blood Urea Nitrogen 24 mg/dL (9-20); Calcium 8.8 mg/dL (8.4-10.2); Carbon Dioxide 32 mmol/L (22-32); Chloride 101 mmol/L (98-107); Estimated Glomerular Filt Rate > 60.0 mL/min (>60); Glucose 94 mg/dL (80-110); HEMOLYSIS < 15 (0-50); Potassium 3.5 mmol/L (3.4-5.1); Sodium 135 mmol/L (137-145)
[2021-06-06] MEDS: FUROSEMIDE 40 MG/4 ML VIAL IV ×2 (06:29→18:12)
[2021-06-06] MEDS: SODIUM CHLORIDE 0.9% FLUSH 10 ML IV ×3 (06:31→20:35)
[2021-06-06] MEDS: SODIUM CHLORIDE 0.9% 250 ML 21 ML IV (06:31)
--- NOTE | 2021-06-06 08:37 | CM.DANOTE ---
Addendum entered by Jeannie Lew R.N. 06/06/21 11:40: Left Balpreet at [facility] and left a message update, patient most likely will not DC today. Original Note: DCP: Case received, EMR reviewed and met with patient. Introduced self and role. Was able to obtain information regarding patient's baseline activity status prior to hospitalization. DCP assessment completed with information currently available. Patient is an 85 year old male who admitted yesterday afternoon to the care of the hospitalist team. PCP: Dr. Geovanny Vicente: [facility]. Patient came to the hospital via ambulance secondary to his having increased shortness of breath. According to patient, [facility] had referred him here due to his decreased BP and increased HR. Patient has history of humeral neck fracture from a past fall, and at this time, is receiving home health services. Patient holds current diagnosis of acute CHF/a-fib with RVR. He is here for diuresis. Met with patient in his room. He is alert and oriented, pleasant. Confirmed with patient that he resides in [place] with his spouse, Samira. At his baseline, he self-propells in his WC, since he has the humerus fracture, is unable to use a walker. He has private caregivers in the home dynamics ax technical architect, and his son, Nasir, lives with him, but is currently away in [place]. Patient does need assist with showers, meals, caregivers take patient to appointments. He is currently getting [facility] services, and they have been able to keep track of his vitals via telehealth. P: DCP to continue to follow for any needs. He will be working with P.T, and O.T. here in the hospital. Patient should be able to go home when stable, will reach out to [facility] as well with updates. Jeannie Lew RN/Switch Adjuster Discharge Planning/Care Management CM Discharge Assessment Start: 06/06/21 08:26 Freq: Status: Active Protocol: Document 06/06/21 08:27 (Rec: 06/06/21 08:36 [id number]) Discharge Planning Assessment Assigned Product Merchandiser Jeannie Lew RN/Switch Adjuster Advance Directives? Yes: Cardiopulmonary Resuscitation (CPR) Advance Directive Advance Directives on File No History Provided By Patient,Family Member,Medical Record Prior Living Arrangements House Household Members spouse,children,caregiver Comment Patient indicated that he has private caregivers at home 5 days a week. Type of transporation used prior to Relies on Others admit Comment Caregivers transport him to appointments. Independent with ADL's Yes Is patient alert and oriented? Yes Needs Assistance With Bathing,Meal Prep,Toileting, Managing Medications,Home Chores / Shopping Comment Due to his history of fractured humerus, needs more assistance at this time. Community Services used prior to Home Health Nurse admission: Comment Patient uses [facility] nursing, uncertain if other disciplines are in at this time DME Already Rented / Owned Wheelchair Comment Patient has been self- propelling in due to his fractured humerus, too difficult to use a FWW. Patient/Family Preference Home with Home Health Comment Patient would resume [facility] services. Barriers to Discharge No Comment Patient has support system at home with caregivers in place Discharge Plan Home with Home Health Community Services Home Health Nurse Referrals Initiated Other Additional Comment Resumption of [facility] if patient makes inpatient status If patient plan is home with home health No: Patient is already on home : Has signed face to face form been health services completed? Whiteboard Updated in Patient Room with Yes name and ext. # of Product Merchandiser Review Status In Process Next Review Type Continued Stay Review
--- NOTE | 2021-06-06 08:59 | PC.NURSE ---
Addendum entered by Nereida Moore R.N. 06/06/21 14:53: Patient is eating well at meals. He denies pain or discomfort. Lying on his left side. We are repositioning him every couple of hours. He voices no complaints of discomfort. Original Note: Assess- Patient is alert and oriented x3, he ate some breakfast and fell back to sleep. Patients heart rate is regular at this time, he denies pain. He wanted to get up earlier to practice getting out of bed, we will get him up a bit later. Resting comfortably now.
[2021-06-06] MEDS: METOPROLOL ER 50 MG TABLET PO (10:06)
[2021-06-06] MEDS: RIVAROXABAN 10 MG TABLET 15 MG PO (10:06)
[2021-06-06] MEDS: CARBIDOPA-LEVODOPA 25/100 TABLET 4 EACH PO (10:07)
[2021-06-06] MEDS: FLUTICASONE 120 SPRAY/16 GM SPRAY.SUSP NASAL ×2 (10:11→20:29)
[2021-06-06] MEDS: MONTELUKAST 10 MG TABLET PO (10:11)
[2021-06-06] MEDS: DIGOXIN 0.125 MG TABLET PO (10:11)
[2021-06-06] MEDS: POTASSIUM CHLORIDE 20 MEQ TAB 40 MEQ PO (10:13)
--- NOTE | 2021-06-06 10:18 | PT.IIE ---
Medical History (Last Reviewed 06/06/21 @ 05:56 by Rahul Montalvo MD) Adenomatous colon polyp Atrial fibrillation CAD (coronary artery disease) Celiac disease Closed left hip fracture Compression fracture of L1 lumbar vertebra Congestive heart failure GERD (gastroesophageal reflux disease) HTN (hypertension) Kidney stones Parkinsons disease Right carpal tunnel syndrome Weight loss, unintentional Physical Therapy Inpatient Evaluation/Re-Eval M1 PT/OT-IP Prior Functional Status Start: 06/06/21 08:40 Freq: NEEDED Status: Active Protocol: Document 06/06/21 10:50 CGR (Rec: 06/06/21 11:04 CGR [id number]) Medical Review Prior Functional Status Medical History Reviewed Yes Communication Pt is slightly OUZINKIE Mobility and Gait Pt states that he has been using a w/c for most of his mobility since returning home from rehab. He does not yet feel comfortable using a walker d/t his LUE fx. He is able to stand pivot to the w/c Activities of Daily Living and IADL's Pt states that he was able to do most of his ADLs since returning home from rehab. Pt has caretakers that assist if needed. 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 Pt's needs assist with bathing (performed by one of the caretakers) and is blind. Pt's son Nasir lives in the house but works off site. Social History Household Members spouse,children,caregiver Living Arrangements House Number of Floors (Floors) Two Floors Number of Stairs To Enter/Railing? 1 step to enter on top level and can stay on top level for all needs. Home Environment Standard Height Toilet,Walk in Shower,Built-In Shower Seat Home Equipment Front Wheel Walker,Four Wheel Walker,Straight Cane,Manual Wheelchair,Raised Toilet Seat w/Armrests,Shower Seat with Backrest,Hand Held Shower, Leather Stitcher,Sock Aid,Lift Recliner ,Grab Bars Near Toilet,Grab Bars In Shower Employment Status Retired Additional Social History Comment Pt has an adjustable bed M1 PT/OT-IP Prior Functional Status Start: 06/06/21 10:50 Freq: NEEDED Status: Active Protocol: Document 06/06/21 10:50 CGR (Rec: 06/06/21 11:04 CGR [id number]) Medical Review Prior Functional Status Medical History Reviewed Yes Communication Pt is slightly OU[place]IE Mobility and Gait Pt states that he has been using a w/c for most of his mobility since returning home from rehab. He does not yet feel comfortable using a walker d/t his LUE fx. He is able to stand pivot to the w/c Activities of Daily Living and IADL's Pt states that he was able to do most of his ADLs since returning home from rehab. Pt has caretakers that assist if needed. 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 Pt's needs assist with bathing (performed by one of the caretakers) and is blind. Pt's son Nasir lives in the house but works off site. Social History Household Members spouse,children,caregiver Living Arrangements House Number of Floors (Floors) Two Floors Number of Stairs To Enter/Railing? 1 step to enter on top level and can stay on top level for all needs. Home Environment Standard Height Toilet,Walk in Shower,Built-In Shower Seat Home Equipment Front Wheel Walker,Four Wheel Walker,Straight Cane,Manual Wheelchair,Raised Toilet Seat w/Armrests,Shower Seat with Backrest,Hand Held Shower, Leather Stitcher,Sock Aid,Lift Recliner ,Grab Bars Near Toilet,Grab Bars In Shower Employment Status Retired Additional Social History Comment Pt has an adjustable bed M2 PT-IP Current Condition Start: 06/06/21 08:40 Freq: NEEDED Status: Active Protocol: Document 06/06/21 10:18 AW (Rec: 06/06/21 11:47 AW [id number]) Physical Therapy Current Condition Current Condition Evaluation Date 06/06/21 Treatment Diagnosis CHF exacerbation; recent L humerus fracture; PD; difficulty in walking Onset Date 06/05/21 M3 PT-IP Subjective Start: 06/06/21 08:40 Freq: NEEDED Status: Active Protocol: Document 06/06/21 10:18 AW (Rec: 06/06/21 11:47 AW [id number]) Subjective Physical Therapy Visit Type Type Initial Evaluation Visit Start Time 09:35 Visit Stop Time 10:18 Total Visit Minutes 43 Physical Therapy Visit Comments Patient Comments Pt is willing to participate with PT. Therapy Pain Assessment Pain When Pain Assessed During Mobility Pain Present Pain Present Denied Pain M4 PT-IP Mobility and Gait Start: 06/06/21 08:40 Freq: NEEDED Status: Active Protocol: Document 06/06/21 10:18 AW (Rec: 06/06/21 11:47 AW [id number]) PT-Bed Mobility Assessment Supine to Sit Supine to Sit Contact Guard Assistance Scooting Scooting to Edge of Bed Minimal Assistance PT-Transfer Assessment Sit to and From Stand Sit to and from Stand Moderate Assistance,Maximum Assistance,1 Person Assistance ,Use of Upper Extremities Equipment Transfer Assistive Device None,Gait Belt Orthotic/Prosthetic Devices or Brace: No Transfers Transfer Destination Chair Transfer Technique Stand Step Pivot Transfer Ability Level of Assist Moderate Assistance,Maximum Assistance,1 Person Assistance ,Use of Upper Extremities Comments Mobility Comments Pt was lying in bed as PT arrived. Supine BP was 99/57 HR 106. With HOB at 25 degrees , pt was able to complete supine to sit CGA but needed min assist to scoot to EOB. In sitting, BP was 118/78 HR 107 . Pt stated he normally holds on to something to transfer. PT provided mod assist on pt's right side as he stood from the bed. PT cued pt to stand tall, shift weight, and take a big step. Mod/max assist to step pivot transfer to the chair set up on pt's right side. Immediately after transfer, BP was 110/76 HR 110 . Pt agreed to stand from the chair and needed max assist to stand from low chair. Pt talked through his strategy aloud as he prepared to stand and has good awareness of his needs. Pt sat with poor control of descent. He was left with call light and tray table in reach. Discussed pt's mobility needs with RN and DIRECTOR BUSINESS MANAGEMENT. Gait Assessment Gait Gait Assistance Required: Moderate Assistance,Maximum Assistance,1 Person Assist Distance (Feet) 2 Assistive Devices Assistive Device None,Gait Belt Comments Gait Comments Pt is not comfortable using FWW due to recent left humerus fracture. Steps taken during transfer only. Stair Climbing Assessment Comments Stair Climbing Comments Not assessed. PT-Balance Assessment Sitting Balance and Reactions Static Sitting Balance Ability Good Dynamic Sitting Balance Ability Fair Standing Balance and Reactions Static Standing Balance Ability Poor Dynamic Standing Balance Ability Poor Device Used mod/max MANAGEMENT SERVICES TECHNICIAN M5 PT-IP Objective Assessments Start: 06/06/21 08:40 Freq: NEEDED Status: Active Protocol: Document 06/06/21 10:18 AW (Rec: 06/06/21 11:47 AW [id number]) Orientation Orientation/Cognition Level of Alertness Alert Orientation Name,Day of Week,Place, Situation Language Function Ability Hard of Hearing Safety Awareness Understands Safety Issues Memory Description No Deficits Noted Gross Range of Motion Lower Extremity ROM Assessment Within Functional Limits Strength Lower Extremity Strength Assessment Bilaterally Impaired Hip 4-/5 Knee 4/5 Sensation Assessment Sensation Gross Sensation WNL Muscle Tone Comments Muscle Tone Comments Pt has truncal rigidity. Hypokinesia and bradykinesia are apparent in bed mobility and transfers. M6 PT-IP Treatment Start: 06/06/21 08:40 Freq: NEEDED Status: Active Protocol: Document 06/06/21 10:18 AW (Rec: 06/06/21 11:47 AW [id number]) Physical Therapy Treatment Education Education Provided Safety M7 PT-IP Assessment and Plan Start: 06/06/21 08:40 Freq: NEEDED Status: Active Protocol: Document 06/06/21 10:18 AW (Rec: 06/06/21 11:47 AW [id number]) PT Summary Assessment and Plan Potential Rehabilitation Potential Fair Status of Condition at Evaluation Evolving Summary Impairments Strength,Balance,Tone,Bed Mobility,Transfers,Gait, Activity Tolerance Assessment Summary Migue is an 85 yo man with history of Parkinson's disease , a fib, CHFpEF, left humerus fracture sustained in a fall in March 2021. He went to SNF rehab following his humerus fracture. He had a 5- week stay which was prolonged after he tested COVID (+). He has been mobilizing primarily in a wheelchair since going home. He is now admitted with CHF exacerbation. On assessment, pt required CGA/ min assist for bed mobility, mod/max assist for step pivot tranfers. Pt has caregiver support at home and PT anticipates he will be safe to return home with 24/7 assist and resumed HH services once medically stable. Goals Bed Mobility Goal Standby Assistance Transfer Goal Contact Guard Assistance Gait Goal Contact Guard Assistance,Front Wheel Walker Gait Distance 25 Other Goals - up/down one step CGA Days to Meet Goals 5 Frequency of Treatment Frequency Of Treatment Once a Day Treatment Plan Physical Therapy Treatment Plan Bed Mobility Training,Transfer Training,Gait Training, Therapeutic Exercise,Balance Retraining,Discharge Planning, Hot or Cold Pack,Neuromuscular Re-ed Other Recommendations and Next Treatment transfers; gait with AD as Focus tolerated; step when able Precautions Other Precautions falls Recommendations To Nursing Amount of Assist Needed 2 Person Assist Discharge Recommendations PT Discharge Recommendations Home with / Assist Available,Home Health Transportation Needs at Discharge Private Vehicle,Wheelchair/ Cabulance
--- NOTE | 2021-06-06 10:49 | OT.IP.EVAL ---
Past Medical History (Last Reviewed 06/06/21 @ 05:56 by Rahul Montalvo MD) Adenomatous colon polyp Atrial fibrillation CAD (coronary artery disease) Celiac disease Closed left hip fracture Compression fracture of L1 lumbar vertebra Congestive heart failure GERD (gastroesophageal reflux disease) History of cholecystectomy History of colonoscopy History of esophagogastroduodenoscopy (EGD) History of hernia repair History of hip surgery History of lumbar fusion History of right hemicolectomy HTN (hypertension) Kidney stones Parkinsons disease Right carpal tunnel syndrome Weight loss, unintentional Surgical History (Last Reviewed 06/06/21 @ 05:56 by Rahul Montalvo MD) History of cholecystectomy History of colonoscopy History of esophagogastroduodenoscopy (EGD) History of hernia repair History of hip surgery History of lumbar fusion History of right hemicolectomy Occupational Therapy Inpatient Evaluation/Re-Eval M1 PT/OT-IP Prior Functional Status Start: 06/06/21 08:40 Freq: NEEDED Status: Active Protocol: Document 06/06/21 10:50 CGR (Rec: 06/06/21 11:04 CGR [id number]) Medical Review Prior Functional Status Medical History Reviewed Yes Communication Pt is slightly RUBY Mobility and Gait Pt states that he has been using a w/c for most of his mobility since returning home from rehab. He does not yet feel comfortable using a walker d/t his LUE fx. He is able to stand pivot to the w/c Activities of Daily Living and IADL's Pt states that he was able to do most of his ADLs since returning home from rehab. Pt has caretakers that assist if needed. Prior Functional Level (Other details) Pt has an over night hand filer balance wheel and differnt caretakers that come in and out throughout the day. Pt's needs assist with bathing (performed by one of the caretakers) and is blind. Pt's son Nasir lives in the house but works off site. Social History Household Members spouse,children,caregiver Living Arrangements House Number of Floors (Floors) Two Floors Number of Stairs To Enter/Railing? 1 step to enter on top level and can stay on top level for all needs. Home Environment Standard Height Toilet,Walk in Shower,Built-In Shower Seat Home Equipment Front Wheel Walker,Four Wheel Walker,Straight Cane,Manual Wheelchair,Raised Toilet Seat w/Armrests,Shower Seat with Backrest,Hand Held Shower, Cataloging Assistant,Sock Aid,Lift Recliner ,Grab Bars Near Toilet,Grab Bars In Shower Employment Status Retired Additional Social History Comment Pt has an adjustable bed M1 PT/OT-IP Prior Functional Status Start: 06/06/21 10:50 Freq: NEEDED Status: Active Protocol: Document 06/06/21 10:50 CGR (Rec: 06/06/21 11:04 CGR [id number]) Medical Review Prior Functional Status Medical History Reviewed Yes Communication Pt is slightly RUBY Mobility and Gait Pt states that he has been using a w/c for most of his mobility since returning home from rehab. He does not yet feel comfortable using a walker d/t his LUE fx. He is able to stand pivot to the w/c Activities of Daily Living and IADL's Pt states that he was able to do most of his ADLs since returning home from rehab. Pt has caretakers that assist if needed. Prior Functional Level (Other details) Pt has an over night hand filer balance wheel and differnt caretakers that come in and out throughout the day. Pt's needs assist with bathing (performed by one of the caretakers) and is blind. Pt's son Nasir lives in the house but works off site. Social History Household Members spouse,children,caregiver Living Arrangements House Number of Floors (Floors) Two Floors Number of Stairs To Enter/Railing? 1 step to enter on top level and can stay on top level for all needs. Home Environment Standard Height Toilet,Walk in Shower,Built-In Shower Seat Home Equipment Front Wheel Walker,Four Wheel Walker,Straight Cane,Manual Wheelchair,Raised Toilet Seat w/Armrests,Shower Seat with Backrest,Hand Held Shower, Cataloging Assistant,Sock Aid,Lift Recliner ,Grab Bars Near Toilet,Grab Bars In Shower Employment Status Retired Additional Social History Comment Pt has an adjustable bed M2 OT-IP Current Condition Start: 06/06/21 10:50 Freq: Status: Active Protocol: Document 06/06/21 10:50 CGR (Rec: 06/06/21 11:04 CGR [id number]) Occupational Therapy Current Condition Current Condition Evaluation Date 06/06/21 Treatment Diagnosis SOB, acute on chronic CHF, recent L humerus fx, parkinsons Diagnosis Onset Date 06/05/21 M3 OT- IP Subjective and Pain Start: 06/06/21 10:50 Freq: Status: Active Protocol: Document 06/06/21 10:50 CGR (Rec: 06/06/21 11:04 CGR [id number]) OT- Subjective Occupational Therapy Visit Type Type Initial Evaluation Visit Start Time 10:26 Visit Stop Time 10:49 Total Visit Minutes 23 Notes Just finished with P.T. for transfer to chair. OT Pain Assessment Pain When Pain Assessed At Rest Pain Present Pain Present Denied Pain M4 OT- IP ADL's Start: 06/06/21 10:50 Freq: Status: Active Protocol: Document 06/06/21 10:50 CGR (Rec: 06/06/21 11:04 CGR [id number]) OT [id number] Comments OT Self-Feeding Comments Not meal time OT ADL-Grooming General Evaluation Grooming Ability Standby Assistance Areas Needing Assistance Retrieving/Set-up of Grooming Items,Face Washing Comments OT Grooming Comments seated in chair at sink OT ADL-Oral Care General Eval Oral Care Ability Standby Assistance Areas of Assistance Brushing Teeth,Retrieving/Set- Up of Items Comments Oral Care Comments seated in chair at sink OT ADL-Dressing Comments OT Dressing Comments not performed OT ADL-Toileting General Evaluation Toileting Ability Total Assistance Comments OT Toileting Comments Pt with ohod OT ADL-Bathing Comments OT Bathing Comments not performed M5 OT- IP IADL's Start: 06/06/21 10:50 Freq: Status: Active Protocol: Document 06/06/21 10:50 CGR (Rec: 06/06/21 11:04 CGR [id number]) OT-Instrumental Activities of Daily Living Deficits IADL Deficits Identified No Deficits Home Safety Awareness Awareness of Need for Assistance at Home Good Awareness Ability to Problem Solve Emergency Able to Problem Solve Situations Medication Management Medication Management No Deficits Identified Money Management Money Management No Deficits Identified Meal Preparation Meal Preparation Caregiver Provides Assist Bakelite Molder Bakelite Molder Caregiver Provides Assist Driving Driving Comments Pt does not drive M6 OT- IP Functional Cognition Start: 06/06/21 10:50 Freq: Status: Active Protocol: Document 06/06/21 10:50 CGR (Rec: 06/06/21 11:04 CGR [id number]) Cognitive Factors Limiting Selfcare Function Cognitive Ability Level of Alertness Alert Patient Orientation Name,Age,Birthday,Month,Date, Year,Day of Week,Place, Situation Attention Span Ability Capable of Focused Attention, Capable of Sustained Attention Ability to Follow Commands Able to Follow Multi-Step Commands OT- Vision and Hearing OT- Hearing Assessment OT- Hearing Assessment Hearing Impaired OT- Vision Assessment Visual Acuity Glasses All The Time Visual Attentiveness WFL Occular Pursuits WFL Visual Convergence WFL Vision Assessment Comments Pt wears bifocals M7 OT- IP Mobility and Balance Start: 06/06/21 10:50 Freq: Status: Active Protocol: Document 06/06/21 10:50 CGR (Rec: 06/06/21 11:04 CGR [id number]) OT-Transfer Assessment Comments Mobility Comments Just performed with P.T. pt declined further mobility at this time M8 OT- IP Objective Assessments Start: 06/06/21 10:50 Freq: Status: Active Protocol: Document 06/06/21 10:50 CGR (Rec: 06/06/21 11:04 CGR [id number]) OT Gross Range of Motion Upper Extremity Range of Motion Assessment Left Impaired ROM Impairments L shld 0-45 OT Strength Upper Extremity Strength Assessment Left Impaired Comments Strength Comments L not tested d/t recent fx, R grossly 4/5 OT- Coordination Assessment Upper Extremity Finger to Nose Test Within Functional Limits Finger Tapping Test Within Functional Limits OT-Muscle Tone Assessment Muscle Tone WNL Yes OT Sensation Assessment Edema Edema Absent M9 OT- IP Assessment and Plan Start: 06/06/21 10:50 Freq: Status: Active Protocol: Document 06/06/21 10:50 CGR (Rec: 06/06/21 11:04 CGR [id number]) OT Summary Assessment and Plan Potential Rehabilitation Potential Good Analytic Complexity at Evaluation High Summary OT Impairments Range of Motion,Strength, Balance,Functional Mobility, Dressing,Toileting,Bathing, Toilet Transfers,Shower Transfers,Activity Tolerance Progress Towards Goals Slow Progress due to Medical Issues Assessment Summary Pt presents as a high complexity evaluation s/p admit for acute on chronic CHF exacerbation. Pt has a recent L humerus fx. Pt is limited with his tranfers at this time , see P.T. note for transfer ability as pt declined further mobility after just finishing with P.T. PT appears to be safe for discharge home with his current extensive set up of caregivers and home health once medically stable. Pt will benefit from continued OT services while hospitalized and upon discharge home. Goals Grooming Goal Independent Dressing Goal Independent Toileting Goal Independent Bathing Goal Independent Toilet Transfer Goal Independent Shower Transfer Goal Independent Days to Meet Goals 15 Frequency of Treatment Frequency Of Treatment Once a Day Treatment Plan OT Treatment Plan ADL Training,Functional Mobility,Therapeutic Exercises ,Patient/Family Education, Discharge Planning Other Treatment Recommendations and Next bsc vs toilet tranfer with use Treatment Focus of a w/c Discharge Recommendations OT Discharge Recommendations Home with Assistance Transportation Needs at Discharge Wheelchair/Cabulance
--- NOTE | 2021-06-06 12:36 | PM.PN.1 ---
Subjective Subjective Date Patient Seen: 06/06/21 Time Patient Seen: 13:42 Interval history: Still with significant weakness from baseline and dyspnea on exertion. Not on supplemental oxygen, and overall feels slightly improved today while diuresing. Exam Vital Signs (past 8 hours): - 06/06/21 08:48 06/06/21 09:25 Temperature 97.5 F L Pulse Rate 95 H Respiratory Rate 17 Blood Pressure 112/68 Pulse Oximetry 98 95 Oxygen Delivery Method Room Air Oxygen Flow Rate 0 Narrative Exam Narrative: GEN: no acute distress HEENT: moist mucous membranes, PERRL NECK: trachea midline, no JVD CV: irregular, tachycardic PULM: crackles bilaterally in his lower lobes ABD: soft, nontender, nondistended, no organomegaly EXT: trace bilateral pitting edema to mid calf. NEURO: awake, alert, oriented, no focal deficits Objective Labs Result Diagrams: 06/06/21 04:42 06/06/21 04:42 Labs: Laboratory Results - last 24 hr 06/05/21 06/05/21 06/06/21 11:40 15:01 04:42 WBC 4.6 RBC 4.24 L Hgb 13.0 L Hct 38.5 L MCV 90.9 MCH 30.8 MCHC 33.9 RDW 14.4 Plt Count 133 L Neut % (Auto) 66.8 Lymph % (Auto) 18.2 L [place] % (Auto) 10.5 Eos % (Auto) 3.6 Baso % (Auto) 0.9 Neut # (Auto) 3000 Lymph # (Auto) 800 L [place] # (Auto) 500 Eos # (Auto) 200 Baso # (Auto) 0 Sodium Potassium Chloride Carbon Dioxide BUN Creatinine Estimated GFR BUN/Creatinine Ratio Glucose Calcium Magnesium NT-Pro-B Natriuret Pep 4120 H SARS-CoV-2 (PCR) Negative 06/06/21 04:42 WBC RBC Hgb Hct MCV MCH MCHC RDW Plt Count Neut % (Auto) Lymph % (Auto) [place] % (Auto) Eos % (Auto) Baso % (Auto) Neut # (Auto) Lymph # (Auto) [place] # (Auto) Eos # (Auto) Baso # (Auto) Sodium 135 L Potassium 3.5 Chloride 101 Carbon Dioxide 32 BUN 24 H Creatinine 0.97 Estimated GFR > 60.0 BUN/Creatinine Ratio 24.7 H Glucose 94 Calcium 8.8 Magnesium 2.0 NT-Pro-B Natriuret Pep SARS-CoV-2 (PCR) [facility] Medical History Adenomatous colon polyp Atrial fibrillation CAD (coronary artery disease) Celiac disease Closed left hip fracture Compression fracture of L1 lumbar vertebra Congestive heart failure GERD (gastroesophageal reflux disease) HTN (hypertension) Kidney stones Parkinsons disease Right carpal tunnel syndrome Weight loss, unintentional Surgical History History of cholecystectomy History of colonoscopy History of esophagogastroduodenoscopy (EGD) History of hernia repair History of hip surgery History of lumbar fusion History of right hemicolectomy Family History Father Intracranial bleed Mother No problems noted. Brother Heart disease Sister Asthma Social History household members: spouse, children and caregiver Smoking Status: Former smoker alcohol intake: current Assessment & Plan Assessment & Plan narrative: Mr. Calhoun is an 85M with H afib, CHF who presents with afib with RVR and acute CHF exacerbation 1. Acute on chronic CHFpEF exacerbation -last known EF was preserved -patient admits to eating lots of salty peanuts, possible exacerbation reason -for now ordered for IV lasix, will continue given improvement. -Echo performed today, results pending. -encourage low salt diet, and ordered fluid restriction 2. Atrial fibrillation with RVR -ordered for higher dose metoprolol, was previously on amiodarone, but now stopped, will try to control without amio. Remains rate controlled this morning on increased metoprolol. -continue rivaroxaban -continue digoxin 3. Hypertension -continue metoprolol 4. COPD, chronic -continue montelukast -prn nebs 5. Parkinsons -continue sinemet CODE: Full Proxy: Samira Calhoun, Dispo: anticipate discharge probably home in 1-2 days, pending PT/OT evaluations and improvement in dyspnea on exertion and weakness. Time Spent With Patient Critical Care time: I spent a total of [] minutes of critical care time on this patient's care today; this time is exclusive of procedural time. Quality VTE Deep Vein Thrombosis/Pulmonary Embolism Present on Admission: No
[2021-06-06] MEDS: NYSTATIN POWDER 15GM 1 APPLIC TOP (16:37)
[2021-06-06 17:44] LABS: Troponin I 0.017 ng/mL (0.01-0.034)
[2021-06-06] MEDS: CARBIDOPA-LEVODOPA 25/100 TABLET 3 EACH PO (20:29)
--- NOTE | 2021-06-06 21:12 | PC.NURSE ---
Patient is alert and oriented. Chronic left facial droop. Breath sounds CTA with RA sat of 95%; denies SOB. HR irregular w/telemetry reading of afib RVR w/BBB. BP low at 96/64 but is asymptomatic. Denied nausea. BT present and abdomen is soft. Indwelling catheter is patent; urine is clear yellow. Staff assist to reposition q2h as not able to move self well. Denied pain. Limited ROM in left UE related to recent humeral head fx. Trace bilateral LE edema. Fall risk score is high and bed alarm is activated. Continues on fluid restriction of 1500cc/24h
[2021-06-07] VITALS (8 sets, daily range): BP systolic 97–123; BP diastolic 53–74; PULSE 78–111; RESP 16–18; TEMP 35.8–36.8; O2SAT 94–99
[2021-06-07] MEDS: FUROSEMIDE 40 MG/4 ML VIAL IV ×2 (06:11→18:43)
[2021-06-07] MEDS: SODIUM CHLORIDE 0.9% FLUSH 10 ML IV ×3 (06:14→21:23)
[2021-06-07 06:19] LABS: Magnesium 2.1 mg/dL (1.6-2.3)
[2021-06-07 06:20] LABS: BUN Creatinine Ratio 28.2 (6-22); Blood Urea Nitrogen 29 mg/dL (9-20); Calcium 9.4 mg/dL (8.4-10.2); Carbon Dioxide 33 mmol/L (22-32); Chloride 102 mmol/L (98-107); Estimated Glomerular Filt Rate > 60.0 mL/min (>60); Glucose 111 mg/dL (80-110); HEMOLYSIS < 15 (0-50); Potassium 3.7 mmol/L (3.4-5.1); Sodium 137 mmol/L (137-145)
[2021-06-07] MEDS: CARBIDOPA-LEVODOPA 25/100 TABLET 4 EACH PO (09:42)
[2021-06-07] MEDS: MONTELUKAST 10 MG TABLET PO (09:42)
[2021-06-07] MEDS: RIVAROXABAN 10 MG TABLET 15 MG PO (09:43)
[2021-06-07] MEDS: FLUTICASONE 120 SPRAY/16 GM SPRAY.SUSP NASAL ×2 (09:44→21:22)
--- NOTE | 2021-06-07 11:19 | PT.IPTN ---
Physical Therapy Treatment Note M2 PT-IP Current Condition Start: 06/06/21 08:40 Freq: NEEDED Status: Active Protocol: Document 06/06/21 10:18 AW (Rec: 06/06/21 11:47 AW [id number]) Physical Therapy Current Condition Current Condition Evaluation Date 06/06/21 Treatment Diagnosis CHF exacerbation; recent L humerus fracture; PD; difficulty in walking Onset Date 06/05/21 M3 PT-IP Subjective Start: 06/06/21 08:40 Freq: NEEDED Status: Active Protocol: Document 06/07/21 10:43 KS (Rec: 06/07/21 13:24 KS [id number]) Subjective Physical Therapy Visit Type Type Treatment Note Visit Start Time 10:43 Visit Stop Time 11:19 Total Visit Minutes 36 Number of INSURANCE HEALTHCARE CONSULTANT Visits 1 Physical Therapy Visit Comments Patient Comments Pt is willing to participate with PT. M4 PT-IP Mobility and Gait Start: 06/06/21 08:40 Freq: NEEDED Status: Active Protocol: Document 06/07/21 10:43 KS (Rec: 06/07/21 13:24 KS [id number]) PT-Bed Mobility Assessment Supine to Sit Supine to Sit Moderate Assistance,1 Person Assistance,Head of Bed Elevated Sit to Supine Sit to Supine Contact Guard Assistance Scooting Scooting to Edge of Bed Minimal Assistance PT-Transfer Assessment Sit to and From Stand Sit to and from Stand Moderate Assistance,1 Person Assistance,Use of Upper Extremities Equipment Transfer Assistive Device Gait Belt,Front Wheeled Walker Orthotic/Prosthetic Devices or Brace: No Transfers Transfer Destination Bed Transfer Technique Lateral steps Transfer Ability Level of Assist Moderate Assistance,1 Person Assistance,Use of Upper Extremities Comments Mobility Comments Pt in bed upon arrival and not agreeable to transfer to chair but agreeable to try standing. Mod A for sup<>Sit, Min A and cues for scooting EOB. Pt able to stand w/ FWW w /o use of LUE Mod A and cues. Once standing, pt maintained standing ~5 min w/ short bouts of marching in place throughout. Pt occassionally leans against bed for support but is more out of fear of falling. Min A for slow descent. After 2 min rest pt performed additional sit<> stand w/ FWW Mod A and took 3 lateralt steps towards HOB MOd A for FWW management. Min A for slow descent when sitting. Pt then performed 1x10 bilateral ankle pumps, seated knee extension, and seated marches. CGA for sit<>sup. Pt left in bed w/ all needs in reach. Gait Assessment Gait Gait Assistance Required: Moderate Assistance,1 Person Assist Distance (Feet) 2 Assistive Devices Assistive Device Gait Belt,Front Wheeled Walker Comments Gait Comments Only able to take 3 small steps towards HOB w/ Mod A for FWW management. Stair Climbing Assessment Comments Stair Climbing Comments Not assessed. PT-Balance Assessment Sitting Balance and Reactions Static Sitting Balance Ability Good Dynamic Sitting Balance Ability Fair Standing Balance and Reactions Static Standing Balance Ability Fair Dynamic Standing Balance Ability Poor Device Used FWW M5 PT-IP Objective Assessments Start: 06/06/21 08:40 Freq: NEEDED Status: Active Protocol: Document 06/06/21 10:18 AW (Rec: 06/06/21 11:47 AW [id number]) Orientation Orientation/Cognition Level of Alertness Alert Orientation Name,Day of Week,Place, Situation Language Function Ability Hard of Hearing Safety Awareness Understands Safety Issues Memory Description No Deficits Noted Gross Range of Motion Lower Extremity ROM Assessment Within Functional Limits Strength Lower Extremity Strength Assessment Bilaterally Impaired Hip 4-/5 Knee 4/5 Sensation Assessment Sensation Gross Sensation WNL Muscle Tone Comments Muscle Tone Comments Pt has truncal rigidity. Hypokinesia and bradykinesia are apparent in bed mobility and transfers. M6 PT-IP Treatment Start: 06/06/21 08:40 Freq: NEEDED Status: Active Protocol: Document 06/07/21 10:43 KS (Rec: 06/07/21 13:24 KS [id number]) Physical Therapy Treatment Exercises Exercises Ankle Pumps,Seated Knee Flexion/Extension Education Education Provided Safety Other Treatments Other Treatment Performed Seated marching M7 PT-IP Assessment and Plan Start: 06/06/21 08:40 Freq: NEEDED Status: Active Protocol: Document 06/07/21 10:43 KS (Rec: 06/07/21 13:24 KS [id number]) PT Summary Assessment and Plan Potential Rehabilitation Potential Fair Status of Condition at Evaluation Evolving Summary Impairments Strength,Balance,Tone,Bed Mobility,Transfers,Gait, Activity Tolerance Assessment Summary Pt showed some improvements w/ mobility today requiring mostly Mod A throughout treatment. Able to stand ~5 min w/ FWW and support on L side due to pt not wanting to use LUE, he also performed short bouts of marching in place, took lateral steps towards HOB, and completed LE strengthening exercises while seated EOB SBA. Pt has caregiver support at home and PT anticipates he will be safe to return home with 24/7 assist and resumed HH services once medically stable. Goals Bed Mobility Goal Standby Assistance Transfer Goal Contact Guard Assistance Gait Goal Contact Guard Assistance,Front Wheel Walker Gait Distance 25 Other Goals - up/down one step CGA Days to Meet Goals 5 Frequency of Treatment Frequency Of Treatment Once a Day Treatment Plan Physical Therapy Treatment Plan Bed Mobility Training,Transfer Training,Gait Training, Therapeutic Exercise,Balance Retraining,Discharge Planning, Hot or Cold Pack,Neuromuscular Re-ed Other Recommendations and Next Treatment transfers; gait with AD as Focus tolerated; step when able Precautions Other Precautions falls Recommendations To Nursing Amount of Assist Needed 2 Person Assist Discharge Recommendations PT Discharge Recommendations Home with 24/7 Assist Available,Home Health Transportation Needs at Discharge Private Vehicle,Wheelchair/ Cabulance
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
--- NOTE | 2021-06-07 17:51 | PM.PN.1 ---
Subjective Subjective Interval history: The patient reports significant improvement of his respiratory status since admission. He reports good diuresis while on IV lasix. Exam Vital Signs (past 8 hours): - 06/07/21 11:00 Temperature 97.9 F Pulse Rate 106 H Respiratory Rate 18 Blood Pressure 117/74 Pulse Oximetry 96 Oxygen Delivery Method Room Air Oxygen Flow Rate 0 Const Other: Patient laying in bed comfortably upon my entering the room, in no apparent acute distress. Eyes Other: No scleral icterus appreciated. Neck Other: No carotid bruits noted. Resp Other: Lungs clear to auscultation bilaterally, with faint wet crackles at the bases. Cardio Other: Slightly tachycardic rate with regular rhythm. S1 and S2 heart sounds normal. No extra heart sounds or murmurs appreciated. GI Other: Soft, non-distended, non-tender. Bowel sounds present. Skin Other: No grossly abnormal skin lesions noted. Extrem Other: Palpable dorsalis pedis pulses bilaterally. Objective Labs Result Diagrams: 06/06/21 04:42 06/07/21 05:45 Labs: Laboratory Results - last 24 hr 06/06/21 06/07/21 06/07/21 16:53 05:45 05:45 Sodium 137 Potassium 3.7 Chloride 102 Carbon Dioxide 33 H BUN 29 H Creatinine 1.03 Estimated GFR > 60.0 BUN/Creatinine Ratio 28.2 H Glucose 111 H Calcium 9.4 Magnesium 2.1 Troponin I 0.017 [facility] Medical History Adenomatous colon polyp Atrial fibrillation CAD (coronary artery disease) Celiac disease Closed left hip fracture Compression fracture of L1 lumbar vertebra Congestive heart failure GERD (gastroesophageal reflux disease) HTN (hypertension) Kidney stones Parkinsons disease Right carpal tunnel syndrome Weight loss, unintentional Surgical History History of cholecystectomy History of colonoscopy History of esophagogastroduodenoscopy (EGD) History of hernia repair History of hip surgery History of lumbar fusion History of right hemicolectomy Family History Father Intracranial bleed Mother No problems noted. Brother Heart disease Sister Asthma Social History household members: spouse, children and caregiver Smoking Status: Former smoker alcohol intake: current Assessment & Plan Assessment & Plan narrative: Mr. Calhoun is an 85M with PMH afib, CHF who presents with afib with RVR and acute CHF exacerbation. 1. Acute on chronic CHFpEF exacerbation -last known EF was preserved -patient admits to eating lots of salty peanuts, possible exacerbation reason -for now ordered for IV lasix, will continue given improvement. -Echo performed, results pending. -encourage low salt diet, and ordered fluid restriction 2. Atrial fibrillation with RVR -ordered for higher dose metoprolol, was previously on amiodarone, but now stopped, will try to control without amio. Remains rate controlled this morning on increased metoprolol. -continue rivaroxaban -continue digoxin 3. Hypertension -continue metoprolol 4. COPD, chronic -continue montelukast -prn nebs 5. Parkinsons -continue sinemet CODE: Full Proxy: Samira Calhoun, I have utilized all available immediate resources to reconcile the patient's current medications. Dispo: Anticipate discharge probably home in 1-2 days, pending PT/OT evaluations and improvement in dyspnea on exertion and weakness. Time Spent With Patient Critical Care time: I spent a total of [] minutes of critical care time on this patient's care today; this time is exclusive of procedural time. Quality VTE Deep Vein Thrombosis/Pulmonary Embolism Present on Admission: No MIPS - Admit I confirm the patient?s Advance Care Plan is present, Code status is documented, Surrogate decision maker is in patient?s record [If Yes, STOP here]: Yes
[2021-06-07] MEDS: CARBIDOPA-LEVODOPA 25/100 TABLET 3 EACH PO (21:22)
[2021-06-07] MEDS: NYSTATIN POWDER 15GM 1 APPLIC TOP (21:32)
[2021-06-08] VITALS (13 sets, daily range): BP systolic 94–118; BP diastolic 55–78; PULSE 97–122; RESP 16–18; TEMP 35.6–37; O2SAT 95–99
[2021-06-08] MEDS: FUROSEMIDE 40 MG/4 ML VIAL IV (06:02)
[2021-06-08] MEDS: METOPROLOL ER 50 MG TABLET PO (08:38)
[2021-06-08] MEDS: CARBIDOPA-LEVODOPA 25/100 TABLET 4 EACH PO (08:39)
[2021-06-08] MEDS: RIVAROXABAN 10 MG TABLET 15 MG PO (08:40)
[2021-06-08] MEDS: MONTELUKAST 10 MG TABLET PO (08:40)
[2021-06-08] MEDS: DIGOXIN 0.125 MG TABLET PO (08:45)
[2021-06-08] MEDS: FLUTICASONE 120 SPRAY/16 GM SPRAY.SUSP NASAL ×2 (08:45→20:31)
[2021-06-08] MEDS: SODIUM CHLORIDE 0.9% FLUSH 10 ML IV ×2 (08:46→20:31)
--- NOTE | 2021-06-08 10:32 | PT.IPTN ---
Physical Therapy Treatment Note M2 PT-IP Current Condition Start: 06/06/21 08:40 Freq: NEEDED Status: Active Protocol: Document 06/06/21 10:18 AW (Rec: 06/06/21 11:47 AW [id number]) Physical Therapy Current Condition Current Condition Evaluation Date 06/06/21 Treatment Diagnosis CHF exacerbation; recent L humerus fracture; PD; difficulty in walking Onset Date 06/05/21 M3 PT-IP Subjective Start: 06/06/21 08:40 Freq: NEEDED Status: Active Protocol: Document 06/08/21 10:26 [facility] (Rec: 06/08/21 10:32 [facility] [id number]) Subjective Physical Therapy Visit Type Type Treatment Note Visit Start Time 09:49 Visit Stop Time 10:21 Total Visit Minutes 32 Number of BATTERY CONTAINER TESTER Visits 0 Physical Therapy Visit Comments Patient Comments Pt reports his breathing is better. He is hoping to go home today M4 PT-IP Mobility and Gait Start: 06/06/21 08:40 Freq: NEEDED Status: Active Protocol: Document 06/08/21 10:26 [facility] (Rec: 06/08/21 10:32 [facility] [id number]) PT-Bed Mobility Assessment Supine to Sit Supine to Sit Standby Assistance,Head of Bed Elevated Scooting Scooting to Edge of Bed Minimal Assistance PT-Transfer Assessment Sit to and From Stand Sit to and from Stand Minimal Assistance,Use of Upper Extremities Equipment Transfer Assistive Device None,Gait Belt Orthotic/Prosthetic Devices or Brace: No Transfers Transfer Destination Chair Transfer Technique Stand Step Pivot Transfer Ability Level of Assist Minimal Assistance,Use of Upper Extremities Comments Mobility Comments supine to sit was very slow and pt had HOB elevated and was able to get to sitting SBA . He had pain w/bed rail at legs so pillow placed and pt did most of scooting SBA but needed help fro last little bit and required min A. Pt typically grabs for a dresser in front that has an open drawer so grabbed PT hand and w/PT holding her hand stable pt was able to use that hand and transfer w/o PT helping at gait belt for transfer to chair. he did not amb just transfered to the chair. Pt left with call light in reach & chair alarm on and edu to not get up w/o assist. Pt wore sling on LUE for transfer M5 PT-IP Objective Assessments Start: 06/06/21 08:40 Freq: NEEDED Status: Active Protocol: Document 06/06/21 10:18 AW (Rec: 06/06/21 11:47 AW [id number]) Orientation Orientation/Cognition Level of Alertness Alert Orientation Name,Day of Week,Place, Situation Language Function Ability Hard of Hearing Safety Awareness Understands Safety Issues Memory Description No Deficits Noted Gross Range of Motion Lower Extremity ROM Assessment Within Functional Limits Strength Lower Extremity Strength Assessment Bilaterally Impaired Hip 4-/5 Knee 4/5 Sensation Assessment Sensation Gross Sensation WNL Muscle Tone Comments Muscle Tone Comments Pt has truncal rigidity. Hypokinesia and bradykinesia are apparent in bed mobility and transfers. M6 PT-IP Treatment Start: 06/06/21 08:40 Freq: NEEDED Status: Active Protocol: Document 06/08/21 10:26 [facility] (Rec: 06/08/21 10:32 [facility] [id number]) Physical Therapy Treatment Education Education Provided Safety Other Treatments Other Treatment Performed edu to pt re: calling for assist and using help as needed athome and encouraged HH M7 PT-IP Assessment and Plan Start: 06/06/21 08:40 Freq: NEEDED Status: Active Protocol: Document 06/08/21 10:26 [facility] (Rec: 06/08/21 10:32 [facility] [id number]) PT Summary Assessment and Plan Summary Assessment Summary Pt improed w/mobility today and requird less assist but it took a long time for pt to achieve bed mobility and transfer. He will have CG assist at home along w/son. He has no steps on the way in from the garage and can just be wheeled in from the car so will not need to do step. Goals Bed Mobility Goal Standby Assistance Transfer Goal Contact Guard Assistance Gait Goal Contact Guard Assistance,Front Wheel Walker Gait Distance 25 Other Goals - up/down one step CGA Days to Meet Goals 5 Frequency of Treatment Frequency Of Treatment Once a Day Treatment Plan Physical Therapy Treatment Plan Bed Mobility Training,Transfer Training,Gait Training, Therapeutic Exercise,Balance Retraining,Discharge Planning, Hot or Cold Pack,Neuromuscular Re-ed Other Recommendations and Next Treatment cont to work transfers Focus Precautions Other Precautions falls Recommendations To Nursing Amount of Assist Needed 1 Person Assist Discharge Recommendations PT Discharge Recommendations Home with 24/7 Assist Available,Home Health Transportation Needs at Discharge Private Vehicle,Wheelchair/ Cabulance
--- NOTE | 2021-06-08 11:16 | OT.IPNOTE ---
Pt hospitalist during round states to hold therapy on pt if tachy. Went to ICU and nurses states pt still tachy on the monitor, therefore hold OT treatment today.
--- NOTE | 2021-06-08 11:23 | CM.DPC ---
DCP Cont: Discussed patient during team round. Dr. Padgett mentioned that patient most likely will be here another day secondary to his CHF and heart rate. Over all plan is for him to go home with [facility]. Patient is observation, and Maryana would just need DC Summary. He has private caregivers at home. P: DCP to continue to follow. Plan is home when stable with [facility] and private caregivers. Jeannie Lew RN/Resource Development Director
[2021-06-08] MEDS: METOPROLOL ER 25 MG TABLET PO (13:04)
--- NOTE | 2021-06-08 14:10 | P.PN_ITS ---
Subjective Subjective Interval history: The patient reports feeling overall well. He denies having any acute complaints. Exam Vital Signs (past 8 hours): - 06/08/21 07:00 06/08/21 08:00 06/08/21 08:27 Temperature 97.5 F L Pulse Rate 118 H Respiratory Rate 16 Blood Pressure 118/69 Pulse Oximetry 98 95 98 06/08/21 08:38 06/08/21 08:45 06/08/21 12:00 Temperature 96.1 F L Pulse Rate 122 H 122 H 102 H Respiratory Rate 18 Blood Pressure 118/69 118/69 102/70 Pulse Oximetry 99 06/08/21 13:04 Temperature Pulse Rate 102 H Respiratory Rate Blood Pressure 102/70 Pulse Oximetry Oxygen Delivery Method Room Air Oxygen Flow Rate 0 Narrative Exam Narrative: Const Other: Patient laying in bed comfortably upon my entering the room, in no apparent acute distress. Eyes Other: No scleral icterus appreciated. Neck Other: No carotid bruits noted. Resp Other: Lungs clear to auscultation bilaterally, with faint wet crackles at the bases. Cardio Other: Slightly tachycardic rate with regular rhythm. S1 and S2 heart sounds normal. No extra heart sounds or murmurs appreciated. GI Other: Soft, non-distended, non-tender. Bowel sounds present. Skin Other: No grossly abnormal skin lesions noted. Extrem Other: Palpable dorsalis pedis pulses bilaterally. Objective Labs Result Diagrams: 06/06/21 04:42 06/07/21 05:45 Labs: Laboratory Results - last 24 hr 06/08/21 04:28 Magnesium 2.0 [facility] Medical History Adenomatous colon polyp Atrial fibrillation CAD (coronary artery disease) Celiac disease Closed left hip fracture Compression fracture of L1 lumbar vertebra Congestive heart failure GERD (gastroesophageal reflux disease) HTN (hypertension) Kidney stones Parkinsons disease Right carpal tunnel syndrome Weight loss, unintentional Surgical History History of cholecystectomy History of colonoscopy History of esophagogastroduodenoscopy (EGD) History of hernia repair History of hip surgery History of lumbar fusion History of right hemicolectomy Family History Father Intracranial bleed Mother No problems noted. Brother Heart disease Sister Asthma Social History household members: spouse, children and caregiver Smoking Status: Former smoker alcohol intake: current Assessment & Plan Assessment & Plan narrative: Mr. Calhoun is an 85M with PMH afib, CHF who presents with afib with RVR and acute CHF exacerbation. 1. Acute on chronic CHFrEF exacerbation - Last known EF preserved, and now with reduced EF 30%- Will likely need Bumex 0.5 mg bid as an outpatient 2. Atrial fibrillation with RVR - Will likely need increased dose of home Toprol 50 mg daily for better rate control - Will continue digoxin for inotropy, and home rivaroxaban for anticoagulation 3. Hypertension - Continue home Toprol - Can start lisinopril if BP tolerates 4. COPD, chronic - Continue home montelukast 5. Parkinson's disease - Continue home sinemet Time Spent With Patient Critical Care time: I spent a total of [] minutes of critical care time on this patient's care today; this time is exclusive of procedural time. Quality VTE Deep Vein Thrombosis/Pulmonary Embolism Present on Admission: No
[2021-06-08] MEDS: CARBIDOPA-LEVODOPA 25/100 TABLET 3 EACH PO (20:31)
[2021-06-08] MEDS: NYSTATIN POWDER 15GM 1 APPLIC TOP (20:33)
[2021-06-09] VITALS (7 sets, daily range): BP systolic 114–119; BP diastolic 60–69; PULSE 89–107; RESP 16–19; TEMP 36.5–36.7; O2SAT 96–98
[2021-06-09] MEDS: ACETAMINOPHEN 325 MG TABLET 650 MG PO (04:43)
[2021-06-09] MEDS: BUMETANIDE 1 MG TABLET 0.5 MG PO (08:37)
[2021-06-09] MEDS: CARBIDOPA-LEVODOPA 25/100 TABLET 4 EACH PO (08:37)
[2021-06-09] MEDS: FLUTICASONE 120 SPRAY/16 GM SPRAY.SUSP NASAL (08:38)
[2021-06-09] MEDS: METOPROLOL ER 25 MG TABLET 75 MG PO (08:38)
[2021-06-09] MEDS: RIVAROXABAN 10 MG TABLET 15 MG PO (08:39)
[2021-06-09] MEDS: MONTELUKAST 10 MG TABLET PO (08:39)
--- NOTE | 2021-06-09 10:23 | PC.NURSE ---
Addendum entered by Elli Mann R.N. 06/09/21 14:03: Patient able to void after hood removal >100cc, 39 PVR. Given discharge information regarding f/u appointment with PCP, medication changes, activity and diet. Patient receptive to education. IV removed and belongings gathered. Patient denies further questions or concerns. Original Note: Patient resting in bed this am, would like to remain in bed for breakfast. A/O x 3. MD in to see patient to discuss discharge plans. Patient receptive to plan to return home with care. MD gave verbal to remove hood, completed, patient tolerated well. Awaiting void. Patient denies chest pain, SOB, headache, or dizziness. No edema noted. VSS, HR irregular, Tele in place. Patient remains on RA, lungs CTA. LUE sling was not completely on during assessment, patient requests removal for now. Refraining from push-pull movements with left arm until 06/24. Patient denies pain at this time. Nystatin applied to groin. Patient reports last BM 06/08. BT active x 4. Soft, non-tender. Patient denies further needs at this time, call light and belongings remain in reach.
--- NOTE | 2021-06-09 11:18 | CM.DPNOTE ---
Discharge Planning Note: Patient is medically stable to discharge home today. Updated F2F faxed to [facility] for restart of PT, OT, Nursing, and bath aide. Voicemail left for Balpreet as well informing of discharge and new F2F provided. No other discharge planning needs identified. Alvin ARANDA
--- NOTE | 2021-06-09 11:36 | P.PN_ITS ---
Subjective Subjective Interval history: The patient denies any acute complaints this morning. He reports he's eating fine and denies any issues with urination/defecation. He is requesting to go home today as he feels back to his baseline. Exam Vital Signs (past 8 hours): - 06/09/21 04:44 06/09/21 07:00 06/09/21 08:00 Temperature 97.7 F 98.0 F Pulse Rate 100 H 89 Respiratory Rate 16 19 Blood Pressure 119/67 114/69 Pulse Oximetry 96 98 96 06/09/21 08:38 06/09/21 09:35 Temperature Pulse Rate 89 Respiratory Rate Blood Pressure 114/69 Pulse Oximetry 98 Oxygen Delivery Method Room Air Oxygen Flow Rate 0 Narrative Exam Narrative: Const Other: Patient sitting up in bed comfortably upon my entering the room, eating victorino akfast, in no apparent acute distress. Eyes Other: No scleral icterus appreciated. Neck Other: No carotid bruits noted. Resp Other: Lungs clear to auscultation bilaterally. Cardio Other: Slightly tachycardic rate with regular rhythm. S1 and S2 heart sounds normal. No extra heart sounds or murmurs appreciated. GI Other: Soft, non-distended, non-tender. Bowel sounds present. Skin Other: No grossly abnormal skin lesions noted. Extrem Other: Palpable dorsalis pedis pulses bilaterally. Objective Labs Result Diagrams: 06/06/21 04:42 06/07/21 05:45 Labs: Laboratory Results - last 24 hr 06/09/21 04:50 Magnesium 2.0 [facility] Medical History Adenomatous colon polyp Atrial fibrillation CAD (coronary artery disease) Celiac disease Closed left hip fracture Compression fracture of L1 lumbar vertebra Congestive heart failure GERD (gastroesophageal reflux disease) HTN (hypertension) Kidney stones Parkinsons disease Right carpal tunnel syndrome Weight loss, unintentional Surgical History History of cholecystectomy History of colonoscopy History of esophagogastroduodenoscopy (EGD) History of hernia repair History of hip surgery History of lumbar fusion History of right hemicolectomy Family History Father Intracranial bleed Mother No problems noted. Brother Heart disease Sister Asthma Social History household members: spouse, children and caregiver Smoking Status: Former smoker alcohol intake: current Assessment & Plan Assessment & Plan narrative: Mr. Calhoun is an 85M with PMH afib, CHF who presents with afib with RVR and acute HFrEF exacerbation. 1. Acute on chronic HFrEF exacerbation, resolved - Last known EF preserved, and now with reduced EF 30%, likely ischemic cardiomyopathy - Will replace home lasix with PO Bumex 0.5 mg daily, as the latter has better intestinal absorption 2. Paroxysmal atrial fibrillation with RVR, resolved - Increased home Toprol by 25 mg, to now Toprol 75 mg daily for rate control - Will continue digoxin for inotropy, and home rivaroxaban for anticoagulation 3. Hypertension - Continue home Toprol - Can start lisinopril outpatient if BP tolerates 4. COPD, chronic - Continue home montelukast 5. Parkinson's disease - Continue home Sinemet VTE prophylaxis: Home Xarelto Time Spent With Patient Critical Care time: I spent a total of [] minutes of critical care time on this patient's care today; this time is exclusive of procedural time. Quality VTE Deep Vein Thrombosis/Pulmonary Embolism Present on Admission: No
--- NOTE | 2021-06-09 11:44 | PM.DS.1 ---
History of Present Illness History of Present Illness Chief complaint: chest pain Narrative: Mr. Calhoun is an 85M with PMH paroxysmal afib, CHFpEF, HTN, and admission a couple months ago for fall and humerus head fracture who presents to the hospital with shortness of breath. He notes some shortness of breath with activity and with lying down for the last couple weeks. No chest pain. No cough, fevers/chills. He has also noted lower leg swelling. He has been eating salty peanuts frequently. He was asked to come in by his home health agency for concern for low blood pressure and fast heart rate. In the ED workup was done, vitals notable for tachycardia in the 120s. Labs notable for WBC 4.8, hgb 12.2, plts 129, BUN 27, creatinine 0.93. Trop 0.018, BNP 4120. Chest xray showed no acute process. He was ordered for lasis and admitted for further treatment. Written by admitting provider. Discharge Providers Provider Date of admission: 06/08/21 14:52 Discharge Date: 06/09/21 Primary care physician: Luis Enrique Small MD Consults: 06/05/21 14:49 Consult to Occupational Therapy Evaluate & Treat Comment: Physician Instructions: Evaluate and treat Consult to Physical Therapy Evaluate & Treat Comment: Physician Instructions: Evaluate and Treat Discharge provider: Jennifer Padgett MD Summary Hospital Course Discharge Diagnosis: Mr. Calhoun is an 85M with PMH paroxysmal afib, HFrEF (EF 30%) who presents with afib with RVR and acute HFrEF exacerbation. 1. Acute on chronic HFrEF exacerbation, resolved - Last known EF preserved, and now with reduced EF 30%, likely ischemic cardiomyopathy - Will replace home lasix with PO Bumex 0.5 mg daily, as the latter has better intestinal absorption 2. Paroxysmal atrial fibrillation with RVR, resolved - Increased home Toprol by 25 mg, to now Toprol 75 mg daily for rate control - Will continue digoxin for inotropy, and home rivaroxaban for anticoagulation 3. Hypertension - Continue home Toprol - Can start lisinopril outpatient if BP tolerates 4. COPD, chronic - Continue home montelukast 5. Parkinson's disease - Continue home Sinemet Exam Vital Signs (past 8 hours): - 06/09/21 04:44 06/09/21 07:00 06/09/21 08:00 Temperature 97.7 F 98.0 F Pulse Rate 100 H 89 Respiratory Rate 16 19 Blood Pressure 119/67 114/69 Pulse Oximetry 96 98 96 06/09/21 08:38 06/09/21 09:35 Temperature Pulse Rate 89 Respiratory Rate Blood Pressure 114/69 Pulse Oximetry 98 Oxygen Delivery Method Room Air Oxygen Flow Rate 0 Objective Labs Result Diagrams: 06/06/21 04:42 06/07/21 05:45 Labs: Laboratory Results - last 24 hr 06/09/21 04:50 Magnesium 2.0 [facility] Medical History Adenomatous colon polyp Atrial fibrillation CAD (coronary artery disease) Celiac disease Closed left hip fracture Compression fracture of L1 lumbar vertebra Congestive heart failure GERD (gastroesophageal reflux disease) HTN (hypertension) Kidney stones Parkinsons disease Right carpal tunnel syndrome Weight loss, unintentional Surgical History History of cholecystectomy History of colonoscopy History of esophagogastroduodenoscopy (EGD) History of hernia repair History of hip surgery History of lumbar fusion History of right hemicolectomy Family History Father Intracranial bleed Mother No problems noted. Brother Heart disease Sister Asthma Social History household members: spouse, children and caregiver Smoking Status: Former smoker alcohol intake: current Discharge Assessment & Plan Assessment and Plan Assessment: Mr. Calhoun is an 85M with PMH paroxysmal afib, HFrEF (EF 30%) who presents with afib with RVR and acute HFrEF exacerbation. 1. Acute on chronic HFrEF exacerbation, resolved - Last known EF preserved, and now with reduced EF 30%, likely ischemic cardiomyopathy - Will replace home lasix with PO Bumex 0.5 mg daily, as the latter has better intestinal absorption 2. Paroxysmal atrial fibrillation with RVR, resolved - Increased home Toprol by 25 mg, to now Toprol 75 mg daily for rate control - Will continue digoxin for inotropy, and home rivaroxaban for anticoagulation 3. Hypertension - Continue home Toprol - Can start lisinopril outpatient if BP tolerates 4. COPD, chronic - Continue home montelukast 5. Parkinson's disease - Continue home Sinemet Discharge Plan Discharge orders & Medications Discharge Orders: Discharge (Order); Ordered 06/09/21 Ordered By: Jennifer Padgett Prescriptions: New metoprolol succinate [Toprol XL] 50 mg tablet extended release 24 hr 75 mg PO DAILY Qty: 180 4RF bumetanide 0.5 mg tablet 0.5 mg PO DAILY Qty: 90 4RF Continued Multi Complete with Iron 18-400 mg-mcg Tablet 1 tab PO QAM Qty: 0 0RF B12 5,000-100 mcg Lozenge 5,000 lisette SUBLINGUAL QAM 0RF PreserVision Lutein 226 mg-200 unit -5 mg-0.8 mg Capsule 1 cap PO BID 0RF alpha lipoic acid 100 mg Capsule 100 mg PO DAILY 0RF cholecalciferol (vitamin D3) 2,000 unit Tablet,Chewable 2,000 unit PO DAILY 0RF carbidopa-levodopa 25-100 mg Tablet 4 ea PO DAILY Qty: 10 0RF carbidopa-levodopa 25-100 mg Tablet 3 ea PO BEDTIME Qty: 10 0RF magnesium chloride 64 mg Tablet Extended Release 128 mg PO DAILY 0RF digoxin 125 mcg (0.125 mg) tablet 125 mcg PO Q OTHER DAY 0RF Xarelto 15 mg tablet 15 mg PO DAILY 0RF Rx Instructions: takes in evening montelukast 10 mg tablet 10 mg PO DAILY 0RF clotrimazole 1 % Cream 1 applic TOPICAL BID PRN (Reason: Rash) 0RF Discontinued metoprolol tartrate 25 mg tablet 25 mg PO BID Qty: 60 0RF furosemide [Lasix] 20 mg tablet 20 mg PO DAILY Qty: 60 1RF Follow up/Referrals: Luis Enrique Small MD [Primary Care Provider] - Discharge Data Primary Care Provider: Luis Enrique Small Quality VTE Deep Vein Thrombosis/Pulmonary Embolism Present on Admission: No
== END 2021-06-09 14:07 | disposition home health service (06) | DRG 291 ==
LOC: ED 12:29 → AC 14:50
PROVIDERS: Emergency Medicine; Internal Medicine; Admitting Provider Internal Medicine; Emergency Provider Physician Assistant; Family Provider Internal Medicine; PCP Internal Medicine; Referring Provider Physician Assistant; Visit Provider Internal Medicine
DX: I11.0 Hypertensive heart disease with heart failure (principal); I50.23 Acute on chronic systolic (congestive) heart failure; I48.0 Paroxysmal atrial fibrillation; I95.9 Hypotension, unspecified; J44.9 Chronic obstructive pulmonary disease, unspecified; G20 Parkinson's disease; Z79.01 Long term (current) use of anticoagulants; Z20.822 Contact with and (suspected) exposure to COVID-19; Z87.891 Personal history of nicotine dependence
CPT/HCPCS: 36415; 71045; 80048; 80053; 82550; 83690; 83735; 83880; 84484; 85025; 87635; 93005; 93306; 94760; 96374; 97110; 97162; 97167; 97530; 97535; 99284; 99285; C9803; G0378; J1940

== ENCOUNTER 2021-06-16 12:37 | Observation (INO) | payer OTHER, SELFPAY ==
[2021-06-05 14:51] VITALS: BMI 23.4
[2021-06-16] VITALS (47 sets, daily range): BP systolic 84–158; BP diastolic 50–96; PULSE 62–114; RESP 13–24; TEMP 36.4–37; O2SAT 85–100; BMI 25.5
--- NOTE | 2021-06-16 12:53 | ED_ITS ---
HPI - SOB/Dyspnea General Chief Complaint: Shortness of Breath/Dyspnea Stated Complaint: SOB Time Seen by Provider: 06/16/21 12:39 History of Present Illness HPI Narrative: Patient is 86-year-old male history of atrial fibrillation on Xarelto of recent admission for congestive heart failure, he was admitted June 05 through the . EF during that admission is 30%. Presents today with increasing shortness of breath. Was discharged home on Bumex 0.5 mg daily a change from 20 mg daily. He denies any chest pain or discomfort. He has chronic ongoing orthopnea he sleeps elevated. He has had some increasing shortness of breath with exertion and at rest. He is not hypoxic. He is actually found to be slightly hypotensive with a systolic in the 90s which is new for him. Denies any cough or fever. He has no lower extremity edema. Related Data Home Medications Medication Instructions Recorded Confirmed multivitamin-ferrous 1 tab PO QAM #0 06/12/09 06/16/21 fumarate-folic acid 18 mg-400 mcg tablet (Multi Complete with Iron) cyanocobalamin (B12)-cobamamide 5,000 lisette SUBLINGUAL QAM 12/28/18 06/16/21 5,000 mcg-100 mcg sublingual lozenge (B12) alpha lipoic acid 100 mg capsule 100 mg PO DAILY 06/09/19 06/16/21 cholecalciferol (vitamin D3) 50 2,000 unit PO DAILY 06/09/19 06/16/21 mcg (2,000 unit) chewable tablet vit C-vit [id number] ox-lutein 1 cap PO BID 06/09/19 06/16/21 226 mg-200 unit-5 mg-0.8 mg capsule (PreserVision Lutein) clotrimazole 1 % topical cream 1 applic TOPICAL BID PRN 06/05/21 06/16/21 digoxin 125 mcg (0.125 mg) tablet 125 mcg PO Q OTHER DAY 06/05/21 06/16/21 magnesium chloride 64 mg 128 mg PO DAILY 06/05/21 06/16/21 tablet,extended release montelukast 10 mg tablet 10 mg PO DAILY 06/05/21 06/16/21 rivaroxaban 15 mg tablet (Xarelto) 15 mg PO BEDTIME 06/05/21 06/16/21 Previous Rx's Medication Instructions Recorded carbidopa 25 mg-levodopa 100 mg 3 ea PO BEDTIME #10 tab 04/04/21 tablet carbidopa 25 mg-levodopa 100 mg 4 ea PO DAILY #10 tab 04/04/21 tablet bumetanide 0.5 mg tablet 0.5 mg PO DAILY #90 tab 06/09/21 metoprolol succinate 50 mg 75 mg PO DAILY #180 tab 06/09/21 tablet,extended release 24 hr (Toprol XL) Allergies Allergy/AdvReac Type Severity Reaction Status Date / Time gluten [GLUTEN] Allergy Severe CELIAC Verified 06/05/21 11:55 DISEASE adhesive [ADHESIVE] Allergy Mild rash from Verified 06/05/21 11:55 plastic tape iodine [IODINE] Allergy Unknown PT UNSURE Verified 06/05/21 11:55 OF REACTION cephalexin AdvReac Severe violent Verified 06/05/21 11:55 indigestion hydromorphone [From Dilaudid] AdvReac Severe vomited Verified 06/05/21 11:55 violently morphine [MORPHINE] AdvReac Severe VOMITED Verified 06/05/21 11:55 VIOLENTLY, HAD ABD HERNIAS THAT NEEDED SURGERY. Review of Systems Review of Systems Narrative: GENERAL: Denies chills, fatigue, malaise, fever, sweats, travel HEENT: Denies sinus pain, ear pain, sore throat, difficulty swallowing, neck pain RESPIRATORY: See HPI CARDIOVASCULAR: Denies chest pain, palpitations, orthopnea, edema GASTROINTESTINAL: Denies nausea, vomiting, abdominal pain, diarrhea, constipation, melena. : Denies dysuria, frequency, incontinence, hematuria, urinary retention, flank pain. MUSCULOSKELETAL: Denies weakness, joint pain, or bony pain SKIN: No rash, no erythema, no pruritus NEUROLOGIC: Denies weakness, dizziness, headache, numbness, change in speech, confusion PSYCHIATRIC: No concerning psychosocial issues. 12 point review of systems is negative except for those stated above and HPI Patient History Medical History Adenomatous colon polyp Atrial fibrillation CAD (coronary artery disease) Celiac disease Closed left hip fracture Compression fracture of L1 lumbar vertebra Congestive heart failure GERD (gastroesophageal reflux disease) HTN (hypertension) Kidney stones Parkinsons disease Right carpal tunnel syndrome Weight loss, unintentional Surgical History History of cholecystectomy History of colonoscopy History of esophagogastroduodenoscopy (EGD) History of hernia repair History of hip surgery History of lumbar fusion History of right hemicolectomy Family History Father Intracranial bleed Mother No problems noted. Brother Heart disease Sister Asthma Social History household members: spouse, children and caregiver Smoking Status: Former smoker alcohol intake: current Smoking Status: Former smoker alcohol intake frequency: holidays/special occasions only Substance Use Type: does not use Exam Initial Vital Signs Initial Vital Signs: Vital Signs Temperature 97.9 F 06/16/21 12:37 Pulse Rate 87 06/16/21 12:37 Respiratory Rate 18 06/16/21 12:37 Blood Pressure 98/52 L 06/16/21 12:37 Pulse Oximetry 97 06/16/21 12:37 GENERAL: Alert very pleasant 86-year-old male HEENT: Head atraumatic,EOMI, pupils reactive, left eye droopy, face symmetric, [moist] mucous membranes CARDIOVASCULAR: Irregular RESPIRATORY: Breath sounds equal bilaterally, no wheezes rales or rhonchi. Speaks in full sentences ABDOMEN: Soft, nontender. Normoactive bowel sounds all 4 quadrants. No guarding or rebound. EXTREMITIES: Normal range of motion, no clubbing or edema. Neurovascularly intact NEUROLOGICAL: Alert and oriented x4.Normal gait and speech. SKIN: Warm, dry, no laceration, no petechiae, no rashes or lesions. Course Orders Ordered: ED Orders 06/16/21 12:40 Complete Blood Count AUTO DIFF Stat Comprehensive Metabolic Panel Stat Lactate (Lactic Acid) Stat Magnesium Stat NT-proBNP (BNP-Adult 18+) Stat Partial Thromboplastin Time Stat Prothrombin Time INR Stat Troponin & CK Cardiac Panel Stat 06/16/21 12:54 EKG-12 Lead Stat 06/16/21 12:55 XR chest 1V Stat 06/16/21 13:30 COVID19 -Nasal swab/Pre-Proc Stat 06/16/21 14:37 Trop I [Troponin I] Stat 06/16/21 15:47 Urinalysis and Microscopic Stat Acetaminophen (Acetaminophen 325 Mg Tablet) 650 mg PO Q6HR PRN PRN Reason: pain Bumetanide (Bumetanide 1 Mg Tablet) 0.5 mg PO DAILY [facility] Last Admin: 06/16/21 18:51 Dose: 0.5 mg Documented by: YOBANI Carbidopa/Levodopa (Carbidopa-Levodopa 25/100 Tablet) 4 each PO DAILY [facility] Carbidopa/Levodopa (Carbidopa-Levodopa 25/100 Tablet) 3 each PO BEDTIME [facility] Digoxin (Digoxin 0.125 Mg Tablet) 0.125 mg PO Q48H [facility] Last Admin: 06/16/21 18:52 Dose: 0.125 mg Documented by: YOBANI Metoprolol Succinate (Metoprolol Er 50 Mg Tablet) 50 mg PO BID [facility] Last Admin: 06/16/21 18:51 Dose: 50 mg Documented by: YOBANI Montelukast Sodium (Montelukast 10 Mg Tablet) 10 mg PO DAILY [facility] Ondansetron HCl (Ondansetron 4 Mg/2 Ml Inj) 4 mg IV Q8HR PRN PRN Reason: Nausea And Vomiting Rivaroxaban (Rivaroxaban 10 Mg Tablet) 15 mg PO DAILY [facility] Discontinued Medications Propofol (Propofol 200 Mg/20 Ml Vial) 75 mg 1 mg/kg (75 mg) IV NOW ONE Stop: 06/16/21 16:10 Last Admin: 06/16/21 17:13 Dose: Not Given Documented by: ROXY Vital Signs Vital signs: Vital Signs - 8 hr 06/16/21 12:37 06/16/21 12:41 06/16/21 12:55 Temperature 97.9 F Pulse Rate 87 86 94 H Respiratory Rate 18 17 Blood Pressure 98/52 L 98/56 L 94/52 L Pulse Oximetry 97 95 96 06/16/21 13:00 06/16/21 13:09 06/16/21 13:10 Temperature Pulse Rate 90 91 H 89 Respiratory Rate 17 21 23 Blood Pressure 84/55 L 86/50 L 91/54 L Pulse Oximetry 96 95 98 06/16/21 13:12 06/16/21 13:15 06/16/21 13:20 Temperature Pulse Rate 95 H 88 85 Respiratory Rate 20 19 17 Blood Pressure 96/51 L 91/54 L Pulse Oximetry 97 97 97 06/16/21 13:30 06/16/21 13:35 06/16/21 13:45 Temperature Pulse Rate 84 92 H 89 Respiratory Rate 20 21 13 Blood Pressure 96/59 L 92/65 Pulse Oximetry 98 96 99 06/16/21 14:00 06/16/21 14:15 06/16/21 14:30 Temperature Pulse Rate 89 103 H 95 H Respiratory Rate 18 21 17 Blood Pressure 103/68 98/71 101/68 Pulse Oximetry 100 98 98 06/16/21 14:45 06/16/21 15:00 06/16/21 15:15 Temperature Pulse Rate 103 H 94 H 103 H Respiratory Rate 15 14 20 Blood Pressure 104/74 114/71 115/70 Pulse Oximetry 98 98 99 06/16/21 15:30 06/16/21 15:45 06/16/21 16:00 Temperature Pulse Rate 108 H 114 H 97 H Respiratory Rate 15 17 Blood Pressure 103/70 158/91 H 110/58 L Pulse Oximetry 99 100 06/16/21 16:05 06/16/21 16:10 06/16/21 16:15 Temperature Pulse Rate 104 H 98 H 101 H Respiratory Rate 18 19 18 Blood Pressure 119/57 L Pulse Oximetry 99 99 06/16/21 16:20 06/16/21 16:25 06/16/21 16:30 Temperature Pulse Rate 96 H 105 H 103 H Respiratory Rate 18 18 18 Blood Pressure 112/58 L Pulse Oximetry 99 99 98 06/16/21 16:35 06/16/21 16:40 06/16/21 16:45 Temperature Pulse Rate 109 H 104 H 101 H Respiratory Rate 14 18 18 Blood Pressure 120/76 Pulse Oximetry 96 97 99 06/16/21 16:50 06/16/21 16:55 06/16/21 17:00 Temperature Pulse Rate 109 H 102 H 101 H Respiratory Rate 21 20 22 Blood Pressure Pulse Oximetry 98 97 96 06/16/21 17:05 06/16/21 17:10 06/16/21 17:15 Temperature Pulse Rate 100 H 110 H 111 H Respiratory Rate 22 22 22 Blood Pressure 122/82 Pulse Oximetry 97 95 98 06/16/21 17:20 Temperature Pulse Rate 104 H Respiratory Rate 23 Blood Pressure Pulse Oximetry 98 MDM - SOB/Dyspnea Lab Data Result diagrams: 06/16/21 12:40 06/16/21 12:40 Labs: Lab Results 06/16/21 06/16/21 06/16/21 Range/Units 12:40 12:40 12:40 WBC 6.2 (4.5-11.0) X10^3/uL RBC 4.50 (4.5-5.9) X10^6/uL Hgb 13.7 (13.5-17.5) g/dL Hct 40.8 L (41-53) % MCV 90.8 (80-100) fL MCH 30.5 (26-34) PG MCHC 33.6 (30-36) % RDW 14.7 (11.6-14.8) % Plt Count 156 (150-400) X10^3/uL Neut % (Auto) 73.4 (50-75) % Lymph % (Auto) 14.6 L (25-40) % [place] % (Auto) 7.6 (3-14) % Eos % (Auto) 3.4 (2-4) % Baso % (Auto) 1.0 (0-2) % Neut # (Auto) 4500 (3437-5560) /uL Lymph # (Auto) 900 L (6395-8576) /uL [place] # (Auto) 500 (0-900) /uL Eos # (Auto) 200 (0-450) /uL Baso # (Auto) 100 (0-100) /uL PT 15.3 H (10.1-12.7) SECONDS INR 1.3 (0.9-1.3) APTT 40 H (26.4-36.2) SECONDS Sodium (137-145) mmol/L Potassium (3.4-5.1) mmol/L Chloride (98-107) mmol/L Carbon Dioxide (22-32) mmol/L BUN (9-20) mg/dL Creatinine (0.66-1.25) mg/dL Estimated GFR (>60) mL/min BUN/Creatinine Ratio (6-22) Glucose (80-110) mg/dL Lactate (0.7-2.1) mmol/L Calcium (8.4-10.2) mg/dL Magnesium 2.3 (1.6-2.3) mg/dL Total Bilirubin (0.2-1.3) mg/dL AST (17-59) IU/L ALT (<50) IU/L Alkaline Phosphatase (38-126) U/L Total Creatine Kinase 42 L (55-170) U/L CK-MB (CK-2) TNP CK-MB (CK-2) Rel Index TNP Troponin I 0.105 H (0.01-0.034) ng/mL NT-Pro-B Natriuret Pep 4480 H (<450) pg/mL Total Protein (6.3-8.2) g/dL Albumin (3.5-5.0) g/dL Globulin (1.7-4.1) g/dL Albumin/Globulin Ratio (1.0-2.8) Urine Color Urine Appearance Urine pH (4.5-8.0) Ur Specific [place] (1.000-1.035) Urine Protein (Negative) Urine Glucose (UA) (Negative) g/dL Urine Ketones (NEGATIVE) Urine Occult Blood (Negative) Urine Nitrate (Negative) Urine Bilirubin (NEGATIVE) Urine Urobilinogen (0.2) E.U./dL Ur Leukocyte Esterase (NEGATIVE) Urine RBC (0-5/HPF) Urine WBC (0-5/HPF) Ur Squamous Epith Cells (0-5/HPF) Urine Bacteria (None) Hyaline Casts (None) Urine Mucus (Negative) Ur Culture Indicated? SARS-CoV-2 (PCR) (Negative) 06/16/21 06/16/21 06/16/21 Range/Units 12:40 12:40 13:30 WBC (4.5-11.0) X10^3/uL RBC (4.5-5.9) X10^6/uL Hgb (13.5-17.5) g/dL Hct (41-53) % MCV (80-100) fL MCH (26-34) PG MCHC (30-36) % RDW (11.6-14.8) % Plt Count (150-400) X10^3/uL Neut % (Auto) (50-75) % Lymph % (Auto) (25-40) % [place] % (Auto) (3-14) % Eos % (Auto) (2-4) % Baso % (Auto) (0-2) % Neut # (Auto) (3352-4809) /uL Lymph # (Auto) (7249-4332) /uL [place] # (Auto) (0-900) /uL Eos # (Auto) (0-450) /uL Baso # (Auto) (0-100) /uL PT (10.1-12.7) SECONDS INR (0.9-1.3) APTT (26.4-36.2) SECONDS Sodium 141 (137-145) mmol/L Potassium 3.8 (3.4-5.1) mmol/L Chloride 102 (98-107) mmol/L Carbon Dioxide 28 (22-32) mmol/L BUN 24 H (9-20) mg/dL Creatinine 1.10 (0.66-1.25) mg/dL Estimated GFR > 60.0 (>60) mL/min BUN/Creatinine Ratio 21.8 (6-22) Glucose 137 H (80-110) mg/dL Lactate 1.2 (0.7-2.1) mmol/L Calcium 9.5 (8.4-10.2) mg/dL Magnesium (1.6-2.3) mg/dL Total Bilirubin 1.0 (0.2-1.3) mg/dL AST 30 (17-59) IU/L ALT 7 (<50) IU/L Alkaline Phosphatase 84 (38-126) U/L Total Creatine Kinase (55-170) U/L CK-MB (CK-2) CK-MB (CK-2) Rel Index Troponin I (0.01-0.034) ng/mL NT-Pro-B Natriuret Pep (<450) pg/mL Total Protein 7.9 (6.3-8.2) g/dL Albumin 4.6 (3.5-5.0) g/dL Globulin 3.3 (1.7-4.1) g/dL Albumin/Globulin Ratio 1.4 (1.0-2.8) Urine Color Urine Appearance Urine pH (4.5-8.0) Ur Specific [place] (1.000-1.035) Urine Protein (Negative) Urine Glucose (UA) (Negative) g/dL Urine Ketones (NEGATIVE) Urine Occult Blood (Negative) Urine Nitrate (Negative) Urine Bilirubin (NEGATIVE) Urine Urobilinogen (0.2) E.U./dL Ur Leukocyte Esterase (NEGATIVE) Urine RBC (0-5/HPF) Urine WBC (0-5/HPF) Ur Squamous Epith Cells (0-5/HPF) Urine Bacteria (None) Hyaline Casts (None) Urine Mucus (Negative) Ur Culture Indicated? SARS-CoV-2 (PCR) Negative (Negative) 06/16/21 06/16/21 Range/Units 14:37 15:47 WBC (4.5-11.0) X10^3/uL RBC (4.5-5.9) X10^6/uL Hgb (13.5-17.5) g/dL Hct (41-53) % MCV (80-100) fL MCH (26-34) PG MCHC (30-36) % RDW (11.6-14.8) % Plt Count (150-400) X10^3/uL Neut % (Auto) (50-75) % Lymph % (Auto) (25-40) % [place] % (Auto) (3-14) % Eos % (Auto) (2-4) % Baso % (Auto) (0-2) % Neut # (Auto) (7360-4997) /uL Lymph # (Auto) (1434-0709) /uL [place] # (Auto) (0-900) /uL Eos # (Auto) (0-450) /uL Baso # (Auto) (0-100) /uL PT (10.1-12.7) SECONDS INR (0.9-1.3) APTT (26.4-36.2) SECONDS Sodium (137-145) mmol/L Potassium (3.4-5.1) mmol/L Chloride (98-107) mmol/L Carbon Dioxide (22-32) mmol/L BUN (9-20) mg/dL Creatinine (0.66-1.25) mg/dL Estimated GFR (>60) mL/min BUN/Creatinine Ratio (6-22) Glucose (80-110) mg/dL Lactate (0.7-2.1) mmol/L Calcium (8.4-10.2) mg/dL Magnesium (1.6-2.3) mg/dL Total Bilirubin (0.2-1.3) mg/dL AST (17-59) IU/L ALT (<50) IU/L Alkaline Phosphatase (38-126) U/L Total Creatine Kinase (55-170) U/L CK-MB (CK-2) CK-MB (CK-2) Rel Index Troponin I 0.104 H (0.01-0.034) ng/mL NT-Pro-B Natriuret Pep (<450) pg/mL Total Protein (6.3-8.2) g/dL Albumin (3.5-5.0) g/dL Globulin (1.7-4.1) g/dL Albumin/Globulin Ratio (1.0-2.8) Urine Color Yellow Urine Appearance Clear Urine pH 5.0 (4.5-8.0) Ur Specific [place] 1.020 (1.000-1.035) Urine Protein Negative (Negative) Urine Glucose (UA) Negative (Negative) g/dL Urine Ketones Negative (NEGATIVE) Urine Occult Blood Negative (Negative) Urine Nitrate Negative (Negative) Urine Bilirubin Negative (NEGATIVE) Urine Urobilinogen 0.2 (0.2) E.U./dL Ur Leukocyte Esterase Negative (NEGATIVE) Urine RBC None seen (0-5/HPF) Urine WBC 1-5/hpf (0-5/HPF) Ur Squamous Epith Cells 0-1 /hpf (0-5/HPF) Urine Bacteria None seen (None) Hyaline Casts 1-5/lpf (None) Urine Mucus 1+ H (Negative) Ur Culture Indicated? Cult not indicated SARS-CoV-2 (PCR) (Negative) Imaging Data Chest x-ray: Radiologist's Impression: PROCEDURE:? XR CHEST 1V ? INDICATIONS:? short of breath ? TECHNIQUE:? One view of the chest was acquired.? ? COMPARISON:? [facility], , XR CHEST 1V, 06/05/2021, 11:48. ? FINDINGS:? ? Surgical changes and devices:? Right shoulder arthroplasty.? Partially visualized thoracolumbar fusion. ? Lungs and pleura:? Lungs are clear.? No pleural effusions or pneumothorax.? ? Mediastinum:? Mediastinal contours appear normal.? Heart size is enlarged. ? Bones and chest wall:? No suspicious bony lesions.? Overlying soft tissues appear unremarkable.? ? IMPRESSION:? No acute pulmonary process. ? ? Dictated by: Ghislaine Bey M.D. on 06/16/2021 at 14:10 ? ? ECG Data Interpretation: Atrial fibrillation left bundle-branch block noted rate 90. Previous EKGs do show normal sinus rhythm. MDM Narrative Medical decision making narrative: Patient presents today with increasing shortness of breath he is not hypoxic he has clear lung sounds he does not appear to have fluid overload. BNP is roughly the same as it was previously. He is in rate controlled atrial fibrillation however blood pressure is decreasing. Does not appear that he has been over diuresed with Bumex he has a normal creatinine. This is unlikely to be pulmonary embolism he is on Xarelto and has been on Xarelto for extended amount of time. He overall appears comfortable. Blood pressure drops into the 80s however it does improve with 500 cc bolus. Troponin was also found to be indeterminate and close to the positive range which is also new for him. This is possible a new left bundle branch as well possible cardiac event. [id number] has been updated patient's symptoms and test results. This is not a patient of there groups although he is able to and from the patient does have a known left bundle branch block. Not significantly concerned with the troponin. Suggest that if patient is severely hypotensive to have possibly do dobutamine however does not recommend that at this point. Recommend waiting for repeat troponin and continue monitoring. Patient blood pressure improved troponins are stable he continues to be in atrial fibrillation. Possibly atrial fibrillation causing his shortness of breath however his rate is not significantly fast. After discussion with patient he states that he is frequently in and out of atrial fibrillation he has been cardioverted numerous times. He would like to avoid cardioversion. Difficult to tell what is causing patient's symptoms he has new increase troponin he is otherwise comfortable. Dr. Montalvo in ED to see and evaluate patient agrees with observation Discharge Plan Departure Patient Disposition: Admitted as Observation Clinical Impression: CHF (congestive heart failure), Atrial fibrillation Admit Date/Time: 06/16/21 17:24 Admit Provider: Rahul Montalvo
--- NOTE | 2021-06-16 12:55 | DI.RAD.S_ITS ---
PROCEDURE: XR CHEST 1V INDICATIONS: short of breath TECHNIQUE: One view of the chest was acquired. COMPARISON: [facility], CR, XR CHEST 1V, 06/05/2021, 11:48. FINDINGS: Surgical changes and devices: Right shoulder arthroplasty. Partially visualized thoracolumbar fusion. Lungs and pleura: Lungs are clear. No pleural effusions or pneumothorax. Mediastinum: Mediastinal contours appear normal. Heart size is enlarged. Bones and chest wall: No suspicious bony lesions. Overlying soft tissues appear unremarkable. IMPRESSION: No acute pulmonary process. Dictated by: Ghislaine Bey M.D. on 06/16/2021 at 14:10 Approved by: Ghislaine Bey M.D. on 06/16/2021 at 14:57
[2021-06-16 13:04] LABS: Add Manual Diff / Slide Review NO; Basophils Absolute Auto 100 /uL (0-100); Eosinophils Absolute Auto 200 /uL (0-450); Eosinophils Percent Auto 3.4 % (2-4); Hematocrit 40.8 % (41-53); Hemoglobin 13.7 g/dL (13.5-17.5); Lymphocytes Absolute Auto 900 /uL (1100-4500); Lymphocytes Percent Auto 14.6 % (25-40); Mean Corpuscular HGB Conc 33.6 % (30-36); Mean Corpuscular Hemoglobin 30.5 PG (26-34); Mean Corpuscular Volume 90.8 fL (80-100); Monocytes Absolute Auto 500 /uL (0-900); Monocytes Percent Auto 7.6 % (3-14); Neutrophils Absolute Auto 4500 /uL (1500-7000); Neutrophils Percent Auto 73.4 % (50-75); Platelet Count 156 X10^3/uL (150-400); Red Cell Distribution Width 14.7 % (11.6-14.8); White Blood Cell Count 6.2 X10^3/uL (4.5-11.0)
[2021-06-16 13:05] LABS: INR 1.3 (0.9-1.3); Prothrombin Time 15.3 SECONDS (10.1-12.7)
[2021-06-16 13:07] LABS: PTT Partial Thromboplastin Tim 40 SECONDS (26.4-36.2)
[2021-06-16 13:10] LABS: Creatine Kinase 42 U/L (55-170); Magnesium 2.3 mg/dL (1.6-2.3)
[2021-06-16 13:11] LABS: Alanine Aminotransferase 7 IU/L (<50); Albumin 4.6 g/dL (3.5-5.0); Albumin Globulin Ratio 1.4 (1.0-2.8); Alkaline Phosphatase 84 U/L (38-126); Aspartate Aminotransferase 30 IU/L (17-59); BUN Creatinine Ratio 21.8 (6-22); Blood Urea Nitrogen 24 mg/dL (9-20); Calcium 9.5 mg/dL (8.4-10.2); Carbon Dioxide 28 mmol/L (22-32); Chloride 102 mmol/L (98-107); Estimated Glomerular Filt Rate > 60.0 mL/min (>60); Globulin 3.3 g/dL (1.7-4.1); Glucose 137 mg/dL (80-110); HEMOLYSIS < 15 (0-50); Lactate (Lactic Acid) 1.2 mmol/L (0.7-2.1); Potassium 3.8 mmol/L (3.4-5.1); Sodium 141 mmol/L (137-145); Total Protein 7.9 g/dL (6.3-8.2)
[2021-06-16 13:23] LABS: NT-proBNP (BNP-Adult 18+) 4480 pg/mL (<450); Troponin I 0.105 ng/mL (0.01-0.034)
[2021-06-16 14:08] LABS: COVID19 -Nasal RAPID Negative (Negative)
--- NOTE | 2021-06-16 15:01 | PC.NURSE ---
Frances Nguyen daughter provided quick update her phone number is [phone]
[2021-06-16 15:05] LABS: Troponin I 0.104 ng/mL (0.01-0.034)
[2021-06-16 16:03] LABS: Appearance Urine UA CLEAR; Bilirubin Urine UA NEGATIVE (NEGATIVE); Color Urine UA YELLOW; Glucose Urine UA NEGATIVE (Negative); Ketones Urine UA NEGATIVE (NEGATIVE); Leukocyte Esterase Urine UA NEGATIVE (NEGATIVE); Nitrite Urine UA NEGATIVE (Negative); Occult Blood Urine UA NEGATIVE (Negative); Protein Urine UA NEGATIVE (Negative); Urobilinogen Urine UA 0.2 E.U./dL (0.2)
[2021-06-16 16:16] LABS: Bacteria Urine None Seen; Culture Indicated Urine Cult Not Indicated; Hyaline Casts Urine 1-5/LPF; Mucus Urine 1+ (Negative); RBC Urine None Seen (0-5/HPF); Squamous Epithelial Cell Urine 0-1 /HPF (0-5/HPF); WBC Urine 1-5/HPF (0-5/HPF)
--- NOTE | 2021-06-16 17:45 | PC.NURSE ---
updated pts daughter obi khadar [phone]
--- NOTE | 2021-06-16 18:48 | DI.ECHO.S_ITS ---
[facility] +---------+ : : [address] [place] : : : : [id number] : : : : Phone: [phone] Echocardiogram Report + + :Name: MATTHEW ACOSTA Study Date: 06/17/2021 Height: 68 in : :[facility] ReadingLocation: Weight: 168 lb : : Gender: Male BSA: 1.9 m2 : :: 1935 Age: 86 yrs BP: 106/62 mmHg: :Reason For Study: CHEST PAIN : : Performed By: Edwina Griffin : :Referring: CORBY GONZALEZ : + + Interpretation Summary Left ventricular ejection fraction is estimated to be 30 +/- 5%. 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 The anterior wall is not well-visualized over in the short axis view appears hypokinetic. Compared to the prior study dated 06/06/2021, no significant change. Procedure: A two-dimensional transthoracic echocardiogram with color flow and Doppler was performed in limited views only to assess left ventricular function. The study quality was technically adequate. Comparison is made with the echocardiogram of 06/06/2021. The heart rate ranged between 77-95 bpm during the study. Left Ventricle: There is no thrombus. This is unchanged compared to the previous study. Left ventricular ejection fraction is estimated to be 30 +/- 5%. 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 The anterior wall is not well-visualized over in the short axis view appears hypokinetic. Right Ventricle: The right ventricle is normal in size and function. Mitral Valve: The mitral valve is normal. Aortic Valve: The aortic valve opens well. Tricuspid Valve: The tricuspid valve is normal. Great Vessels: The inferior vena cava was not visualized. Pericardium/ Pleura There is no pericardial effusion. There is no pleural effusion. Reading Physician:02:11 PM
[2021-06-16] MEDS: METOPROLOL ER 50 MG TABLET PO ×2 (18:51→20:48)
[2021-06-16] MEDS: BUMETANIDE 1 MG TABLET 0.5 MG PO (18:51)
[2021-06-16] MEDS: DIGOXIN 0.125 MG TABLET PO (18:52)
--- NOTE | 2021-06-16 18:56 | P.HP_ITS ---
History of Present Illness History of Present Illness Date Patient Seen: 06/16/21 Time Patient Seen: 17:00 Chief complaint: SOB Narrative: Mr. Calhoun is an 85M with PMH paroxysmal afib, CHFpEF, HTN, and admission recently for CHF and afib with RVR. He notes a band pain around his chest, which is worse than normal previously, but now is gone. He does have this discomfort chronically. He says he feels short of breath, he apparently has had that chronically as well. His EF last admission was 30%. He was discharged with Bumex. He has no cough, fevers, chills. He is very vague about his symptoms. In the ED workup was done, he was noted to have heart rate in the 80s-100s, blood pressure initially in the 90s systolic, but quickly improved to the 120s. No tachypenia, normal sats, speaking full sentences. Labs notable for WBC 6.2, hgb 13.7, plts 156, creatinine 1.1. Trop 0.105 then 0.104. BNP 4480. Chest xray showed no acute process. No interventions done in the ED. Patient History Medical History Adenomatous colon polyp Atrial fibrillation CAD (coronary artery disease) Celiac disease Closed left hip fracture Compression fracture of L1 lumbar vertebra Congestive heart failure GERD (gastroesophageal reflux disease) HTN (hypertension) Kidney stones Parkinsons disease Right carpal tunnel syndrome Weight loss, unintentional Surgical History History of cholecystectomy History of colonoscopy History of esophagogastroduodenoscopy (EGD) History of hernia repair History of hip surgery History of lumbar fusion History of right hemicolectomy Family & Social History Family History Father Intracranial bleed Mother No problems noted. Brother Heart disease Sister Asthma Social History: household members spouse,children,caregiver Safety & Behavioral: Feels Safe in Current Yes Environment Been Physically Hurt or No Threatened By a Person Suicidal Ideation Description None Suicide Plan Description No Plan Tobacco & Substance use: Tobacco type cigarettes Smoking Status Former smoker alcohol intake current alcohol intake frequency holiday/special occasion Substance Use Type does not use Meds Home Medications and Allergies Home Medications Medication Instructions Recorded Confirmed Type multivitamin-ferrous 1 tab PO QAM #0 06/12/09 06/16/21 History fumarate-folic acid 18 mg-400 mcg tablet (Multi Complete with Iron) cyanocobalamin (B12)-cobamamide 5,000 lisette SUBLINGUAL QAM 12/28/18 06/16/21 History 5,000 mcg-100 mcg sublingual lozenge (B12) alpha lipoic acid 100 mg capsule 100 mg PO DAILY 06/09/19 06/16/21 History cholecalciferol (vitamin D3) 50 2,000 unit PO DAILY 06/09/19 06/16/21 History mcg (2,000 unit) chewable tablet vit C-vit W-ipdhth-kego ox-lutein 1 cap PO BID 06/09/19 06/16/21 History 226 mg-200 unit-5 mg-0.8 mg capsule (PreserVision Lutein) carbidopa 25 mg-levodopa 100 mg 3 ea PO BEDTIME #10 tab 04/04/21 06/16/21 Rx tablet carbidopa 25 mg-levodopa 100 mg 4 ea PO DAILY #10 tab 04/04/21 06/16/21 Rx tablet clotrimazole 1 % topical cream 1 applic TOPICAL BID PRN 06/05/21 06/16/21 History digoxin 125 mcg (0.125 mg) tablet 125 mcg PO Q OTHER DAY 06/05/21 06/16/21 History magnesium chloride 64 mg 128 mg PO DAILY 06/05/21 06/16/21 History tablet,extended release montelukast 10 mg tablet 10 mg PO DAILY 06/05/21 06/16/21 History rivaroxaban 15 mg tablet (Xarelto) 15 mg PO BEDTIME 06/05/21 06/16/21 History bumetanide 0.5 mg tablet 0.5 mg PO DAILY #90 tab 06/09/21 06/16/21 Rx metoprolol succinate 50 mg 75 mg PO DAILY #180 tab 06/09/21 06/16/21 Rx tablet,extended release 24 hr (Toprol XL) Allergies Allergy/AdvReac Type Severity Reaction Status Date / Time gluten [GLUTEN] Allergy Severe CELIAC Verified 06/05/21 11:55 DISEASE adhesive [ADHESIVE] Allergy Mild rash from Verified 06/05/21 11:55 plastic tape iodine [IODINE] Allergy Unknown PT UNSURE Verified 06/05/21 11:55 OF REACTION cephalexin AdvReac Severe violent Verified 06/05/21 11:55 indigestion hydromorphone [From Dilaudid] AdvReac Severe vomited Verified 06/05/21 11:55 violently morphine [MORPHINE] AdvReac Severe VOMITED Verified 06/05/21 11:55 VIOLENTLY, HAD ABD HERNIAS THAT NEEDED SURGERY. Review of Systems Review of Systems Narrative: 14 systems reviewed and negative aside from what is noted in HPI Exam Vital Signs (past 8 hours): - 06/16/21 12:37 06/16/21 12:41 06/16/21 12:55 Temperature 97.9 F Pulse Rate 87 86 94 H Respiratory Rate 18 17 Blood Pressure 98/52 L 98/56 L 94/52 L Pulse Oximetry 97 95 96 06/16/21 13:00 06/16/21 13:09 06/16/21 13:10 Temperature Pulse Rate 90 91 H 89 Respiratory Rate 17 21 23 Blood Pressure 84/55 L 86/50 L 91/54 L Pulse Oximetry 96 95 98 06/16/21 13:12 06/16/21 13:15 06/16/21 13:20 Temperature Pulse Rate 95 H 88 85 Respiratory Rate 20 19 17 Blood Pressure 96/51 L 91/54 L Pulse Oximetry 97 97 97 06/16/21 13:30 06/16/21 13:35 06/16/21 13:45 Temperature Pulse Rate 84 92 H 89 Respiratory Rate 20 21 13 Blood Pressure 96/59 L 92/65 Pulse Oximetry 98 96 99 06/16/21 14:00 06/16/21 14:15 06/16/21 14:30 Temperature Pulse Rate 89 103 H 95 H Respiratory Rate 18 21 17 Blood Pressure 103/68 98/71 101/68 Pulse Oximetry 100 98 98 06/16/21 14:45 06/16/21 15:00 06/16/21 15:15 Temperature Pulse Rate 103 H 94 H 103 H Respiratory Rate 15 14 20 Blood Pressure 104/74 114/71 115/70 Pulse Oximetry 98 98 99 06/16/21 15:30 06/16/21 15:45 06/16/21 16:00 Temperature Pulse Rate 108 H 114 H 97 H Respiratory Rate 15 17 Blood Pressure 103/70 158/91 H 110/58 L Pulse Oximetry 99 100 06/16/21 16:05 04/07/22 16:10 06/16/21 16:15 Temperature Pulse Rate 104 H 98 H 101 H Respiratory Rate 18 19 18 Blood Pressure 119/57 L Pulse Oximetry 99 99 06/16/21 16:20 06/16/21 16:25 06/16/21 16:30 Temperature Pulse Rate 96 H 105 H 103 H Respiratory Rate 18 18 18 Blood Pressure 112/58 L Pulse Oximetry 99 99 98 06/16/21 16:35 06/16/21 16:40 06/16/21 16:45 Temperature Pulse Rate 109 H 104 H 101 H Respiratory Rate 14 18 18 Blood Pressure 120/76 Pulse Oximetry 96 97 99 06/16/21 16:50 06/16/21 16:55 06/16/21 17:00 Temperature Pulse Rate 109 H 102 H 101 H Respiratory Rate 21 20 22 Blood Pressure Pulse Oximetry 98 97 96 06/16/21 17:05 06/16/21 17:10 06/16/21 17:15 Temperature Pulse Rate 100 H 110 H 111 H Respiratory Rate 22 22 22 Blood Pressure 122/82 Pulse Oximetry 97 95 98 06/16/21 17:20 06/16/21 17:38 06/16/21 18:19 Temperature 97.5 F L Pulse Rate 104 H 104 H 95 H Respiratory Rate 23 20 16 Blood Pressure 122/82 139/96 H Pulse Oximetry 98 85 L 95 06/16/21 18:51 06/16/21 18:52 Temperature Pulse Rate 95 H 95 H Respiratory Rate Blood Pressure 139/96 H 139/96 H Pulse Oximetry Oxygen Delivery Method Room Air Narrative Exam Narrative: GEN: no acute distress HEENT: moist mucous membranes, PERRL NECK: trachea midline, no JVD CV: irregular, tachycardic PULM: clear bilaterally, speaking full sentences ABD: soft, nontender, nondistended, no organomegaly EXT: no edema NEURO: awake, alert, oriented, no focal deficits Objective Labs Result Diagrams: 06/16/21 12:40 06/16/21 12:40 Labs: Laboratory Results - last 24 hr 06/16/21 06/16/21 06/16/21 12:40 12:40 12:40 WBC 6.2 RBC 4.50 Hgb 13.7 Hct 40.8 L MCV 90.8 MCH 30.5 MCHC 33.6 RDW 14.7 Plt Count 156 Neut % (Auto) 73.4 Lymph % (Auto) 14.6 L Rolette % (Auto) 7.6 Eos % (Auto) 3.4 Baso % (Auto) 1.0 Neut # (Auto) 4500 Lymph # (Auto) 900 L Rolette # (Auto) 500 Eos # (Auto) 200 Baso # (Auto) 100 PT 15.3 H INR 1.3 APTT 40 H Sodium Potassium Chloride Carbon Dioxide BUN Creatinine Estimated GFR BUN/Creatinine Ratio Glucose Lactate Calcium Magnesium 2.3 Total Bilirubin AST ALT Alkaline Phosphatase Total Creatine Kinase 42 L CK-MB (CK-2) TNP CK-MB (CK-2) Rel Index TNP Troponin I 0.105 H NT-Pro-B Natriuret Pep 4480 H Total Protein Albumin Globulin Albumin/Globulin Ratio Urine Color Urine Appearance Urine pH Ur Specific [place] Urine Protein Urine Glucose (UA) Urine Ketones Urine Occult Blood Urine Nitrate Urine Bilirubin Urine Urobilinogen Ur Leukocyte Esterase Urine RBC Urine WBC Ur Squamous Epith Cells Urine Bacteria Hyaline Casts Urine Mucus Ur Culture Indicated? SARS-CoV-2 (PCR) 06/16/21 06/16/21 06/16/21 12:40 12:40 13:30 WBC RBC Hgb Hct MCV MCH MCHC RDW Plt Count Neut % (Auto) Lymph % (Auto) Rolette % (Auto) Eos % (Auto) Baso % (Auto) Neut # (Auto) Lymph # (Auto) Rolette # (Auto) Eos # (Auto) Baso # (Auto) PT INR APTT Sodium 141 Potassium 3.8 Chloride 102 Carbon Dioxide 28 BUN 24 H Creatinine 1.10 Estimated GFR > 60.0 BUN/Creatinine Ratio 21.8 Glucose 137 H Lactate 1.2 Calcium 9.5 Magnesium Total Bilirubin 1.0 AST 30 ALT 7 Alkaline Phosphatase 84 Total Creatine Kinase CK-MB (CK-2) CK-MB (CK-2) Rel Index Troponin I NT-Pro-B Natriuret Pep Total Protein 7.9 Albumin 4.6 Globulin 3.3 Albumin/Globulin Ratio 1.4 Urine Color Urine Appearance Urine pH Ur Specific [place] Urine Protein Urine Glucose (UA) Urine Ketones Urine Occult Blood Urine Nitrate Urine Bilirubin Urine Urobilinogen Ur Leukocyte Esterase Urine RBC Urine WBC Ur Squamous Epith Cells Urine Bacteria Hyaline Casts Urine Mucus Ur Culture Indicated? SARS-CoV-2 (PCR) Negative 06/16/21 06/16/21 14:37 15:47 WBC RBC Hgb Hct MCV MCH MCHC RDW Plt Count Neut % (Auto) Lymph % (Auto) Rolette % (Auto) Eos % (Auto) Baso % (Auto) Neut # (Auto) Lymph # (Auto) Rolette # (Auto) Eos # (Auto) Baso # (Auto) PT INR APTT Sodium Potassium Chloride Carbon Dioxide BUN Creatinine Estimated GFR BUN/Creatinine Ratio Glucose Lactate Calcium Magnesium Total Bilirubin AST ALT Alkaline Phosphatase Total Creatine Kinase CK-MB (CK-2) CK-MB (CK-2) Rel Index Troponin I 0.104 H NT-Pro-B Natriuret Pep Total Protein Albumin Globulin Albumin/Globulin Ratio Urine Color Yellow Urine Appearance Clear Urine pH 5.0 Ur Specific [place] 1.020 Urine Protein Negative Urine Glucose (UA) Negative Urine Ketones Negative Urine Occult Blood Negative Urine Nitrate Negative Urine Bilirubin Negative Urine Urobilinogen 0.2 Ur Leukocyte Esterase Negative Urine RBC None seen Urine WBC 1-5/hpf Ur Squamous Epith Cells 0-1 /hpf Urine Bacteria None seen Hyaline Casts 1-5/lpf Urine Mucus 1+ H Ur Culture Indicated? Cult not indicated SARS-CoV-2 (PCR) Assessment & Plan Assessment & Plan narrative: 1. Elevave troponin -likely secondary to cardiac demand ischemia from atrial fibrillation -continue xarelto, ordered statin -can consider stress test, but patient's functional status poor, and cath may not be indicated -no aspirin as already on xarelto -repeat limited ECHO 2. Atrial fibrillation -mildly tachycardic on admission -increase metoprolol slightly from 75mg daily, to 50mg BID -continue digoxin -ordered xarelto 3. Chronic CHFrEF -recent ECHO showed poor function, EF 30%, dyskinetic portions with dilated atria -continue home dose bumex, consider stronger dose to diurese more 4. Transient hypotension -resolved without further treatment -monitor 5. Hypertension -continue metoprolol 6. COPD, chronic -continue montelukast -prn nebs 7. Parkinsons -continue sinemet Patient is fragile, seems unable to care for himself well. Would be appropriate patient to consider for palliative treatment. CODE: Full Proxy: Samira Calhoun, I have utilized all available resources to reconcile the patient's home medications. Time Spent With Patient Critical Care time: I spent a total of [] minutes of critical care time on this patient's care today; this time is exclusive of procedural time. Quality VTE Deep Vein Thrombosis/Pulmonary Embolism Present on Admission: No MIPS - Admit I confirm the patient?s Advance Care Plan is present, Code status is documented, Surrogate decision maker is in patient?s record [If Yes, STOP here]: Yes
[2021-06-16] MEDS: CARBIDOPA-LEVODOPA 25/100 TABLET 3 EACH PO (20:37)
[2021-06-17] VITALS: BP 93/51; PULSE 65; RESP 19; TEMP 36.7; O2SAT 97
[2021-06-17 04:00] VITALS: BP 109/59; PULSE 96; RESP 19; TEMP 36.7; O2SAT 99
[2021-06-17] MEDS: ONDANSETRON 4 MG/2 ML INJ IV (06:36)
[2021-06-17 07:01] LABS: Digoxin 0.4 ng/mL (0.8-2.0)
[2021-06-17 07:50] VITALS: BP 121/75; PULSE 102; RESP 13; TEMP 36.6; O2SAT 100
[2021-06-17] MEDS: RIVAROXABAN 10 MG TABLET 15 MG PO (09:21)
[2021-06-17 09:24] VITALS: BP 121/75; PULSE 96
[2021-06-17] MEDS: METOPROLOL ER 50 MG TABLET PO (09:24)
[2021-06-17] MEDS: MONTELUKAST 10 MG TABLET PO (09:24)
[2021-06-17] MEDS: BUMETANIDE 1 MG TABLET 0.5 MG PO (09:24)
[2021-06-17 09:27] VITALS: O2SAT 94
[2021-06-17] MEDS: CARBIDOPA-LEVODOPA 25/100 TABLET 4 EACH PO (09:29)
[2021-06-17 09:46] VITALS: O2SAT 95
--- NOTE | 2021-06-17 10:45 | PT.IIE ---
Addendum entered and electronically signed by Danisha Collins PT 06/17/21 12:48: Called Dr. Berkowitz's office for weight bearing clarification on LUE and confirmed NWB on LUE but is allowed to do gentle ROM and be off the sling. Original Note: Medical History (Last Reviewed 06/16/21 @ 19:02 by Rahul Montalvo MD) Adenomatous colon polyp Atrial fibrillation CAD (coronary artery disease) Celiac disease Closed left hip fracture Compression fracture of L1 lumbar vertebra Congestive heart failure GERD (gastroesophageal reflux disease) HTN (hypertension) Kidney stones Parkinsons disease Right carpal tunnel syndrome Weight loss, unintentional Physical Therapy Inpatient Evaluation/Re-Eval M1 PT/OT-IP Prior Functional Status Start: 06/17/21 12:15 Freq: NEEDED Status: Active Protocol: Document 06/17/21 10:45 AB (Rec: 06/17/21 12:37 AB [id number]) Medical Review Prior Functional Status Medical History Reviewed Yes Communication able to make needs known Mobility and Gait pt stated that he has L shoulder fx last apr (EMR showed fx 04/03/21) and stated that he is not supposed to put weight on LUE. stated that he mostly uses his manual w/c at home for mobility but able to stand to transfer using a rail at home. stated that he will not use a cane and stated is that what caused him to fall. stated that he is able to do bed mobility and transfers by himself and has been receiving HHPT/OT and has been ambulating with PT using wall rail around the house. Social History Household Members spouse,children,caregiver Living Arrangements House Number of Floors (Floors) Two Floors Number of Stairs To Enter/Railing? pt stays on the main level of the house no steps to enter, just a small lipped threshold to enter and stated that he is able to push his w/c over. Home Environment Walk in Shower Home Equipment Manual Wheelchair,Raised Toilet Seat w/Armrests,Shower Seat with Backrest,Hand Held Shower,Grab Bars Near Toilet, Grab Bars In Shower Additional Social History Comment pt's spouse is disabled and will not be able to assist pt. pt's son lives with them but goes to work and will not be at home most of the time stated that his son's friend stays with them at night to assist his spouse when needed M2 PT-IP Current Condition Start: 06/17/21 12:15 Freq: NEEDED Status: Active Protocol: Document 06/17/21 10:45 AB (Rec: 06/17/21 12:37 AB [email or web address]) Physical Therapy Current Condition Current Condition Evaluation Date 06/17/21 Treatment Diagnosis CHF; difficulty in walking Onset Date 06/16/21 M3 PT-IP Subjective Start: 06/17/21 12:15 Freq: NEEDED Status: Active Protocol: Document 06/17/21 10:45 AB (Rec: 06/17/21 12:37 AB [email or web address]) Subjective Physical Therapy Visit Type Type Initial Evaluation Visit Start Time 10:45 Visit Stop Time 11:25 Total Visit Minutes 40 Number of NOODLE MAKER Visits 0 Physical Therapy Visit Comments Patient Comments agreeable to do PT M4 PT-IP Mobility and Gait Start: 06/17/21 12:15 Freq: NEEDED Status: Active Protocol: Document 06/17/21 10:45 AB (Rec: 06/17/21 12:37 AB [email or web address]) PT-Bed Mobility Assessment Supine to Sit Supine to Sit Standby Assistance Sit to Supine Sit to Supine Standby Assistance PT-Transfer Assessment Sit to and From Stand Sit to and from Stand Minimal Assistance,1 Person Assistance Equipment Transfer Assistive Device Bed Rail,Gait Belt Orthotic/Prosthetic Devices or Brace: No Comments Mobility Comments BP ins upine: 101/58. O2 sat 94% ID: [id number] completed supine to sit SBA. presents with difficulty and requires increase time to completed. able to sit on EOB SBA. c/o lightheadedness. BP: 106/62. assisted with brief management. completed sit to stand min A and was able to maintain standing using FWW holding on to RUE and PT stabilizing FWW for support while assisted with brief management. pt instructed to hold on to walker on L but not weight bear on LUE and understood. pt ambulated in room CGA to min A 50 ft using FWW. refused to sit up on chair and sat back on EOB. completed sit to supine SBA. positioned in bed . call light and table placed within reach. Gait Assessment Gait Gait Assistance Required: Contact Guard Assist,Minimum Assistance,1 Person Assist Distance (Feet) 50 Able to Maintain Weight Bearing Status Yes During Gait Assistive Devices Assistive Device Gait Belt,Front Wheeled Walker Orthotic/Prosthetic Devices or Brace: No Gait Deviations General Gait Pattern Decreased Stride Length, Decreased Feet Clearance Factors Limiting Gait Function Factors Limiting Gait Function Decreased Activity Tolerance, Decreased Strength,Limited Range of Motion,Poor Balance, Poor Safety Awareness, Respiratory Distress PT-Balance Assessment Sitting Balance and Reactions Static Sitting Balance Ability Good Dynamic Sitting Balance Ability Good Standing Balance and Reactions Static Standing Balance Ability Fair Dynamic Standing Balance Ability Fair Device Used FWW M5 PT-IP Objective Assessments Start: 06/17/21 12:15 Freq: NEEDED Status: Active Protocol: Document 06/17/21 10:45 AB (Rec: 06/17/21 12:37 AB [email or web address]) Orientation Orientation/Cognition Level of Alertness Alert Orientation Name Language Function Ability Hard of Hearing Safety Awareness Decreased Safety Awareness Memory Description No Deficits Noted Gross Range of Motion Lower Extremity ROM Assessment Within Functional Limits Strength Lower Extremity Strength Assessment Within Functional Limits Muscle Tone Muscle Tone WNL Yes M6 PT-IP Treatment Start: 06/17/21 12:15 Freq: NEEDED Status: Active Protocol: Document 06/17/21 10:45 AB (Rec: 06/17/21 12:37 AB [email or web address]) Physical Therapy Treatment Education Education Provided Safety M7 PT-IP Assessment and Plan Start: 06/17/21 12:15 Freq: NEEDED Status: Active Protocol: Document 06/17/21 10:45 AB (Rec: 06/17/21 12:37 AB [email or web address]) PT Summary Assessment and Plan Potential Rehabilitation Potential Good Status of Condition at Evaluation Evolving Summary Impairments Pain,ROM,Strength,Balance, Coordination,Sensation,Tone, Cognition,Bed Mobility, Transfers,Gait,Activity Tolerance Assessment Summary pt requiring SBA with bed mobility, CGA to min A with transfers. pt has been on mobilizing on a w/c level since L shoulder fx back in mar of this year and has been recieving HHPT. pt is aware of his precautions and is cautious with mobility. will continue to assess progress. Goals Bed Mobility Goal Independent Transfer Goal Independent,Front Wheeled Walker Gait Goal Independent,Front Wheel Walker Gait Distance 50 Days to Meet Goals 10 Frequency of Treatment Frequency Of Treatment Once a Day Treatment Plan Physical Therapy Treatment Plan Bed Mobility Training,Transfer Training,Gait Training, Therapeutic Exercise,Balance Retraining,Discharge Planning, Hot or Cold Pack,Neuromuscular Re-ed,Coordination Retraining Precautions Other Precautions falls Weight Bearing Status Weight Bearing Status Non-Weight Bearing Allowed Weight Bearing Amount (enter % NWB on LUE until further or #) (%) clarification Recommendations To Nursing Amount of Assist Needed 1 Person Assist Discharge Recommendations PT Discharge Recommendations Home with Assistance,Home Health Transportation Needs at Discharge Private Vehicle
--- NOTE | 2021-06-17 11:44 | OT.IPNOTE ---
Check on pt for OT eval, echo being preformed.
--- NOTE | 2021-06-17 12:38 | PM.DS.1 ---
History of Present Illness History of Present Illness Date Patient Seen: 06/17/21 Time Patient Seen: 12:38 Chief complaint: SOB Narrative: Per Dr. Montalvo, Mr. Calhoun is an 85M with PMH paroxysmal afib, CHFpEF, HTN, and admission recently for CHF and afib with RVR. He notes a band pain around his chest, which is worse than normal previously, but now is gone. He does have this discomfort chronically. He says he feels short of breath, he apparently has had that chronically as well. His EF last admission was 30%. He was discharged with Bumex. He has no cough, fevers, chills. He is very vague about his symptoms. In the ED workup was done, he was noted to have heart rate in the 80s-100s, blood pressure initially in the 90s systolic, but quickly improved to the 120s. No tachypenia, normal sats, speaking full sentences. Labs notable for WBC 6.2, hgb 13.7, plts 156, creatinine 1.1. Trop 0.105 then 0.104. BNP 4480. Chest xray showed no acute process. No interventions done in the ED. Discharge Providers Provider Date of admission: 06/16/21 17:24 Discharge Date: 06/17/21 Consults: 06/16/21 17:50 Consult to Occupational Therapy Evaluate & Treat Comment: Physician Instructions: Evaluate and treat Consult to Physical Therapy Evaluate & Treat Comment: Physician Instructions: Evaluate and Treat Discharge provider: Wilson Desai DO Summary Hospital Course Discharge Diagnosis: 1. Elevave troponin, myocardial injury 2. Atrial fibrillation with RVR, presumed persistent, chronic 3. Chronic CHFrEF 4. Transient hypotension, resolved 5. Hypertension, chronic 6. COPD, chronic 7. Parkinsons, chronic Hospital Course: This is an 86-year-old male who presented with shortness of breath and a bandlike chest pain similar with prior admissions. He was noted to have an elevated troponin which down trended quickly. He was also noted to be in AFib with RVR which improved quickly with oral medications. He had a limited echocardiogram which showed no significant changes compared to his prior study. His home metoprolol was increased slightly from 75 mg daily to 50 mg b.i.d.. No other significant medical changes are recommended at this time. He had no evidence of volume overload at the time of discharge and can resume home bumetanide at 0.5 mg daily. Exam Vital Signs (past 8 hours): - 06/17/21 07:50 06/17/21 09:24 06/17/21 09:27 Temperature 97.9 F Pulse Rate 102 H 96 H Respiratory Rate 13 Blood Pressure 121/75 121/75 Pulse Oximetry 100 94 06/17/21 09:46 Temperature Pulse Rate Respiratory Rate Blood Pressure Pulse Oximetry 95 Oxygen Delivery Method Room Air Oxygen Flow Rate 0 Narrative Exam Narrative: GEN: no acute distress HEENT: moist mucous membranes, PERRL NECK: trachea midline, no JVD CV: Irregularly irregular rhythm with a normal rate, no murmurs, rubs, or gallops. PULM: clear bilaterally, speaking full sentences ABD: soft, nontender, nondistended, no organomegaly EXT: no edema NEURO: awake, alert, oriented, no focal deficits Objective Labs Result Diagrams: 06/16/21 12:40 06/16/21 12:40 Labs: Laboratory Results - last 24 hr 06/16/21 06/16/21 06/16/21 12:40 12:40 12:40 WBC 6.2 RBC 4.50 Hgb 13.7 Hct 40.8 L MCV 90.8 MCH 30.5 MCHC 33.6 RDW 14.7 Plt Count 156 Neut % (Auto) 73.4 Lymph % (Auto) 14.6 L [place] % (Auto) 7.6 Eos % (Auto) 3.4 Baso % (Auto) 1.0 Neut # (Auto) 4500 Lymph # (Auto) 900 L [place] # (Auto) 500 Eos # (Auto) 200 Baso # (Auto) 100 PT 15.3 H INR 1.3 APTT 40 H Sodium Potassium Chloride Carbon Dioxide BUN Creatinine Estimated GFR BUN/Creatinine Ratio Glucose Lactate Calcium Magnesium 2.3 Total Bilirubin AST ALT Alkaline Phosphatase Total Creatine Kinase 42 L CK-MB (CK-2) TNP CK-MB (CK-2) Rel Index TNP Troponin I 0.105 H NT-Pro-B Natriuret Pep 4480 H Total Protein Albumin Globulin Albumin/Globulin Ratio Urine Color Urine Appearance Urine pH Ur Specific [place] Urine Protein Urine Glucose (UA) Urine Ketones Urine Occult Blood Urine Nitrate Urine Bilirubin Urine Urobilinogen Ur Leukocyte Esterase Urine RBC Urine WBC Ur Squamous Epith Cells Urine Bacteria Hyaline Casts Urine Mucus Ur Culture Indicated? Digoxin SARS-CoV-2 (PCR) 06/16/21 06/16/21 06/16/21 12:40 12:40 13:30 WBC RBC Hgb Hct MCV MCH MCHC RDW Plt Count Neut % (Auto) Lymph % (Auto) [place] % (Auto) Eos % (Auto) Baso % (Auto) Neut # (Auto) Lymph # (Auto) [place] # (Auto) Eos # (Auto) Baso # (Auto) PT INR APTT Sodium 141 Potassium 3.8 Chloride 102 Carbon Dioxide 28 BUN 24 H Creatinine 1.10 Estimated GFR > 60.0 BUN/Creatinine Ratio 21.8 Glucose 137 H Lactate 1.2 Calcium 9.5 Magnesium Total Bilirubin 1.0 AST 30 ALT 7 Alkaline Phosphatase 84 Total Creatine Kinase CK-MB (CK-2) CK-MB (CK-2) Rel Index Troponin I NT-Pro-B Natriuret Pep Total Protein 7.9 Albumin 4.6 Globulin 3.3 Albumin/Globulin Ratio 1.4 Urine Color Urine Appearance Urine pH Ur Specific [place] Urine Protein Urine Glucose (UA) Urine Ketones Urine Occult Blood Urine Nitrate Urine Bilirubin Urine Urobilinogen Ur Leukocyte Esterase Urine RBC Urine WBC Ur Squamous Epith Cells Urine Bacteria Hyaline Casts Urine Mucus Ur Culture Indicated? Digoxin SARS-CoV-2 (PCR) Negative 06/16/21 06/16/21 06/17/21 14:37 15:47 05:00 WBC RBC Hgb Hct MCV MCH MCHC RDW Plt Count Neut % (Auto) Lymph % (Auto) [place] % (Auto) Eos % (Auto) Baso % (Auto) Neut # (Auto) Lymph # (Auto) [place] # (Auto) Eos # (Auto) Baso # (Auto) PT INR APTT Sodium Potassium Chloride Carbon Dioxide BUN Creatinine Estimated GFR BUN/Creatinine Ratio Glucose Lactate Calcium Magnesium Total Bilirubin AST ALT Alkaline Phosphatase Total Creatine Kinase CK-MB (CK-2) CK-MB (CK-2) Rel Index Troponin I 0.104 H NT-Pro-B Natriuret Pep Total Protein Albumin Globulin Albumin/Globulin Ratio Urine Color Yellow Urine Appearance Clear Urine pH 5.0 Ur Specific [place] 1.020 Urine Protein Negative Urine Glucose (UA) Negative Urine Ketones Negative Urine Occult Blood Negative Urine Nitrate Negative Urine Bilirubin Negative Urine Urobilinogen 0.2 Ur Leukocyte Esterase Negative Urine RBC None seen Urine WBC 1-5/hpf Ur Squamous Epith Cells 0-1 /hpf Urine Bacteria None seen Hyaline Casts 1-5/lpf Urine Mucus 1+ H Ur Culture Indicated? Cult not indicated Digoxin 0.4 L SARS-CoV-2 (PCR) PFSH Medical History Adenomatous colon polyp Atrial fibrillation CAD (coronary artery disease) Celiac disease Closed left hip fracture Compression fracture of L1 lumbar vertebra Congestive heart failure GERD (gastroesophageal reflux disease) HTN (hypertension) Kidney stones Parkinsons disease Right carpal tunnel syndrome Weight loss, unintentional Surgical History History of cholecystectomy History of colonoscopy History of esophagogastroduodenoscopy (EGD) History of hernia repair History of hip surgery History of lumbar fusion History of right hemicolectomy Family History Father Intracranial bleed Mother No problems noted. Brother Heart disease Sister Asthma Social History household members: spouse, children and caregiver Smoking Status: Former smoker alcohol intake: current Discharge Plan Discharge Plan Patient Disposition: Home Provider Discharge Comment: You were admitted to the hospital with shortness of breath. Your heart rate was fast. Your home metoprolol was increased. No other medication changes are recommended at this time. Discharge orders & Medications Prescriptions: Continued Multi Complete with Iron 18-400 mg-mcg Tablet 1 tab PO QAM Qty: 0 0RF B12 5,000-100 mcg Lozenge 5,000 lisette SUBLINGUAL QAM 0RF PreserVision Lutein 226 mg-200 unit -5 mg-0.8 mg Capsule 1 cap PO BID 0RF alpha lipoic acid 100 mg Capsule 100 mg PO DAILY 0RF cholecalciferol (vitamin D3) 2,000 unit Tablet,Chewable 2,000 unit PO DAILY 0RF carbidopa-levodopa 25-100 mg Tablet 4 ea PO DAILY Qty: 10 0RF Rx Instructions: 4 tablets in the morning carbidopa-levodopa 25-100 mg Tablet 3 ea PO BEDTIME Qty: 10 0RF magnesium chloride 64 mg Tablet Extended Release 128 mg PO DAILY 0RF digoxin 125 mcg (0.125 mg) tablet 125 mcg PO Q OTHER DAY 0RF Xarelto 15 mg tablet 15 mg PO BEDTIME 0RF Rx Instructions: takes in evening montelukast 10 mg tablet 10 mg PO DAILY 0RF clotrimazole 1 % Cream 1 applic TOPICAL BID PRN (Reason: Rash) 0RF bumetanide 0.5 mg tablet 0.5 mg PO DAILY Qty: 90 4RF Changed metoprolol succinate [Toprol XL] 50 mg tablet extended release 24 hr 50 mg PO BID 30 Days Qty: 180 0RF Rx Instructions: 25mg 3 x day Diet/Activity/Treatments Diet: Diet as Tolerated and Low-sodium Activity: As tolerated Visit Report/Discharge Packet Instructions: DI for Atrial Fibrillation Discharge Data Attending Provider: Rahul Montalvo VTE Deep Vein Thrombosis/Pulmonary Embolism Present on Admission: No
--- NOTE | 2021-06-17 12:39 | OT.IPNOTE ---
Attempted to work with pt for OT eval. Pt insistent that he is fine and that he already got up with PT. Pt not wanting to do OT eval and feels that he is ready to go home. To check on pt tomorrow if still here.
--- NOTE | 2021-06-17 14:38 | CM.IDA ---
Initial DCP Assessment Note Pt is an 86 yo male, resident of [place], presents w/shortness of breath. PMH includes paroxysmal afib, CHFpEF, HTN, and admission recently for CHF and afib with RVR, Parkinsons, COPD, recent left shoulder fx and has been mostly w/c bound in manual w/c at home PCP: None Listed Payer: [facility] Reviewed chart, pt discussed in multidisciplinary rounds this morning. Patient returning home today w/supportive son and night time nanny care givers w/resumption of services. Patient has been cleared for return home by therapy team. Patient receives care from while son is at work; spouse is functionally disabled and not able to assist patient. Patient w/recent shoulder fx and manually wheels himself around his home. Patient and RN Angel deny needs from this UX ARCHITECT today Plan: DC home w/family, critical care transport nurse, and resumption of [facility] Cantu Discharge Planning/Care Management CM Discharge Assessment Start: 06/17/21 14:32 Freq: Status: Active Protocol: Document 06/17/21 14:32 JADYN (Rec: 06/17/21 14:38 JADYN [email or web address]) Discharge Planning Assessment Assigned Grants Specialist AUDIE Avitia DPOA/Assigned Designee Name Samira Calhoun, spouse Contact Information [phone] Advance Directives? Yes: Cardiopulmonary Resuscitation (CPR) Advance Directive Advance Directives on File No History Provided By Patient,Family Member,Medical Record Prior Living Arrangements House Household Members spouse,children,caregiver Type of transporation used prior to Relies on Others admit Independent with ADL's No Is patient alert and oriented? Yes Needs Assistance With Bathing,Grooming,Meal Prep, Managing Medications,Home Chores / Shopping Comment Patient has been self- propelling in WC due to his fractured humerus, too difficult to use a FWW. Patient/Family Preference Home with Home Health Comment Patient has support system at home with caregivers in place, julieta FRANCIS aware of DC today, resume Discharge Plan Home with Home Health Transportation Arrangement Family Referrals Initiated Other Additional Comment Resumption of [facility] If patient plan is home with home health No: Patient is already on home : Has signed face to face form been health services completed?
== END 2021-06-17 14:00 | disposition home or self-care (01) ==
LOC: ED 17:02 → AC 17:25
PROVIDERS: Admitting Provider Internal Medicine; Emergency Provider Emergency Medicine; Referring Provider Emergency Medicine; Visit Provider Internal Medicine
DX: R77.8 Other specified abnormalities of plasma proteins (principal); I48.0 Paroxysmal atrial fibrillation; I50.22 Chronic systolic (congestive) heart failure; I11.0 Hypertensive heart disease with heart failure; G20 Parkinson's disease; J44.9 Chronic obstructive pulmonary disease, unspecified; Z79.01 Long term (current) use of anticoagulants; Z20.822 Contact with and (suspected) exposure to COVID-19
CPT/HCPCS: 36415; 71045; 80053; 80162; 81001; 82550; 83605; 83735; 83880; 84484; 85025; 85610; 85730; 87070; 87205; 87635; 93005; 93010; 93307; 94760; 96374; 97116; 97162; 99283; 99284; C9803; G0378; J2405